=== PATIENT | female | born 1955 | race Caucasian/White ===

== ENCOUNTER 2019-09-22 05:38 | Outpatient (RCR) | payer MEDICARE, SELFPAY | END 2019-10-18 00:01 | LOC: ONCRAD 05:38 | PROVIDERS: Family Provider Nurse Practitioner; Visit Provider Internal Medicine Medical Oncology | DX: Z51.0 Encounter for antineoplastic radiation therapy (principal); C53.8 Malignant neoplasm of overlapping sites of cervix uteri; D69.6 Thrombocytopenia, unspecified; N39.0 Urinary tract infection, site not specified; D70.1 Agranulocytosis secondary to cancer chemotherapy; T45.1X5A Adverse effect of antineoplastic and immunosuppressive drugs, initial encounter; R33.9 Retention of urine, unspecified; D50.8 Other iron deficiency anemias; K59.00 Constipation, unspecified | CPT/HCPCS: 77336; 77386 ×4; 80053; 81001; 85025; 87077; 87086 ×2; 87186; 96365; 96366; J1642; J3475; J7050 ==

== ENCOUNTER 2019-11-07 06:43 | Outpatient (RCR) | payer MEDICARE, SELFPAY | END 2019-11-18 23:59 | disposition home or self-care (01) | LOC: ONCMED 06:43 | PROVIDERS: Family Provider Nurse Practitioner; PCP Nurse Practitioner; Visit Provider Internal Medicine Medical Oncology | DX: Z53.9 Procedure and treatment not carried out, unspecified reason (principal); C53.8 Malignant neoplasm of overlapping sites of cervix uteri; D69.59 Other secondary thrombocytopenia; Z79.82 Long term (current) use of aspirin; Z92.3 Personal history of irradiation ==

== ENCOUNTER → 2019-11-16 13:06 | Outpatient (BNVA) | payer MEDICARE, SELFPAY | PROVIDERS: Family Provider Nurse Practitioner; PCP Nurse Practitioner; Visit Provider Family Medicine | DX: I10 Essential (primary) hypertension (principal); G25.81 Restless legs syndrome; E03.8 Other specified hypothyroidism; J30.2 Other seasonal allergic rhinitis | CPT/HCPCS: 80053; 80061; 84443; 85025 ==

== ENCOUNTER 2019-12-09 05:48 | Outpatient (RCR) | payer MEDICARE, SELFPAY ==
[2019-11-30 13:20] LABS: Basophils % 0.4 %; Eosinophils # 0.2 10^3/uL (0.0-0.8); Eosinophils % 4.6 %; Hematocrit 32.3 % (37.0-47.0); Hemoglobin 10.2 g/dL (11.5-15.3); Lymphocytes # 0.7 10^3/uL (0.8-4.8); Lymphocytes % 14.7 %; Mean Corpuscular HGB Conc 31.6 g/dL (30.0-36.0); Mean Corpuscular Hemoglobin 29.8 pg (28.0-34.0); Mean Corpuscular Volume 94.4 fL (81-99); Mean Platelet Volume 9.7 fL (7.4-10.4); Monocytes # 0.4 10^3/uL (0.2-0.9); Monocytes % 9.7 %; Neutrophils # 3.2 10^3/uL (1.8-7.7); Neutrophils % 70.4 %; Nucleated Red Blood Cells % 0 %; Platelet Count 173 10^3/cmm (130-400); Red Blood Count 3.42 10^6/uL (4.1-5.3); Red Cell Distribution Width 16.1 % (12.1-15.1); White Blood Count 4.6 10^3/uL (4.0-10.0)
[2019-11-30 14:01] LABS: Add Urine Microscopic? YES; Bilirubin Urine Neg (NEGATIVE); Blood Urine 2+ (Negative); Glucose Urine UA Norm (Normal); Ketones Urine Negative (Negative); Leukocyte Esterase Urine Trace (Negative); Nitrate Urine Negative (Negative); Protein Urine Neg (Negative); Urine Appearance SL Hazy (CLEAR); Urine Color Yellow (Yellow); Urobilinogen Urine Norm (Negative); pH Urine 5 (5-7)
[2019-11-30 14:02] LABS: Alanine Aminotransferase 14 U/L (0-33); Albumin Level 3.8 g/dL (3.5-5.2); Alkaline Phosphatase 106 IU/L (35-105); Anion Gap 13.9 (5-19); Aspartate Amino Transferase 21 U/L (0-32); Blood Urea Nitrogen 16 mg/dL (8-23); Calcium 9.3 mg/dL (8.5-10.5); Carbon Dioxide 24 mmol/L (22-29); Chloride 106 mmol/L (98-107); Glomerular Filtration Rate 71.8 mL/min (90-130); Glucose 107 mg/dL (65-115); Potassium 3.9 mmol/L (3.5-5.1); Sodium 140 mmol/L (136-145); Total Bilirubin 0.3 mg/dL (0.15-1.2); Total Protein 7.8 g/dL (6.6-8.7)
[2019-11-30 14:05] LABS: Add Urine Culture? Yes; Bacteria Urine TRACE; Squamous Epithelial Cell Urine 0-4 (0-5)
--- NOTE | 2019-12-01 07:16 | ONC FU_ITS ---
Dr. Warner Patient Follow-Up Note Patient: Dionne Fitzgerald Unit #: [id number]: 1955 Dicatated By: Homar Warner M.D.Date of Visit:Nov 30, 2019 Onc Med Follow-up/Prog Note Chief Complaint: Cervical cancer. 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 By clinical evaluation her stage is at least IB2 (T1b2, N0, M0). She had presented with a 3-month history of intermittent vaginal bleeding. Her transvaginal ultrasound on 07/05/2019 showed marked thickening and decreased echogenicity and hypervascularity throughout the cervix. It was noted to be lobulated and enlarged, consistent with cervical carcinoma. The cervix appeared grossly abnormal on exam. Pap smear was attempted at that time was problematic due to the increased bleeding. Biopsy, though, did show undifferentiated carcinoma. She was referred to Dr. Zamorano in [place]. Her staging MRI of the pelvis on 07/21/2019 showed cervical mass which was noted to be possibly going into the uterus in its inferior anterior aspect. There was local surrounding enhancement suggestive of local infiltration and there was an enlarged iliac chain lymph node on the right side. Staging PET/CT on 07/22/2019 showed primary tumor mass involving the cervix with evidence of local spread to a right common iliac lymph node. Subcentimeter pulmonary nodules were FDG negative and nonspecific, but metastatic disease was not excluded. There was no other evidence of metastatic involvement. On 07/25/2019 she underwent exam under anesthesia and placement of Port-A-Cath venous access device. A repeat cervical biopsy at that time showed invasive poorly differentiated squamous cell carcinoma. She was recommended to undergo primary chemoradiation utilizing weekly cisplatin for chemosensitization. Her other medical illnesses include hypertension, hypothyroidism, COPD, and vitamin D deficiency. She has a history of treated hepatitis C. She also has a history of colonic polyps. She has a history of smoking 1 pack of cigarettes daily for approximately 20 years. She recently quit. INTERIM HISTORY: She began her radiation concurrently with weekly cisplatin on 08/10/2019. She completed the radiation on 09/22/2019 to a total dose of 6000 cGy. She tolerated the treatment pretty well, though her 6th weekly cisplatin infusion was held due to neutropenia and fatigue. She then underwent LDR brachytherapy with Ce-137 implants on 10/18/2019 and again on 10/31/2019. She tolerated it well. She is seen for a follow-up visit. She is feeling pretty good generally, though at times she is fatigued. Her ECOG score is 1. She has good appetite. She has no fever, night sweats, or hot flashes. She says she has been fighting a cold for 2 weeks, and she continues to have productive cough, shortness of breath, and some wheezing. She also has had some sinus drainage and sore throat. She has had occasional episodes of sharp pain in the substernal or left precordial area. She has had dark stools on her iron supplement. She has no complaints with bladder function. She has had some vaginal discharge now and then. She has had no vaginal bleeding. She complains of her joints are achy. She does not complain of headache. She sometimes has dizziness. She has numbness in her hands and feet which comes and goes. Medications: Aspirin Childrens 1 Tablet (of 81 mg) Tablet, chewable Oral daily, Levothyroxine Sodium 1 Tablet (of 75 mcg) Oral daily, Magnesium Oxide 1 Capsule (of 400 mg) Oral b.i.d., Metoprolol Tartrate 1 Tablet (of 25 mg) Oral daily Allergies: Gabapentin and Lyrica. Review of Systems: Constitutional - Her energy is generally pretty good. Her appetite is fair and her weight is stable. No fever, chills, hot flashes, or night sweats. ECOG score is 1, ENMT - She has sinus congestion/drainage. No mouth sores. No sore throat or difficulty swallowing, Hematologic/Lymphatic - No abnormal bruising or bleeding, Respiratory - She has shortness of breath upon exertion. She has a nonproductive cough. No pleuritic pain or hemoptysis, Cardiovascular - She has occasional sharp chest pains. No palpitations, Gastrointestinal - No nausea or vomiting. She has heartburn. No diarrhea or constipation. She has thick, black bowel movements, Genitourinary (F) - No dysuria or hematuria. No urinary frequency. No urgency or incontinence, Musculoskeletal - No joint or bone pain, Integumentary - No skin complications, Neurologic - No headache or dizziness. She has numbness and tingling in her hands and feet that comes and goes, Psychiatric - No anxiety or depression. No insomnia. Vital Signs: Performed on Nov 30, 2019 13:29 Height - 67.00 in Weight - 179.6 lbs (HIGH) BSA - 1.93 sq.m BMI - 28.13 Temperature - 97.6 F (LOW) Pulse - 71 /min Respiration - 20 /min BP - 145/79 mm(hg) (HIGH) O2 Sat - 97 % Pain - 0 Physical Examination: Constitutional - She looks pretty good generally, Eyes - Sclerae nonicteric. Conjunctivae clear, ENMT - No lesions noted in the oral cavity, Hematologic/Lymphatic - No cervical, clavicular, or axillary adenopathy, Respiratory - There are some coarse rales/rhonchi in the right lung field. The left lung sounds clear, Cardiovascular - Heart rhythm is regular. There is no murmur, gallop, or rub noted, Abdomen - Soft. Liver and spleen are not enlarged. There is no abdominal mass or ascites noted and there is no inguinal adenopathy, Extremities - No edema, Integumentary - She had no significant skin reaction to the radiation, Neurologic - No focal neurologic deficits noted. Lab/Imaging: Test performed on Nov 30, 2019 12:30 Sodium 140 mmol/L Potassium 3.9 mmol/L Chloride 106 mmol/L CO2 24 mmol/L Anion Gap 13.9 BUN 16 mg/dL Creatinine 0.8 mg/dL Cr Clearance (Est) 91.3400 mL/min eGFR 71.8 mL/min Glucose 107 mg/dL Calcium 9.3 mg/dL Protein, Total 7.8 g/dL Albumin 3.8 g/dL Globulin 4.0 g/dL Bilirubin, Total 0.3 mg/dL ALT (SGPT) 14 U/L AST (SGOT) 21 U/L Alkaline Phosphatase 106 IU/L WBC 4.6 10 3/uL RBC 3.42 10 6/uL HGB 10.2 g/dL HCT 32.3 % MCV 94.4 fL MCH 29.8 pg MCHC 31.6 g/dL RDW 16.1 % Platelet Count 173 10 3/cmm MPV 9.7 fL Neutrophils 3.2 10 3/uL Lymphocytes 0.7 10 3/uL Monocytes 0.4 10 3/uL Eosinophils 0.2 10 3/uL Basophils 0.0 10 3/uL Neutrophil % 70.4 % Lymphocyte % 14.7 % Monocyte % 9.7 % Eosinophil % 4.6 % Basophils % 0.4 % Impression: 1. 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 By clinical evaluation her disease appeared to be at least stage IB2 (T1b2, N1, M0). 2. She was mildly anemic, and her serum iron studies were consistent with iron deficiency. Her other medical illnesses include: 3. Hypertension. 4. Hypothyroidism. 5. COPD. 6. She has a history of treated hepatitis C. 7. Vitamin D deficiency. 8. She has a history of colonic polyps. She underwent primary chemoradiation utilizing weekly cisplatin chemotherapy. Her treatment began on 08/10/2019. She completed radiation on 09/22/2019 to a total dose of 6000 cGy. She tolerated the treatment well other than her sixth weekly cisplatin infusion was held due to neutropenia and fatigue. She then underwent LDR brachytherapy with Ce-137 implants on 10/18/2019 and on 10/31/2019. Overall, she tolerated the treatment well, though at this point she still has some fatigue and she is still mildly anemic. She has not yet been evaluated for response. Plan: She has completed her primary therapy. I will contact Dr. Zamorano's office in regard to scheduling her restaging PET/CT and a followup visit there. If she has evidence of complete response anticipate seeing her for a follow-up visit here in 3 months. Signed By: Homar Warner M.D. <<Signature on File>>
--- NOTE | 2019-12-08 09:34 | CT_ITS ---
WS: [id number] CT ABDOMEN PELVIS TECHNIQUE: Contrast-enhanced CT of the abdomen and pelvis with coronal and sagittal reformatted image s. CLINICAL INFORMATION: CERVICAL CANCER COMPARISON: 6 ,016 DLP: 956.[address] scans at [facility] use at least one of these dose optimization techniques: automat ed exposure control; mA and/or kV adjustment per patient size (includes targeted exams where dose is matched to clinical indication); or iterative reconstruction. FINDINGS: Liver is normal. Cholecystectomy clips. Spleen is normal. Adrenal glands are normal. Normal renal par enchymal enhancement. Small right lower pole renal cyst measuring 11 mm. Lung bases are well aerated. Normal caliber abdominal aorta. Small esophageal hiatal hernia. No adenopathy in the abdomen or pelv is. No evidence of small or large bowel obstruction. No pelvic or inguinal lymphadenopathy. Incidenta l fat-containing umbilical hernia. No evidence of metastatic disease in the abdomen or pelvis. Mild aortic calcification. Diffuse uterin e myometrium enhancement likely due to treatment-related changes. Possible fibroid near the uterine f undus measuring 9 mm. This can be further evaluated with ultrasound. CT/CT abdomen pelvis w con* [id number] IMPRESSION: 1. No evidence of metastatic disease in the abdomen or pelvis. 2. Moderate diffuse uterine myometrium enhancement likely due to therapy-relat ed changes. 3. Low-attenuation 9 mm lesion in the fundal myometrium may represent small fi broid. This can be followed up with ultrasound. 4. Prior cholecystectomy. 5. 11 mm right renal cyst.
[2019-12-08 10:30] LABS: Blood Urea Nitrogen 12 mg/dL (8-23); Glomerular Filtration Rate 71.8 mL/min (90-130)
[2019-12-08] MEDS: iohexol 300 mg/mL 100 mL Btl IV (11:02)
[2019-12-08] MEDS: iohexol 300 mg/mL 50 mL Btl PO (11:28)
--- NOTE | 2019-12-09 15:43 | ONCRAD EPV_ITS ---
Radiation Oncology Established Patient Visit Patient: Carly MR#: [id number] : 1955> Age: 64> Sex: Female> Dictated by: Dr. Mauro Aviles Date of Service: 12/09/2019 Referring Physician(s) : Dr. Emeterio Zamorano Diagnosis: T45.1X5A - Adverse effect of antineoplastic and immunosuppressive drugs, initial encounter, Diagnosed 09/19/2019 (Active) D69.59 - Other secondary thrombocytopenia, Diagnosed 09/19/2019 (Active) D50.8 - Other iron deficiency anemias, Diagnosed 08/17/2019 (Active) C53.8 - Malignant neoplasm of overlapping sites of cervix uteri, Diagnosed 07/25/2019 (Active) Stage IIIC1, T1b2, N1, M0 Chief Complaint / History of Present Illness: The patient is a 63 year old woman recently diagnosed with FIGO stage IIIC1 (T1b2, N1, M0) poorly differentiated squamous cell carcinoma of the cervix. She received external beam radiotherapy to a total dose of 60Gy followed by T&O brachytherapy completed on 10/31/2019. She notes some clear watery vaginal discharge, mild fatigue and poor appetite but denies pelvic pain, vaginal bleeding, dysuria, urgency, rectal irritation or bleeding. She underwent a CT of abdomen and pelvis on December 08, 2019 which showed no evidence of metastatic disease in the abdomen or pelvis. Current Medications: Aloxi, aspirin Childrens, cISplatin, dexamethasone Sodium Phosphate, emend, flucelvax, furosemide, levoFLOXacin, levothyroxine Sodium, lidocaine-Prilocaine, magnesium Oxide, magnesium Sulfate, metoprolol Tartrate, potassium Chloride, prochlorperazine Maleate. Allergies: Gabapentin and Lyrica. Current Complaints / Review of Systems: Constitutional - Complains of lack of appetite due to food not tasting too good. Complains of mild fatigue. Denies fever and night sweats. Eyes - Denies blurred vision. ENMT - Complains of altered taste. Denies dysphagia, ear pain, mouth dryness, stomatitis and tinnitus. Neck - Denies neck pain. Integumentary - Denies rash. Breasts - Denies pain. Cardiovascular - Denies arrhythmias, chest pain and edema. Respiratory - Complains of a moderate cough which is non-productive. Complains of wheezing. Denies dyspnea and hemoptysis. Gastrointestinal - Complains of abdominal pain that is intermittent located in the right upper quadrant. Denies constipation, diarrhea, heartburn / dyspepsia, melena / GI bleeding, nausea and vomiting. No rectal bleeding or irritation. Genitourinary (F) - Complains of nocturia occasionally. Complains of vaginal discharge / bleeding described as clear, watery. Denies dysuria, frequency, urgency and vaginal spotting. Musculoskeletal - Complains of joint pain in the lower back. Denies bone pain and muscle weakness. Neurologic - Complains of headaches occasionally. Denies dizziness. Endocrine - Complains of thyroid disease. Denies diabetes. Hematologic/Lymphatic - Denies tender or enlarged lymph nodes. Vital Signs: Performed on 12/09/2019 10:17 AM BMI - 27.66 kg/m2 (high), Height - 67.00 in, Weight - 176.6 lbs, Temperature - 98.0 f, Pulse - 67, Respiration - 18, O2 Sat - 99 %, Pain - 2 and BP - 125/ 82 mm(hg). Physical Exam: General: Alert and oriented x 3. No acute distress. HEENT: Normocephalic, atraumatic. Extraocular Movements Intact: Pupils Equal, Round, Reactive to Light and Accommodation: Sclerae anicteric. Oral cavity is clear without lesions, masses or ulcers. NECK: Supple without supraclavicular or jugular lymphadenopathy. LUNGS: Clear to auscultation bilaterally without rales, rhonchi or wheeze. HEART: Regular rate and rhythm, normal S1 and S2 without murmur, gallop or rub. MUSCULOSKELETAL: No tenderness or percussion pain over the axial skeleton, scapulae or pelvis. ABDOMEN: Soft, nontender, nondistended without masses or organomegaly. Bowel sounds are present. EXTREMITIES: No peripheral edema is identified. Limited motor and sensory examination are grossly intact and symmetric bilaterally. NEUROLOGIC: Cranial nerves II ???XII are grossly intact. Normal sensation, strength 5/5 in all extremities, normal gait, no ataxia. Performance Status: 1 - No physically strenuous activity, but ambulatory and able to carry out light or sedentary work (e.g. office work, light house work). (ECOG) Lab: Test performed on 11/30/2019 12:30 PM RBC - 3.42 10 6/ul (low), HGB - 10.2 g/dl (low), HCT - 32.3 % (low), RDW - 16.1 % (high), Lymphocytes - 0.7 10 3/ul (low), eGFR - 71.8 ml/min (low) and Alkaline Phosphatase - 106 iu/l (high). Pathology: poorly differentiated squamous cell carcinoma of the cervix Imaging: See HPI Impression/plan: The patient has recovered well from RT. there is no clinical evidence of recurrence or metastatic disease. The patient will continue to follow-up with [facility]. I will order a PET/CT in early February 2020 and the patient will follow up with me afterwards. Signed by: 12/09/2019 3:43:05 PM <<Signature on File>> CPT Code: CPT Code: Signed By: Dr. Mauro Aviles, 12/09/2019 3:43:06 PM <<Signature on File>>
== END 2019-12-17 23:59 | disposition home or self-care (01) ==
LOC: ONCMED 05:48
PROVIDERS: Family Provider Nurse Practitioner; PCP Nurse Practitioner; Visit Provider Internal Medicine Medical Oncology
DX: C53.8 Malignant neoplasm of overlapping sites of cervix uteri (principal); C77.5 Secondary and unspecified malignant neoplasm of intrapelvic lymph nodes; I10 Essential (primary) hypertension; E03.9 Hypothyroidism, unspecified; J44.9 Chronic obstructive pulmonary disease, unspecified; E55.9 Vitamin D deficiency, unspecified; D50.9 Iron deficiency anemia, unspecified; Z79.82 Long term (current) use of aspirin; Z87.440 Personal history of urinary (tract) infections; Z87.891 Personal history of nicotine dependence; Z86.19 Personal history of other infectious and parasitic diseases; Z92.3 Personal history of irradiation
CPT/HCPCS: 36415; 36591; 74177; 80053; 81001; 82565; 84520; 85025; 87086; 99213; 99214; Q9967

== ENCOUNTER 2020-01-16 06:30 | Outpatient (RCR) | payer MEDICARE, SELFPAY ==
[2019-12-26] MEDS: sodium chloride 0.9% 250 ML 75 ML IV (08:43)
[2019-12-26] MEDS: sodium chloride 0.9% 250 ML 999 ML IV (08:43)
[2019-12-26 08:58] LABS: Hematocrit 35.5 % (37.0-47.0); Hemoglobin 11.1 g/dL (11.5-15.3); Lymphocytes # 0.4 10^3/uL (0.8-4.8); Lymphocytes % 4.6 %; Mean Corpuscular HGB Conc 31.3 g/dL (30.0-36.0); Mean Corpuscular Hemoglobin 29.4 pg (28.0-34.0); Mean Corpuscular Volume 93.9 fL (81-99); Mean Platelet Volume 9.6 fL (7.4-10.4); Monocytes # 0.1 10^3/uL (0.2-0.9); Neutrophils # 7.5 10^3/uL (1.8-7.7); Neutrophils % 93.8 %; Nucleated Red Blood Cells % 0 %; Platelet Count 172 10^3/cmm (130-400); Red Blood Count 3.78 10^6/uL (4.1-5.3); Red Cell Distribution Width 12.9 % (12.1-15.1)
[2019-12-26 09:11] LABS: Alanine Aminotransferase 11 U/L (0-33); Albumin Level 3.8 g/dL (3.5-5.2); Alkaline Phosphatase 104 IU/L (35-105); Anion Gap 15.9 (5-19); Aspartate Amino Transferase 16 U/L (0-32); Blood Urea Nitrogen 14 mg/dL (8-23); Calcium 9.5 mg/dL (8.5-10.5); Carbon Dioxide 20 mmol/L (22-29); Chloride 109 mmol/L (98-107); Globulin 3.9 g/dL (1.3-4.6); Glomerular Filtration Rate 83.7 mL/min (90-130); Glucose 227 mg/dL (65-115); Osmolality Calculated 295 mOsm/kg (285-295); Potassium 3.9 mmol/L (3.5-5.1); Sodium 141 mmol/L (136-145); Total Bilirubin 0.2 mg/dL (0.15-1.2); Total Protein 7.7 g/dL (6.6-8.7)
[2019-12-26 14:33] LABS: Protein Urine Neg (Negative); Urine Appearance Clear (CLEAR); Urine Color Yellow (Yellow); pH Urine 5 (5-7)
[2019-12-26 14:34] LABS: Add Urine Microscopic? YES; Bilirubin Urine Neg (NEGATIVE); Blood Urine 2+ (Negative); Glucose Urine UA Norm (Normal); Ketones Urine Negative (Negative); Leukocyte Esterase Urine Trace (Negative); Nitrate Urine Negative (Negative); Sulfosalicylic Acid Urine Negative; Urobilinogen Urine Norm (Negative)
[2019-12-26 15:21] LABS: Squamous Epithelial Cell Urine 0-4 (0-5); WBC Urine 25-40 /hpf (0-5)
[2019-12-26 15:22] LABS: Add Urine Culture? Yes; Bacteria Urine 1+
[2019-12-26] MEDS: FUROsemide 10 mg/mL SDV 2mL 20 MG IV ×2 (17:02→17:10)
[2019-12-26] MEDS: sodium chlor 0.9% + KCl 20 mEq 20 MEQ/1,000 ML BAG 500 MEQ IV (17:05)
[2019-12-26] MEDS: pegfilgrastim 6 mg/0.6 mL Kit (onpro) SUBCUT ×2 (17:10)
--- NOTE | 2019-12-26 20:49 | ONC FU_ITS ---
[facility] Patient Note Patient: Dionne Fitzgerald Unit #: [id number]: [id number] Dictated By: Andriy BeckettDate of Visit: Dec 26, 2019 Onc MED Follow-Up/Prog Note Chief Complaint: Cervical cancer. 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 By clinical evaluation her stage is at least IB2 (T1b2, N0, M0). She had presented with a 3-month history of intermittent vaginal bleeding. Her transvaginal ultrasound on 07/05/2019 showed marked thickening and decreased echogenicity and hypervascularity throughout the cervix. It was noted to be lobulated and enlarged, consistent with cervical carcinoma. The cervix appeared grossly abnormal on exam. Pap smear was attempted at that time was problematic due to the increased bleeding. Biopsy, though, did show undifferentiated carcinoma. She was referred to Dr. Zamorano in [place]. Her staging MRI of the pelvis on 07/21/2019 showed cervical mass which was noted to be possibly going into the uterus in its inferior anterior aspect. There was local surrounding enhancement suggestive of local infiltration and there was an enlarged iliac chain lymph node on the right side. Staging PET/CT on 07/22/2019 showed primary tumor mass involving the cervix with evidence of local spread to a right common iliac lymph node. Subcentimeter pulmonary nodules were FDG negative and nonspecific, but metastatic disease was not excluded. There was no other evidence of metastatic involvement. On 07/25/2019 she underwent exam under anesthesia and placement of Port-A-Cath venous access device. A repeat cervical biopsy at that time showed invasive poorly differentiated squamous cell carcinoma. She was recommended to undergo primary chemoradiation utilizing weekly cisplatin for chemosensitization. Her other medical illnesses include hypertension, hypothyroidism, COPD, and vitamin D deficiency. She has a history of treated hepatitis C. She also has a history of colonic polyps. She has a history of smoking 1 pack of cigarettes daily for approximately 20 years. She recently quit. INTERIM HISTORY: She began her radiation and she received her week 1 infusion of cisplatin on 08/10/2019. She tolerated the chemotherapy without acute toxicity. She underwent primary chemoradiation utilizing weekly cisplatin chemotherapy. Her treatment began on 08/10/2019. She completed radiation on 09/22/2019 to a total dose of 6000 cGy. She tolerated the treatment well other than her sixth weekly cisplatin infusion was held due to neutropenia and fatigue. She then underwent LDR brachytherapy with Ce-137 implants on 10/18/2019 and on 10/31/2019. Ms. Fitzgerald has been advised per Dr. Powell to proceed with continuation of the cisplatin with addition of Taxol and Avastin every 3 weeks for 6 cycles. She also need Neulasta support. She is here today to start her first cycle. She has no new concerns. She states overall she is doing well. She states she is had a chronic cough but is able to cough anything up. She states at times he feels like there is congestion there and other times it is clear. The cough is no worse than her normal but is not any better either. She has not tried any Mucinex to help thin the sputum to see if she can get it up. She also had follow-up UA which indicates she continues to have bacteria in her urine. She is symptomatic and that she is having frequency and burning. She denies any fever or chills. She denies any nausea or vomiting. She states her energy is good and her appetite is good. She denies any new pain. She is had no vaginal bleeding. She denies any lower extremity edema. Her ECOG is 1. Past Medical History: Chronic obstructive pulmonary disease History of colonic polyps History of hepatitis C, treated in 2017 Hypertension Hypothyroidism Vitamin D deficiency Past Surgical History: Diagnostic laparoscopy Flu vaccine 2019 in 2019 Placement of Port-A-Cath venous access device in 2019 Cholecystectomy in 2018 Colonoscopy in 2016 Allergies: Gabapentin and Lyrica. Medications: Aspirin Childrens 1 Tablet (of 81 mg) Tablet, chewable Oral daily Dexamethasone (4 mg) Tablet Oral Take as Directed Irbesartan 1 (300 mg) Tablet Oral daily Levothyroxine Sodium 1 Tablet (of 75 mcg) Oral daily Magnesium Oxide 1 Capsule (of 400 mg) Oral b.i.d. Metoprolol Tartrate 1 Tablet (of 25 mg) Oral daily Family History: Ms. Fitzgerald's mother is alive. Ms. Fitzgerald's father at age 87. Ms. Fitzgerald has 1 brother who is alive. Father at age 87 with multiple myeloma. Mother is still living at age 85 and she is in pretty good health. A brother has been getting phlebotomies for polycythemia. It is uncertain whether this is PRV or secondary polycythemia. Social History: Ms. Fitzgerald is and she is unemployed. Ms. Fitzgerald quit smoking less than one year ago but had smoked 1.0 pack/day for 20 years. She has no history of drinking. She has a history of smoking 1 pack of cigarettes daily for approximately 20 years. She recently quit smoking. She does not drink alcohol. Review Of Symptoms: Constitutional Denies fevers, chills, night sweats, excessive fatigue or weight loss. Allergic/Immunologic No reactions. Eyes Denies significant visual changes. No diplopia. No amaurosis. ENMT Denies changes in hearing, sore throat, mouth sores, difficulty or changes in swallowing ability, and/or sinus drainage. Endocrine No diabetes, thyroid disease or hormone replacement. Denies hot flashes or night sweats. Hematologic/Lymphatic Denies easy bruising or bleeding. The patient denies any tender or palpable lymph nodes. Respiratory Denies dyspnea on exertion, chest pain, cough or hemoptysis. Denies orthopnea. Has had chronic chest congestion but unable to cough anything up. No wheezing. Cardiovascular Denies anginal chest pain, palpitations or orthopnea. Gastrointestinal Denies nausea, vomiting, diarrhea, GI bleeding, or constipation. Denies change in bowel habits and/or stool color, no heartburn or early satiety. Genitourinary (F) No hematuria, hesitancy, incontinence, vaginal bleeding, discharge or other problems with urination. Musculoskeletal Denies joint pain, swelling or redness. No decreased range of motion. Integumentary Denies chronic rashes, inflammation, ulcerations or skin changes. Neurologic Denies headache, blurred vision, and no areas of focal weakness or numbness. Normal gait. No sensory problems. Psychiatric Denies insomnia, depression, gabe or mood swings. Vital Signs: Performed on Dec 26, 2019 10:27 Height - 67.00 in Weight - 180.0 lbs (HIGH) BSA - 1.93 sq.m BMI - 28.19 Temperature - 98.0 F (LOW) Pulse - 78 /min Respiration - 24 /min BP - 131/79 mm(hg) O2 Sat - 95 % (LOW) Pain - 0,1 - No physically strenuous activity, but ambulatory and able to carry out light or sedentary work (e.g. office work, light house work). (ECOG) Physical Examination: Constitutional Alert, oriented, no acute distress. Skin pink, warm and dry. Head Normocephalic; atraumatic. Eyes Conjunctivae and sclerae are clear and without icterus. Pupils are reactive and equal. Neck Supple without masses or thyromegaly. No jugular venous distension. Hematologic/Lymphatic No petechiae or purpura. No tender or palpable lymph nodes in the cervical or supraclavicular areas. Respiratory Lungs are clear to auscultation without rhonchi or wheezing. Raspy prior to non productive cough, then clear Cardiovascular Regular rate and rhythm of heart without murmurs,clicks, gallops or rubs. Back/Spine Non-tender to palpation. Extremities No visible deformities, no cyanosis, clubbing or edema. Musculoskeletal No tenderness or swelling, normal range of motion without obvious weakness. Integumentary No rashes or lesions. Neurologic No sensory or motor deficits, normal cerebellar function, normal gait. Psychiatric Alert and oriented times three. Coherent speech. Verbalizes understanding of our discussions today. Laboratory:Test performed on Dec 26, 2019 14:00 Ua Micro: WBC 25-40 /hpf Ua Micro: RBC 10-15 /hpf Ua Micro: Squam Epith Cells 0-4 Ua Micro: Bacteria 1+ Test performed on Dec 26, 2019 08:31 Sodium 141 mmol/L Potassium 3.9 mmol/L Chloride 109 mmol/L CO2 20 mmol/L Anion Gap 15.9 BUN 14 mg/dL Creatinine 0.7 mg/dL Cr Clearance (Est) 99.9700 mL/min eGFR 83.7 mL/min Glucose 227 mg/dL Calcium 9.5 mg/dL Protein, Total 7.7 g/dL Albumin 3.8 g/dL Globulin 3.9 g/dL Bilirubin, Total 0.2 mg/dL ALT (SGPT) 11 U/L AST (SGOT) 16 U/L Alkaline Phosphatase 104 IU/L WBC 8.0 10 3/uL RBC 3.78 10 6/uL HGB 11.1 g/dL HCT 35.5 % MCV 93.9 fL MCH 29.4 pg MCHC 31.3 g/dL RDW 12.9 % Platelet Count 172 10 3/cmm MPV 9.6 fL Neutrophils 7.5 10 3/uL Lymphocytes 0.4 10 3/uL Monocytes 0.1 10 3/uL Eosinophils 0.0 10 3/uL Basophils 0.0 10 3/uL Neutrophil % 93.8 % Lymphocyte % 4.6 % Monocyte % 1.0 % Eosinophil % 0.0 % Basophils % 0.0 % Test performed on Sep 19, 2019 10:15 Ua Color YELLOW Ua Appearance CLEAR Ua Glucose NORM Ua Bilirubin NEG Colored urine samples may result in false positive dipstick reactions. Ua Ketones NEG Ua Specific [place] 1.025 Ua Blood 2+ Ua pH 5 Ua Protein NEG Ua Nitrites NEG Ua Leukocyte Esterase NEG Test performed on Sep 07, 2019 11:22 Ferritin 289.0 ng/ml Test performed on Sep 06, 2019 11:22 Iron 93 ug/dL % Iron Saturation 35.9 % UIBC 166 ug/dL Impression: 1. 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 By clinical evaluation her disease appeared to be at least stage IB2 (T1b2, N1, M0). 2. She was mildly anemic, and her serum iron studies were consistent with iron deficiency. Her other medical illnesses include: 3. Hypertension. 4. Hypothyroidism. 5. COPD. 6. She has a history of treated hepatitis C. 7. Vitamin D deficiency. 8. She has a history of colonic polyps. She underwent primary chemoradiation utilizing weekly cisplatin chemotherapy. Her treatment began on 08/10/2019. She completed radiation on 09/22/2019 to a total dose of 6000 cGy. She tolerated the treatment well other than her sixth weekly cisplatin infusion was held due to neutropenia and fatigue. She then underwent LDR brachytherapy with Ce-137 implants on 10/18/2019 and on 10/31/2019. Overall, she tolerated the treatment well. Ms. Fitzgerald did have follow-up with Dr. Zamorano at which time he recommended that she pursue 6 cycles of cisplatin/Taxol/Avastin. She will tentatively have PET CT follow-up in February 2020. Plan: 1. Proceed with cycle 1 cisplatin/Taxol/Avastin every 3 weeks for 6 cycles. She will also have Neulasta support. 2. Steroid premedication compliance confirmed. 3. We will make sure that she has refills of Compazine, ondansetron and Ativan available in the event that she needs them for antiemetics at home. 4. Today's labs were reviewed in detail and discussed with and a copy was given to her WBC 8.0, hemoglobin 11.1, platelets 122,000 ANC is 7500 random glucose was 227 and creatinine is 0.7 LFTs are normal. We will need to watch her glucoses she will check them at home and let us know how they are running over the next week or so. She may need sliding scale insulin while on the steroids. 5. Given her UA symptoms and abnormal urinalysis from today. We will try Levaquin 250 for 5 days. I have also sent a prescription for Mucinex D to see if this will help with congestion. She will be twice daily dosing. 6. She will have weekly interim labs these may be done in home but they would not be through the port. She wants to come in weekly and have her port flush and labs accessed that way that would be fine as well. 7. We will plan to see her back in 3 weeks with CBC, CMP and repeat UA. She will be due for cycle 2 cisplatin, Taxol, Avastin. 8. Ms. Fitzgerald was instructed to contact us in interim should questions or problems arise. 9. The patient and family were informed of chemotherapy plan and specific drugs were discussed. We also discussed how chemotherapy works and identified common side effects including alopecia; myelosuppression-including neutropenia, anemia, bleeding or bruising; skin changes; mouth sores; drug hypersensitivity/allergic reactions or anaphylaxis and extravasation. In regards to the Avastin we discussed potential side effects including infusion reaction, hypertension, proteinuria, hemorrhage fatigue, headache, nausea, diarrhea epistasis amongst others. They have also been informed how to contact the clinic with side effects or symptoms, including but not limited to fever greater than 100.4 degrees, chills, sore throat, bleeding or bruising that is not explained or mouth sores, cough, nasal discharge, diarrhea, constipation, nausea and/or vomiting not relieved with medications on hand at home, as well as any other concern or question they may have. Our hours are 8:00 a.m. to 4:30 p.m. on Thursday through and 8-12:00 on Thursday. However, someone is control chemist 24 hours per day and they have been advised to contact the [facility] at if it is after hours. We have also discussed potential long-term side effects of chemotherapy including secondary cancers, infertility, pulmonary complications, cardiac complications, and again peripheral neuropathy. We have discussed that they certainly need to let us know before taking any antioxidants or herbal or further dietary supplements, as we are unsure of how these agents react with chemotherapy and we request that they avoid these products for now. They were informed that it is okay to take multivitamins at normal doses. They verbally state that they understand to take all medications as directed by their healthcare provider unless otherwise indicated. They also verbalized understanding to leave the pressure dressing on the intravenous administration site for at least two hours after treatment. Instructions for oral care with baking soda and salt water rinses as well as a guide for use of [id number] medication were provided with the treatment plan. They have been given a written patient treatment plan, of which a copy is in the chart, as well as specific drug information. They have no questions and verbalized understanding and are willing to proceed with chemotherapy at this time. The majority of this visit was spent in face to face communication with this patient and/or his/her family in regards to plan of care, side effect identification and management. Signed By: Andriy Beckett-, AOCNP Homar Warner MD <<Signature on File>>
[2020-01-02 16:08] LABS: Urine Appearance Clear (CLEAR); Urine Color Yellow (Yellow)
[2020-01-02 16:09] LABS: Add Urine Microscopic? YES; Bilirubin Urine Neg (NEGATIVE); Blood Urine 3+ (Negative); Glucose Urine UA Norm (Normal); Ketones Urine Negative (Negative); Leukocyte Esterase Urine Negative (Negative); Nitrate Urine Negative (Negative); Protein Urine Neg (Negative); Urobilinogen Urine Norm (Negative); pH Urine 5 (5-7)
[2020-01-02 16:11] LABS: Add Urine Culture? No; Bacteria Urine TRACE; RBC Urine 0-4 /hpf (0-2); Squamous Epithelial Cell Urine RARE (0-5); WBC Urine 0-4 /hpf (0-5)
[2020-01-02 16:19] LABS: Basophils % 0.8 %; Eosinophils # 0.1 10^3/uL (0.0-0.8); Eosinophils % 3.1 %; Hematocrit 33.3 % (37.0-47.0); Hemoglobin 10.6 g/dL (11.5-15.3); Lymphocytes # 0.5 10^3/uL (0.8-4.8); Lymphocytes % 18.9 %; Mean Corpuscular HGB Conc 31.8 g/dL (30.0-36.0); Mean Corpuscular Hemoglobin 30.6 pg (28.0-34.0); Mean Corpuscular Volume 96.2 fL (81-99); Mean Platelet Volume 12.4 fL (7.4-10.4); Monocytes # 0.6 10^3/uL (0.2-0.9); Monocytes % 23.6 %; Neutrophils # 1.3 10^3/uL (1.8-7.7); Nucleated Red Blood Cells % 0.8 %; Platelet Count 51 10^3/cmm (130-400); Red Blood Count 3.46 10^6/uL (4.1-5.3); Red Cell Distribution Width 12.9 % (12.1-15.1); White Blood Count 2.5 10^3/uL (4.0-10.0)
[2020-01-02 17:39] LABS: Alanine Aminotransferase 17 U/L (0-33); Albumin Level 3.8 g/dL (3.5-5.2); Alkaline Phosphatase 114 IU/L (35-105); Anion Gap 13.2 (5-19); Aspartate Amino Transferase 17 U/L (0-32); Blood Urea Nitrogen 14 mg/dL (8-23); Carbon Dioxide 25 mmol/L (22-29); Chloride 108 mmol/L (98-107); Globulin 3.3 g/dL (1.3-4.6); Glomerular Filtration Rate 71.8 mL/min (90-130); Glucose 105 mg/dL (65-115); Osmolality Calculated 291 mOsm/kg (285-295); Potassium 4.2 mmol/L (3.5-5.1); Sodium 142 mmol/L (136-145); Total Bilirubin 0.3 mg/dL (0.15-1.2); Total Protein 7.1 g/dL (6.6-8.7)
[2020-01-02 18:33] LABS: Slide Review Slide Review Perform
[2020-01-09 16:37] LABS: Basophils % 0.4 %; Eosinophils % 0.4 %; Hematocrit 35.6 % (37.0-47.0); Hemoglobin 10.8 g/dL (11.5-15.3); Lymphocytes # 0.7 10^3/uL (0.8-4.8); Lymphocytes % 10.2 %; Mean Corpuscular HGB Conc 30.3 g/dL (30.0-36.0); Mean Corpuscular Volume 98.9 fL (81-99); Mean Platelet Volume 11.5 fL (7.4-10.4); Monocytes # 0.9 10^3/uL (0.2-0.9); Monocytes % 11.9 %; Neutrophils # 5.6 10^3/uL (1.8-7.7); Neutrophils % 76.3 %; Nucleated Red Blood Cells % 0 %; Platelet Count 122 10^3/cmm (130-400); Red Cell Distribution Width 13.6 % (12.1-15.1); White Blood Count 7.3 10^3/uL (4.0-10.0)
[2020-01-09 16:47] LABS: Alanine Aminotransferase 13 U/L (0-33); Albumin Level 3.9 g/dL (3.5-5.2); Alkaline Phosphatase 123 IU/L (35-105); Anion Gap 15.3 (5-19); Aspartate Amino Transferase 17 U/L (0-32); Blood Urea Nitrogen 12 mg/dL (8-23); Calcium 9.4 mg/dL (8.5-10.5); Carbon Dioxide 25 mmol/L (22-29); Chloride 103 mmol/L (98-107); Globulin 3.4 g/dL (1.3-4.6); Glomerular Filtration Rate 62.6 mL/min (90-130); Glucose 87 mg/dL (65-115); Osmolality Calculated 283 mOsm/kg (285-295); Potassium 4.3 mmol/L (3.5-5.1); Sodium 139 mmol/L (136-145); Total Bilirubin 0.2 mg/dL (0.15-1.2); Total Protein 7.3 g/dL (6.6-8.7)
[2020-01-09 17:32] LABS: Iron 36 ug/dL (37-145); Percent Saturation 13.7 % (20-50); Total Iron Binding Capacity 261 mcg/dl; Unsaturated Iron Binding 225 ug/dL (112-347)
[2020-01-09 17:48] LABS: Vitamin B12 1555 pg/mL (232-1245)
[2020-01-16 08:43] LABS: Basophils % 0.1 %; Hematocrit 35.4 % (37.0-47.0); Hemoglobin 11.2 g/dL (11.5-15.3); Lymphocytes # 0.5 10^3/uL (0.8-4.8); Lymphocytes % 5.9 %; Mean Corpuscular HGB Conc 31.6 g/dL (30.0-36.0); Mean Corpuscular Hemoglobin 29.7 pg (28.0-34.0); Mean Corpuscular Volume 93.9 fL (81-99); Mean Platelet Volume 9.7 fL (7.4-10.4); Monocytes # 0.1 10^3/uL (0.2-0.9); Neutrophils # 7.9 10^3/uL (1.8-7.7); Neutrophils % 91.7 %; Nucleated Red Blood Cells % 0 %; Platelet Count 230 10^3/cmm (130-400); Red Blood Count 3.77 10^6/uL (4.1-5.3); Red Cell Distribution Width 13.4 % (12.1-15.1); White Blood Count 8.7 10^3/uL (4.0-10.0)
[2020-01-16 09:06] LABS: Alanine Aminotransferase 8 U/L (0-33); Albumin Level 4.1 g/dL (3.5-5.2); Alkaline Phosphatase 119 IU/L (35-105); Anion Gap 17.1 (5-19); Aspartate Amino Transferase 14 U/L (0-32); Blood Urea Nitrogen 15 mg/dL (8-23); Calcium 9.9 mg/dL (8.5-10.5); Carbon Dioxide 22 mmol/L (22-29); Chloride 105 mmol/L (98-107); Globulin 3.5 g/dL (1.3-4.6); Glomerular Filtration Rate 83.7 mL/min (90-130); Glucose 172 mg/dL (65-115); Osmolality Calculated 290 mOsm/kg (285-295); Potassium 4.1 mmol/L (3.5-5.1); Sodium 140 mmol/L (136-145); Total Bilirubin 0.2 mg/dL (0.15-1.2); Total Protein 7.6 g/dL (6.6-8.7)
[2020-01-16 09:28] LABS: Add Urine Microscopic? YES; Bilirubin Urine Neg (NEGATIVE); Blood Urine 2+ (Negative); Glucose Urine UA Norm (Normal); Ketones Urine Negative (Negative); Leukocyte Esterase Urine 2+ (Negative); Nitrate Urine Negative (Negative); Protein Urine 1+ (Negative); Urine Appearance SL Hazy (CLEAR); Urine Color Yellow (Yellow); Urobilinogen Urine Norm (Negative)
[2020-01-16 09:29] LABS: Squamous Epithelial Cell Urine 0-4 (0-5); WBC Urine 55-80 /hpf (0-5)
[2020-01-16 09:30] LABS: Add Urine Culture? Yes; Bacteria Urine 1+; Mucus Urine TRACE
--- NOTE | 2020-01-19 19:36 | ONC FU_ITS ---
Dr. Warner Patient Follow-Up Note Patient: Dionne Fitzgerald Unit #: [id number]: [id number] Dicatated By: Homar Warner M.D.Date of Visit:Jan 16, 2020 Onc Med Follow-up/Prog Note Chief Complaint: Cervical cancer. 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 By clinical evaluation her stage is at least IB2 (T1b2, N0, M0). She had presented with a 3-month history of intermittent vaginal bleeding. Her transvaginal ultrasound on 07/05/2019 showed marked thickening and decreased echogenicity and hypervascularity throughout the cervix. It was noted to be lobulated and enlarged, consistent with cervical carcinoma. The cervix appeared grossly abnormal on exam. Pap smear was attempted at that time was problematic due to the increased bleeding. Biopsy, though, did show undifferentiated carcinoma. She was referred to Dr. Zamorano in [place]. Her staging MRI of the pelvis on 07/21/2019 showed cervical mass which was noted to be possibly going into the uterus in its inferior anterior aspect. There was local surrounding enhancement suggestive of local infiltration and there was an enlarged iliac chain lymph node on the right side. Staging PET/CT on 07/22/2019 showed primary tumor mass involving the cervix with evidence of local spread to a right common iliac lymph node. Subcentimeter pulmonary nodules were FDG negative and nonspecific, but metastatic disease was not excluded. There was no other evidence of metastatic involvement. On 07/25/2019 she underwent exam under anesthesia and placement of Port-A-Cath venous access device. A repeat cervical biopsy at that time showed invasive poorly differentiated squamous cell carcinoma. She was recommended to undergo primary chemoradiation utilizing weekly cisplatin for chemosensitization. Her other medical illnesses include hypertension, hypothyroidism, COPD, and vitamin D deficiency. She has a history of treated hepatitis C. She also has a history of colonic polyps. She has a history of smoking 1 pack of cigarettes daily for approximately 20 years. She recently quit. INTERIM HISTORY: She began her radiation concurrently with weekly cisplatin on 08/10/2019. She completed the radiation on 09/22/2019 to a total dose of 6000 cGy. She tolerated the treatment pretty well, though her 6th weekly cisplatin infusion was held due to neutropenia and fatigue. She then underwent LDR brachytherapy with Ce-137 implants on 10/18/2019 and again on 10/31/2019. She tolerated it well. Restaging CT of the abdomen/pelvis on 12/08/2019 showed a low-attenuation 9 mm lesion in the fundal myometrium, felt to possibly represent a small fibroid. There was moderate diffuse uterine myometrium enhancement which was felt to be likely due to therapy related changes. There was no evidence of metastatic disease in the abdomen or pelvis. On 12/23/2019 she began cycle 1 of postoperative adjuvant chemotherapy with cisplatin/paclitaxel in combination with Avastin. She is seen for a follow-up visit. She had significant side effects following her initial treatment with cisplatin/paclitaxel/Avastin, including severe weakness/fatigue and neuropathy. At this point her energy is still very low. She is able to do some light work. Her ECOG score is 1. Appetite is so-so. She has lost a little weight. She does not have fever. She occasionally has sweating at night. She has had no mouth sores. She has cough, which is chronic. She does not complain of shortness of breath or chest pain. She had only mild nausea. She initially had constipation, but she is now having a little bit of diarrhea. She is having some burning with urination. She complains of having some pain with the dilator. She has pain in her lower back and legs. She has numbness/tingling in her feet that never goes away, and she also has some tingling in her hands. She complains that she is wobbly. Medications: Aspirin Childrens 1 Tablet (of 81 mg) Tablet, chewable Oral daily, Dexamethasone (4 mg) Tablet Oral Take as Directed, Gabapentin 1 Capsule (of 100 mg) Oral t.i.d., Irbesartan 1 (300 mg) Tablet Oral daily, Levothyroxine Sodium 1 Tablet (of 75 mcg) Oral daily, Magnesium Oxide 1 Capsule (of 400 mg) Oral b.i.d., Metoprolol Tartrate 1 Tablet (of 25 mg) Oral daily Allergies: Gabapentin and Lyrica. Review of Systems: Constitutional - Her energy level is low. She is able to do small amounts of housework. Her appetite is good and weight is down 6 pounds from last visit. No fever, chills and hot flashes. She has had night sweats. ECOG score is 1, ENMT - No sinus congestion/drainage. No mouth sores. No sore throat or difficulty swallowing, Hematologic/Lymphatic - No abnormal bruising or bleeding, Respiratory - No shortness of breath. She has cough. No pleuritic pain or hemoptysis, Cardiovascular - No angina pain. No palpitations, Gastrointestinal - She has intermitten nausea. No vomiting. No heartburn or acid reflux. Her stools are loose. She had some constipation prior to having loose stools. No blood in the stool or black stools, Genitourinary (F) - She has some dysuria. No hematuria. No urinary frequency. No urgency or incontinence. She has pain with usage of vaginal dilater, Musculoskeletal - She has arthritis pain in her lower back and legs, Integumentary - No skin complications, Neurologic - No headache. She has dizziness with positional changes. She has numbness and tingling in her hands and feet that started after her first chemo treatment, Psychiatric - She has some mild anxiety. No depression. No insomnia. Vital Signs: Performed on Jan 16, 2020 09:14 Height - 67.00 in Weight - 174.6 lbs (LOW) BSA - 1.91 sq.m BMI - 27.35 Temperature - 97.2 F (LOW) Pulse - 86 /min Respiration - 24 /min BP - 168/81 mm(hg) (HIGH) O2 Sat - 97 % Pain - 0 Physical Examination: Constitutional - She looks a little bit weak generally, Eyes - Sclerae nonicteric. Conjunctivae clear, ENMT - No lesions noted in the oral cavity, Hematologic/Lymphatic - No cervical, clavicular, or axillary adenopathy, Respiratory - Lungs sound clear, Cardiovascular - Heart rhythm is regular. There is no murmur, gallop, or rub noted, Abdomen - Soft. Liver and spleen are not enlarged. There is no abdominal mass or ascites noted and there is no inguinal adenopathy, Extremities - No edema, Neurologic - No focal neurologic deficits noted. Lab/Imaging: Test performed on Jan 16, 2020 07:20 Sodium 140 mmol/L Potassium 4.1 mmol/L Chloride 105 mmol/L CO2 22 mmol/L Anion Gap 17.1 BUN 15 mg/dL Creatinine 0.7 mg/dL Cr Clearance (Est) 99.9700 mL/min eGFR 83.7 mL/min Glucose 172 mg/dL Calcium 9.9 mg/dL Protein, Total 7.6 g/dL Albumin 4.1 g/dL Globulin 3.5 g/dL Bilirubin, Total 0.2 mg/dL ALT (SGPT) 8 U/L AST (SGOT) 14 U/L Alkaline Phosphatase 119 IU/L WBC 8.7 10 3/uL RBC 3.77 10 6/uL HGB 11.2 g/dL HCT 35.4 % MCV 93.9 fL MCH 29.7 pg MCHC 31.6 g/dL RDW 13.4 % Platelet Count 230 10 3/cmm MPV 9.7 fL Neutrophils 7.9 10 3/uL Lymphocytes 0.5 10 3/uL Monocytes 0.1 10 3/uL Eosinophils 0.0 10 3/uL Basophils 0.0 10 3/uL Neutrophil % 91.7 % Lymphocyte % 5.9 % Monocyte % 1.0 % Eosinophil % 0.0 % Basophils % 0.1 % Impression: 1. 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 By clinical evaluation her disease appeared to be at least stage IB2 (T1b2, N1, M0). 2. She was mildly anemic, and her serum iron studies were consistent with iron deficiency. Her other medical illnesses include: 3. Hypertension. 4. Hypothyroidism. 5. COPD. 6. She has a history of treated hepatitis C. 7. Vitamin D deficiency. 8. She has a history of colonic polyps. She underwent primary chemoradiation utilizing weekly cisplatin chemotherapy. Her treatment began on 08/10/2019. She completed radiation on 09/22/2019 to a total dose of 6000 cGy. She tolerated the treatment well other than her sixth weekly cisplatin infusion was held due to neutropenia and fatigue. She then underwent LDR brachytherapy with Ce-137 implants on 10/18/2019 and on 10/31/2019. Overall, she tolerated the treatment well. Restaging CT of the abdomen/pelvis on 12/08/2019 showed a low-attenuation 9 mm lesion in the fundal myometrium, felt to possibly represent a small fibroid. There was moderate diffuse uterine myometrium enhancement which was felt to be likely due to therapy related changes. There was no evidence of metastatic disease in the abdomen or pelvis. On 12/23/2019 she began cycle 1 of postoperative adjuvant chemotherapy with cisplatin/paclitaxel in combination with Avastin. She developed multiple toxicities following that treatment, the most significant being severe fatigue and neuropathy. Plan: Given the severity of her neuropathy symptoms, I am going to put her further chemotherapy on hold till have had further discussion with Dr. Zamorano. She will tentatively be scheduled for a follow-up visit in 2 weeks. In the meantime, I will check urinalysis and culture. She will have further evaluation with that as indicated. Signed By: Homar Warner M.D. <<Signature on File>>
== END 2020-01-17 23:59 | disposition home or self-care (01) ==
LOC: ONCMED 06:30
PROVIDERS: Nurse Practitioner; Family Provider Nurse Practitioner; PCP Nurse Practitioner; Visit Provider Internal Medicine Medical Oncology
DX: Z51.11 Encounter for antineoplastic chemotherapy (principal); C53.8 Malignant neoplasm of overlapping sites of cervix uteri; C77.5 Secondary and unspecified malignant neoplasm of intrapelvic lymph nodes; D70.1 Agranulocytosis secondary to cancer chemotherapy; G62.0 Drug-induced polyneuropathy; T45.1X5A Adverse effect of antineoplastic and immunosuppressive drugs, initial encounter; I10 Essential (primary) hypertension; E03.9 Hypothyroidism, unspecified; J44.9 Chronic obstructive pulmonary disease, unspecified; E55.9 Vitamin D deficiency, unspecified; D50.9 Iron deficiency anemia, unspecified; Z79.82 Long term (current) use of aspirin; R09.89 Other specified symptoms and signs involving the circulatory and respiratory systems; Z79.899 Other long term (current) drug therapy; Z92.3 Personal history of irradiation; Z87.891 Personal history of nicotine dependence; Z86.19 Personal history of other infectious and parasitic diseases
CPT/HCPCS: 80053; 81001; 82607; 83540; 83550; 85025; 87086; 96365; 96366; 96367; 96372; 96375; 96413; 96415; 96417; 99214; J1100; J1200; J1453; J1940; J2469; J2505; J3475; J3480; J3490; J7030; J7040; J7050; J9035; J9060; J9267

== ENCOUNTER 2020-03-09 08:32 | Outpatient (CLI) | payer MEDICARE, SELFPAY ==
--- NOTE | 2020-03-09 08:34 | US_ITS ---
WS: [id number] ULTRASOUND RENAL TECHNIQUE: Ultrasound examination of both kidneys. CLINICAL INFORMATION: POST RADIATION IMPLANTS, VOIDING DIFFICULTIES COMPARISON: None. FINDINGS: RIGHT: Right kidney is normal in size and appearance. Echogenicity: Normal. Hydronephrosis: None. Perinephric fluid: None. Right kidney measures: 9.8 cm x 4.8 cm x 4.2 cm. LEFT: Left kidney is normal in size and appearance. Echogenicity: Normal. Hydronephrosis: None. Perinephric fluid: None. Left kidney measures: 10.9 cm x 4.3 cm x 4.8 cm. Normal visualized aorta. Normal bladder. US/US renal BI* [id number] IMPRESSION: Normal renal ultrasound
== END 2020-03-09 08:33 | disposition home or self-care (01) ==
LOC: RAD 08:32
PROVIDERS: PCP Family Medicine; Visit Provider Nurse Practitioner
DX: R79.89 Other specified abnormal findings of blood chemistry (principal)
CPT/HCPCS: 76770

== ENCOUNTER 2020-03-16 11:30 | Outpatient (RCR) | payer MEDICARE, SELFPAY ==
[2020-03-01 09:55] LABS: Basophils % 0.6 %; Eosinophils # 0.1 10^3/uL (0.0-0.8); Eosinophils % 1.3 %; Hematocrit 35.7 % (37.0-47.0); Lymphocytes # 0.9 10^3/uL (0.8-4.8); Lymphocytes % 13.9 %; Mean Corpuscular HGB Conc 30.8 g/dL (30.0-36.0); Mean Corpuscular Hemoglobin 28.3 pg (28.0-34.0); Mean Corpuscular Volume 91.8 fL (81-99); Mean Platelet Volume 9.4 fL (7.4-10.4); Monocytes # 0.6 10^3/uL (0.2-0.9); Monocytes % 8.9 %; Neutrophils # 4.7 10^3/uL (1.8-7.7); Nucleated Red Blood Cells % 0 %; Platelet Count 186 10^3/cmm (130-400); Red Blood Count 3.89 10^6/uL (4.1-5.3); Red Cell Distribution Width 15.1 % (12.1-15.1); White Blood Count 6.3 10^3/uL (4.0-10.0)
[2020-03-01 10:06] LABS: Alanine Aminotransferase 7 U/L (0-33); Albumin Level 3.9 g/dL (3.5-5.2); Alkaline Phosphatase 92 IU/L (35-105); Anion Gap 15.3 (5-19); Aspartate Amino Transferase 14 U/L (0-32); Blood Urea Nitrogen 14 mg/dL (8-23); Carbon Dioxide 25 mmol/L (22-29); Chloride 104 mmol/L (98-107); Globulin 3.8 g/dL (1.3-4.6); Glomerular Filtration Rate 62.6 mL/min (90-130); Glucose 108 mg/dL (65-115); Osmolality Calculated 287 mOsm/kg (285-295); Potassium 4.3 mmol/L (3.5-5.1); Sodium 140 mmol/L (136-145); Total Bilirubin 0.4 mg/dL (0.15-1.2); Total Protein 7.7 g/dL (6.6-8.7)
[2020-03-01 13:02] LABS: Protein Urine Neg (Negative); Specific Gravity, Urine 1.015 (1.005-1.030); Urine Color Yellow (Yellow); pH Urine 7 (5-7)
[2020-03-01 13:03] LABS: Add Urine Microscopic? YES; Bilirubin Urine Neg (NEGATIVE); Blood Urine Trace (Negative); Glucose Urine UA Norm (Normal); Ketones Urine 1+ (Negative); Leukocyte Esterase Urine 2+ (Negative); Nitrate Urine Negative (Negative); Urobilinogen Urine 1 mg/dL (Negative)
[2020-03-01 13:07] LABS: Squamous Epithelial Cell Urine 0-4 (0-5); WBC Urine 80-100 /hpf (0-5)
[2020-03-01 13:08] LABS: Bacteria Urine TRACE; Hyaline Casts Urine 0-4; Mucus Urine 1+
[2020-03-01 13:09] LABS: Add Urine Culture? Yes
--- NOTE | 2020-03-04 19:38 | ONC FU_ITS ---
[facility] Patient Note Patient: Dionne Fitzgerald Unit #: [id number]: [id number] Dictated By: Andriy BeckettDate of Visit: March 01, 2020 Onc MED Follow-Up/Prog Note Chief Complaint: Cervical cancer. 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 By clinical evaluation her stage is at least IB2 (T1b2, N0, M0). She had presented with a 3-month history of intermittent vaginal bleeding. Her transvaginal ultrasound on 07/05/2019 showed marked thickening and decreased echogenicity and hypervascularity throughout the cervix. It was noted to be lobulated and enlarged, consistent with cervical carcinoma. The cervix appeared grossly abnormal on exam. Pap smear was attempted at that time was problematic due to the increased bleeding. Biopsy, though, did show undifferentiated carcinoma. She was referred to Dr. Zamorano in [place]. Her staging MRI of the pelvis on 07/21/2019 showed cervical mass which was noted to be possibly going into the uterus in its inferior anterior aspect. There was local surrounding enhancement suggestive of local infiltration and there was an enlarged iliac chain lymph node on the right side. Staging PET/CT on 07/22/2019 showed primary tumor mass involving the cervix with evidence of local spread to a right common iliac lymph node. Subcentimeter pulmonary nodules were FDG negative and nonspecific, but metastatic disease was not excluded. There was no other evidence of metastatic involvement. On 07/25/2019 she underwent exam under anesthesia and placement of Port-A-Cath venous access device. A repeat cervical biopsy at that time showed invasive poorly differentiated squamous cell carcinoma. She was recommended to undergo primary chemoradiation utilizing weekly cisplatin for chemosensitization. Her other medical illnesses include hypertension, hypothyroidism, COPD, and vitamin D deficiency. She has a history of treated hepatitis C. She also has a history of colonic polyps. She has a history of smoking 1 pack of cigarettes daily for approximately 20 years. She recently quit. INTERIM HISTORY: She began her radiation concurrently with weekly cisplatin on 08/10/2019. She completed the radiation on 09/22/2019 to a total dose of 6000 cGy. She tolerated the treatment pretty well, though her 6th weekly cisplatin infusion was held due to neutropenia and fatigue. She then underwent LDR brachytherapy with Ce-137 implants on 10/18/2019 and again on 10/31/2019. She tolerated it well. Restaging CT of the abdomen/pelvis on 12/08/2019 showed a low-attenuation 9 mm lesion in the fundal myometrium, felt to possibly represent a small fibroid. There was moderate diffuse uterine myometrium enhancement which was felt to be likely due to therapy related changes. There was no evidence of metastatic disease in the abdomen or pelvis. On 12/23/2019 she began cycle 1 of postoperative adjuvant chemotherapy with cisplatin/paclitaxel in combination with Avastin. Her PET CT from 02/25/2020 reported interval improvement in the cervical primary carcinoma and pelvic adenopathy, consistent with a positive response to therapy. Left lung base nodule is too small to characterize. Other described nodules are not clearly present on the current study. She was seen for a follow-up visit. She had significant side effects following her initial treatment with cisplatin/paclitaxel/Avastin, including severe weakness/fatigue and neuropathy. Her treatment has been placed on hold and has been advised that she resume treatment but change agents to carboplatin with AUC of 4 Avastin and gemcitabine 750 mg per metered squared days 1 and 821-day cycle. She is here today for that follow-up and to possibly start her new treatment . However she presents today stating that she is just miserable. She states she is having a lot of pain between the vagina and rectal area. She states she cannot sit it hurts. She is also having trouble urinating. She states that she cannot urinate without having warm water to stimulate her bladder. She states generally she has to sit in a hot tub before she can have any success with urination. She denies any fever or chills but states she like abdomen pain much attention to that because she is been so miserable otherwise. She has required pain relief with her pain medication for the peritoneal discomfort. She states she does not think she has hemorrhoids that she is never had them past and out of really know what they are she states her bowels have been pretty good. They have been a little on the loose side at times but again a little on the firm side but she states that she has not been straining to have a bowel movement to her knowledge. States her appetite is okay, comes and goes. Her biggest complaint today though is her peritoneal discomfort and inability to urinate without extreme difficulty. Her ECOG is 1. Past Medical History: Chronic obstructive pulmonary disease History of colonic polyps History of hepatitis C, treated in 2017 Hypertension Hypothyroidism Vitamin D deficiency Past Surgical History: Diagnostic laparoscopy Flu vaccine 2019 in 2019 Placement of Port-A-Cath venous access device in 2019 Cholecystectomy in 2018 Colonoscopy in 2015 Allergies: Lyrica Medications: Aspirin Childrens 1 Tablet (of 81 mg) Tablet, chewable Oral daily [facility] Milk of Magnesia Suspension Oral PRN Dexamethasone (4 mg) Tablet Oral Take as Directed Docusate Sodium 1 Tablet (of 100 mg) Oral daily PRN Gabapentin 1 Capsule (of 100 mg) Oral t.i.d. Ibuprofen 1 - 2 Capsule (of 200 mg) Oral daily PRN Irbesartan 1 (300 mg) Tablet Oral daily Levothyroxine Sodium 1 Tablet (of 75 mcg) Oral daily Magnesium Oxide 1 Capsule (of 400 mg) Oral b.i.d. Metoprolol Tartrate 1 Tablet (of 25 mg) Oral daily Family History: Ms. Fitzgerald's mother is alive. Ms. Fitzgerald's father at age 87. Ms. Fitzgerald has 1 brother who is alive. Father at age 87 with multiple myeloma. Mother is still living at age 85 and she is in pretty good health. A brother has been getting phlebotomies for polycythemia. It is uncertain whether this is PRV or secondary polycythemia. Social History: Ms. Fitzgerald is and she is unemployed. Ms. Fitzgerald quit smoking less than one year ago but had smoked 1.0 pack/day for 20 years. She has no history of drinking. She has a history of smoking 1 pack of cigarettes daily for approximately 20 years. She recently quit smoking. She does not drink alcohol. Review Of Symptoms: Constitutional Denies fevers, chills, night sweats, excessive fatigue or weight loss. Allergic/Immunologic No reactions. Eyes Denies significant visual changes. No diplopia. No amaurosis. ENMT Denies changes in hearing, sore throat, mouth sores, difficulty or changes in swallowing ability, and/or sinus drainage. Endocrine No diabetes, thyroid disease or hormone replacement. Denies hot flashes or night sweats. Hematologic/Lymphatic Denies easy bruising or bleeding. The patient denies any tender or palpable lymph nodes. Respiratory Denies dyspnea on exertion, chest pain, cough or hemoptysis. Denies orthopnea. Has had chronic chest congestion but unable to cough anything up. No wheezing. Cardiovascular Denies anginal chest pain, palpitations or orthopnea. Gastrointestinal Denies nausea, vomiting, diarrhea, GI bleeding, or constipation. Denies change in bowel habits and/or stool color, no heartburn or early satiety. Genitourinary (F) No hematuria, incontinence, vaginal bleeding, discharge or other problems with urination. Complains of pain between vagina and rectum-states she has never had hemorrhoids but is uncomfortable enough she cannot sit on her bottom . She states she cannot urine unless she sits in hot water. This has been going for for 3-5 days. Some burning urination. Musculoskeletal Denies joint pain, swelling or redness. No decreased range of motion. Integumentary Denies chronic rashes, inflammation, ulcerations or skin changes. Neurologic Denies headache, blurred vision, and no areas of focal weakness or numbness. Normal gait. No sensory problems. Psychiatric Denies insomnia, depression, gabe or mood swings. Vital Signs: Performed on March 01, 2020 11:39 Height - 67.00 in Weight - 168 lbs (LOW) BSA - 1.88 sq.m BMI - 26.31 Temperature - 97.1 F (LOW) Pulse - 74 /min Respiration - 20 /min BP - 119/63 mm(hg) O2 Sat - 98 % Pain - 5,1 - No physically strenuous activity, but ambulatory and able to carry out light or sedentary work (e.g. office work, light house work). (ECOG) Physical Examination: Constitutional Alert, oriented, no acute distress. Skin pink, warm and dry. Head Normocephalic; atraumatic. Eyes Conjunctivae and sclerae are clear and without icterus. Pupils are reactive and equal. ENMT No oral exudates, ulcers, masses, thrush or mucositis. Oropharynx clear. Tongue normal. Neck Supple without masses or thyromegaly. No jugular venous distension. Hematologic/Lymphatic No petechiae or purpura. No tender or palpable lymph nodes in the cervical or supraclavicular areas. Respiratory Lungs are clear to auscultation without rhonchi or wheezing. Cardiovascular Regular rate and rhythm of heart without murmurs,clicks, gallops or rubs. Abdomen Non-tender, non-distended, no masses or ascites. Genitalia/Groin/Buttock (F) patient refused exam Back/Spine Non-tender to palpation. Extremities No visible deformities, no cyanosis, clubbing or edema. Musculoskeletal No tenderness or swelling, normal range of motion without obvious weakness. Integumentary No rashes or lesions. Neurologic No sensory or motor deficits, normal cerebellar function, normal gait. Psychiatric Alert and oriented times three. Coherent speech. Verbalizes understanding of our discussions today. Laboratory:Test performed on March 01, 2020 12:17 Ua Micro: Trans Epith Cells NONE /hpf Ua Micro: Renal Epith Cells - /hpf Ua Micro: Hyaline Casts 0-4 Ua Micro: WBC 80-100 /hpf Ua Micro: RBC NONE /hpf Ua Micro: Squam Epith Cells 0-4 Ua Micro: Bacteria TRACE Ua Micro: Mucous 1+ Test performed on March 01, 2020 09:40 Sodium 140 mmol/L Potassium 4.3 mmol/L Chloride 104 mmol/L CO2 25 mmol/L Anion Gap 15.3 BUN 14 mg/dL Creatinine 0.9 mg/dL Cr Clearance (Est) 73.9700 mL/min eGFR 62.6 mL/min Glucose 108 mg/dL Calcium 10.0 mg/dL Protein, Total 7.7 g/dL Albumin 3.9 g/dL Globulin 3.8 g/dL Bilirubin, Total 0.4 mg/dL ALT (SGPT) 7 U/L AST (SGOT) 14 U/L Alkaline Phosphatase 92 IU/L WBC 6.3 10 3/uL RBC 3.89 10 6/uL HGB 11.0 g/dL HCT 35.7 % MCV 91.8 fL MCH 28.3 pg MCHC 30.8 g/dL RDW 15.1 % Platelet Count 186 10 3/cmm MPV 9.4 fL Neutrophils 4.7 10 3/uL Lymphocytes 0.9 10 3/uL Monocytes 0.6 10 3/uL Eosinophils 0.1 10 3/uL Basophils 0.0 10 3/uL Neutrophil % 75.0 % Lymphocyte % 13.9 % Monocyte % 8.9 % Eosinophil % 1.3 % Basophils % 0.6 % Impression: 1. 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 By clinical evaluation her disease appeared to be at least stage IB2 (T1b2, N1, M0). 2. She was mildly anemic, and her serum iron studies were consistent with iron deficiency. Her other medical illnesses include: 3. Hypertension. 4. Hypothyroidism. 5. COPD. 6. She has a history of treated hepatitis C. 7. Vitamin D deficiency. 8. She has a history of colonic polyps. She underwent primary chemoradiation utilizing weekly cisplatin chemotherapy. Her treatment began on 08/10/2019. She completed radiation on 09/22/2019 to a total dose of 6000 cGy. She tolerated the treatment well other than her sixth weekly cisplatin infusion was held due to neutropenia and fatigue. She then underwent LDR brachytherapy with Ce-137 implants on 10/18/2019 and on 10/31/2019. Overall, she tolerated the treatment well. Restaging CT of the abdomen/pelvis on 12/08/2019 showed a low-attenuation 9 mm lesion in the fundal myometrium, felt to possibly represent a small fibroid. There was moderate diffuse uterine myometrium enhancement which was felt to be likely due to therapy related changes. There was no evidence of metastatic disease in the abdomen or pelvis. Her PET CT from 02/25/2020 reported interval improvement in the cervical primary carcinoma and pelvic adenopathy, consistent with a positive response to therapy. Left lung base nodule is too small to characterize. Other described nodules are not clearly present on the current study. On 12/23/2019 she began cycle 1 of postoperative adjuvant chemotherapy with cisplatin/paclitaxel in combination with Avastin. She developed multiple toxicities following that treatment, the most significant being severe fatigue and neuropathy. Plan: 1. We will delay her planned start of carboplatin AUC of 4, Avastin 15 mg/kg day 1 and gemcitabine 70 mg/m. On days 1 and 8 of 21-day cycle. 2. We have repeated her UA. I have started her on Bactrim DS in the interim to see if some of this discomfort she is having is related to her bladder. 3. I encouraged her to try to use witch romi wipes on the area where she is having tenderness in the perineal region. We also discussed possibly using Preparation H cream or suppositories. I suspect that she has a hemorrhoid but she would not allow me to do an exam today. 4. We discussed keeping her bowels semi-loose to avoid further straining in the event that this is hemorrhoid situation. 5. We have refilled her tramadol 50 mg to see if this will help with her pain. She will do 1 or 2 every 6-8 hours as needed for pain. We only gave her 30 if this is working well we can refill for better quantity. 5. We will plan to see her back in a week to see how she is doing and possibly start her chemotherapy at that time. I have asked her to call me by Thursday to report how she is doing. 6. Labs from 03/01/2020 were reviewed in detail discussed with Ms. Mistry and a copy was given to her. White count 6.3, hemoglobin 11 platelets 1 86,000 ANC is 4700 potassium 4.3 creatinine is 0.9 LFTs are normal. Her PET CT from 02/25/2020 reported interval improvement in the cervical primary carcinoma and pelvic adenopathy, consistent with a positive response to therapy. Left lung base nodule is too small to characterize. Other described nodules are not clearly present on the current study. Signed By: Andriy Beckett-, [facility] Homar Warner MD <<Signature on File>>
--- NOTE | 2020-03-04 19:44 | ONC FU_ITS ---
[facility] Patient Note Patient: Dionne Fitzgerald Unit #: [id number]: [id number] Dictated By: Andriy BeckettDate of Visit: March 02, 2020 Onc MED Telephone note I received a call from Ms Fitzgerald with report of how she is doing. She states her bladder is doing better on the Bactrim. She is able to urinate a little easier now without having to sit in the hot tub of water. She states that she did get a mirror and try to look at her perineal area she states she can see a a piece of skin hanging down and it is really tender . She still having quite a bit of difficulty trying to sit on her bottom. We discussed that this sounds a lot like a hemorrhoid. It is possible that it could be thrombosed with a mild pain that she is having. Again reinforced that she use Preparation H, Tucks pads and witch romi as she could. We have also tried to find various mechanisms to help her be able to sit more comfortably such as a pillow or neck pillow . She will try these ideas over the weekend and call us next week and [place] how she is doing has been advised to contact us in the interim should questions or problems arise. Signed By: Andriy Beckett-SANAAOCNP <<Signature on File>>
[2020-03-07 09:40] LABS: Basophils % 0.3 %; Eosinophils # 0.1 10^3/uL (0.0-0.8); Hematocrit 36.5 % (37.0-47.0); Hemoglobin 11.6 g/dL (11.5-15.3); Lymphocytes # 0.8 10^3/uL (0.8-4.8); Lymphocytes % 11.8 %; Mean Corpuscular HGB Conc 31.8 g/dL (30.0-36.0); Mean Corpuscular Hemoglobin 29.2 pg (28.0-34.0); Mean Corpuscular Volume 91.9 fL (81-99); Mean Platelet Volume 9.7 fL (7.4-10.4); Monocytes # 0.8 10^3/uL (0.2-0.9); Monocytes % 11.6 %; Neutrophils # 5.3 10^3/uL (1.8-7.7); Neutrophils % 74.9 %; Nucleated Red Blood Cells % 0 %; Platelet Count 200 10^3/cmm (130-400); Red Blood Count 3.97 10^6/uL (4.1-5.3); Red Cell Distribution Width 15.3 % (12.1-15.1); White Blood Count 7.1 10^3/uL (4.0-10.0)
[2020-03-07 09:44] LABS: Alanine Aminotransferase 8 U/L (0-33); Albumin Level 4.4 g/dL (3.5-5.2); Alkaline Phosphatase 91 IU/L (35-105); Anion Gap 17.5 (5-19); Aspartate Amino Transferase 17 U/L (0-32); Blood Urea Nitrogen 25 mg/dL (8-23); Calcium 9.3 mg/dL (8.5-10.5); Carbon Dioxide 22 mmol/L (22-29); Chloride 104 mmol/L (98-107); Globulin 3.4 g/dL (1.3-4.6); Glomerular Filtration Rate 37.6 mL/min (90-130); Glucose 84 mg/dL (65-115); Osmolality Calculated 284 mOsm/kg (285-295); Potassium 4.5 mmol/L (3.5-5.1); Sodium 139 mmol/L (136-145); Total Bilirubin 0.2 mg/dL (0.15-1.2); Total Protein 7.8 g/dL (6.6-8.7)
[2020-03-07] MEDS: sodium chloride 0.9% (100 ml) 100 ML 75 ML (10:45)
[2020-03-07] MEDS: sodium chloride 0.9% 1,000 ML 999 ML IV (10:50)
[2020-03-07 12:23] LABS: Alanine Aminotransferase 7 U/L (0-33); Alkaline Phosphatase 84 IU/L (35-105); Anion Gap 15.8 (5-19); Aspartate Amino Transferase 16 U/L (0-32); Blood Urea Nitrogen 22 mg/dL (8-23); Calcium 8.8 mg/dL (8.5-10.5); Carbon Dioxide 22 mmol/L (22-29); Chloride 105 mmol/L (98-107); Globulin 3.3 g/dL (1.3-4.6); Glucose 80 mg/dL (65-115); Osmolality Calculated 282 mOsm/kg (285-295); Potassium 4.8 mmol/L (3.5-5.1); Sodium 138 mmol/L (136-145); Total Bilirubin 0.2 mg/dL (0.15-1.2); Total Protein 7.3 g/dL (6.6-8.7)
[2020-03-08] MEDS: sodium chloride 0.9% 1,000 ML 999 ML IV (13:30)
[2020-03-09] MEDS: sodium chloride 0.9% 1,000 ML 999 ML IV (09:30)
[2020-03-14 08:44] LABS: Basophils % 0.4 %; Eosinophils # 0.1 10^3/uL (0.0-0.8); Eosinophils % 1.2 %; Hematocrit 37.5 % (37.0-47.0); Hemoglobin 11.7 g/dL (11.5-15.3); Lymphocytes # 0.9 10^3/uL (0.8-4.8); Lymphocytes % 12.6 %; Mean Corpuscular HGB Conc 31.2 g/dL (30.0-36.0); Mean Corpuscular Hemoglobin 29.2 pg (28.0-34.0); Mean Corpuscular Volume 93.5 fL (81-99); Monocytes # 0.6 10^3/uL (0.2-0.9); Monocytes % 8.1 %; Neutrophils # 5.2 10^3/uL (1.8-7.7); Neutrophils % 77.4 %; Nucleated Red Blood Cells % 0 %; Platelet Count 213 10^3/cmm (130-400); Red Blood Count 4.01 10^6/uL (4.1-5.3); Red Cell Distribution Width 15.3 % (12.1-15.1); White Blood Count 6.8 10^3/uL (4.0-10.0)
[2020-03-14 09:04] LABS: Alanine Aminotransferase 12 U/L (0-33); Alkaline Phosphatase 88 IU/L (35-105); Anion Gap 16.9 (5-19); Aspartate Amino Transferase 19 U/L (0-32); Blood Urea Nitrogen 22 mg/dL (8-23); Calcium 9.8 mg/dL (8.5-10.5); Carbon Dioxide 23 mmol/L (22-29); Chloride 104 mmol/L (98-107); Globulin 4.2 g/dL (1.3-4.6); Glomerular Filtration Rate 37.6 mL/min (90-130); Glucose 140 mg/dL (65-115); Osmolality Calculated 287 mOsm/kg (285-295); Potassium 4.9 mmol/L (3.5-5.1); Sodium 139 mmol/L (136-145); Total Bilirubin 0.2 mg/dL (0.15-1.2); Total Protein 8.2 g/dL (6.6-8.7)
[2020-03-14] MEDS: HYDROcodone-acetaminophen 10-325 mg Tablet 0.5 TAB PO (10:35)
[2020-03-14] MEDS: sodium chloride 0.9% 1,000 ML 75 ML IV (10:35)
--- NOTE | 2020-03-16 | CT_ITS ---
WS: [id number] CT PELVIS WITHOUT HISTORY: Cervical CANCER RECTAL/PERITONEAL PAIN TECHNIQUE: Contiguous imaging is performed of the pelvis without contrast. Coronal and sagittal refor mats are reviewed. All CT scans at [facility] use at least one of these dose optimization techniques: automated exposure control; mA and/or kV adjustment per patient size (includes targeted exams where dose is matched to clinical indication); or iterative reconstruction. DLP: 513.9 mGy.cm COMPARISON: 02/25/2020 and 12/08/2019 Normal bowel gas pattern. No free fluid or GI tract obstruction. Urinary bladder is well distended. T he uterus remains midline. There is a small amount of air along the cervix and vagina. Small amount o f air extends into the RIGHT cervix. This air may all be related to post therapy changes or cerviciti s. There is some adjacent stranding in the fat. No new or increasing lymph nodes. No abscess collecti on. RIGHT external iliac chain lymph node round but stable size measuring 8 mm. Noted to be negative on recent PET/CT. Mild degenerative changes at the acetabulum. No osteoblastic or osteolytic bone disease. CT/CT pelvis wo con [id number] IMPRESSION: 1. There is a small amount of air along the cervical and vaginal regions. This could be related to recent radiation therapy changes or secondary to physical examination or infection. The air is new as compared to 12/08/2019 but present o n 02/25/2020. 2. No recurrent adenopathy or abscess collection in the pelvis.
--- NOTE | 2020-03-19 10:04 | ONC FU_ITS ---
[facility] Patient Note Patient: Dionne Fitzgerald Unit #: [id number]: [id number] Dictated By: Andriy BeckettDate of Visit: March 14, 2020 Onc MED Follow-Up/Prog Note Chief Complaint: Cervical cancer. 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 By clinical evaluation her stage is at least IB2 (T1b2, N0, M0). She had presented with a 3-month history of intermittent vaginal bleeding. Her transvaginal ultrasound on 07/05/2019 showed marked thickening and decreased echogenicity and hypervascularity throughout the cervix. It was noted to be lobulated and enlarged, consistent with cervical carcinoma. The cervix appeared grossly abnormal on exam. Pap smear was attempted at that time was problematic due to the increased bleeding. Biopsy, though, did show undifferentiated carcinoma. She was referred to Dr. Zamorano in [place]. Her staging MRI of the pelvis on 07/21/2019 showed cervical mass which was noted to be possibly going into the uterus in its inferior anterior aspect. There was local surrounding enhancement suggestive of local infiltration and there was an enlarged iliac chain lymph node on the right side. Staging PET/CT on 07/22/2019 showed primary tumor mass involving the cervix with evidence of local spread to a right common iliac lymph node. Subcentimeter pulmonary nodules were FDG negative and nonspecific, but metastatic disease was not excluded. There was no other evidence of metastatic involvement. On 07/25/2019 she underwent exam under anesthesia and placement of Port-A-Cath venous access device. A repeat cervical biopsy at that time showed invasive poorly differentiated squamous cell carcinoma. She was recommended to undergo primary chemoradiation utilizing weekly cisplatin for chemosensitization. Her other medical illnesses include hypertension, hypothyroidism, COPD, and vitamin D deficiency. She has a history of treated hepatitis C. She also has a history of colonic polyps. She has a history of smoking 1 pack of cigarettes daily for approximately 20 years. She recently quit. INTERIM HISTORY: She began her radiation concurrently with weekly cisplatin on 08/10/2019. She completed the radiation on 09/22/2019 to a total dose of 6000 cGy. She tolerated the treatment pretty well, though her 6th weekly cisplatin infusion was held due to neutropenia and fatigue. She then underwent LDR brachytherapy with Ce-137 implants on 10/18/2019 and again on 10/31/2019. She tolerated it well. Restaging CT of the abdomen/pelvis on 12/08/2019 showed a low-attenuation 9 mm lesion in the fundal myometrium, felt to possibly represent a small fibroid. There was moderate diffuse uterine myometrium enhancement which was felt to be likely due to therapy related changes. There was no evidence of metastatic disease in the abdomen or pelvis. On 12/23/2019 she began cycle 1 of postoperative adjuvant chemotherapy with cisplatin/paclitaxel in combination with Avastin. Her PET CT from 02/25/2020 reported interval improvement in the cervical primary carcinoma and pelvic adenopathy, consistent with a positive response to therapy. Left lung base nodule is too small to characterize. Other described nodules are not clearly present on the current study. She was seen for a follow-up visit. She had significant side effects following her initial treatment with cisplatin/paclitaxel/Avastin, including severe weakness/fatigue and neuropathy. Her treatment has been placed on hold and has been advised that she resume treatment but change agents to carboplatin with AUC of 4 Avastin and gemcitabine 750 mg per metered squared days 1 and 821-day cycle. She is here today for that follow-up and to possibly start her new treatment . However she presents today stating that she is just miserable. She states she is having a lot of pain between the vagina and rectal area. She states she cannot sit because it hurts. She is also still having trouble urinating. She states that she cannot urinate without having warm water to stimulate her bladder. She states generally she has to sit in a hot tub before she can have any success with urination. She denies any fever or chills. She has required pain relief with her pain medication for the peritoneal discomfort. She states her bowels have been pretty good. They have been a little on the loose side at times but again a little on the firm side but she states that she has not been straining to have a bowel movement to her knowledge. States her appetite is okay, comes and goes. Her biggest complaint today though is her peritoneal discomfort and inability to urinate without extreme difficulty. Her ECOG is 2. She has had recent renal ultrasound which was normal. The post residual bladder ultrasound was normal as well. Past Medical History: Chronic obstructive pulmonary disease History of colonic polyps History of hepatitis C, treated in 2017 Hypertension Hypothyroidism Vitamin D deficiency Past Surgical History: Diagnostic laparoscopy Flu vaccine 2019 in 2019 Placement of Port-A-Cath venous access device in 2019 Cholecystectomy in 2018 Colonoscopy in 2016 Allergies: Lyrica Medications: Aspirin Childrens 1 Tablet (of 81 mg) Tablet, chewable Oral daily [facility] Milk of Magnesia Suspension Oral PRN Dexamethasone (4 mg) Tablet Oral Take as Directed Docusate Sodium 1 Tablet (of 100 mg) Oral daily PRN Gabapentin 1 Capsule (of 100 mg) Oral t.i.d. Ibuprofen 1 - 2 Capsule (of 200 mg) Oral daily PRN Irbesartan 1 (300 mg) Tablet Oral daily Levothyroxine Sodium 1 Tablet (of 75 mcg) Oral daily Magnesium Oxide 1 Capsule (of 400 mg) Oral b.i.d. Metoprolol Tartrate 1 Tablet (of 25 mg) Oral daily traMADol HCl 1 - 2 Tablet (of 50 mg) Oral daily Family History: Ms. Fitzgerald's mother is alive. Ms. Fitzgerald's father at age 87. Ms. Fitzgerald has 1 brother who is alive. Father at age 87 with multiple myeloma. Mother is still living at age 85 and she is in pretty good health. A brother has been getting phlebotomies for polycythemia. It is uncertain whether this is PRV or secondary polycythemia. Social History: Ms. Fitzgerald is and she is unemployed. Ms. Fitzgerald quit smoking less than one year ago but had smoked 1.0 pack/day for 20 years. She has no history of drinking. She has a history of smoking 1 pack of cigarettes daily for approximately 20 years. She recently quit smoking. She does not drink alcohol. Review Of Symptoms: Constitutional Denies fevers, chills, night sweats, excessive fatigue or weight loss. Allergic/Immunologic No reactions. Eyes Denies significant visual changes. No diplopia. No amaurosis. ENMT Denies changes in hearing, sore throat, mouth sores, difficulty or changes in swallowing ability, and/or sinus drainage. Endocrine No diabetes, thyroid disease or hormone replacement. Denies hot flashes or night sweats. Hematologic/Lymphatic Denies easy bruising or bleeding. The patient denies any tender or palpable lymph nodes. Respiratory Denies dyspnea on exertion, chest pain, cough or hemoptysis. Denies orthopnea. Has had chronic chest congestion but unable to cough anything up. No wheezing. Cardiovascular Denies anginal chest pain, palpitations or orthopnea. Gastrointestinal Denies nausea, vomiting, diarrhea, GI bleeding, or constipation. Denies change in bowel habits and/or stool color, no heartburn or early satiety. Genitourinary (F) No hematuria, incontinence, vaginal bleeding, discharge or other problems with urination. Complains of pain between vagina and rectum-states she has never had hemorrhoids but is uncomfortable enough she cannot sit on her bottom . She states she cannot urine unless she sits in hot water. This has been going for for 7-10 days. Musculoskeletal Denies joint pain, swelling or redness. No decreased range of motion. Integumentary Denies chronic rashes, inflammation, ulcerations or skin changes. Neurologic Denies headache, blurred vision, and no areas of focal weakness or numbness. Normal gait. No sensory problems. Psychiatric Denies insomnia, depression, gabe or mood swings. Vital Signs: Performed on March 14, 2020 09:53 Height - 67.00 in Weight - 163.8 lbs (LOW) BSA - 1.86 sq.m BMI - 25.65 Temperature - 97.9 F (LOW) Pulse - 74 /min Respiration - 24 /min BP - 105/72 mm(hg) O2 Sat - 98 % Pain - 10,2 - Ambulatory/capable of all self-care, unable to perform any work activities. Up and about more than 50% of waking hours. (ECOG) Physical Examination: Constitutional Alert, oriented, no acute distress. Skin pink, warm and dry. Head Normocephalic; atraumatic. Eyes Conjunctivae and sclerae are clear and without icterus. Pupils are reactive and equal. ENMT No oral exudates, ulcers, masses, thrush or mucositis. Oropharynx clear. Tongue normal. Neck Supple without masses or thyromegaly. No jugular venous distension. Hematologic/Lymphatic No petechiae or purpura. No tender or palpable lymph nodes in the cervical or supraclavicular areas. Respiratory Lungs are clear to auscultation without rhonchi or wheezing. Cardiovascular Regular rate and rhythm of heart without murmurs,clicks, gallops or rubs. Abdomen Non-tender, non-distended, no masses or ascites. Genitalia/Groin/Buttock (F) She does have a small, soft hemorrhoid noted. No rectal exam performed. No skin tears of obvious masses. Back/Spine Non-tender to palpation. Extremities No visible deformities, no cyanosis, clubbing or edema. Musculoskeletal No tenderness or swelling, normal range of motion without obvious weakness. Integumentary No rashes or lesions. Neurologic No sensory or motor deficits, normal cerebellar function, normal gait. Psychiatric Alert and oriented times three. Coherent speech. Verbalizes understanding of our discussions today. Laboratory:Test performed on March 14, 2020 08:12 Sodium 139 mmol/L Potassium 4.9 mmol/L Chloride 104 mmol/L CO2 23 mmol/L Anion Gap 16.9 BUN 22 mg/dL Creatinine 1.4 mg/dL Cr Clearance (Est) 47.5500 mL/min eGFR 37.6 mL/min Glucose 140 mg/dL Calcium 9.8 mg/dL Protein, Total 8.2 g/dL Albumin 4.0 g/dL Globulin 4.2 g/dL Bilirubin, Total 0.2 mg/dL ALT (SGPT) 12 U/L AST (SGOT) 19 U/L Alkaline Phosphatase 88 IU/L WBC 6.8 10 3/uL RBC 4.01 10 6/uL HGB 11.7 g/dL HCT 37.5 % MCV 93.5 fL MCH 29.2 pg MCHC 31.2 g/dL RDW 15.3 % Platelet Count 213 10 3/cmm MPV 10.0 fL Neutrophils 5.2 10 3/uL Lymphocytes 0.9 10 3/uL Monocytes 0.6 10 3/uL Eosinophils 0.1 10 3/uL Basophils 0.0 10 3/uL Neutrophil % 77.4 % Lymphocyte % 12.6 % Monocyte % 8.1 % Eosinophil % 1.2 % Basophils % 0.4 % Test performed on March 01, 2020 12:17 Ua Micro: Trans Epith Cells NONE /hpf Ua Micro: Renal Epith Cells - /hpf Ua Micro: Hyaline Casts 0-4 Ua Micro: WBC 80-100 /hpf Ua Micro: RBC NONE /hpf Ua Micro: Squam Epith Cells 0-4 Ua Micro: Bacteria TRACE Ua Micro: Mucous 1+ Test performed on Jan 02, 2020 13:20 CBC Slide Review Slide Review Perform Test performed on Sep 19, 2019 10:15 Ua Color YELLOW Ua Appearance CLEAR Ua Glucose NORM Ua Bilirubin NEG Colored urine samples may result in false positive dipstick reactions. Ua Ketones NEG Ua Specific [place] 1.025 Ua Blood 2+ Ua pH 5 Ua Protein NEG Ua Nitrites NEG Ua Leukocyte Esterase NEG Impression: 1. 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 By clinical evaluation her disease appeared to be at least stage IB2 (T1b2, N1, M0). 2. She was mildly anemic, and her serum iron studies were consistent with iron deficiency. Her other medical illnesses include: 3. Hypertension. 4. Hypothyroidism. 5. COPD. 6. She has a history of treated hepatitis C. 7. Vitamin D deficiency. 8. She has a history of colonic polyps. She underwent primary chemoradiation utilizing weekly cisplatin chemotherapy. Her treatment began on 08/10/2019. She completed radiation on 09/22/2019 to a total dose of 6000 cGy. She tolerated the treatment well other than her sixth weekly cisplatin infusion was held due to neutropenia and fatigue. She then underwent LDR brachytherapy with Ce-137 implants on 10/18/2019 and on 10/31/2019. Overall, she tolerated the treatment well. Restaging CT of the abdomen/pelvis on 12/08/2019 showed a low-attenuation 9 mm lesion in the fundal myometrium, felt to possibly represent a small fibroid. There was moderate diffuse uterine myometrium enhancement which was felt to be likely due to therapy related changes. There was no evidence of metastatic disease in the abdomen or pelvis. Her followup PET CT from 02/25/2020 reported interval improvement in the cervical primary carcinoma and pelvic adenopathy, consistent with a positive response to therapy. Left lung base nodule is too small to characterize. Other described nodules are not clearly present on the current study. Mrs. Mistry has been advised to proceed with treatment with carboplatin, Avastin and gemcitabine. The start of this regimen has been delayed as she has been having peritoneal/rectal pain. She is also had trouble urinating. Her treatment is on hold while we work-up these new concerns. Her PET CT from 02/25/2020 reported interval improvement in the cervical primary carcinoma and pelvic adenopathy, consistent with a positive response to therapy. Left lung base nodule is too small to characterize. Other described nodules are not clearly present on the current study. On 12/23/2019 she began cycle 1 of postoperative adjuvant chemotherapy with cisplatin/paclitaxel in combination with Avastin. She developed multiple toxicities following that treatment, the most significant being severe fatigue and neuropathy. Plan: 1. We will delay her planned start of carboplatin AUC of 4, Avastin 15 mg/kg day 1 and gemcitabine 70 mg/mg on days 1 and 8 of 21-day cycle. 2. After consulting with Dr. Warner I have requested a noncontrast CT of the pelvis for evaluation of her pain. 3. We will increase her pain medication to hydrocodone 02/18/2025 1-2 tabs every 4-6 hours as needed pain. She was given a written prescription for 30 tablets to start with. 4. We discussed keeping her bowels semi-loose to avoid further straining in the event that this is hemorrhoid situation. 5. We will plan to see her back in a week to see how she is doing and possibly start her chemotherapy at that time. 6. Labs from 03/14/2020 were reviewed in detail discussed with Ms. Mistry and a copy was given to her. White count 6.8, hemoglobin 11.7 platelets 213,000 ANC is 5200 potassium 4.9 creatinine is 1.4 LFTs are normal. Her PET CT from 02/25/2020 reported interval improvement in the cervical primary carcinoma and pelvic adenopathy, consistent with a positive response to therapy. Left lung base nodule is too small to characterize. Other described nodules are not clearly present on the current study. Signed By: Andriy Beckett-, [facility] Homar Warner MD <<Signature on File>>
== END 2020-03-18 23:59 | disposition home or self-care (01) ==
LOC: RAD 11:30
PROVIDERS: Internal Medicine Medical Oncology; PCP Nurse Practitioner; Visit Provider Nurse Practitioner
DX: C53.8 Malignant neoplasm of overlapping sites of cervix uteri (principal); R39.198 Other difficulties with micturition; R10.2 Pelvic and perineal pain; K62.89 Other specified diseases of anus and rectum; R39.89 Other symptoms and signs involving the genitourinary system; R91.1 Solitary pulmonary nodule; D50.9 Iron deficiency anemia, unspecified; I10 Essential (primary) hypertension; E03.9 Hypothyroidism, unspecified; J44.9 Chronic obstructive pulmonary disease, unspecified; E55.9 Vitamin D deficiency, unspecified; F17.211 Nicotine dependence, cigarettes, in remission; Z86.010 Personal history of colon polyps; Z86.19 Personal history of other infectious and parasitic diseases; Z79.899 Other long term (current) drug therapy; Z92.3 Personal history of irradiation
CPT/HCPCS: 36591; 72192; 80053; 81001; 85025; 87086; 96360; 96361; 99214; J7030

== ENCOUNTER 2020-04-11 08:34 | Day surgery (SDC) | payer MEDICARE, SELFPAY ==
[2020-04-09 13:50] VITALS: BMI 27.4
[2020-04-11] MEDS: sodium chloride 0.9% 1,000 ML 30 ML IV (09:05)
--- NOTE | 2020-04-11 09:11 | ANES.PREANE2 ---
Pre-Anesthetic Assessment Pre-Anesthetic Assessment: Height/Weight: Height 1.63 m Weight 72.575 kg Preop Diagnosis: Anorectal pain Proposed Procedure: Operation Date: 04/11/20 09:45 Proposed Procedures p Colonoscopy 08066 K62.89(Not Applicable) - Bhavesh Ortega MD Familial anesthetic complications: None Was Beta Manuel taken within 24 hours: Yes Last intake: Intake Last Liquid Date 04/10/20 Last Liquid Time 23:00 Last Solid Date 04/09/20 Last Solid Time 21:00 Social: Social History: No alcohol and No tobacco Exam: Pre-Anes Outpt Exam: alert, oriented x 3, clear to auscultation bilaterally and regular rate & rhythm Airway: Cervical ROM: WNL MP: 2 Dentition: False Pulmonary: Comments: chronic bronchitis CV/HEM: CV/HEM: HTN : : None reported Hepatic: Hepatic: None reported GI: GI: None reported Metabolic: Metabolic: Thyroid Musc/skel: Musc/skel: None reported Neuropsych: Neuropsych: None reported Anesthetic Plan: ASA status: 2 Anesthesia: MAC Risk of > 500 ml blood loss (7ml/kg in children): No Meds/Allergies Current Medications: Current Medications Generic Name Dose Route Start Last Admin Trade Name Freq PRN Reason Stop Dose Admin Sodium Chloride 1,000 mls @ 30 ml s/hr 04/11/20 09:00 04/11/20 09:05 Sodium Chloride 0.9% IV 04/12/20 08:59 30 mls/hr .Q24H XIMENA Administration PFSH Anesthesia PFSH: Medical History Cervical cancer Chronic hepatitis C COPD (chronic obstructive pulmonary disease) Depression with anxiety Hypertension Hypothyroidism Port-A-Cath in place Seasonal allergies Surgical History History of cholecystectomy (~08/2018) History of colonoscopy with polypectomy (~2017) Family History Other CAD (coronary artery disease) Cancer Diabetes Hypertension Stroke Thyroid disease Denies family history of Anesthesia complication Bleeding disorder Social History Smoking and tobacco status: current some day smoker Quit status (tobacco): not considering quitting Alcohol intake: never Marital status: Current gender identity: Female Data Anesthesia Cardiac Studies: No Data to Display
--- NOTE | 2020-04-11 10:16 | W.PM.OPSUD ---
Surgery/Procedure H&P Update DATE OF PROCEDURE: April 11, 2020 DATE H&P PERFORMED: 03/29/20 H&P UPDATE INFORMATION: I have reviewed H&P completed within last 30 days, I have examined patient prior to procedure and No changes to prior documentation PREOP DIAGNOSIS: Anorectal pain PRIMARY INDICATION FOR PROCEDURE: The same PLANNED PROCEDURE: Operation Date: 04/11/20 09:45 Proposed Procedures p Colonoscopy 06452 K62.89(Not Applicable) - Bhavesh Ortega MD
[2020-04-11 10:40] VITALS: BP 112/66; PULSE 63; RESP 16; TEMP 37.1; O2SAT 100
--- NOTE | 2020-04-11 11:15 | ANE.PACU2 ---
Inpatient post-anesthesia follow up: Airway intact: Yes Vital signs: Temperature 98.8 F Pulse Rate 63 Respiratory Rate 16 Blood Pressure 112/66 Pulse Oximetry 100 Oxygen Delivery Me thod Nasal Cannula Oxygen Flow Rate 3 Fraction of Inspir ed Oxygen Hydration adequate: Yes Nausea and vomiting: No Mental status: Baseline
== END 2020-04-11 11:05 | disposition home or self-care (01) ==
PROVIDERS: PCP Family Medicine; Visit Provider Surgery
PROC: 0DJD8ZZ Inspection of Lower Intestinal Tract, Via Natural or Artificial Opening Endoscopic (ICD-10-PCS; CPT 45378; principal; 2020-04-11 09:45)
DX: K62.9 Disease of anus and rectum, unspecified (principal); K63.89 Other specified diseases of intestine; I10 Essential (primary) hypertension; Z85.41 Personal history of malignant neoplasm of cervix uteri; B18.2 Chronic viral hepatitis C; F32.9 Major depressive disorder, single episode, unspecified; F41.9 Anxiety disorder, unspecified; E03.9 Hypothyroidism, unspecified; Z82.49 Family history of ischemic heart disease and other diseases of the circulatory system; Z83.3 Family history of diabetes mellitus; F17.210 Nicotine dependence, cigarettes, uncomplicated
CPT/HCPCS: 12345; 45330; J2704

== ENCOUNTER 2020-04-12 10:54 | Outpatient (CLI) | payer MEDICARE, SELFPAY ==
--- NOTE | 2020-04-12 11:04 | FL_ITS ---
WS: [id number] BARIUM ENEMA SINGLE CONTRAST HISTORY: INCOMPLETE COLONOSCOPY COMPARISON: None available. FLUOROSCOPY TIME: 0.8 minutes. Patient was unable to retain the barium throughout the examination. Majority of the colon did distend with the contrast. There is mild narrowing of the sigmoid with overlapping loops. No persistent high -grade stricture was identified. On the postcontrast images the appendix did fill. Prior cholecystectomy. FL/FL barium enema [id number] IMPRESSION: 1. Limited evaluation of the colon as patient was unable to retain the barium mixture. 2. Mild narrowing of the sigmoid region and overlapping loops of colon. No per sistent high-grade stricture was identified. 3. No mass identified.
== END 2020-04-12 10:55 | disposition home or self-care (01) ==
LOC: RAD 10:55
PROVIDERS: PCP Family Medicine; Visit Provider Surgery
DX: K92.89 Other specified diseases of the digestive system (principal)
CPT/HCPCS: 74270

== ENCOUNTER 2020-05-05 13:23 | Outpatient (CLI) | payer MEDICARE, SELFPAY ==
[2020-05-05 13:38] VITALS: BP 164/104; PULSE 75; RESP 18; TEMP 37; O2SAT 98
== END 2020-05-05 13:24 | disposition home or self-care (01) ==
LOC: OPS 13:24
PROVIDERS: PCP Family Medicine; Visit Provider Internal Medicine Hematology & Oncology
DX: C53.9 Malignant neoplasm of cervix uteri, unspecified (principal); N28.9 Disorder of kidney and ureter, unspecified
CPT/HCPCS: 96372; Q5101

== ENCOUNTER 2020-05-06 13:17 | Outpatient (CLI) | payer MEDICARE, SELFPAY ==
[2020-05-06 13:37] VITALS: BP 135/74; PULSE 71; RESP 18; TEMP 36.3; O2SAT 98
== END 2020-05-06 13:18 | disposition home or self-care (01) ==
LOC: OPS 13:18
PROVIDERS: PCP Family Medicine; Visit Provider Internal Medicine Hematology & Oncology
DX: C53.9 Malignant neoplasm of cervix uteri, unspecified (principal); N28.9 Disorder of kidney and ureter, unspecified
CPT/HCPCS: 96372; Q5101

== ENCOUNTER 2020-05-15 06:47 | Outpatient (RCR) | payer MEDICARE, SELFPAY ==
[2020-04-25 14:01] LABS: Basophils % 0.4 %; Eosinophils # 0.1 10^3/uL (0.0-0.8); Hemoglobin 10.7 g/dL (11.5-15.3); Lymphocytes % 20.6 %; Mean Corpuscular HGB Conc 30.6 g/dL (30.0-36.0); Mean Corpuscular Hemoglobin 28.8 pg (28.0-34.0); Mean Corpuscular Volume 94.3 fL (81-99); Mean Platelet Volume 10.1 fL (7.4-10.4); Monocytes # 0.4 10^3/uL (0.2-0.9); Monocytes % 8.2 %; Neutrophils # 3.41 10^3/uL (1.8-7.7); Neutrophils % 68.4 %; Nucleated Red Blood Cells % 0 %; Platelet Count 199 10^3/cmm (130-400); Red Blood Count 3.71 10^6/uL (4.1-5.3); Red Cell Distribution Width 15.9 % (12.1-15.1)
[2020-04-25 14:25] LABS: Alanine Aminotransferase 9 U/L (0-33); Albumin Level 3.9 g/dL (3.5-5.2); Alkaline Phosphatase 81 IU/L (35-105); Aspartate Amino Transferase 17 U/L (0-32); Blood Urea Nitrogen 15 mg/dL (8-23); Calcium 9.2 mg/dL (8.5-10.5); Carbon Dioxide 24 mmol/L (22-29); Chloride 105 mmol/L (98-107); Globulin 3.7 g/dL (1.3-4.6); Glomerular Filtration Rate 71.8 mL/min (90-130); Glucose 108 mg/dL (65-115); Osmolality Calculated 287 mOsm/kg (285-295); Sodium 140 mmol/L (136-145); Total Bilirubin 0.3 mg/dL (0.15-1.2); Total Protein 7.6 g/dL (6.6-8.7)
[2020-04-26] MEDS: sodium chloride 0.9% 250 ML 75 ML IV (11:08)
--- NOTE | 2020-04-28 14:09 | ONC FU_ITS ---
Dr. Warner Patient Follow-Up Note Patient: Dionne Fitzgerald Unit #: [id number]: 1955 Dicatated By: Homar Warner M.D.Date of Visit:Apr 26, 2020 Onc Med Follow-up/Prog Note Chief Complaint: Cervical cancer. 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 By clinical evaluation her stage is at least IB2 (T1b2, N0, M0). She had presented with a 3-month history of intermittent vaginal bleeding. Her transvaginal ultrasound on 07/05/2019 showed marked thickening and decreased echogenicity and hypervascularity throughout the cervix. It was noted to be lobulated and enlarged, consistent with cervical carcinoma. The cervix appeared grossly abnormal on exam. Pap smear was attempted at that time was problematic due to the increased bleeding. Biopsy, though, did show undifferentiated carcinoma. She was referred to Dr. Zamorano in [place]. Her staging MRI of the pelvis on 07/21/2019 showed cervical mass which was noted to be possibly going into the uterus in its inferior anterior aspect. There was local surrounding enhancement suggestive of local infiltration and there was an enlarged iliac chain lymph node on the right side. Staging PET/CT on 07/22/2019 showed primary tumor mass involving the cervix with evidence of local spread to a right common iliac lymph node. Subcentimeter pulmonary nodules were FDG negative and nonspecific, but metastatic disease was not excluded. There was no other evidence of metastatic involvement. On 07/25/2019 she underwent exam under anesthesia and placement of Port-A-Cath venous access device. A repeat cervical biopsy at that time showed invasive poorly differentiated squamous cell carcinoma. She was recommended to undergo primary chemoradiation utilizing weekly cisplatin for chemosensitization. Her other medical illnesses include hypertension, hypothyroidism, COPD, and vitamin D deficiency. She has a history of treated hepatitis C. She also has a history of colonic polyps. She has a history of smoking 1 pack of cigarettes daily for approximately 20 years. She recently quit. INTERIM HISTORY: She began her radiation concurrently with weekly cisplatin on 08/10/2019. She completed the radiation on 09/22/2019 to a total dose of 6000 cGy. She tolerated the treatment pretty well, though her 6th weekly cisplatin infusion was held due to neutropenia and fatigue. She then underwent LDR brachytherapy with Ce-137 implants on 10/18/2019 and again on 10/31/2019. She tolerated it well. Restaging CT of the abdomen/pelvis on 12/08/2019 showed a low-attenuation 9 mm lesion in the fundal myometrium, felt to possibly represent a small fibroid. There was moderate diffuse uterine myometrium enhancement which was felt to be likely due to therapy related changes. There was no evidence of metastatic disease in the abdomen or pelvis. On 12/23/2019 she began cycle 1 of postoperative adjuvant chemotherapy with cisplatin/paclitaxel in combination with Avastin. She unfortunately experienced neuropathy and other side effects it, severe enough that I did not think she would tolerate further treatment with that regimen. Following subsequent discussions with Dr. Zamorano, she was recommended to continue adjuvant chemotherapy with carboplatin and gemcitabine in combination with Avastin. However, at her follow-up visit on 03/14/2020 she was complaining of severe rectal pain. She also had a significant decline in her renal function. Her renal ultrasound was normal. A CT of the pelvis showed a small amount of air along the cervical and vaginal regions, felt to be possibly related to her recent radiation therapy. There was no evidence for recurrent adenopathy, abscess collection, or other pathology in the pelvis. She was referred to Dr. Ortega. She underwent attempted flexible sigmoidoscopy on 04/11/2020. The scope was not able to be transversed beyond the rectosigmoid region due to a narrowing lesion. Barium enema on 04/12/2020 showed mild narrowing of the sigmoid region due to overlapping loops of colon. There was no persistent high-grade stricture. It was a limited exam due to her inability to retain the barium mixture. She is seen for a follow-up visit. She is feeling better now generally. She continues to have a little pain in the rectal area, but it has been getting better on a high-fiber diet. He says she still gets diarrhea a lot, but she says her stool is getting thicker. Energy is just so-so. She complains that she tuckers out easily. She has limited activity. ECOG score is 2. Her appetite is good. She has not had fever. She occasionally wakes up with sweating. She has sinus drainage all the time. She recently has had shortness of breath and cough associated with bronchitis. She does not complain of chest pain. She has no other GI or complaints. She has pain in her lower back. She has headache off and on. She gets dizzy with bending over. She has burning and cramping in her legs. Medications: Aspirin Childrens 1 Tablet (of 81 mg) Tablet, chewable Oral daily, [employer] Milk of Magnesia Suspension Oral PRN, Docusate Sodium 1 Tablet (of 100 mg) Oral daily PRN, Gabapentin 1 Capsule (of 100 mg) Oral t.i.d., Ibuprofen 1 - 2 Capsule (of 200 mg) Oral daily PRN, Irbesartan 1 (300 mg) Tablet Oral daily, Levothyroxine Sodium 1 Tablet (of 75 mcg) Oral daily, Magnesium Oxide 1 Capsule (of 400 mg) Oral b.i.d., Metoprolol Tartrate 1 Tablet (of 25 mg) Oral daily, traMADol HCl 1 - 2 Tablet (of 50 mg) Oral daily Allergies: Lyrica Review of Systems: Constitutional - Her energy is fair. She can do light work, but she gets tried quickly. Her appetite is good and her weight is up a few pounds. No fevers or hot flashes. She has occasional night sweats. ECOG score is 1, ENMT - She has constant sinus congestion/drainage. No mouth sores. No sore throat or difficulty swallowing, Hematologic/Lymphatic - No abnormal bruising or bleeding, Respiratory - She has shortness of breath with activity. She has cough. No pleuritic pain or hemoptysis, Cardiovascular - No angina pain. No palpitations, Gastrointestinal - No nausea or vomiting. No heartburn or acid reflux. She has frequent diarrhea. No constipation. No blood in the stool or black stools, Genitourinary (F) - No dysuria or hematuria. No urinary frequency. No urgency or incontinence, Musculoskeletal - She has pain in her lower back and legs, Integumentary - No skin complications, Neurologic - She has occasional headaches. She dizziness. The numbness and tingling in her feet are still present but it has improved. No other focal neurologic symptoms, Psychiatric - No anxiety or depression. No insomnia. Vital Signs: Performed on Apr 26, 2020 09:22 Height - 67.00 in Weight - 165.8 lbs (HIGH) BSA - 1.87 sq.m BMI - 25.97 Temperature - 97.8 F (LOW) Pulse - 69 /min Respiration - 24 /min BP - 138/67 mm(hg) O2 Sat - 100 % Pain - 0 Physical Examination: Constitutional - She looks pretty good generally, Eyes - Sclerae nonicteric. Conjunctivae clear, ENMT - No lesions noted in the oral cavity, Hematologic/Lymphatic - No cervical, clavicular, or axillary adenopathy, Respiratory - Lungs sound clear, Cardiovascular - Heart rhythm is regular. There is no murmur, gallop, or rub noted, Abdomen - Mildly distended with mild, generalized tenderness. Liver and spleen are not enlarged. There is no abdominal mass or ascites noted and there is no inguinal adenopathy, Extremities - No edema, Neurologic - No focal neurologic deficits noted. Lab/Imaging: Test performed on Apr 25, 2020 12:15 Sodium 140 mmol/L Potassium 4.0 mmol/L Chloride 105 mmol/L CO2 24 mmol/L Anion Gap 15.0 BUN 15 mg/dL Creatinine 0.8 mg/dL Cr Clearance (Est) 83.2200 mL/min eGFR 71.8 mL/min Glucose 108 mg/dL Calcium 9.2 mg/dL Protein, Total 7.6 g/dL Albumin 3.9 g/dL Globulin 3.7 g/dL Bilirubin, Total 0.3 mg/dL ALT (SGPT) 9 U/L AST (SGOT) 17 U/L Alkaline Phosphatase 81 IU/L WBC 5.0 10 3/uL RBC 3.71 10 6/uL HGB 10.7 g/dL HCT 35.0 % MCV 94.3 fL MCH 28.8 pg MCHC 30.6 g/dL RDW 15.9 % Platelet Count 199 10 3/cmm MPV 10.1 fL Neutrophils 3.41 10 3/uL Lymphocytes 1.0 10 3/uL Monocytes 0.4 10 3/uL Eosinophils 0.1 10 3/uL Basophils 0.0 10 3/uL Neutrophil % 68.4 % Lymphocyte % 20.6 % Monocyte % 8.2 % Eosinophil % 2.0 % Basophils % 0.4 % NRBC % 0 % Impression: 1. 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 By clinical evaluation her disease appeared to be at least stage IB2 (T1b2, N1, M0). 2. She was mildly anemic, and her serum iron studies were consistent with iron deficiency. Her other medical illnesses include: 3. Hypertension. 4. Hypothyroidism. 5. COPD. 6. She has a history of treated hepatitis C. 7. Vitamin D deficiency. 8. She has a history of colonic polyps. She underwent primary chemoradiation utilizing weekly cisplatin chemotherapy. Her treatment began on 08/10/2019. She completed radiation on 09/22/2019 to a total dose of 6000 cGy. She tolerated the treatment well other than her sixth weekly cisplatin infusion was held due to neutropenia and fatigue. She then underwent LDR brachytherapy with Ce-137 implants on 10/18/2019 and on 10/31/2019. Overall, she tolerated the treatment well. Restaging CT of the abdomen/pelvis on 12/08/2019 showed a low-attenuation 9 mm lesion in the fundal myometrium, felt to possibly represent a small fibroid. There was moderate diffuse uterine myometrium enhancement which was felt to be likely due to therapy related changes. There was no evidence of metastatic disease in the abdomen or pelvis. On 12/23/2019 she began cycle 1 of postoperative adjuvant chemotherapy with cisplatin/paclitaxel in combination with Avastin. She developed multiple toxicities following that treatment, the most significant being severe fatigue and neuropathy. She had gradual recovery which was complicated by rectal pain and by a decline in her renal function. A specific cause was not determined, but it does appear to be resolving. Plan: She will now begin further adjuvant chemotherapy with carboplatin and gemcitabine in combination with Avastin. Her blood counts will be monitored weekly. She will be scheduled for a followup visit in 3 weeks. Signed By: Homar Warner M.D. <<Signature on File>>
[2020-05-02 15:06] LABS: Basophils % 1.5 %; Eosinophils % 0.8 %; Hematocrit 31.2 % (37.0-47.0); Hemoglobin 9.9 g/dL (11.5-15.3); Lymphocytes # 0.7 10^3/uL (0.8-4.8); Lymphocytes % 49.6 %; Mean Corpuscular HGB Conc 31.7 g/dL (30.0-36.0); Mean Corpuscular Hemoglobin 29.5 pg (28.0-34.0); Mean Corpuscular Volume 92.9 fL (81-99); Mean Platelet Volume 10.2 fL (7.4-10.4); Monocytes % 1.5 %; Neutrophils % 45.8 %; Nucleated Red Blood Cells % 0 %; Platelet Count 112 10^3/cmm (130-400); Red Blood Count 3.36 10^6/uL (4.1-5.3); Red Cell Distribution Width 15.4 % (12.1-15.1); White Blood Count 1.3 10^3/uL (4.0-10.0)
[2020-05-02 15:21] LABS: Alanine Aminotransferase 20 U/L (0-33); Albumin Level 3.8 g/dL (3.5-5.2); Alkaline Phosphatase 76 IU/L (35-105); Anion Gap 15.1 (5-19); Aspartate Amino Transferase 25 U/L (0-32); Blood Urea Nitrogen 13 mg/dL (8-23); Calcium 8.8 mg/dL (8.5-10.5); Carbon Dioxide 23 mmol/L (22-29); Chloride 104 mmol/L (98-107); Globulin 3.6 g/dL (1.3-4.6); Glomerular Filtration Rate 71.8 mL/min (90-130); Glucose 120 mg/dL (65-115); Osmolality Calculated 283 mOsm/kg (285-295); Potassium 4.1 mmol/L (3.5-5.1); Sodium 138 mmol/L (136-145); Total Bilirubin 0.3 mg/dL (0.15-1.2); Total Protein 7.4 g/dL (6.6-8.7)
[2020-05-02 16:01] LABS: Slide Review Slide Review Perform
--- NOTE | 2020-05-07 09:10 | ONC FU_ITS ---
[facility] Patient Note Patient: Dionne Fitzgerald Unit #: [id number]: 1955 Dictated By: Andriy BeckettDate of Visit: May 03, 2020 Onc MED Follow-Up/Prog Note Chief Complaint: Cervical cancer. 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 By clinical evaluation her stage is at least IB2 (T1b2, N0, M0). She had presented with a 3-month history of intermittent vaginal bleeding. Her transvaginal ultrasound on 07/05/2019 showed marked thickening and decreased echogenicity and hypervascularity throughout the cervix. It was noted to be lobulated and enlarged, consistent with cervical carcinoma. The cervix appeared grossly abnormal on exam. Pap smear was attempted at that time was problematic due to the increased bleeding. Biopsy, though, did show undifferentiated carcinoma. She was referred to Dr. Zamorano in [place]. Her staging MRI of the pelvis on 07/21/2019 showed cervical mass which was noted to be possibly going into the uterus in its inferior anterior aspect. There was local surrounding enhancement suggestive of local infiltration and there was an enlarged iliac chain lymph node on the right side. Staging PET/CT on 07/22/2019 showed primary tumor mass involving the cervix with evidence of local spread to a right common iliac lymph node. Subcentimeter pulmonary nodules were FDG negative and nonspecific, but metastatic disease was not excluded. There was no other evidence of metastatic involvement. On 07/25/2019 she underwent exam under anesthesia and placement of Port-A-Cath venous access device. A repeat cervical biopsy at that time showed invasive poorly differentiated squamous cell carcinoma. She was recommended to undergo primary chemoradiation utilizing weekly cisplatin for chemosensitization. Her other medical illnesses include hypertension, hypothyroidism, COPD, and vitamin D deficiency. She has a history of treated hepatitis C. She also has a history of colonic polyps. She has a history of smoking 1 pack of cigarettes daily for approximately 20 years. She recently quit. INTERIM HISTORY: She began her radiation concurrently with weekly cisplatin on 08/10/2019. She completed the radiation on 09/22/2019 to a total dose of 6000 cGy. She tolerated the treatment pretty well, though her 6th weekly cisplatin infusion was held due to neutropenia and fatigue. She then underwent LDR brachytherapy with Ce-137 implants on 10/18/2019 and again on 10/31/2019. She tolerated it well. Restaging CT of the abdomen/pelvis on 12/08/2019 showed a low-attenuation 9 mm lesion in the fundal myometrium, felt to possibly represent a small fibroid. There was moderate diffuse uterine myometrium enhancement which was felt to be likely due to therapy related changes. There was no evidence of metastatic disease in the abdomen or pelvis. On 12/23/2019 she began cycle 1 of postoperative adjuvant chemotherapy with cisplatin/paclitaxel in combination with Avastin. She unfortunately experienced neuropathy and other side effects it, severe enough that I did not think she would tolerate further treatment with that regimen. Following subsequent discussions with Dr. Zamorano, she was recommended to continue adjuvant chemotherapy with carboplatin and gemcitabine in combination with Avastin. However, at her follow-up visit on 03/14/2020 she was complaining of severe rectal pain. She also had a significant decline in her renal function. Her renal ultrasound was normal. A CT of the pelvis showed a small amount of air along the cervical and vaginal regions, felt to be possibly related to her recent radiation therapy. There was no evidence for recurrent adenopathy, abscess collection, or other pathology in the pelvis. She was referred to Dr. Ortega. She underwent attempted flexible sigmoidoscopy on 04/11/2020. The scope was not able to be transversed beyond the rectosigmoid region due to a narrowing lesion. Barium enema on 04/12/2020 showed mild narrowing of the sigmoid region due to overlapping loops of colon. There was no persistent high-grade stricture. It was a limited exam due to her inability to retain the barium mixture. Mrs. Fitzgerald is here today for follow-up. She began her first cycle of carboplatin gemcitabine and Avastin on April 26, 2020. She is here for day 8 consideration. Her ANC is 600 so chemotherapy will will be placed on hold this week. She denies any fever or chills. She states she feels good. She is having a hard time understanding why she cannot proceed with chemotherapy today.-We discussed her immune system and explained the neutropenia she is agreeable to hold the chemotherapy. She is currently on Bactrim for follow-up of a recent UTI. She has no new concerns with the UTI symptoms. She denies any cough. She denies any shortness breath orthopnea. She states she did have some neuropathy in her feet and that they were burning tingling more so than normal. She states it occurred right after the chemotherapy it is better currently but not completely resolved and not back to baseline. She did not have any troubles with her ADLs with the numb tingly feeling but states it was definitely noticeable. She states she did not want to tell us because she does not want to miss her chemotherapy. She denies any diarrhea or constipation. She denies any lower extremity edema. She denies mouth sores, sore throat or difficulty swallowing. She states overall she thinks she tolerated the first cycle of chemo therapy well. Her ECOG is 1. Past Medical History: Chronic obstructive pulmonary disease History of colonic polyps History of hepatitis C, treated in 2017 Hypertension Hypothyroidism Vitamin D deficiency Past Surgical History: Colonoscopy Diagnostic laparoscopy Colonoscopy in 2019 Flu vaccine 2019 in 2019 Placement of Port-A-Cath venous access device in 2019 Cholecystectomy in 2018 Allergies: Lyrica Medications: Aspirin Childrens 1 Tablet (of 81 mg) Tablet, chewable Oral daily [facility] Milk of Magnesia Suspension Oral PRN Docusate Sodium 1 Tablet (of 100 mg) Oral daily PRN Gabapentin 1 Capsule (of 100 mg) Oral t.i.d. Ibuprofen 1 - 2 Capsule (of 200 mg) Oral daily PRN Irbesartan 1 (300 mg) Tablet Oral daily Levothyroxine Sodium 1 Tablet (of 75 mcg) Oral daily Magnesium Oxide 1 Capsule (of 400 mg) Oral b.i.d. Metoprolol Tartrate 1 Tablet (of 25 mg) Oral daily traMADol HCl 1 - 2 Tablet (of 50 mg) Oral daily Family History: Ms. Fitzgerald's mother is alive. Ms. Fitzgerald's father at age 87. Ms. Fitzgerald has 1 brother who is alive. Father at age 87 with multiple myeloma. Mother is still living at age 85 and she is in pretty good health. A brother has been getting phlebotomies for polycythemia. It is uncertain whether this is PRV or secondary polycythemia. Social History: Ms. Fitzgerald is and she is unemployed. She is an occasional smoker who has smoked 0.5 packs/day for 20 years. She has no history of drinking. She will occasionally smoke a cig. Review Of Symptoms: Constitutional Denies fevers, chills, night sweats, excessive fatigue or weight loss. Allergic/Immunologic No reactions. Eyes Denies significant visual changes. No diplopia. No amaurosis. ENMT Denies changes in hearing, sore throat, mouth sores, difficulty or changes in swallowing ability, and/or sinus drainage. Endocrine No diabetes, thyroid disease or hormone replacement. Denies hot flashes or night sweats. Hematologic/Lymphatic Denies easy bruising or bleeding. The patient denies any tender or palpable lymph nodes. Respiratory Denies dyspnea on exertion, chest pain, cough or hemoptysis. Denies orthopnea. Has had chronic chest congestion but unable to cough anything up. No wheezing. Cardiovascular Denies anginal chest pain, palpitations or orthopnea. Gastrointestinal Denies nausea, vomiting, diarrhea, GI bleeding, or constipation. Denies change in bowel habits and/or stool color, no heartburn or early satiety. Genitourinary (F) No hematuria, incontinence, vaginal bleeding, discharge or other problems with urination. Musculoskeletal Denies joint pain, swelling or redness. No decreased range of motion. Integumentary Denies chronic rashes, inflammation, ulcerations or skin changes. Neurologic She states she is having some neuropathy in her fingers and toes. She states it is better right now but is still present. She states it was pretty noticeable after her first treatment but she did not want a same thing because she does not want to not to get her chemotherapy. Psychiatric Denies insomnia, depression, gabe or mood swings. Vital Signs: Performed on May 03, 2020 08:55 Height - 67.00 in Weight - 165.8 lbs BSA - 1.87 sq.m BMI - 25.97 Temperature - 96.9 F (LOW) Pulse - 74 /min Respiration - 19 /min BP - 164/87 mm(hg) (HIGH) O2 Sat - 97 % Pain - 0,0 - Fully active, able to carry on all predisease activities without restrictions. (ECOG) Physical Examination: Constitutional Alert, oriented, no acute distress. Skin pink, warm and dry. Head Normocephalic; atraumatic. Eyes Conjunctivae and sclerae are clear and without icterus. Pupils are reactive and equal. ENMT No oral exudates, ulcers, masses, thrush or mucositis. Oropharynx clear. Tongue normal. Neck Supple without masses or thyromegaly. No jugular venous distension. Hematologic/Lymphatic No petechiae or purpura. No tender or palpable lymph nodes in the cervical or supraclavicular areas. Respiratory Lungs are clear to auscultation without rhonchi or wheezing. Cardiovascular Regular rate and rhythm of heart without murmurs,clicks, gallops or rubs. Abdomen Non-tender, non-distended, no masses or ascites. Back/Spine Non-tender to palpation. Extremities No visible deformities, no cyanosis, clubbing or edema. Musculoskeletal No tenderness or swelling, normal range of motion without obvious weakness. Integumentary No rashes or lesions. Neurologic No sensory or motor deficits, normal cerebellar function, normal gait. Psychiatric Alert and oriented times three. Coherent speech. Verbalizes understanding of our discussions today. Laboratory:Test performed on May 02, 2020 13:08 Sodium 138 mmol/L Potassium 4.1 mmol/L Chloride 104 mmol/L CO2 23 mmol/L Anion Gap 15.1 BUN 13 mg/dL Creatinine 0.8 mg/dL Cr Clearance (Est) 83.2200 mL/min eGFR 71.8 mL/min Glucose 120 mg/dL Calcium 8.8 mg/dL Protein, Total 7.4 g/dL Albumin 3.8 g/dL Globulin 3.6 g/dL Bilirubin, Total 0.3 mg/dL ALT (SGPT) 20 U/L AST (SGOT) 25 U/L Alkaline Phosphatase 76 IU/L WBC 1.3 10 3/uL RBC 3.36 10 6/uL HGB 9.9 g/dL HCT 31.2 % MCV 92.9 fL MCH 29.5 pg MCHC 31.7 g/dL RDW 15.4 % Platelet Count 112 10 3/cmm MPV 10.2 fL Neutrophils 0.60 10 3/uL Lymphocytes 0.7 10 3/uL Monocytes 0.0 10 3/uL Eosinophils 0.0 10 3/uL Basophils 0.0 10 3/uL Neutrophil % 45.8 % Lymphocyte % 49.6 % Monocyte % 1.5 % Eosinophil % 0.8 % Basophils % 1.5 % NRBC % 0 % CBC Slide Review Slide Review Perform SLIDE REVIEW AGREES WITH AUTOMATED DIFFERNTIAL Test performed on Apr 25, 2020 12:15 Iron 43 mcg/dL Iron Binding Capacity (TIBC) 243 mcg/dl % Iron Saturation 17.6 % UIBC 200 mcg/dL Test performed on March 01, 2020 12:17 Ua Micro: Trans Epith Cells NONE /hpf Ua Micro: Renal Epith Cells - /hpf Ua Micro: Hyaline Casts 0-4 Ua Micro: WBC 80-100 /hpf Ua Micro: RBC NONE /hpf Ua Micro: Squam Epith Cells 0-4 Ua Micro: Bacteria TRACE Ua Micro: Mucous 1+ Impression: 1. 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 By clinical evaluation her disease appeared to be at least stage IB2 (T1b2, N1, M0). 2. She was mildly anemic, and her serum iron studies were consistent with iron deficiency. Her other medical illnesses include: 3. Hypertension. 4. Hypothyroidism. 5. COPD. 6. She has a history of treated hepatitis C. 7. Vitamin D deficiency. 8. She has a history of colonic polyps. She underwent primary chemoradiation utilizing weekly cisplatin chemotherapy. Her treatment began on 08/10/2019. She completed radiation on 09/22/2019 to a total dose of 6000 cGy. She tolerated the treatment well other than her sixth weekly cisplatin infusion was held due to neutropenia and fatigue. She then underwent LDR brachytherapy with Ce-137 implants on 10/18/2019 and on 10/31/2019. Overall, she tolerated the treatment well. Restaging CT of the abdomen/pelvis on 12/08/2019 showed a low-attenuation 9 mm lesion in the fundal myometrium, felt to possibly represent a small fibroid. There was moderate diffuse uterine myometrium enhancement which was felt to be likely due to therapy related changes. There was no evidence of metastatic disease in the abdomen or pelvis. On 12/23/2019 she began cycle 1 of postoperative adjuvant chemotherapy with cisplatin/paclitaxel in combination with Avastin. She developed multiple toxicities following that treatment, the most significant being severe fatigue and neuropathy. She had gradual recovery which was complicated by rectal pain and by a decline in her renal function. A specific cause was not determined, but it does appear to be resolving. Ms. Fitzgerald started chemotherapy with carboplatin gemcitabine and Avastin on April 26, 2020. She is had 1 week of treatment. She is here today for consideration of day 8 however she is neutropenic with an ANC of 600. Her platelet count dropped from 199 to 112. Plan: 1. Cycle 1 day 8 chemotherapy will be placed on hold due to neutropenia her ANC today is 600. This is after 1 treatment of carboplatin gemcitabine Avastin. 2. She will get Neupogen if approved by her insurance for 3 days and recheck her labs again on Thursday for possible treatment on Thursday or Thursday of next week. 3. Continue current antiemetics as they are working well for her. 4. We will make sure that she has refills of her antibiotic on hand at home she is currently on Bactrim DS for follow-up of her UTI. 5. We did discuss her using B complex to see if this will help with the neuropathy symptoms. 6. We will see her back in 1 week with CBC CMP as above. 7. Labs from May 02, 2020 were reviewed in detail and discussed with Ms. Fitzgerald and a copy was given to her. Due to BC 1.3, hemoglobin 9.9, platelets 212,000 ANC is 600 potassium 4.1 creatinine 0.8 and LFTs are normal. 8. Mrs. Fitzgerald was instructed to contact us in the interim should questions or problems arise. 9. We did discuss side effects of Neupogen including low-grade fever, bone pain, fatigue amongst others. She is aware that she could try Claritin 10 mg daily if she does have bone pain related to the Neupogen. She can also use pain medication if needed. Signed By: Andriy Beckett-BC, AOCNP Homar Warner MD <<Signature on File>>
[2020-05-07 13:30] LABS: Basophils % 0.4 %; Eosinophils % 0.4 %; Hematocrit 32.5 % (37.0-47.0); Hemoglobin 10.2 g/dL (11.5-15.3); Lymphocytes % 12.6 %; Mean Corpuscular HGB Conc 31.4 g/dL (30.0-36.0); Mean Corpuscular Volume 95.6 fL (81-99); Mean Platelet Volume 10.7 fL (7.4-10.4); Monocytes # 0.5 10^3/uL (0.2-0.9); Monocytes % 5.9 %; Neutrophils # 6.07 10^3/uL (1.8-7.7); Neutrophils % 75.1 %; Nucleated Red Blood Cells % 0 %; Platelet Count 35 10^3/cmm (130-400); Red Cell Distribution Width 15.7 % (12.1-15.1); White Blood Count 8.1 10^3/uL (4.0-10.0)
[2020-05-07 13:51] LABS: Urine Color Yellow (Yellow); pH Urine 5 (5-7)
[2020-05-07 13:52] LABS: Add Urine Culture? Yes; Add Urine Microscopic? YES; Bacteria Urine 2+; Bilirubin Urine Neg (NEGATIVE); Blood Urine 3+ (Negative); Glucose Urine UA Norm (Normal); Ketones Urine Negative (Negative); Leukocyte Esterase Urine Negative (Negative); Mucus Urine 2+; Nitrate Urine Negative (Negative); Protein Urine Neg (Negative); RBC Urine 15-25 /hpf (0-2); Squamous Epithelial Cell Urine 0-4 (0-5); Urobilinogen Urine Neg (Negative)
[2020-05-07 13:54] LABS: Alanine Aminotransferase 29 U/L (0-33); Albumin Level 4.1 g/dL (3.5-5.2); Alkaline Phosphatase 126 IU/L (35-105); Aspartate Amino Transferase 35 U/L (0-32); Blood Urea Nitrogen 15 mg/dL (8-23); Carbon Dioxide 25 mmol/L (22-29); Chloride 110 mmol/L (98-107); Globulin 3.6 g/dL (1.3-4.6); Glomerular Filtration Rate 83.7 mL/min (90-130); Glucose 103 mg/dL (65-115); Osmolality Calculated 293 mOsm/kg (285-295); Sodium 143 mmol/L (136-145); Total Bilirubin 0.3 mg/dL (0.15-1.2); Total Protein 7.7 g/dL (6.6-8.7)
[2020-05-07 14:00] LABS: Slide Review Slide Review Perform
[2020-05-14 15:09] LABS: Basophils % 0.5 %; Eosinophils % 0.9 %; Hematocrit 31.5 % (37.0-47.0); Hemoglobin 9.7 g/dL (11.5-15.3); Lymphocytes # 0.6 10^3/uL (0.8-4.8); Lymphocytes % 13.1 %; Mean Corpuscular HGB Conc 30.8 g/dL (30.0-36.0); Mean Corpuscular Hemoglobin 28.9 pg (28.0-34.0); Mean Corpuscular Volume 93.8 fL (81-99); Mean Platelet Volume 11.4 fL (7.4-10.4); Monocytes # 0.4 10^3/uL (0.2-0.9); Monocytes % 9.7 %; Neutrophils # 3.35 10^3/uL (1.8-7.7); Neutrophils % 75.3 %; Nucleated Red Blood Cells % 0 %; Platelet Count 69 10^3/cmm (130-400); Red Blood Count 3.36 10^6/uL (4.1-5.3); Red Cell Distribution Width 16.9 % (12.1-15.1); White Blood Count 4.4 10^3/uL (4.0-10.0)
[2020-05-14 15:22] LABS: Alanine Aminotransferase 10 U/L (0-33); Albumin Level 3.9 g/dL (3.5-5.2); Alkaline Phosphatase 79 IU/L (35-105); Anion Gap 16.1 (5-19); Aspartate Amino Transferase 17 U/L (0-32); Blood Urea Nitrogen 19 mg/dL (8-23); Calcium 9.3 mg/dL (8.5-10.5); Carbon Dioxide 24 mmol/L (22-29); Chloride 102 mmol/L (98-107); Globulin 3.5 g/dL (1.3-4.6); Glucose 95 mg/dL (65-115); Osmolality Calculated 282 mOsm/kg (285-295); Potassium 4.1 mmol/L (3.5-5.1); Sodium 138 mmol/L (136-145); Total Bilirubin 0.2 mg/dL (0.15-1.2); Total Protein 7.4 g/dL (6.6-8.7)
== END 2020-05-18 23:59 | disposition home or self-care (01) ==
LOC: ONCMED 06:47
PROVIDERS: Internal Medicine Medical Oncology; PCP Family Medicine; Visit Provider Nurse Practitioner
DX: Z51.11 Encounter for antineoplastic chemotherapy (principal); C53.8 Malignant neoplasm of overlapping sites of cervix uteri; D70.1 Agranulocytosis secondary to cancer chemotherapy; G62.0 Drug-induced polyneuropathy; T45.1X5A Adverse effect of antineoplastic and immunosuppressive drugs, initial encounter; I10 Essential (primary) hypertension; E03.9 Hypothyroidism, unspecified; J44.9 Chronic obstructive pulmonary disease, unspecified; E55.9 Vitamin D deficiency, unspecified; D50.9 Iron deficiency anemia, unspecified; N39.0 Urinary tract infection, site not specified; Z79.82 Long term (current) use of aspirin; Z86.19 Personal history of other infectious and parasitic diseases; Z87.891 Personal history of nicotine dependence; Z92.3 Personal history of irradiation; Z86.010 Personal history of colon polyps
CPT/HCPCS: 36415; 80053; 81001; 81003; 83540; 83550; 85025; 87086; 96367; 96372; 96413; 96417; 99214; J1100; J1453; J2469; J3490; J7050; J9035; J9045; J9201; Q5101

== ENCOUNTER 2020-06-11 05:42 | Outpatient (RCR) | payer MEDICARE, SELFPAY ==
[2020-05-21 08:47] LABS: Basophils % 0.6 %; Eosinophils % 1.2 %; Hematocrit 32.8 % (37.0-47.0); Lymphocytes # 0.7 10^3/uL (0.8-4.8); Lymphocytes % 20.8 %; Mean Corpuscular HGB Conc 30.5 g/dL (30.0-36.0); Mean Corpuscular Hemoglobin 28.7 pg (28.0-34.0); Mean Platelet Volume 10.3 fL (7.4-10.4); Monocytes # 0.6 10^3/uL (0.2-0.9); Monocytes % 17.5 %; Neutrophils # 2.01 10^3/uL (1.8-7.7); Neutrophils % 59.6 %; Nucleated Red Blood Cells % 0 %; Platelet Count 215 10^3/cmm (130-400); Red Blood Count 3.49 10^6/uL (4.1-5.3); Red Cell Distribution Width 17.3 % (12.1-15.1); White Blood Count 3.4 10^3/uL (4.0-10.0)
[2020-05-21 08:54] LABS: Alanine Aminotransferase 9 U/L (0-33); Alkaline Phosphatase 83 IU/L (35-105); Anion Gap 12.8 (5-19); Aspartate Amino Transferase 19 U/L (0-32); Blood Urea Nitrogen 19 mg/dL (8-23); Calcium 9.2 mg/dL (8.5-10.5); Carbon Dioxide 22 mmol/L (22-29); Chloride 106 mmol/L (98-107); Globulin 4.2 g/dL (1.3-4.6); Glomerular Filtration Rate 49.7 mL/min (90-130); Glucose 101 mg/dL (65-115); Osmolality Calculated 279 mOsm/kg (285-295); Potassium 4.8 mmol/L (3.5-5.1); Sodium 136 mmol/L (136-145); Total Bilirubin 0.2 mg/dL (0.15-1.2); Total Protein 8.2 g/dL (6.6-8.7)
[2020-05-21] MEDS: sodium chloride 0.9% 250 ML 75 ML IV (10:15)
[2020-05-21] MEDS: pegfilgrastim 6 mg/0.6 mL Kit (onpro) SUBCUT (13:20)
--- NOTE | 2020-05-25 08:56 | ONC FU_ITS ---
Dr. Warner Patient Follow-Up Note Patient: Dionne Fitzgerald Unit #: [id number]: 1955 Dicatated By: oHmar Warner M.D.Date of Visit:May 21, 2020 Onc Med Follow-up/Prog Note Chief Complaint: Cervical cancer. 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 By clinical evaluation her stage is at least IB2 (T1b2, N0, M0). She had presented with a 3-month history of intermittent vaginal bleeding. Her transvaginal ultrasound on 07/05/2019 showed marked thickening and decreased echogenicity and hypervascularity throughout the cervix. It was noted to be lobulated and enlarged, consistent with cervical carcinoma. The cervix appeared grossly abnormal on exam. Pap smear was attempted at that time was problematic due to the increased bleeding. Biopsy, though, did show undifferentiated carcinoma. She was referred to Dr. Zamorano in [place]. Her staging MRI of the pelvis on 07/21/2019 showed cervical mass which was noted to be possibly going into the uterus in its inferior anterior aspect. There was local surrounding enhancement suggestive of local infiltration and there was an enlarged iliac chain lymph node on the right side. Staging PET/CT on 07/22/2019 showed primary tumor mass involving the cervix with evidence of local spread to a right common iliac lymph node. Subcentimeter pulmonary nodules were FDG negative and nonspecific, but metastatic disease was not excluded. There was no other evidence of metastatic involvement. On 07/25/2019 she underwent exam under anesthesia and placement of Port-A-Cath venous access device. A repeat cervical biopsy at that time showed invasive poorly differentiated squamous cell carcinoma. She was recommended to undergo primary chemoradiation utilizing weekly cisplatin for chemosensitization. Her other medical illnesses include hypertension, hypothyroidism, COPD, and vitamin D deficiency. She has a history of treated hepatitis C. She also has a history of colonic polyps. She has a history of smoking 1 pack of cigarettes daily for approximately 20 years. She recently quit. INTERIM HISTORY: She began her radiation concurrently with weekly cisplatin on 08/10/2019. She completed the radiation on 09/22/2019 to a total dose of 6000 cGy. She tolerated the treatment pretty well, though her 6th weekly cisplatin infusion was held due to neutropenia and fatigue. She then underwent LDR brachytherapy with Ce-137 implants on 10/18/2019 and again on 10/31/2019. She tolerated it well. Restaging CT of the abdomen/pelvis on 12/08/2019 showed a low-attenuation 9 mm lesion in the fundal myometrium, felt to possibly represent a small fibroid. There was moderate diffuse uterine myometrium enhancement which was felt to be likely due to therapy related changes. There was no evidence of metastatic disease in the abdomen or pelvis. On 12/23/2019 she began cycle 1 of postoperative adjuvant chemotherapy with cisplatin/paclitaxel in combination with Avastin. She unfortunately experienced neuropathy and other side effects it, severe enough that I did not think she would tolerate further treatment with that regimen. Following subsequent discussions with Dr. Zamorano, she was recommended to continue adjuvant chemotherapy with carboplatin and gemcitabine in combination with Avastin. However, at her follow-up visit on 03/14/2020 she was complaining of severe rectal pain. She also had a significant decline in her renal function. Her renal ultrasound was normal. A CT of the pelvis showed a small amount of air along the cervical and vaginal regions, felt to be possibly related to her recent radiation therapy. There was no evidence for recurrent adenopathy, abscess collection, or other pathology in the pelvis. She was referred to Dr. Ortega. She underwent attempted flexible sigmoidoscopy on 04/11/2020. The scope was not able to be transversed beyond the rectosigmoid region due to a narrowing lesion. Barium enema on 04/12/2020 showed mild narrowing of the sigmoid region due to overlapping loops of colon. There was no persistent high-grade stricture. It was a limited exam due to her inability to retain the barium mixture. She then began cycle 1 of carboplatin/gemcitabine in combination with Avastin on 04/26/2020. She tolerated the initial treatment without acute toxicity. At day 8 she had moderately severe neutropenia, ANC 600. She was not febrile. She recovered uneventfully with Neupogen. She is seen for a follow-up visit. She indicates that she felt zapped after her treatment last month. She has limited activity now. She is doing just a little bit of light housework. ECOG score is 2. Her appetite is so-so. She had a slight fever a week ago, maximum 99.9 degrees. She has had some sweating at night. She has had no mouth sores. She is sometimes short of breath. She does have some cough. She does not complain of chest pain. She had nausea/vomiting and diarrhea a week ago, lasting for couple of days. She had subsequently developed constipation, but she then had abdominal cramping and diarrhea after taking senna. She has some pressure in the bladder area, but she otherwise has no difficulty voiding. She has been having some lower back pain. She also had pain in her neck and shoulders with the Neupogen. She says that pain is starting to ease up now. She does not complain of headache. She has had some orthostatic lightheadedness. She has numbness in her hands which comes and goes. She has some tingling and sometimes numbness in her feet. Medications: Aspirin Childrens 1 Tablet (of 81 mg) Tablet, chewable Oral daily, [employer] Milk of Magnesia Suspension Oral PRN, Docusate Sodium 1 Tablet (of 100 mg) Oral daily PRN, Gabapentin 1 Capsule (of 100 mg) Oral t.i.d., HYDROmorphone HCl 4 - 5 mL (of 1 mg/mL) Liquid Oral PRN, Ibuprofen 1 - 2 Capsule (of 200 mg) Oral daily PRN, Irbesartan 1 (300 mg) Tablet Oral daily, Levothyroxine Sodium 1 Tablet (of 75 mcg) Oral daily, Magnesium Oxide 1 Capsule (of 400 mg) Oral b.i.d., Metoprolol Tartrate 1 Tablet (of 25 mg) Oral daily Allergies: Lyrica Review of Systems: Constitutional - She is feeling okay, but her energy is low. She is able to do a few light housework but she is mainly sedentary. Her appetite is fair and weight is down a few pounds from last visit. No fevers. She is having hot flashes with sweating at night. ECOG score is 2, ENMT - She always has sinus congestion/drainage. No mouth sores. No sore throat or difficulty swallowing, Hematologic/Lymphatic - No abnormal bruising or bleeding, Respiratory - She is sometimes short of breath with activity. No cough. No pleuritic pain or hemoptysis, Cardiovascular - No angina pain. No palpitations, Gastrointestinal - No nausea or vomiting. She has occasional mild heartburn. She has had constipation, but she developed abdominal cramping and diarrhea after taking a laxative. No blood in the stool or black stools, Genitourinary (F) - No dysuria or hematuria. No urinary frequency. No urgency or incontinence, Musculoskeletal - She is having pain in her lower back and she has had a pressure in her buttocks area, Integumentary - No skin complications, Neurologic - No headache or dizziness. She has numbness in her hands, which comes and goes. She as tingling and sometimes numbness in her feet, Psychiatric - No anxiety. She has depression. She has not been sleeping well. Vital Signs: Performed on May 21, 2020 09:06 Height - 67.00 in Weight - 162.6 lbs (LOW) BSA - 1.85 sq.m BMI - 25.47 Temperature - 97.7 F (LOW) Pulse - 69 /min Respiration - 20 /min BP - 143/72 mm(hg) (HIGH) O2 Sat - 97 % Pain - 8 Physical Examination: Constitutional - She looks pretty good generally, Eyes - Sclerae nonicteric. Conjunctivae clear, ENMT - No lesions noted in the oral cavity, Hematologic/Lymphatic - No cervical, clavicular, or axillary adenopathy, Respiratory - Lungs sound clear, Cardiovascular - Heart rhythm is regular. There is no murmur, gallop, or rub noted, Abdomen - Soft and nontender. Liver and spleen are not enlarged. There is no abdominal mass or ascites noted and there is no inguinal adenopathy, Extremities - No edema, Neurologic - No focal neurologic deficits noted. Lab/Imaging: Test performed on May 21, 2020 08:18 Sodium 136 mmol/L Potassium 4.8 mmol/L Chloride 106 mmol/L CO2 22 mmol/L Anion Gap 12.8 BUN 19 mg/dL Creatinine 1.1 mg/dL Cr Clearance (Est) 60.5200 mL/min eGFR 49.7 mL/min Glucose 101 mg/dL Calcium 9.2 mg/dL Protein, Total 8.2 g/dL Albumin 4.0 g/dL Globulin 4.2 g/dL Bilirubin, Total 0.2 mg/dL ALT (SGPT) 9 U/L AST (SGOT) 19 U/L Alkaline Phosphatase 83 IU/L WBC 3.4 10 3/uL RBC 3.49 10 6/uL HGB 10.0 g/dL HCT 32.8 % MCV 94.0 fL MCH 28.7 pg MCHC 30.5 g/dL RDW 17.3 % Platelet Count 215 10 3/cmm MPV 10.3 fL Neutrophils 2.01 10 3/uL Lymphocytes 0.7 10 3/uL Monocytes 0.6 10 3/uL Eosinophils 0.0 10 3/uL Basophils 0.0 10 3/uL Neutrophil % 59.6 % Lymphocyte % 20.8 % Monocyte % 17.5 % Eosinophil % 1.2 % Basophils % 0.6 % NRBC % 0 % Impression: 1. 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 By clinical evaluation her disease appeared to be at least stage IB2 (T1b2, N1, M0). 2. She was mildly anemic, and her serum iron studies were consistent with iron deficiency. Her other medical illnesses include: 3. Hypertension. 4. Hypothyroidism. 5. COPD. 6. She has a history of treated hepatitis C. 7. Vitamin D deficiency. 8. She has a history of colonic polyps. She underwent primary chemoradiation utilizing weekly cisplatin chemotherapy. Her treatment began on 08/10/2019. She completed radiation on 09/22/2019 to a total dose of 6000 cGy. She tolerated the treatment well other than her sixth weekly cisplatin infusion was held due to neutropenia and fatigue. She then underwent LDR brachytherapy with Ce-137 implants on 10/18/2019 and on 10/31/2019. Overall, she tolerated the treatment well. Restaging CT of the abdomen/pelvis on 12/08/2019 showed a low-attenuation 9 mm lesion in the fundal myometrium, felt to possibly represent a small fibroid. There was moderate diffuse uterine myometrium enhancement which was felt to be likely due to therapy related changes. There was no evidence of metastatic disease in the abdomen or pelvis. On 12/23/2019 she began cycle 1 of postoperative adjuvant chemotherapy with cisplatin/paclitaxel in combination with Avastin. She developed multiple toxicities following that treatment, the most significant being severe fatigue and neuropathy. She had gradual recovery which was complicated by rectal pain and by a decline in her renal function. A specific cause was not determined, but it subsequently resolved. On 04/26/2020 she began further adjuvant chemotherapy with carboplatin/gemcitabine in combination with Avastin. She had moderately severe neutropenia at day 8, but she recovered uneventfully with Neupogen. She also has had significant fatigue, and she remains mildly anemic. Her neuropathy appears stable. Overall, she has tolerated treatment with acceptable toxicity. Plan: She will proceed with cycle 2 of carboplatin/gemcitabine in combination with Avastin. The dosages will remain the same combo she will be given Neulasta prophylactically. Blood counts will be monitored weekly. She returns in 3 weeks. Signed By: Homar Warner M.D. <<Signature on File>>
[2020-05-28 10:24] LABS: Basophils % 0.1 %; Hematocrit 32.1 % (37.0-47.0); Lymphocytes # 0.8 10^3/uL (0.8-4.8); Lymphocytes % 7.4 %; Mean Corpuscular HGB Conc 31.2 g/dL (30.0-36.0); Mean Corpuscular Hemoglobin 29.4 pg (28.0-34.0); Mean Corpuscular Volume 94.4 fL (81-99); Mean Platelet Volume 10.1 fL (7.4-10.4); Monocytes # 0.7 10^3/uL (0.2-0.9); Monocytes % 6.5 %; Neutrophils # 9.63 10^3/uL (1.8-7.7); Neutrophils % 84.8 %; Nucleated Red Blood Cells % 0 %; Platelet Count 135 10^3/cmm (130-400); Red Cell Distribution Width 17.2 % (12.1-15.1); White Blood Count 11.4 10^3/uL (4.0-10.0)
[2020-06-04 15:52] LABS: Basophils % 0.3 %; Eosinophils % 0.1 %; Hematocrit 30.7 % (37.0-47.0); Hemoglobin 9.3 g/dL (11.5-15.3); Lymphocytes # 0.7 10^3/uL (0.8-4.8); Lymphocytes % 9.1 %; Mean Corpuscular HGB Conc 30.3 g/dL (30.0-36.0); Mean Corpuscular Hemoglobin 28.7 pg (28.0-34.0); Mean Corpuscular Volume 94.8 fL (81-99); Mean Platelet Volume 11.4 fL (7.4-10.4); Monocytes # 0.8 10^3/uL (0.2-0.9); Monocytes % 10.3 %; Neutrophils # 5.94 10^3/uL (1.8-7.7); Neutrophils % 79.5 %; Nucleated Red Blood Cells % 0 %; Platelet Count 88 10^3/cmm (130-400); Red Blood Count 3.24 10^6/uL (4.1-5.3); Red Cell Distribution Width 17.2 % (12.1-15.1); White Blood Count 7.5 10^3/uL (4.0-10.0)
[2020-06-11 08:29] LABS: Basophils % 0.4 %; Eosinophils % 0.6 %; Hematocrit 29.3 % (37.0-47.0); Hemoglobin 9.2 g/dL (11.5-15.3); Lymphocytes # 0.4 10^3/uL (0.8-4.8); Mean Corpuscular HGB Conc 31.4 g/dL (30.0-36.0); Mean Corpuscular Hemoglobin 29.7 pg (28.0-34.0); Mean Corpuscular Volume 94.5 fL (81-99); Mean Platelet Volume 10.6 fL (7.4-10.4); Monocytes # 0.7 10^3/uL (0.2-0.9); Monocytes % 9.6 %; Neutrophils # 5.68 10^3/uL (1.8-7.7); Nucleated Red Blood Cells % 0 %; Platelet Count 175 10^3/cmm (130-400); Red Cell Distribution Width 18.2 % (12.1-15.1); White Blood Count 6.9 10^3/uL (4.0-10.0)
[2020-06-11 08:45] LABS: Alanine Aminotransferase 12 U/L (0-33); Albumin Level 3.7 g/dL (3.5-5.2); Alkaline Phosphatase 87 IU/L (35-105); Anion Gap 13.3 (5-19); Aspartate Amino Transferase 21 U/L (0-32); Blood Urea Nitrogen 10 mg/dL (8-23); Calcium 9.1 mg/dL (8.5-10.5); Carbon Dioxide 25 mmol/L (22-29); Chloride 107 mmol/L (98-107); Glomerular Filtration Rate 55.5 mL/min (90-130); Glucose 106 mg/dL (65-115); Osmolality Calculated 288 mOsm/kg (285-295); Potassium 4.3 mmol/L (3.5-5.1); Sodium 141 mmol/L (136-145); Total Bilirubin 0.2 mg/dL (0.15-1.2); Total Protein 7.7 g/dL (6.6-8.7)
[2020-06-11] MEDS: sodium chloride 0.9% 250 ML 75 ML IV (10:30)
[2020-06-11] MEDS: pegfilgrastim 6 mg/0.6 mL Kit (onpro) SUBCUT (13:36)
[2020-06-11 13:54] LABS: Blood Urine Neg (Negative); Glucose Urine UA Norm (Normal); Ketones Urine Negative (Negative); Protein Urine Neg (Negative); Urine Appearance Hazy (CLEAR); Urine Color Yellow (Yellow); pH Urine 7 (5-7)
[2020-06-11 13:55] LABS: Add Urine Microscopic? YES; Bilirubin Urine Neg (NEGATIVE); Leukocyte Esterase Urine 1+ (Negative); Nitrate Urine Negative (Negative); Urobilinogen Urine Norm (Negative)
[2020-06-11 14:13] LABS: Add Urine Culture? Yes; Bacteria Urine 2+; RBC Urine 0-4 /hpf (0-2); Squamous Epithelial Cell Urine 0-4 (0-5); WBC Urine 55-80 /hpf (0-5)
--- NOTE | 2020-06-15 16:43 | ONC FU_ITS ---
[facility] Patient Note Patient: Dionne Fitzgerald Unit #: [id number]: 1955 Dictated By: Andriy BeckettDate of Visit: Jun 11, 2020 Onc MED Follow-Up/Prog Note Chief Complaint: Cervical cancer. 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 By clinical evaluation her stage is at least IB2 (T1b2, N0, M0). She had presented with a 3-month history of intermittent vaginal bleeding. Her transvaginal ultrasound on 07/05/2019 showed marked thickening and decreased echogenicity and hypervascularity throughout the cervix. It was noted to be lobulated and enlarged, consistent with cervical carcinoma. The cervix appeared grossly abnormal on exam. Pap smear was attempted at that time was problematic due to the increased bleeding. Biopsy, though, did show undifferentiated carcinoma. She was referred to Dr. Zamorano in [place]. Her staging MRI of the pelvis on 07/21/2019 showed cervical mass which was noted to be possibly going into the uterus in its inferior anterior aspect. There was local surrounding enhancement suggestive of local infiltration and there was an enlarged iliac chain lymph node on the right side. Staging PET/CT on 07/22/2019 showed primary tumor mass involving the cervix with evidence of local spread to a right common iliac lymph node. Subcentimeter pulmonary nodules were FDG negative and nonspecific, but metastatic disease was not excluded. There was no other evidence of metastatic involvement. On 07/25/2019 she underwent exam under anesthesia and placement of Port-A-Cath venous access device. A repeat cervical biopsy at that time showed invasive poorly differentiated squamous cell carcinoma. She was recommended to undergo primary chemoradiation utilizing weekly cisplatin for chemosensitization. Her other medical illnesses include hypertension, hypothyroidism, COPD, and vitamin D deficiency. She has a history of treated hepatitis C. She also has a history of colonic polyps. She has a history of smoking 1 pack of cigarettes daily for approximately 20 years. She recently quit. INTERIM HISTORY: She began her radiation concurrently with weekly cisplatin on 08/10/2019. She completed the radiation on 09/22/2019 to a total dose of 6000 cGy. She tolerated the treatment pretty well, though her 6th weekly cisplatin infusion was held due to neutropenia and fatigue. She then underwent LDR brachytherapy with Ce-137 implants on 10/18/2019 and again on 10/31/2019. She tolerated it well. Restaging CT of the abdomen/pelvis on 12/08/2019 showed a low-attenuation 9 mm lesion in the fundal myometrium, felt to possibly represent a small fibroid. There was moderate diffuse uterine myometrium enhancement which was felt to be likely due to therapy related changes. There was no evidence of metastatic disease in the abdomen or pelvis. On 12/23/2019 she began cycle 1 of postoperative adjuvant chemotherapy with cisplatin/paclitaxel in combination with Avastin. She unfortunately experienced neuropathy and other side effects it, severe enough that Dr Warner did not think she would tolerate further treatment with that regimen. Following subsequent discussions with Dr. Zamorano, she was recommended to continue adjuvant chemotherapy with carboplatin and gemcitabine in combination with Avastin. However, at her follow-up visit on 03/14/2020 she was complaining of severe rectal pain. She also had a significant decline in her renal function. Her renal ultrasound was normal. A CT of the pelvis showed a small amount of air along the cervical and vaginal regions, felt to be possibly related to her recent radiation therapy. There was no evidence for recurrent adenopathy, abscess collection, or other pathology in the pelvis. She was referred to Dr. Ortega. She underwent attempted flexible sigmoidoscopy on 04/11/2020. The scope was not able to be transversed beyond the rectosigmoid region due to a narrowing lesion. Barium enema on 04/12/2020 showed mild narrowing of the sigmoid region due to overlapping loops of colon. There was no persistent high-grade stricture. It was a limited exam due to her inability to retain the barium mixture. She then began cycle 1 of carboplatin/gemcitabine in combination with Avastin on 04/26/2020. She tolerated the initial treatment without acute toxicity. At day 8 she had moderately severe neutropenia, ANC 600. She was not febrile. She recovered uneventfully with Neupogen. Mrs Fitzgerald is here today for a follow-up visit. he is due for cycle 3 carboplatin gemcitabine and Avastin. She states overall she is feeling ok. She states some of her old problems are coming back, She states she is starting to have perinal pain again and discharge that has a slight odor. She states she is tired but no more so than what is normal for her. She is able to do all of her ADLs without assistance. She states she thinks she is tolerating chemo well she denies any neuropathy. She has had no nausea or vomiting. She denies diarrhea or constipation. She continues to have some vaginal drainage which she describes as sticky and has an odor. She thinks it is a dark sheikh to dark yellowish color. She states she had one episode of fever over the weekend of 99.4 but that was 1 time when she rechecked an hour later it was normal. He has been normal since then. She also describes that she is having urinary frequency. She states her odor has a very foul smell to it as well. She is having urinary hesitancy as well. She has had multiple bladder infections in the past. She states she starting to have peritoneal/rectal pain again is uncertain what is causing it. She states this not to the severity was when she saw Dr. Ortega but it is showing back up again . She denies any constipation. She states she is having trouble finding anything that she wants to eat. She states her appetite has gradually decreased over the last couple of weeks. She states she just does not want to eat anything at this point. She denies nausea or gastritis symptoms. Her ECOG is 1. Past Medical History: Chronic obstructive pulmonary disease History of colonic polyps History of hepatitis C, treated in 2017 Hypertension Hypothyroidism Vitamin D deficiency Past Surgical History: Colonoscopy Diagnostic laparoscopy Colonoscopy in 2019 Flu vaccine 2019 in 2018 Placement of Port-A-Cath venous access device in 2019 Cholecystectomy in 2018 Allergies: Lyrica Medications: Aspirin Childrens 1 Tablet (of 81 mg) Tablet, chewable Oral daily [facility] Milk of Magnesia Suspension Oral PRN Docusate Sodium 1 Tablet (of 100 mg) Oral daily PRN Gabapentin 1 Capsule (of 100 mg) Oral daily HYDROmorphone HCl 4 - 5 mL (of 1 mg/mL) Liquid Oral PRN Ibuprofen 1 - 2 Capsule (of 200 mg) Oral daily PRN Irbesartan 1 (300 mg) Tablet Oral daily Levothyroxine Sodium 1 Tablet (of 75 mcg) Oral daily Magnesium Oxide 1 Capsule (of 400 mg) Oral b.i.d. Metoprolol Tartrate 1 Tablet (of 25 mg) Oral daily Family History: Ms. Fitzgerald's mother is alive. Ms. Fitzgerald's father at age 87. Ms. Fitzgerald has 1 brother who is alive. Father at age 87 with multiple myeloma. Mother is still living at age 85 and she is in pretty good health. A brother has been getting phlebotomies for polycythemia. It is uncertain whether this is PRV or secondary polycythemia. Social History: Ms. Fitzgerald is and she is unemployed. She is an occasional smoker who has smoked 0.5 packs/day for 20 years. She has no history of drinking. She will occasionally smoke a cig. Review Of Symptoms: Constitutional She states in general she feels okay but is tired. She states is no worse than what has been. She denies any fever or chills Eyes Denies significant visual changes. No diplopia. No amaurosis. ENMT Denies changes in hearing, sore throat, mouth sores, difficulty or changes in swallowing ability, and/or sinus drainage. Hematologic/Lymphatic Denies easy bruising or bleeding. The patient denies any tender or palpable lymph nodes. Respiratory Denies dyspnea on exertion, chest pain, cough or hemoptysis. Denies orthopnea. Cardiovascular Denies anginal chest pain, palpitations or orthopnea. Gastrointestinal Denies nausea, vomiting, diarrhea, GI bleeding, or constipation. Denies change in bowel habits and/or stool color, no heartburn or early satiety. Genitourinary (F) She complains of urinary frequency. She states that she did document a fever over the weekend of 99.4 on Thursday but has had none since. She states that the urine has a strong odor. She is also having some vaginal discharge that she describes as sticky . She denies any vaginal bleeding. She states that she is beginning to have pain in her perineal area as she did before. Musculoskeletal Denies new or worsening joint pain, swelling or redness. No decreased range of motion. Integumentary Denies chronic rashes, inflammation, ulcerations or skin changes. Neurologic Denies headache, blurred vision, and no areas of focal weakness or numbness. Normal gait. No sensory problems. Psychiatric Denies insomnia, depression, gabe or mood swings. Vital Signs: Performed on Jun 11, 2020 10:00 Height - 67.00 in Weight - 159.4 lbs (LOW) BSA - 1.84 sq.m BMI - 24.97 Temperature - 97.7 F (LOW) Pulse - 73 /min Respiration - 18 /min BP - 135/73 mm(hg) O2 Sat - 97 % Pain - 2,1 - No physically strenuous activity, but ambulatory and able to carry out light or sedentary work (e.g. office work, light house work). (ECOG) Physical Examination: Constitutional Alert, oriented, no acute distress. Skin pink, warm and dry. Head Normocephalic; atraumatic. Eyes Conjunctivae and sclerae are clear and without icterus. Pupils are reactive and equal. Neck Supple without masses or thyromegaly. No jugular venous distension. Hematologic/Lymphatic No petechiae or purpura. No tender or palpable lymph nodes in the cervical or supraclavicular areas. Respiratory Lungs are clear to auscultation without rhonchi or wheezing. Cardiovascular Regular rate and rhythm of heart without murmurs,clicks, gallops or rubs. Abdomen Non-tender, non-distended, no masses or ascites. Back/Spine Non-tender to palpation. Extremities No visible deformities, no cyanosis, clubbing or edema. Musculoskeletal No tenderness or swelling, normal range of motion without obvious weakness. Integumentary No rashes or lesions. Neurologic No sensory or motor deficits, normal cerebellar function, normal gait. Psychiatric Alert and oriented times three. Coherent speech. Verbalizes understanding of our discussions today. Laboratory:Test performed on Jun 11, 2020 12:28 Ua Micro: WBC 55-80 /hpf Ua Micro: RBC 0-4 /hpf Ua Micro: Squam Epith Cells 0-4 Ua Micro: Bacteria 2+ Test performed on Jun 11, 2020 08:15 Sodium 141 mmol/L Potassium 4.3 mmol/L Chloride 107 mmol/L CO2 25 mmol/L Anion Gap 13.3 BUN 10 mg/dL Creatinine 1.0 mg/dL Cr Clearance (Est) 66.5700 mL/min eGFR 55.5 mL/min Glucose 106 mg/dL Calcium 9.1 mg/dL Protein, Total 7.7 g/dL Albumin 3.7 g/dL Globulin 4.0 g/dL Bilirubin, Total 0.2 mg/dL ALT (SGPT) 12 U/L AST (SGOT) 21 U/L Alkaline Phosphatase 87 IU/L WBC 6.9 10 3/uL RBC 3.10 10 6/uL HGB 9.2 g/dL HCT 29.3 % MCV 94.5 fL MCH 29.7 pg MCHC 31.4 g/dL RDW 18.2 % Platelet Count 175 10 3/cmm MPV 10.6 fL Neutrophils 5.68 10 3/uL Lymphocytes 0.4 10 3/uL Monocytes 0.7 10 3/uL Eosinophils 0.0 10 3/uL Basophils 0.0 10 3/uL Neutrophil % 83.0 % Lymphocyte % 6.0 % Monocyte % 9.6 % Eosinophil % 0.6 % Basophils % 0.4 % NRBC % 0 % Test performed on Apr 25, 2020 12:15 Iron 43 mcg/dL Iron Binding Capacity (TIBC) 243 mcg/dl % Iron Saturation 17.6 % UIBC 200 mcg/dL Impression: 1. 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 By clinical evaluation her disease appeared to be at least stage IB2 (T1b2, N1, M0). 2. She was mildly anemic, and her serum iron studies were consistent with iron deficiency. Her other medical illnesses include: 3. Hypertension. 4. Hypothyroidism. 5. COPD. 6. She has a history of treated hepatitis C. 7. Vitamin D deficiency. 8. She has a history of colonic polyps. She underwent primary chemoradiation utilizing weekly cisplatin chemotherapy. Her treatment began on 08/10/2019. She completed radiation on 09/22/2019 to a total dose of 6000 cGy. She tolerated the treatment well other than her sixth weekly cisplatin infusion was held due to neutropenia and fatigue. She then underwent LDR brachytherapy with Ce-137 implants on 10/18/2019 and on 10/31/2019. Overall, she tolerated the treatment well. Restaging CT of the abdomen/pelvis on 12/08/2019 showed a low-attenuation 9 mm lesion in the fundal myometrium, felt to possibly represent a small fibroid. There was moderate diffuse uterine myometrium enhancement which was felt to be likely due to therapy related changes. There was no evidence of metastatic disease in the abdomen or pelvis. On 12/23/2019 she began cycle 1 of postoperative adjuvant chemotherapy with cisplatin/paclitaxel in combination with Avastin. She developed multiple toxicities following that treatment, the most significant being severe fatigue and neuropathy. She had gradual recovery which was complicated by rectal pain and by a decline in her renal function. A specific cause was not determined, but it subsequently resolved. On 04/26/2020 she began further adjuvant chemotherapy with carboplatin/gemcitabine in combination with Avastin. She had moderately severe neutropenia at day 8, but she recovered uneventfully with Neupogen. She also has had significant fatigue, and she remains mildly anemic. Her neuropathy appears stable. Overall, she has tolerated treatment with acceptable toxicity. Plan: 1. proceed with cycle 3 of carboplatin/gemcitabine in combination with Avastin. 2. Continue Neulasta support for chemo induced neutropenia. 3. Today's labs were reviewed in detail and discussed with Ms. Mistry and a copy was given to her. White count 6.9, hemoglobin 9.2, platelets 275,000 ANC is 5700. Potassium 4.3 random glucose 106 creatinine 1.0 LFTs are normal. 4. I did request a UA for follow-up of her urinary frequency and hesitancy. It was pending at time of visit. 5. I will go ahead and start her on Flagyl 500 mg twice daily for suspected bacterial vaginosis. 6. She will continue on the Bactrim that she Pawan started when she developed UTI symptoms. We will wait for the culture before we do any antibiotic changes. 7. I have asked her about her follow-up with Dr. Adams in [place] and she states she does have them back if she does not want to [place] if she does not have to. She is agreeable to see women's care here in [place] and states that she has seen Jess before. I have asked for a referral to [facility] for evaluation of the vaginal discharge. Mrs. Mistry has not had a pelvic exam since her radiation. I have encouraged her to go back to Dr. Powell and she states that if the doctors in [place] [facility] feel it is appropriate for her to see Dr. Powell then she will make that trip. She does want to see someone local first. 8. We discussed at length how much of her drainage and anal discomfort could be related to radiation. I am not certain that it is a full culprit it may be contributing some however I do feel it is warranted that she have an assessment by gynecology. 9. We will plan to see her back in 3 weeks with CBC CMP. 10. She will be due for cycle 4 carboplatin gemcitabine Avastin. Thus far she is only completed day 1 of the cycle. 11. Mrs. Mckeon was instructed to contact us in interim should questions or problems arise. She is aware that we will call her with results of the culture once it is available and we may need to change antibiotic depending on what the culture tells us. Signed By: Andriy Beckett-, CNP Homar Warner MD <<Signature on File>>
== END 2020-06-18 23:59 | disposition home or self-care (01) ==
LOC: ONCMED 05:42
PROVIDERS: Internal Medicine Medical Oncology; PCP Family Medicine; Visit Provider Nurse Practitioner
DX: Z51.11 Encounter for antineoplastic chemotherapy (principal); C53.8 Malignant neoplasm of overlapping sites of cervix uteri; D50.9 Iron deficiency anemia, unspecified; D70.1 Agranulocytosis secondary to cancer chemotherapy; T45.1X5A Adverse effect of antineoplastic and immunosuppressive drugs, initial encounter; D69.59 Other secondary thrombocytopenia; J44.9 Chronic obstructive pulmonary disease, unspecified; I10 Essential (primary) hypertension; E03.9 Hypothyroidism, unspecified; E55.9 Vitamin D deficiency, unspecified; Z86.19 Personal history of other infectious and parasitic diseases; Z86.010 Personal history of colon polyps
CPT/HCPCS: 36415; 36591; 80053; 81001; 85025; 87077; 87086; 87186; 96367; 96372; 96413; 96417; 99214; J1100; J1453; J2469; J2505; J3490; J7050; J9035; J9045; J9201

== ENCOUNTER 2020-07-10 05:35 | Outpatient (RCR) | payer MEDICARE, SELFPAY ==
[2020-07-02 15:16] LABS: Basophils % 0.4 %; Eosinophils % 0.7 %; Hematocrit 29.1 % (37.0-47.0); Hemoglobin 8.8 g/dL (11.5-15.3); Lymphocytes # 0.7 10^3/uL (0.8-4.8); Lymphocytes % 12.7 %; Mean Corpuscular HGB Conc 30.2 g/dL (30.0-36.0); Mean Corpuscular Hemoglobin 30.6 pg (28.0-34.0); Mean Platelet Volume 10.9 fL (7.4-10.4); Monocytes # 0.8 10^3/uL (0.2-0.9); Monocytes % 14.7 %; Neutrophils # 3.97 10^3/uL (1.8-7.7); Nucleated Red Blood Cells % 0 %; Platelet Count 126 10^3/cmm (130-400); Red Blood Count 2.88 10^6/uL (4.1-5.3); Red Cell Distribution Width 21.7 % (12.1-15.1); White Blood Count 5.6 10^3/uL (4.0-10.0)
[2020-07-02 15:30] LABS: Alanine Aminotransferase 22 U/L (0-33); Albumin Level 3.9 g/dL (3.5-5.2); Alkaline Phosphatase 80 IU/L (35-105); Anion Gap 14.8 (5-19); Aspartate Amino Transferase 27 U/L (0-32); Blood Urea Nitrogen 15 mg/dL (8-23); Calcium 8.9 mg/dL (8.5-10.5); Carbon Dioxide 26 mmol/L (22-29); Chloride 104 mmol/L (98-107); Globulin 4.2 g/dL (1.3-4.6); Glomerular Filtration Rate 71.8 mL/min (90-130); Glucose 78 mg/dL (65-115); Osmolality Calculated 285 mOsm/kg (285-295); Potassium 4.8 mmol/L (3.5-5.1); Sodium 140 mmol/L (136-145); Total Bilirubin 0.2 mg/dL (0.15-1.2); Total Protein 8.1 g/dL (6.6-8.7)
[2020-07-03 09:56] LABS: Iron 49 ug/dL (37-145); Percent Saturation 22.3 % (20-50); Total Iron Binding Capacity 219 mcg/dl; Unsaturated Iron Binding 170 ug/dL (112-347)
--- NOTE | 2020-07-03 10:20 | IR_ITS ---
WS: [id number] EXAM: FLUOROSCOPIC-GUIDED PORT-A-CATH INJECTION DATE OF EXAMINATION: 07/03/2020, 1143 hours COMPARISON: None. HISTORY: Patient is 64 years old with malfunctioning left subclavian Port-A-Cath. FINDINGS: Port-A-Cath injection was performed. The needle is within the reservoir. There are findings of immedi ate extravasation of contrast in the catheter tubing at the level as a catheter extends below the lef t clavicle. There is retrograde filling of contrast in the subcutaneous tissues along the more proxim al aspect of the catheter tubing. No contrast is seen extending through the distal catheter tubing. N o leak at the site of the reservoir is demonstrated. IR/[place] [id number] IMPRESSION: Imaging findings felt to represent failure of the Port-A-Cath tubing with extra vasation of contrast at the point where the tubing extends underneath of the le ft clavicle. General surgeon referral for Port-A-Cath revision recommended.
[2020-07-03] MEDS: sodium chloride 0.9% 250 ML 75 ML IV (11:20)
[2020-07-03] MEDS: iohexol 300 mg/mL 50 mL Btl IV (11:27)
[2020-07-03] MEDS: pegfilgrastim 6 mg/0.6 mL Kit (onpro) SUBCUT (14:40)
--- NOTE | 2020-07-07 10:32 | ONC FU_ITS ---
Dr. Warner Patient Follow-Up Note Patient: Dionne Fitzgerald Unit #: [id number]: 1955 Dicatated By: Homar Warner M.D.Date of Visit:Jul 03, 2020 Onc Med Follow-up/Prog Note Chief Complaint: Cervical cancer. 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 By clinical evaluation her stage is at least IB2 (T1b2, N0, M0). She had presented with a 3-month history of intermittent vaginal bleeding. Her transvaginal ultrasound on 07/05/2019 showed marked thickening and decreased echogenicity and hypervascularity throughout the cervix. It was noted to be lobulated and enlarged, consistent with cervical carcinoma. The cervix appeared grossly abnormal on exam. Pap smear was attempted at that time was problematic due to the increased bleeding. Biopsy, though, did show undifferentiated carcinoma. She was referred to Dr. Zamorano in [place]. Her staging MRI of the pelvis on 07/21/2019 showed cervical mass which was noted to be possibly going into the uterus in its inferior anterior aspect. There was local surrounding enhancement suggestive of local infiltration and there was an enlarged iliac chain lymph node on the right side. Staging PET/CT on 07/22/2019 showed primary tumor mass involving the cervix with evidence of local spread to a right common iliac lymph node. Subcentimeter pulmonary nodules were FDG negative and nonspecific, but metastatic disease was not excluded. There was no other evidence of metastatic involvement. On 07/25/2019 she underwent exam under anesthesia and placement of Port-A-Cath venous access device. A repeat cervical biopsy at that time showed invasive poorly differentiated squamous cell carcinoma. She was recommended to undergo primary chemoradiation utilizing weekly cisplatin for chemosensitization. Her other medical illnesses include hypertension, hypothyroidism, COPD, and vitamin D deficiency. She has a history of treated hepatitis C. She also has a history of colonic polyps. She has a history of smoking 1 pack of cigarettes daily for approximately 20 years. She recently quit. INTERIM HISTORY: She began her radiation concurrently with weekly cisplatin on 08/10/2019. She completed the radiation on 09/22/2019 to a total dose of 6000 cGy. She tolerated the treatment pretty well, though her 6th weekly cisplatin infusion was held due to neutropenia and fatigue. She then underwent LDR brachytherapy with Ce-137 implants on 10/18/2019 and again on 10/31/2019. She tolerated it well. Restaging CT of the abdomen/pelvis on 12/08/2019 showed a low-attenuation 9 mm lesion in the fundal myometrium, felt to possibly represent a small fibroid. There was moderate diffuse uterine myometrium enhancement which was felt to be likely due to therapy related changes. There was no evidence of metastatic disease in the abdomen or pelvis. On 12/23/2019 she began cycle 1 of postoperative adjuvant chemotherapy with cisplatin/paclitaxel in combination with Avastin. She unfortunately experienced neuropathy and other side effects it, severe enough that I did not think she would tolerate further treatment with that regimen. Following subsequent discussions with Dr. Zamorano, she was recommended to continue adjuvant chemotherapy with carboplatin and gemcitabine in combination with Avastin. However, at her follow-up visit on 03/14/2020 she was complaining of severe rectal pain. She also had a significant decline in her renal function. Her renal ultrasound was normal. A CT of the pelvis showed a small amount of air along the cervical and vaginal regions, felt to be possibly related to her recent radiation therapy. There was no evidence for recurrent adenopathy, abscess collection, or other pathology in the pelvis. She was referred to Dr. Ortega. She underwent attempted flexible sigmoidoscopy on 04/11/2020. The scope was not able to be transversed beyond the rectosigmoid region due to a narrowing lesion. Barium enema on 04/12/2020 showed mild narrowing of the sigmoid region due to overlapping loops of colon. There was no persistent high-grade stricture. It was a limited exam due to her inability to retain the barium mixture. She then began cycle 1 of carboplatin/gemcitabine in combination with Avastin on 04/26/2020. She tolerated the initial treatment without acute toxicity. At day 8 she had moderately severe neutropenia, ANC 600. She was not febrile. She recovered uneventfully with Neupogen. She continued with cycle 2 on 05/21/2020. She was given a dose reduction and she also was given Neulasta prophylactically. She tolerated it with acceptable toxicity, and she continue with cycle 3 on 06/11/2020. She is seen for a follow-up visit. She complains that she is tired, the point that she cannot do anything. Her ECOG score is 2. Appetite is not good. She makes herself eat. She was sick last week with bronchitis, for which she was given antibiotic therapy. She also was treated for yeast infection. She has not had fever, she did have some chills. She has hot flashes and sweating. She has had no mouth sores. She still has nonproductive cough. She does not complain of shortness of breath or chest pain. She sometimes has nausea. She still has some pain with defecation and with voiding, but it is getting better. She has pain in her back and legs and she also has muscle cramps in her legs. She has numbness/tingling in her feet. Medications: Aspirin Childrens 1 Tablet (of 81 mg) Tablet, chewable Oral daily, [employer] Milk of Magnesia Suspension Oral PRN, Docusate Sodium 1 Tablet (of 100 mg) Oral daily PRN, Gabapentin 1 Capsule (of 100 mg) Oral daily, HYDROmorphone HCl 1 Tablet (of 4 mg) Oral q 4 hours PRN, Ibuprofen 1 - 2 Capsule (of 200 mg) Oral daily PRN, Irbesartan 1 (300 mg) Tablet Oral daily, Levothyroxine Sodium 1 Tablet (of 75 mcg) Oral daily, Magnesium Oxide 1 Capsule (of 400 mg) Oral b.i.d., Metoprolol Tartrate 1 Tablet (of 25 mg) Oral daily Allergies: Lyrica Review of Systems: Constitutional - Her energy has decreased significantly. She has been very tired and not doing much at home. Her appetite is poor, she has to make herself and her weight is down 3 pounds from last visit. No fevers. She has night sweats. She has been having episodes of chilling during the day. No hot flashes. ECOG score is 2, ENMT - She has a constant nasal drip. No mouth sores. No sore throat or difficulty swallowing, Hematologic/Lymphatic - She bruises easily, Respiratory - No shortness of breath. No cough. No pleuritic pain or hemoptysis, Cardiovascular - No angina pain. No palpitations, Gastrointestinal - She has occasional nausea. No vomiting. No heartburn or acid reflux. No diarrhea. Her constipation has improved. No blood in the stool or black stools, Genitourinary (F) - She has dysuria. No hematuria. No urinary frequency. She has difficulty with urination and reports alot of pressure at times. She is also having alot of vaginal pain, Musculoskeletal - No joint or bone pain, Integumentary - No skin complications, Neurologic - No headache. She has dizziness with positional changes. She has occasional numbness in her hands and feet that is overly improved. No other focal neurologic symptoms, Psychiatric - She has some mild anxiety and depression. No insomnia. Vital Signs: Physical Examination: Constitutional - She appears somewhat weak generally, Eyes - Sclerae nonicteric. Conjunctivae clear, ENMT - No lesions noted in the oral cavity, Hematologic/Lymphatic - No cervical, clavicular, or axillary adenopathy, Respiratory - Lungs sound clear, Cardiovascular - Heart rhythm is regular. There is no murmur, gallop, or rub noted, Abdomen - Soft. Liver and spleen are not enlarged. There is no abdominal mass or ascites noted and there is no inguinal adenopathy, Extremities - No edema, Neurologic - No focal neurologic deficits noted. Lab/Imaging: CBC shows hemoglobin 8.8 g, white blood cell count 5600, and platelet count 126,000. Comprehensive metabolic profile is unremarkable. Impression: 1. 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 By clinical evaluation her disease appeared to be at least stage IB2 (T1b2, N1, M0). 2. She was mildly anemic, and her serum iron studies were consistent with iron deficiency. Her other medical illnesses include: 3. Hypertension. 4. Hypothyroidism. 5. COPD. 6. She has a history of treated hepatitis C. 7. Vitamin D deficiency. 8. She has a history of colonic polyps. She underwent primary chemoradiation utilizing weekly cisplatin chemotherapy. Her treatment began on 08/10/2019. She completed radiation on 09/22/2019 to a total dose of 6000 cGy. She tolerated the treatment well other than her sixth weekly cisplatin infusion was held due to neutropenia and fatigue. She then underwent LDR brachytherapy with Ce-137 implants on 10/18/2019 and on 10/31/2019. Overall, she tolerated the treatment well. Restaging CT of the abdomen/pelvis on 12/08/2019 showed a low-attenuation 9 mm lesion in the fundal myometrium, felt to possibly represent a small fibroid. There was moderate diffuse uterine myometrium enhancement which was felt to be likely due to therapy related changes. There was no evidence of metastatic disease in the abdomen or pelvis. On 12/23/2019 she began cycle 1 of postoperative adjuvant chemotherapy with cisplatin/paclitaxel in combination with Avastin. She developed multiple toxicities following that treatment, the most significant being severe fatigue and neuropathy. She had gradual recovery which was complicated by rectal pain and by a decline in her renal function. A specific cause was not determined, but it subsequently resolved. On 04/26/2020 she began further adjuvant chemotherapy with carboplatin/gemcitabine in combination with Avastin. She had moderately severe neutropenia at day 8, but she recovered uneventfully with Neupogen. Cycles 2 and 3 were administered with a dose reduction and with Neulasta prophylactically. She has been able to tolerate treatment with acceptable toxicity, though she does have moderately severe anemia and fatigue. Plan: She will continue now with cycle 4 of carboplatin/gemcitabine/Avastin. The dosages remain the same. She returns in 3 weeks. Signed By: Homar Warner M.D. <<Signature on File>>
[2020-07-09 14:46] LABS: Basophils % 0.1 %; Eosinophils % 0.1 %; Hematocrit 28.2 % (37.0-47.0); Hemoglobin 8.6 g/dL (11.5-15.3); Lymphocytes # 0.6 10^3/uL (0.8-4.8); Lymphocytes % 5.5 %; Mean Corpuscular HGB Conc 30.5 g/dL (30.0-36.0); Mean Corpuscular Hemoglobin 30.8 pg (28.0-34.0); Mean Corpuscular Volume 101.1 fL (81-99); Mean Platelet Volume 11.5 fL (7.4-10.4); Monocytes # 0.5 10^3/uL (0.2-0.9); Monocytes % 4.8 %; Neutrophils # 9.56 10^3/uL (1.8-7.7); Neutrophils % 88.8 %; Nucleated Red Blood Cells % 0 %; Platelet Count 85 10^3/cmm (130-400); Red Blood Count 2.79 10^6/uL (4.1-5.3); Red Cell Distribution Width 20.6 % (12.1-15.1); White Blood Count 10.8 10^3/uL (4.0-10.0)
[2020-07-09 15:35] LABS: Slide Review Slide Review Perform
== END 2020-07-18 23:59 | disposition home or self-care (01) ==
LOC: ONCMED 05:35
PROVIDERS: Internal Medicine Medical Oncology; PCP Family Medicine; Visit Provider Nurse Practitioner
DX: Z51.11 Encounter for antineoplastic chemotherapy (principal); C53.8 Malignant neoplasm of overlapping sites of cervix uteri; D70.1 Agranulocytosis secondary to cancer chemotherapy; D69.59 Other secondary thrombocytopenia; T45.1X5A Adverse effect of antineoplastic and immunosuppressive drugs, initial encounter; D50.9 Iron deficiency anemia, unspecified; I10 Essential (primary) hypertension; E03.9 Hypothyroidism, unspecified; J44.9 Chronic obstructive pulmonary disease, unspecified; E55.9 Vitamin D deficiency, unspecified; Z86.010 Personal history of colon polyps; Z86.19 Personal history of other infectious and parasitic diseases
CPT/HCPCS: 36598; 80053; 83540; 83550; 85025; 96367; 96372; 96413; 96417; 99214; J1100; J1453; J2469; J2505; J3490; J7050; J9035; J9045; J9201; Q9967

== ENCOUNTER → 2020-07-12 10:02 | Outpatient (BNVA) | payer MEDICARE, SELFPAY | PROVIDERS: PCP Family Medicine; Visit Provider Surgery | DX: Z20.828 Contact with and (suspected) exposure to other viral communicable diseases (principal) | CPT/HCPCS: 87635 ==

== ENCOUNTER 2020-07-17 07:43 | Day surgery (SDC) | payer MEDICARE, SELFPAY ==
[2020-07-16 10:07] VITALS: BMI 26.4
--- NOTE | 2020-07-17 | SCC_ITS ---
Procedure Done: Explantation of left upper port with part of the tubing with fluoroscopic guidance with fluoroscopic interpretation was done by me through the whole entire procedure 4.1 seconds of fluoroscopic guidance, for a cumulative dose of 2.1 mGy, was provided to Dr. Ortega by the radiology department. C-arm images of the chest were saved for the patient's permanent record. [facility]
[2020-07-17 08:50] VITALS: BP 147/79; PULSE 109; RESP 18; TEMP 36.4; O2SAT 98
[2020-07-17] MEDS: sodium chloride 0.9% 1,000 ML 30 ML IV (09:42)
--- NOTE | 2020-07-17 09:42 | P.ANESASSM_ITS ---
Pre-Anesthetic Assessment Pre-Anesthetic Assessment: Height/Weight: Height 1.63 m Weight 69.853 kg Temp Pulse Resp BP Pulse Ox 97.5 F L 109 H 18 147/79 98 07/17/20 08:50 07/17/20 08:50 07/17/20 08:50 07/17/20 08:50 07/17/20 08:50 Preop Diagnosis: Port-A-Cath malfunction Proposed Procedure: Operation Date: 07/17/20 09:20 Proposed Procedures p Portacath Removal 65317 C53.9(Not Applicable) - Bhavesh Ortega MD Familial anesthetic complications: none Was Beta Manuel taken within 24 ho urs: Yes Last intake: Intake Last Liquid Date 07/16/20 Last Liquid Time 23:00 Last Solid Date 07/16/20 Last Solid Time 15:00 Social: Social History: No alcohol and No tobacco Exam: Pre-Anes Outpt Exam: alert, oriented x 3, clear to auscultation bilaterally and regular rate & rhythm Airway: Cervical ROM: WNL MP: 4 Dentition: False Pulmonary: Pulmonary: COPD (patient denies) and MIRANDA CV/HEM: CV/HEM: HTN Hepatic: Hepatic: Hepatitis (C) Metabolic: Metabolic: Thyroid Neuropsych: Neuropsych: None reported Anesthetic Plan: ASA status: 2 Anesthesia: MAC Risk of > 500 ml blood loss (7ml/kg in children): No Meds/Allergies Current Medications: Current Medications Generic Name Dose Route Start Last Admin Trade Name Freq PRN Reason Stop Dose Admin Sodium Chloride 1,000 mls @ 30 ml s/hr 07/17/20 08:45 07/17/20 09:42 Sodium Chloride 0.9% IV 07/18/20 08:44 30 mls/hr .Q24H XIMENA Administration PFSH Anesthesia PFSH: Medical History Cervical cancer Chronic hepatitis C COPD (chronic obstructive pulmonary disease) Depression with anxiety Hypertension Hypothyroidism Port-A-Cath in place Rectal Pain Seasonal allergies Surgical History H/O dilation and curettage Done for one of the miscarriages. H/O laparoscopy with removal of scar tissue in the per patient. History of cholecystectomy (~08/2018) History of colonoscopy with polypectomy (~2018) Family History Mother Hypertension Breast cancer Cervical cancer Father Hypertension Diabetes Grandfather Chronic kidney disease (CKD) Maternal grandfather Heart disease Maternal grandfather Grandmother Chronic kidney disease (CKD) Maternal grandmother Heart disease Maternal grandmother Stroke Maternal grandmother Father No problems noted. Family/Other Breast cancer Maternal aunt Cervical cancer Maternal aunt x4 Other Thyroid disease Denies family history of Colon cancer Ovarian cancer Anesthesia complication Bleeding disorder Uterine cancer Social History Additional social history: - Tobacco use: Current smoker; Alcohol use: Denies Drug use: Denies Data Anesthesia Cardiac Studies: No Data to Display
--- NOTE | 2020-07-17 10:18 | W.PM.OPSUD ---
Surgery/Procedure H&P Update DATE OF PROCEDURE: July 17, 2020 DATE H&P PERFORMED: 07/11/20 H&P UPDATE INFORMATION: I have reviewed H&P completed within last 30 days, I have examined patient prior to procedure and No changes to prior documentation PREOP DIAGNOSIS: Port-A-Cath malfunction PRIMARY INDICATION FOR PROCEDURE: The same PLANNED PROCEDURE: Operation Date: 07/17/20 09:20 Proposed Procedures p Portacath Removal 73980 C53.9(Not Applicable) - Bhavesh Ortega MD
[2020-07-17] MEDS: lidocaine 2% INJ 20 mL INJECTION (10:36)
--- NOTE | 2020-07-17 10:46 | SC_ITS ---
WS: [id number] C-ARM RADIOGRAPHS CHEST; 2 IMAGES HISTORY: port removal COMPARISON: None available. Intraoperative imaging during Port-A-Cath removal. Hemostat noted over the thorax. Lumen of the xochilt ter is still present and projects over the medial LEFT upper thorax and inferiorly towards the heart. The access portion of the Port-A-Cath has been removed. SC/C-arm FL for CVA [id number] IMPRESSION: Lumen of the Port-A-Cath remains present over the mid LEFT thorax.
--- NOTE | 2020-07-17 11:33 | P.OP_ITS ---
Operative Report Date of procedure: July 17, 2020 Pre-op Diagnosis: Port-A-Cath malfunction Post-op diagnosis: other (Left upper chest Port-A-Cath disconnected from the index catheter) Post-op Findings: Scarred down distal part of Port-A-Cath catheter under the head of the left clavicle Procedure Done: Explantation of left upper port with part of the tubing with fluoroscopic guidance with fluoroscopic interpretation was done by me through the whole entire procedure Specimens removed/disposition: Port-A-Cath with part of the tubing for cultures and sensitivities Surgeon: Bhavesh Ortega Spring Coiling Machine Setter: satellite installation technician Jose Eduardo Medical student Cristofer Anesthesia: MAC (metal cleaner Hammad) Estimated blood loss (mL): 10 Condition: stable Disposition: same day Brief History: This is a pleasant 64 years old female patient with history of Port-A-Cath placement in [facility] in September 2019 and recently patient had a venogram and there was extravasation,patient was referred to me for explantation of the port. Plan of care; After thorough history physical examination and reviewing the chart.I counseled the patient for Port-A-Cath explantation, indications, risks including pneumothorax and injury of major vascular structures,benefits,indications and alternatives were all discussed with the patient, patient understands and is interested to proceed. Rationale was carefully and clearly discussed with the patient.Appropriate informed consent have been reviewed and signed. Procedure: After identifying the patient in the holding area and the left upper chest was marked by me, informed consent per chart ,patient was then transferred to the operative suite, was placed in supine position, IV propofol was infused by the anesthesia provider and both arms were tucked, prep and drape of left upper chest region was done usual sterile technique. Time-out was done verifying the patient's name/date of /planned procedure and destination after the procedure, all were in agreement. I started by injection of lidocaine 2% at the site of the planned incision started by a longitudinal incision including the previous scar of the catheter placement located at the left upper chest, after removal of the sutures and dissection at the site of exit the Port-A-Cath, the actual port was explanted without difficulty and was clearly disconnected from the catheter except for a fibrous track of the actual catheter but the catheter itself was not seen at the bed of the wound, fluoroscopy was obtained and showed the catheter located at the medial aspect underneath the clavicle but not being seen in the wound. Further dissection was done without locating the catheter yet I was not able to feel or see the catheter likely being scarred down. Consultation with Dr. Mata intraoperatively home he advised to leave the catheter in place since it has been scarred down. Multiple clips were applied onto the site of the potential distal part of the catheter at the wound bed and 3-0 Prolene sutures figure of 8 placed to approximate the overlying muscle. The port was sent for cultures and sensitivity Thorough irrigation of the wound was done followed by hemostasis, followed by 2- 0 Vicryl then 4-0 Monocryl by surgical glue and pressure dressing Interpretation of the fluoroscopy during the entire procedure was done by me. Patient tolerated the procedure well, count of instruments, needles and sponges were completed at the end of the procedure.And then patient was transferred to the recovery area in stable condition. I Was present for the whole entire procedure. Chest x-ray was obtained after the procedure and showed stable location of the catheter without migration and no pneumothorax.
--- NOTE | 2020-07-17 11:40 | XRR_ITS ---
PROCEDURE INFORMATION: Exam: XR Chest, 1 View Exam date and time: 07/17/2020 11:56 AM Age: 64 years old Clinical indication: Device placement; Other: Port removal; Additional info: Status post removal of left upper chest port and residual catheter stays in place. TECHNIQUE: Imaging protocol: XR of the chest Views: 1 view. COMPARISON: CR Chest 2 views* [id number] 11/04/2016 11:14 AM FINDINGS: Tubes, catheters and devices: Termination of central venous catheter in the right atrium. Lungs: Interstitial prominence, without acute airspace disease. Pleural space: No pneumothorax or pleural effusion. Heart/Mediastinum: No cardiomegaly. Vasculature: Calcification of the thoracic aorta. Bones/joints: Degenerative change. XR/XR chest 1V portable [id number] IMPRESSION: 1. Interstitial prominence, without acute airspace disease. 2. Termination of central venous catheter in the right atrium.
[2020-07-17 11:49] VITALS: BP 122/74; PULSE 71; RESP 18; TEMP 36.4; O2SAT 96
[2020-07-17 12:14] VITALS: BP 136/79; PULSE 69; RESP 18; O2SAT 97
--- NOTE | 2020-07-17 12:20 | ANE.PACU2 ---
Inpatient post-anesthesia follow up: Airway intact: Yes Vital signs: Temperature 97.6 F Pulse Rate 69 Respiratory Rate 18 Blood Pressure 136/79 Pulse Oximetry 97 Oxygen Delivery Me thod Room Air Oxygen Flow Rate Fraction of Inspir ed Oxygen Hydration adequate: Yes Nausea and vomiting: No Pain level: 1 Mental status: Baseline
== END 2020-07-17 12:41 | disposition home or self-care (01) ==
PROVIDERS: PCP Family Medicine; Visit Provider Surgery
PROC: (CPT 36589; principal; 2020-07-17 09:20)
DX: Z45.2 Encounter for adjustment and management of vascular access device (principal); J44.9 Chronic obstructive pulmonary disease, unspecified; B19.20 Unspecified viral hepatitis C without hepatic coma; E03.9 Hypothyroidism, unspecified; I10 Essential (primary) hypertension; F17.210 Nicotine dependence, cigarettes, uncomplicated; Z79.82 Long term (current) use of aspirin
CPT/HCPCS: 36590; 12345; 71045; 76000; 77001; 87070; 87176; 87205; 96365; J0690; J2704; J7030

== ENCOUNTER 2020-07-26 10:11 | Outpatient (CLI) | payer MEDICARE, SELFPAY ==
--- NOTE | 2020-07-26 10:27 | XR_ITS ---
WS: [id number] CHEST 2 VIEWS HISTORY: cervical cancer COMPARISON: 07/17/2020, 07/03/2020 Lungs: Large segment of the Port-A-Cath lumen remains projecting over the mediastinum. There is been a change in position of this lumen. The tip now extends inferiorly to the diaphragm. Residual cathete r fragment has moved towards the heart by 5 cm since the prior study. No pneumonia. Cardiac size: Normal. Mediastinum/Aorta: Mild atherosclerosis aorta. Bones: Normal. XR/XR chest 2V* [id number] IMPRESSION: 1. Port-A-Cath lumen fragment has changed position by 5 cm with the tip now te rminating at the level of the diaphragm. Recommend consultation with endovascul ar intervention to remove this fragment of catheter as it is at risk for contin ued movement through the RIGHT heart to the lung. 2. No pneumonia. Notified Bhavesh Ortega MD at 07/26/2020 11:00 AM. On available at this time. Forrest mac was left with office answering system.
== END 2020-07-26 10:12 | disposition home or self-care (01) ==
LOC: RADWPI 10:16
PROVIDERS: PCP Family Medicine; Visit Provider Surgery
DX: C53.9 Malignant neoplasm of cervix uteri, unspecified (principal)
CPT/HCPCS: 71046

== ENCOUNTER 2020-07-26 13:28 | Emergency (ER) | payer MEDICARE, SELFPAY ==
[2020-07-26] VITALS (10 sets, daily range): BP systolic 106–149; BP diastolic 67–77; PULSE 60–87; RESP 15–19; TEMP 36.8–37; O2SAT 95–99; BMI 27.4
--- NOTE | 2020-07-26 14:16 | ED_ITS ---
HPI - General Adult General: Chief complaint: General Medical Stated complaint: MIGRATED PORT WIRE Time Seen by Provider: 07/26/20 13:35 Source: patient and EMS Mode of arrival: EMS Limitations: no limitations History of Present Illness: HPI narrative: 64-year-old female who had a Port-A-Cath catheter in her left chest that was removed 2 weeks ago. During this port removal Dr. Ortega had part of the catheter that was dysfunctional and it broken off in the vein. He had a repeat x-ray today that showed that it moved 5 cm. Sent patient up here for possible endovascular procedure. Patient has no complaints. She denies any chest pain or shortness of breath. Associated symptoms: Deny chest pain, dyspnea, headache(s), nausea, rash or vomiting Review of Systems Const: Denies: fever(s), chills, body aches or change in appetite Eyes: Denies: blurry vision or eye discomfort ENMT: Denies: throat pain or dental pain Card: Denies: chest pain Resp: Denies: dyspnea GI: Denies: abdominal pain, nausea, vomiting or diarrhea : Denies: dysuria Musc: Denies: neck pain or back pain Skin/Breast: Denies: rash Neuro: Denies: headache(s) Psych: Denies: depression Dale/Lymph: Denies: easy bruising All/Imm: Denies: urticaria PFSH ED PFSH: Medical History Cervical cancer Chronic hepatitis C COPD (chronic obstructive pulmonary disease) Depression with anxiety Hypertension Hypothyroidism Port-A-Cath in place Rectal Pain Seasonal allergies Surgical History H/O dilation and curettage Done for one of the miscarriages. H/O laparoscopy with removal of scar tissue in the 1980s per patient. History of cholecystectomy (~08/2018) History of colonoscopy with polypectomy (~2017) Family History Mother Hypertension Breast cancer Cervical cancer Father Hypertension Diabetes Grandfather Chronic kidney disease (CKD) Maternal grandfather Heart disease Maternal grandfather Grandmother Chronic kidney disease (CKD) Maternal grandmother Heart disease Maternal grandmother Stroke Maternal grandmother Father No problems noted. Family/Other Breast cancer Maternal aunt Cervical cancer Maternal aunt x4 Other Thyroid disease Denies family history of Colon cancer Ovarian cancer Anesthesia complication Bleeding disorder Uterine cancer Social History Additional social history: - Tobacco use: Current smoker; Alcohol use: Denies Drug use: Denies Physical Exam Const: COMMON NORMALS: no acute distress, patient oriented x3 and healthy appearing HENMT: COMMON NORMALS: normocephalic and atraumatic HEAD & SCALP: normocephalic and atraumatic Eye: COMMON NORMALS: Equal, round and reactive pupils present and EOMs intact bilaterally PUPIL: Yes Equal, round and reactive pupils present Neck/C-Spine: COMMON NORMALS: full ROM and supple Chest: COMMONS NORMALS: normal inspection of the chest and normal palpation of entire chest wall Resp: COMMON NORMALS: normal respiratory effort, No retractions, No use of accessory muscles and clear to auscultation bilaterally AUSCULTATION: clear to auscultation bilaterally Cardio: COMMON NORMALS: regular rate, regular rhythm and No murmurs present (Cardio) RATE: regular rate RHYTHM: regular rhythm GI: COMMON NORMALS: Normal to inspection, nondistended, normoactive bowel sounds present, Soft to palpation, non-tender and no masses PALPATION: Yes Soft to palpation Extremity: COMMON NORMALS: normal to inspection and full ROM Neuro: COMMON NORMALS: patient oriented x3, moves all extremities and no focal motor deficits Psych: COMMON NORMALS: mental status grossly normal, Normal thought process present and cooperative THOUGHT PROCESS: Normal thought process present Skin: COMMON NORMALS: no rashes or lesions noted and no wounds GENERAL SKIN EXAM: no rashes or lesions noted Course Vital Signs: Vital signs: Vital Signs Temperature 98.6 F 07/26/20 13:29 Pulse Rate 60 07/26/20 20:15 Respiratory Rate 16 07/26/20 20:15 Blood Pressure 128/72 07/26/20 20:15 Pulse Oximetry 98 07/26/20 20:15 MDM - General Adult MDM Narrative: Medical decision making narrative: Patient presents here with catheter still in place from a Port-A-Cath. Catheter is moved 5 cm. Spoke to surgeon Dr. Ortega who spoke to physician at [facility] in [place] who is excepted patient as a transfer for endovascular procedure. Patient has been stable while here. Lab Data: Labs: Lab Results 07/26/20 07/26/20 Range/Units 14:40 14:40 WBC 5.6 (4.0-10.0) 10^3/ uL RBC 2.50 L (4.1-5.3) 10^6/u L Hgb 8.0 L (11.5-15.3) g/dL Hct 26.0 L (37.0-47.0) % MCV 104.0 H (81-99) fL MCH 32.0 (28.0-34.0) pg MCHC 30.8 (30.0-36.0) g/dL RDW 21.5 H (12.1-15.1) % Plt Count 97 L (130-400) 10^3/c mm MPV 11.2 H (7.4-10.4) fL Neut % (Auto) 75.7 % Lymph % (Auto) 11.3 % [place] % (Auto) 11.8 % Eos % (Auto) 0.4 % Baso % (Auto) 0.4 % Neut # (Auto) 4.24 (1.8-7.7) 10^3/u L Lymph # (Auto) 0.6 L (0.8-4.8) 10^3/u L [place] # (Auto) 0.7 (0.2-0.9) 10^3/u L Eos # (Auto) 0.0 (0.0-0.8) 10^3/u L Baso # (Auto) 0.0 (0.0-0.1) 10^3/u L Nucleated RBC % (a uto) 0 % Nucleated RBCs # 0.0 /100WBC Sodium 139 (136-145) mmol/L Potassium 4.0 (3.5-5.1) mmol/L Chloride 105 (98-107) mmol/L Carbon Dioxide 26 (22-29) mmol/L Anion Gap 12.0 (5-19) BUN 15 (8-23) mg/dL Creatinine 0.7 (0.5-0.9) mg/dL GFR Calculation 83.7 L (90-130) mL/min Glucose 96 (65-115) mg/dL Calculated Osmolal ity 289 (285-295) mOsm/k g Calcium 9.2 (8.5-10.5) mg/dL Total Bilirubin 0.4 (0.15-1.2) mg/dL AST 20 (0-32) U/L ALT 9 (0-33) U/L Alkaline Phosphata se 80 (35-105) IU/L Total Protein 8.2 (6.6-8.7) g/dL Albumin 4.0 (3.5-5.2) g/dL Globulin 4.2 (1.3-4.6) g/dL Discharge Plan Discharge Patient Disposition: Xfer Other Clinical Impression: Encounter for care related to Port-a-Cath Condition: Stable Discharge Orders: Transfer Out of Facility (Order); Ordered 07/26/20 Ordered By: Yordy Armstrong Referrals: Britany Mckeon MD [Primary Care Provider] - Coding Level of Care Code ED Security Representative for Chg Fwd Exam Comprehensive
[2020-07-26 14:53] LABS: Basophils % 0.4 %; Eosinophils % 0.4 %; Lymphocytes # 0.6 10^3/uL (0.8-4.8); Lymphocytes % 11.3 %; Mean Corpuscular HGB Conc 30.8 g/dL (30.0-36.0); Mean Platelet Volume 11.2 fL (7.4-10.4); Monocytes # 0.7 10^3/uL (0.2-0.9); Monocytes % 11.8 %; Neutrophils # 4.24 10^3/uL (1.8-7.7); Neutrophils % 75.7 %; Nucleated Red Blood Cells % 0 %; Platelet Count 97 10^3/cmm (130-400); Red Cell Distribution Width 21.5 % (12.1-15.1); White Blood Count 5.6 10^3/uL (4.0-10.0)
[2020-07-26] MEDS: ondansetron 2 mg/ML SDV 2 mL 4 MG IVP (14:57)
[2020-07-26 15:08] LABS: Alanine Aminotransferase 9 U/L (0-33); Alkaline Phosphatase 80 IU/L (35-105); Aspartate Amino Transferase 20 U/L (0-32); Blood Urea Nitrogen 15 mg/dL (8-23); Calcium 9.2 mg/dL (8.5-10.5); Carbon Dioxide 26 mmol/L (22-29); Chloride 105 mmol/L (98-107); Creatinine Clr Calc Pharmacy 67.5411; Globulin 4.2 g/dL (1.3-4.6); Glomerular Filtration Rate 83.7 mL/min (90-130); Glucose 96 mg/dL (65-115); Osmolality Calculated 289 mOsm/kg (285-295); Sodium 139 mmol/L (136-145); Total Bilirubin 0.4 mg/dL (0.15-1.2); Total Protein 8.2 g/dL (6.6-8.7)
--- NOTE | 2020-07-26 18:50 | PC.NURSE ---
[facility] called for small report on patient and stated they would call later for full nurse to nurse report at [phone]
[2020-07-27] VITALS: BP 127/79; PULSE 59; RESP 16; O2SAT 95
[2020-07-27 00:30] VITALS: BP 104/67; PULSE 66; RESP 16; O2SAT 94
[2020-07-27 01:00] VITALS: BP 100/50; PULSE 65; RESP 18; O2SAT 96
== END 2020-07-27 01:35 | disposition other institution (70) ==
PROVIDERS: Emergency Provider Emergency Medicine; PCP Family Medicine
DX: T82.898A Other specified complication of vascular prosthetic devices, implants and grafts, initial encounter (principal); F17.210 Nicotine dependence, cigarettes, uncomplicated; Z85.41 Personal history of malignant neoplasm of cervix uteri; Z86.19 Personal history of other infectious and parasitic diseases; J44.9 Chronic obstructive pulmonary disease, unspecified; I10 Essential (primary) hypertension
CPT/HCPCS: 12345; 36415; 80053; 85025; 96374; 96375; 99283; 99285; J2405

== ENCOUNTER 2020-08-01 05:30 | Outpatient (RCR) | payer MEDICARE, SELFPAY ==
[2020-07-30 14:20] LABS: Basophils % 0.4 %; Eosinophils % 0.6 %; Hematocrit 25.3 % (37.0-47.0); Hemoglobin 7.7 g/dL (11.5-15.3); Lymphocytes # 0.7 10^3/uL (0.8-4.8); Mean Corpuscular HGB Conc 30.4 g/dL (30.0-36.0); Mean Platelet Volume 11.9 fL (7.4-10.4); Monocytes # 0.7 10^3/uL (0.2-0.9); Monocytes % 13.7 %; Neutrophils # 3.35 10^3/uL (1.8-7.7); Neutrophils % 70.9 %; Nucleated Red Blood Cells % 0 %; Platelet Count 116 10^3/cmm (130-400); Red Blood Count 2.41 10^6/uL (4.1-5.3); Red Cell Distribution Width 21.5 % (12.1-15.1); White Blood Count 4.7 10^3/uL (4.0-10.0)
[2020-07-30 14:57] LABS: Alanine Aminotransferase 8 U/L (0-33); Albumin Level 3.9 g/dL (3.5-5.2); Alkaline Phosphatase 84 IU/L (35-105); Anion Gap 12.9 (5-19); Aspartate Amino Transferase 18 U/L (0-32); Blood Urea Nitrogen 16 mg/dL (8-23); Carbon Dioxide 26 mmol/L (22-29); Chloride 103 mmol/L (98-107); Globulin 3.6 g/dL (1.3-4.6); Glomerular Filtration Rate 71.8 mL/min (90-130); Glucose 110 mg/dL (65-115); Iron 41 ug/dL (37-145); Osmolality Calculated 288 mOsm/kg (285-295); Percent Saturation 16.3 % (20-50); Potassium 3.9 mmol/L (3.5-5.1); Sodium 138 mmol/L (136-145); Total Bilirubin 0.4 mg/dL (0.15-1.2); Total Iron Binding Capacity 251 mcg/dl; Total Protein 7.5 g/dL (6.6-8.7); Unsaturated Iron Binding 210 ug/dL (112-347)
[2020-07-31] MEDS: sodium chloride 0.9% 250 ML 75 ML IV (10:05)
[2020-08-01] VITALS (8 sets, daily range): BP systolic 128–146; BP diastolic 68–86; PULSE 59–71; RESP 18; TEMP 36.5–36.6; O2SAT 18–97
[2020-08-01] MEDS: diphenhydrAMINE 25 mg Capsule PO (09:30)
[2020-08-01] MEDS: sodium chloride 0.9% 250 ML 999 ML IV (09:30)
[2020-08-01] MEDS: acetaminophen 325 mg Tablet 650 MG PO (09:30)
[2020-08-01] MEDS: pegfilgrastim 6 mg/0.6 mL Kit (onpro) SUBCUT (10:10)
[2020-08-01] MEDS: FUROsemide 10 mg/mL SDV 2mL 20 MG IV (12:10)
--- NOTE | 2020-08-05 13:56 | ONC FU_ITS ---
[facility] Patient Note Patient: Dionne Fitzgerald Unit #: [id number]: [id number] Dictated By: Andriy BeckettDate of Visit: Jul 31, 2020 Onc MED Follow-Up/Prog Note Chief Complaint: Cervical cancer. 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 By clinical evaluation her stage is at least IB2 (T1b2, N0, M0). She had presented with a 3-month history of intermittent vaginal bleeding. Her transvaginal ultrasound on 07/05/2019 showed marked thickening and decreased echogenicity and hypervascularity throughout the cervix. It was noted to be lobulated and enlarged, consistent with cervical carcinoma. The cervix appeared grossly abnormal on exam. Pap smear was attempted at that time was problematic due to the increased bleeding. Biopsy, though, did show undifferentiated carcinoma. She was referred to Dr. Zamorano in [place]. Her staging MRI of the pelvis on 07/21/2019 showed cervical mass which was noted to be possibly going into the uterus in its inferior anterior aspect. There was local surrounding enhancement suggestive of local infiltration and there was an enlarged iliac chain lymph node on the right side. Staging PET/CT on 07/22/2019 showed primary tumor mass involving the cervix with evidence of local spread to a right common iliac lymph node. Subcentimeter pulmonary nodules were FDG negative and nonspecific, but metastatic disease was not excluded. There was no other evidence of metastatic involvement. On 07/25/2019 she underwent exam under anesthesia and placement of Port-A-Cath venous access device. A repeat cervical biopsy at that time showed invasive poorly differentiated squamous cell carcinoma. She was recommended to undergo primary chemoradiation utilizing weekly cisplatin for chemosensitization. Her other medical illnesses include hypertension, hypothyroidism, COPD, and vitamin D deficiency. She has a history of treated hepatitis C. She also has a history of colonic polyps. She has a history of smoking 1 pack of cigarettes daily for approximately 20 years. She recently quit. INTERIM HISTORY: She began her radiation concurrently with weekly cisplatin on 08/10/2019. She completed the radiation on 09/22/2019 to a total dose of 6000 cGy. She tolerated the treatment pretty well, though her 6th weekly cisplatin infusion was held due to neutropenia and fatigue. She then underwent LDR brachytherapy with Ce-137 implants on 10/18/2019 and again on 10/31/2019. She tolerated it well. Restaging CT of the abdomen/pelvis on 12/08/2019 showed a low-attenuation 9 mm lesion in the fundal myometrium, felt to possibly represent a small fibroid. There was moderate diffuse uterine myometrium enhancement which was felt to be likely due to therapy related changes. There was no evidence of metastatic disease in the abdomen or pelvis. On 12/23/2019 she began cycle 1 of postoperative adjuvant chemotherapy with cisplatin/paclitaxel in combination with Avastin. She unfortunately experienced neuropathy and other side effects it, severe enough that Dr Warner did not think she would tolerate further treatment with that regimen. Following subsequent discussions with Dr. Zamorano, she was recommended to continue adjuvant chemotherapy with carboplatin and gemcitabine in combination with Avastin. However, at her follow-up visit on 03/14/2020 she was complaining of severe rectal pain. She also had a significant decline in her renal function. Her renal ultrasound was normal. A CT of the pelvis showed a small amount of air along the cervical and vaginal regions, felt to be possibly related to her recent radiation therapy. There was no evidence for recurrent adenopathy, abscess collection, or other pathology in the pelvis. She was referred to Dr. Ortega. She underwent attempted flexible sigmoidoscopy on 04/11/2020. The scope was not able to be transversed beyond the rectosigmoid region due to a narrowing lesion. Barium enema on 04/12/2020 showed mild narrowing of the sigmoid region due to overlapping loops of colon. There was no persistent high-grade stricture. It was a limited exam due to her inability to retain the barium mixture. She then began cycle 1 of carboplatin/gemcitabine in combination with Avastin on 04/26/2020. She tolerated the initial treatment without acute toxicity. At day 8 she had moderately severe neutropenia, ANC 600. She was not febrile. She recovered uneventfully with Neupogen. She continued with cycle 2 on 05/21/2020. She was given a dose reduction and she also was given Neulasta prophylactically. She tolerated it with acceptable toxicity, and she continue with cycle 3 on 06/11/2020. Ms. Mistry is here today for follow-up. She is due for cycle 5 carboplatin gemcitabine Avastin. Since her visit here she has had her port removed as it had been disconnected from the catheter. The port was removed and under fluoroscopy the catheter was located underneath the medial head of the left clavicle and was not seen or appreciated in the wound bed. At that point per Dr. Chino's note the procedure was aborted after removal of the actual port and it was sent for cultures and came back as negative. She returned on 07/26/2020 for follow-up chest x-ray to rule out potential migration of the catheter and the x-ray did show actual migration of the catheter. It had changed position by 5 cm with the tip terminating at the level of the diaphragm. It was recommended that she have endovascular intervention to remove the fragment of catheter as it was at risk for movement throughout the right heart to the lung. The catheter was removed on 07/26/2020. Her side she states is sore but is healing well. She states she is tired and somewhat short of breath. Her fatigue has been a little worse than normal. It is noted that her hemoglobin is 7.7 today. We did discuss her getting blood and she is agreeable to this. She has no other new concerns. She continues to have some rectal pain but states it seems to be settling down some. She still has to utilize a pillow or extra support for sitting. She denies any fever or chills. She has had no Covid known exposure or symptoms. She has had no personal Covid testing. She denies any new shortness of breath orthopnea. She denies any cough. She has had no pain with inspiration. She denies any anginal type chest pain. Nausea or vomiting has not been a problem at this point. She denies any lower extremity edema. She has had some peripheral neuropathy but states it is stable. Her ECOG is 2 today. Past Medical History: Chronic obstructive pulmonary disease History of colonic polyps History of hepatitis C, treated in 2017 Hypertension Hypothyroidism Vitamin D deficiency Past Surgical History: Colonoscopy Diagnostic laparoscopy Port removal MIGRATED PORT WIRE in 2020 Colonoscopy in 2020 Flu vaccine 2019 in 2019 Placement of Port-A-Cath venous access device in 2019 Cholecystectomy in 2018 Allergies: Lyrica Medications: Aspirin Childrens 1 Tablet (of 81 mg) Tablet, chewable Oral daily [facility] Milk of Magnesia Suspension Oral PRN Docusate Sodium 1 Tablet (of 100 mg) Oral daily PRN Dronabinol 1 - 2 Capsule (of 2.5 mg) Oral b.i.d. PRN Gabapentin 1 Capsule (of 100 mg) Oral daily HYDROmorphone HCl 1 Tablet (of 4 mg) Oral q 4 hours PRN Ibuprofen 1 - 2 Capsule (of 200 mg) Oral daily PRN Irbesartan 1 (300 mg) Tablet Oral daily Levothyroxine Sodium 1 Tablet (of 75 mcg) Oral daily Magnesium Oxide 1 Capsule (of 400 mg) Oral b.i.d. Metoprolol Tartrate 1 Tablet (of 25 mg) Oral daily Family History: Ms. Fitzgerald's mother is alive. Ms. Fitzgerald's father at age 87. Ms. Fitzgerald has 1 brother who is alive. Father at age 87 with multiple myeloma. Mother is still living at age 85 and she is in pretty good health. A brother has been getting phlebotomies for polycythemia. It is uncertain whether this is PRV or secondary polycythemia. Social History: Ms. Fitzgerald is and she is unemployed. She is an occasional smoker who has smoked 0.5 packs/day for 21 years. She has no history of drinking. She will occasionally smoke a cig. Review Of Symptoms: Constitutional She states in general she feels okay but is tired. She states it is a little worse than what has been. She denies any fever or chills. Allergic/Immunologic No reactions. Eyes Denies significant visual changes. No diplopia. No amaurosis. ENMT Denies changes in hearing, sore throat, mouth sores, difficulty or changes in swallowing ability, and/or sinus drainage. Endocrine No diabetes, thyroid disease or hormone replacement. Denies hot flashes or night sweats. Hematologic/Lymphatic Denies easy bruising or bleeding. The patient denies any tender or palpable lymph nodes. Respiratory Denies dyspnea on exertion, chest pain, cough or hemoptysis. Denies orthopnea. Cardiovascular Denies anginal chest pain, palpitations or orthopnea. Gastrointestinal Denies nausea, vomiting, diarrhea, GI bleeding, or constipation. Denies change in bowel habits and/or stool color, no heartburn or early satiety. Genitourinary (F) No new concerns, continue intermittent urinary frequency and rectal pain but states it is some better overall. Musculoskeletal Denies new or worsening joint pain, swelling or redness. No decreased range of motion. Integumentary Denies chronic rashes, inflammation, ulcerations or skin changes. Neurologic Denies headache, blurred vision, and no areas of focal weakness or numbness. Normal gait. No sensory problems. Psychiatric Denies insomnia, depression, gabe or mood swings. Vital Signs: Performed on Jul 31, 2020 13:10 Height - 67.00 in Temperature - 97 F (LOW) Pulse - 69 /min Respiration - 18 /min BP - 117/68 mm(hg) O2 Sat - 97 % Pain - 0 Fatigue - 0 Performed on Jul 31, 2020 08:59 Height - 67.00 in Weight - 150.8 lbs (LOW) BSA - 1.79 sq.m BMI - 23.62 Temperature - 97.2 F (LOW) Pulse - 84 /min Respiration - 24 /min BP - 143/84 mm(hg) (HIGH) O2 Sat - 97 % Pain - 7,2 - Ambulatory/capable of all self-care, unable to perform any work activities. Up and about more than 50% of waking hours. (ECOG) Physical Examination: Constitutional Alert, oriented, no acute distress. Skin pink, warm and dry. Head Normocephalic; atraumatic. Eyes Conjunctivae and sclerae are clear and without icterus. Pupils are reactive and equal. Neck Supple without masses or thyromegaly. No jugular venous distension. Hematologic/Lymphatic No petechiae or purpura. No tender or palpable lymph nodes in the cervical or supraclavicular areas. Respiratory Lungs are clear to auscultation without rhonchi or wheezing. Cardiovascular Regular rate and rhythm of heart without murmurs,clicks, gallops or rubs. Abdomen Non-tender, non-distended, no masses or ascites. Back/Spine Non-tender to palpation. Extremities No visible deformities, no cyanosis, clubbing or edema. Musculoskeletal No tenderness or swelling, normal range of motion without obvious weakness. Integumentary No rashes or lesions. Neurologic No sensory or motor deficits, normal cerebellar function, normal gait. Psychiatric Alert and oriented times three. Coherent speech. Verbalizes understanding of our discussions today. Laboratory:Test performed on Jul 31, 2020 09:40 Anti-D Positive Blood Type OP Antibody Screen (Gel) NEGATIVE Test performed on Jul 30, 2020 12:40 WBC 4.7 10 3/uL RBC 2.41 10 6/uL HGB 7.7 g/dL HCT 25.3 % MCV 105.0 fL MCH 32.0 pg MCHC 30.4 g/dL RDW 21.5 % Platelet Count 116 10 3/cmm MPV 11.9 fL Neutrophils 3.35 10 3/uL Lymphocytes 0.7 10 3/uL Monocytes 0.7 10 3/uL Eosinophils 0.0 10 3/uL Basophils 0.0 10 3/uL Neutrophil % 70.9 % Lymphocyte % 14.0 % Monocyte % 13.7 % Eosinophil % 0.6 % Basophils % 0.4 % NRBC % 0 % Test performed on Jul 30, 2020 09:35 Creatinine 0.8 mg/dL Cr Clearance (Est) 74.70 mL/min Test performed on Jul 09, 2020 12:10 CBC Slide Review Slide Review Perform SLIDE REVIEW AGREES WITH AUTOMATED RESULTS Test performed on Jun 11, 2020 12:28 Ua Micro: WBC 55-80 /hpf Ua Micro: RBC 0-4 /hpf Ua Micro: Squam Epith Cells 0-4 Ua Micro: Bacteria 2+ Test performed on Jun 11, 2020 08:15 Sodium 141 mmol/L Potassium 4.3 mmol/L Chloride 107 mmol/L CO2 25 mmol/L Anion Gap 13.3 BUN 10 mg/dL eGFR 55.5 mL/min Glucose 106 mg/dL Calcium 9.1 mg/dL Protein, Total 7.7 g/dL Albumin 3.7 g/dL Globulin 4.0 g/dL Bilirubin, Total 0.2 mg/dL ALT (SGPT) 12 U/L AST (SGOT) 21 U/L Alkaline Phosphatase 87 IU/L Test performed on May 21, 2020 08:18 Osmolality - Calculated 279 mOsm/kg Test performed on March 01, 2020 12:17 Ua Micro: Trans Epith Cells NONE /hpf Ua Micro: Renal Epith Cells - /hpf Ua Micro: Hyaline Casts 0-4 Ua Micro: Mucous 1+ Impression: 1. 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 By clinical evaluation her disease appeared to be at least stage IB2 (T1b2, N1, M0). 2. She was mildly anemic, and her serum iron studies were consistent with iron deficiency. Her other medical illnesses include: 3. Hypertension. 4. Hypothyroidism. 5. COPD. 6. She has a history of treated hepatitis C. 7. Vitamin D deficiency. 8. She has a history of colonic polyps. She underwent primary chemoradiation utilizing weekly cisplatin chemotherapy. Her treatment began on 08/10/2019. She completed radiation on 09/22/2019 to a total dose of 6000 cGy. She tolerated the treatment well other than her sixth weekly cisplatin infusion was held due to neutropenia and fatigue. She then underwent LDR brachytherapy with Ce-137 implants on 10/18/2019 and on 10/31/2019. Overall, she tolerated the treatment well. Restaging CT of the abdomen/pelvis on 12/08/2019 showed a low-attenuation 9 mm lesion in the fundal myometrium, felt to possibly represent a small fibroid. There was moderate diffuse uterine myometrium enhancement which was felt to be likely due to therapy related changes. There was no evidence of metastatic disease in the abdomen or pelvis. On 12/23/2019 she began cycle 1 of postoperative adjuvant chemotherapy with cisplatin/paclitaxel in combination with Avastin. She developed multiple toxicities following that treatment, the most significant being severe fatigue and neuropathy. She had gradual recovery which was complicated by rectal pain and by a decline in her renal function. A specific cause was not determined, but it subsequently resolved. On 04/26/2020 she began further adjuvant chemotherapy with carboplatin/gemcitabine in combination with Avastin. She had moderately severe neutropenia at day 8, but she recovered uneventfully with Neupogen. Cycles 2 and 3 were administered with a dose reduction and with Neulasta prophylactically. She has been able to tolerate treatment with acceptable toxicity, though she does have moderately severe anemia and fatigue. Mrs. Mistry had her port removed and subsequently on 07/26/2020 had remainder of the Port-A-Cath catheter removed. She presents today with a hemoglobin of 7.7 from 07/30/2020. She will have supportive care with transfusion services. Plan: 1. Proceed with cycle 5 carboplatin/gemcitabine/Avastin. Continue Neulasta support for chemo induced neutropenia. 2. We will set her up for 2 units of packed red blood cells due to hemoglobin of 7.7 on 07/30/2020. She is symptomatic with shortness of breath and significant fatigue. 3. Labs from 07/30/2020 were reviewed in detail and discussed with Ms. Mistry and a copy was given to her. White count is 4.7 hemoglobin 7.7 platelets 116,000 ANC is 3400. Creatinine was 0.8. LFTs are normal. 4. I have asked for a UA today for Avastin monitoring. 5. We will plan to have her return in 3 weeks for cycle 6 carboplatin/gemcitabine/Avastin. I have asked for a CBC CMP and UA at that time as well. 6. Mrs. Mistry is instructed to contact us in the interim should questions or problems arise. Signed By: Andriy Beckett-, [facility] Wright MD <<Signature on File>>
== END 2020-08-18 23:59 | disposition home or self-care (01) ==
LOC: ONCMED 05:30
PROVIDERS: PCP Family Medicine; Visit Provider Nurse Practitioner
DX: Z51.11 Encounter for antineoplastic chemotherapy (principal); C53.8 Malignant neoplasm of overlapping sites of cervix uteri; D50.9 Iron deficiency anemia, unspecified; D69.59 Other secondary thrombocytopenia; D70.1 Agranulocytosis secondary to cancer chemotherapy; T45.1X5A Adverse effect of antineoplastic and immunosuppressive drugs, initial encounter; I10 Essential (primary) hypertension; E03.9 Hypothyroidism, unspecified; J44.9 Chronic obstructive pulmonary disease, unspecified; E55.9 Vitamin D deficiency, unspecified; Z86.010 Personal history of colon polyps; Z86.19 Personal history of other infectious and parasitic diseases
CPT/HCPCS: 36430; 80053; 83540; 83550; 85025; 86850; 86900; 86920; 96367; 96372; 96413; 96417; 99214; J1100; J1453; J1940; J2469; J2505; J3490; J7050; J9035; J9045; J9201; P9016

== ENCOUNTER → 2020-08-02 10:15 | Outpatient (BNVA) | payer MEDICARE, SELFPAY | PROVIDERS: PCP Family Medicine; Visit Provider Internal Medicine Medical Oncology | DX: Z51.81 Encounter for therapeutic drug level monitoring (principal) | CPT/HCPCS: 80053; 81003 ==

== ENCOUNTER → 2020-08-09 11:10 | Outpatient (BNVA) | payer MEDICARE, SELFPAY | PROVIDERS: PCP Family Medicine; Visit Provider Internal Medicine Medical Oncology | DX: R39.11 Hesitancy of micturition (principal) | CPT/HCPCS: 80053; 81003 ==

== ENCOUNTER → 2020-08-23 14:49 | Outpatient (BNVA) | payer MEDICARE, SELFPAY | PROVIDERS: PCP Family Medicine; Visit Provider Nurse Practitioner Family | DX: R39.11 Hesitancy of micturition (principal); N39.0 Urinary tract infection, site not specified | CPT/HCPCS: 81003 ==

== ENCOUNTER 2020-08-28 09:59 | Outpatient (RCR) | payer MEDICARE, SELFPAY ==
[2020-08-20 14:00] LABS: Basophils % 0.5 %; Eosinophils % 0.5 %; Hematocrit 31.8 % (37.0-47.0); Lymphocytes # 0.9 10^3/uL (0.8-4.8); Lymphocytes % 14.3 %; Mean Corpuscular HGB Conc 31.4 g/dL (30.0-36.0); Mean Corpuscular Hemoglobin 31.7 pg (28.0-34.0); Mean Platelet Volume 11.8 fL (7.4-10.4); Monocytes # 0.7 10^3/uL (0.2-0.9); Monocytes % 12.3 %; Neutrophils # 4.28 10^3/uL (1.8-7.7); Neutrophils % 72.1 %; Nucleated Red Blood Cells % 0 %; Platelet Count 83 10^3/cmm (130-400); Red Blood Count 3.15 10^6/uL (4.1-5.3); Red Cell Distribution Width 18.6 % (12.1-15.1); White Blood Count 5.9 10^3/uL (4.0-10.0)
[2020-08-20 14:22] LABS: Alanine Aminotransferase 11 U/L (0-33); Alkaline Phosphatase 106 IU/L (35-105); Anion Gap 15.6 (5-19); Aspartate Amino Transferase 18 U/L (0-32); Blood Urea Nitrogen 26 mg/dL (8-23); Calcium 9.8 mg/dL (8.5-10.5); Carbon Dioxide 26 mmol/L (22-29); Chloride 100 mmol/L (98-107); Globulin 4.5 g/dL (1.3-4.6); Glomerular Filtration Rate 37.6 mL/min (90-130); Glucose 107 mg/dL (65-115); Osmolality Calculated 289 mOsm/kg (285-295); Potassium 4.6 mmol/L (3.5-5.1); Sodium 137 mmol/L (136-145); Total Bilirubin 0.4 mg/dL (0.15-1.2); Total Protein 8.5 g/dL (6.6-8.7)
[2020-08-21] MEDS: sodium chloride 0.9% 1,000 ML 999 ML IV (10:54)
[2020-08-21] MEDS: HYDROmorphone 1 mg/mL INJ 1 mL 4 MG SUBCUT (11:12)
[2020-08-21 11:26] LABS: Add Urine Microscopic? YES; Bilirubin Urine Neg (Negative); Blood Urine Trace (Negative); Glucose Urine UA Norm (Normal); Ketones Urine Negative (Negative); Leukocyte Esterase Urine 2+ (Negative); Nitrate Urine Negative (Negative); Protein Urine Trace (Negative); Specific Gravity, Urine 1.015 (1.005-1.030); Urine Appearance Cloudy (CLEAR); Urine Color Yellow (Yellow); Urobilinogen Urine Norm (Negative); pH Urine 6 (5-7)
[2020-08-21 11:27] LABS: WBC Urine 80-100 /hpf (0-5)
[2020-08-21 11:28] LABS: Add Urine Culture? Yes; Bacteria Urine 1+ /hpf; Squamous Epithelial Cell Urine 0-4 /hpf (0-5)
--- NOTE | 2020-08-25 11:35 | ONC FU_ITS ---
Dr. Warner Patient Follow-Up Note Patient: Dionne Fitzgerald Unit #: [id number]: 1955 Dicatated By: Homar Warner M.D.Date of Visit:Aug 21, 2020 Onc Med Follow-up/Prog Note Chief Complaint: Cervical cancer. 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 By clinical evaluation her stage ws at least IB2 (T1b2, N0, M0) at initial diagnosis in July 2019. She had presented with a 3-month history of intermittent vaginal bleeding. Her transvaginal ultrasound on 07/05/2019 showed marked thickening and decreased echogenicity and hypervascularity throughout the cervix. It was noted to be lobulated and enlarged, consistent with cervical carcinoma. The cervix appeared grossly abnormal on exam. Pap smear was attempted at that time was problematic due to the increased bleeding. Biopsy, though, did show undifferentiated carcinoma. She was referred to Dr. Zamorano in [place]. Her staging MRI of the pelvis on 07/21/2019 showed cervical mass which was noted to be possibly going into the uterus in its inferior anterior aspect. There was local surrounding enhancement suggestive of local infiltration and there was an enlarged iliac chain lymph node on the right side. Staging PET/CT on 07/22/2019 showed primary tumor mass involving the cervix with evidence of local spread to a right common iliac lymph node. Subcentimeter pulmonary nodules were FDG negative and nonspecific, but metastatic disease was not excluded. There was no other evidence of metastatic involvement. On 07/25/2019 she underwent exam under anesthesia and placement of Port-A-Cath venous access device. A repeat cervical biopsy at that time showed invasive poorly differentiated squamous cell carcinoma. She was recommended to undergo primary chemoradiation utilizing weekly cisplatin for chemosensitization. Her other medical illnesses include hypertension, hypothyroidism, COPD, and vitamin D deficiency. She has a history of treated hepatitis C. She also has a history of colonic polyps. She has a history of smoking 1 pack of cigarettes daily for approximately 20 years. She recently quit. INTERIM HISTORY: She began her radiation concurrently with weekly cisplatin on 08/10/2019. She completed the radiation on 09/22/2019 to a total dose of 6000 cGy. She tolerated the treatment pretty well, though her 6th weekly cisplatin infusion was held due to neutropenia and fatigue. She then underwent LDR brachytherapy with Ce-137 implants on 10/18/2019 and again on 10/31/2019. She tolerated it well. Restaging CT of the abdomen/pelvis on 12/08/2019 showed a low-attenuation 9 mm lesion in the fundal myometrium, felt to possibly represent a small fibroid. There was moderate diffuse uterine myometrium enhancement which was felt to be likely due to therapy related changes. There was no evidence of metastatic disease in the abdomen or pelvis. On 12/23/2019 she began cycle 1 of postoperative adjuvant chemotherapy with cisplatin/paclitaxel in combination with Avastin. She unfortunately experienced neuropathy and other side effects it, severe enough that I did not think she would tolerate further treatment with that regimen. Following subsequent discussions with Dr. Zamorano, she was recommended to continue adjuvant chemotherapy with carboplatin and gemcitabine in combination with Avastin. However, at her follow-up visit on 03/14/2020 she was complaining of severe rectal pain. She also had a significant decline in her renal function. Her renal ultrasound was normal. A CT of the pelvis showed a small amount of air along the cervical and vaginal regions, felt to be possibly related to her recent radiation therapy. There was no evidence for recurrent adenopathy, abscess collection, or other pathology in the pelvis. She was referred to Dr. Ortega. She underwent attempted flexible sigmoidoscopy on 04/11/2020. The scope was not able to be transversed beyond the rectosigmoid region due to a narrowing lesion. Barium enema on 04/12/2020 showed mild narrowing of the sigmoid region due to overlapping loops of colon. There was no persistent high-grade stricture. It was a limited exam due to her inability to retain the barium mixture. She then began cycle 1 of carboplatin/gemcitabine in combination with Avastin on 04/26/2020. She tolerated the initial treatment without acute toxicity. At day 8 she had moderately severe neutropenia, ANC 600. She was not febrile. She recovered uneventfully with Neupogen. She continued with cycle 2 on 05/21/2020. She was given a dose reduction and she also was given Neulasta prophylactically. She tolerated it with acceptable toxicity, and she continue with cycle 3 on 06/11/2020. She tolerated with acceptable toxicity, though she still had moderately severe anemia. She was able to continue with cycle 4 on 07/03/2020 and with cycle 5 on 07/31/2020. During that time she did have to her Port-A-Cath replaced due to malfunction. She is seen for a scheduled visit. She has not been feeling good, in part because she ran out of pain medication 4 days ago. She is having significant pain in the lower abdominal area and lower back, and she also has generalized aching. She also has had blood in her urine. Her energy is not good. She complains that her legs are wobbly, and she has very limited activity. ECOG score is 3. Appetite is poor and she has continued to lose weight. She has not had fever but she has had chills and some sweating. She has had bronchitis and productive cough. She does not complain of shortness of breath or chest pain. She still sometimes has nausea, and she has diarrhea with Ensure. She has had hesitancy with urination and difficulty voiding. She also has been having burning with urination. She is scheduled to see Dr. Ochoa on . She is not having any significant joint or bone pain. She sometimes has headache. She has some orthostatic lightheadedness. She has numbness/tingling in her feet. Medications: Aspirin Childrens 1 Tablet (of 81 mg) Tablet, chewable Oral daily, [employer] Milk of Magnesia Suspension Oral PRN, Docusate Sodium 1 Tablet (of 100 mg) Oral daily PRN, Dronabinol 1 - 2 Capsule (of 2.5 mg) Oral b.i.d. PRN, Gabapentin 1 Capsule (of 100 mg) Oral daily, HYDROmorphone HCl 1 Tablet (of 4 mg) Oral q 4 hours PRN, Ibuprofen 1 - 2 Capsule (of 200 mg) Oral daily PRN, Irbesartan 1 (300 mg) Tablet Oral daily, Levothyroxine Sodium 1 Tablet (of 75 mcg) Oral daily, Magnesium Oxide 1 Capsule (of 400 mg) Oral b.i.d., Metoprolol Tartrate 1 Tablet (of 25 mg) Oral daily Allergies: Fabienneroxannejourdan Review of Systems: Constitutional - Her energy is poor. She complains that her legs are wobbly, and she continues to have very limited activity. Appetite also is not good, and she has lost more weight. She has not had fever. She sometimes has chills or sweating. ECOG score is 3, ENMT - No sinus congestion/drainage. No mouth sores. No sore throat or difficulty swallowing, Hematologic/Lymphatic - She has some bruising, Respiratory - No shortness of breath. She has been having bronchitis with productive cough. No pleuritic pain or hemoptysis, Cardiovascular - No angina pain. No palpitations, Gastrointestinal - She still sometimes has nausea. No heartburn or acid reflux. She has diarrhea with Ensure. No blood in the stool or black stools, Genitourinary (F) - She has hesitancy and difficulty voiding. No dysuria or hematuria. No urgency or incontinence, Musculoskeletal - She has no significant joint or bone pain, Integumentary - No skin rash, Neurologic - She sometimes has headache. She has orthostatic lightheadedness. She has numbness/tingling in her feet, Psychiatric - She is having some depression. No insomnia. Vital Signs: Performed on Aug 21, 2020 10:09 Height - 67.00 in Weight - 140.6 lbs (LOW) BSA - 1.74 sq.m BMI - 22.02 Temperature - 97.6 F (LOW) Pulse - 121 /min (HIGH) Respiration - 24 /min BP - 120/74 mm(hg) O2 Sat - 100 % Pain - 10 Physical Examination: Constitutional - She appears generally weak, Eyes - Sclerae nonicteric. Conjunctivae clear, ENMT - No lesions noted in the oral cavity, Hematologic/Lymphatic - No cervical, clavicular, or axillary adenopathy, Respiratory - Lungs sound clear, Cardiovascular - Heart rhythm is regular with the tachycardia. There is no murmur, gallop, or rub noted, Abdomen - Soft. There is mild tenderness in the lower abdomen. Liver and spleen are not enlarged. There is no abdominal mass or ascites noted and there is no inguinal adenopathy, Extremities - No edema, Neurologic - No focal neurologic deficits noted. Lab/Imaging: Her CBC shows hemoglobin 10.0 g, white blood cell count 5900, and platelet count 83,000. Comprehensive metabolic profile shows elevated BUN and creatinine at 26 and 1.4 mg/dL. Alkaline phosphatase is slightly elevated at 106/105 IU/L. The bilirubin and the other liver enzymes are normal. Impression: 1. 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 By clinical evaluation her disease appeared to be at least stage IB2 (T1b2, N1, M0). 2. She was mildly anemic, and her serum iron studies were consistent with iron deficiency. Her other medical illnesses include: 3. Hypertension. 4. Hypothyroidism. 5. COPD. 6. She has a history of treated hepatitis C. 7. Vitamin D deficiency. 8. She has a history of colonic polyps. She underwent primary chemoradiation utilizing weekly cisplatin chemotherapy. Her treatment began on 08/10/2019. She completed radiation on 09/22/2019 to a total dose of 6000 cGy. She tolerated the treatment well other than her sixth weekly cisplatin infusion was held due to neutropenia and fatigue. She then underwent LDR brachytherapy with Ce-137 implants on 10/18/2019 and on 10/31/2019. Overall, she tolerated the treatment well. Restaging CT of the abdomen/pelvis on 12/08/2019 showed a low-attenuation 9 mm lesion in the fundal myometrium, felt to possibly represent a small fibroid. There was moderate diffuse uterine myometrium enhancement which was felt to be likely due to therapy related changes. There was no evidence of metastatic disease in the abdomen or pelvis. On 12/23/2019 she began cycle 1 of postoperative adjuvant chemotherapy with cisplatin/paclitaxel in combination with Avastin. She developed multiple toxicities following that treatment, the most significant being severe fatigue and neuropathy. She had gradual recovery which was complicated by rectal pain and by a decline in her renal function. A specific cause was not determined, but it subsequently resolved. On 04/26/2020 she began further adjuvant chemotherapy with carboplatin/gemcitabine in combination with Avastin. She had moderately severe neutropenia at day 8, but she recovered uneventfully with Neupogen. Cycles 2 and 3 were administered with a dose reduction and with Neulasta prophylactically. She was able to tolerate treatment with acceptable toxicity, though she had persistent, moderately severe anemia and fatigue. She was able to continue with cycle 4 on 07/03/2020 and with cycle 5 on 07/31/2020. She comes in now with multiple complaints including increased pain and weakness. She is having burning with urination and difficulty voiding. She has had persistent pyuria but with negative urine cultures. Plan: Her treatment will be put on hold. She will see Dr. Ochoa on regard to her persistent bladder symptoms and aseptic pyuria. She will be scheduled for a bladder scan and for repeat CT abdomen/pelvis. She will have further evaluation as indicated. In the meantime, she also will be given the flu shot today. Signed By: Homar Warner M.D. <<Signature on File>>
[2020-08-27 15:06] LABS: Basophils % 0.6 %; Eosinophils % 0.2 %; Hematocrit 30.6 % (37.0-47.0); Hemoglobin 9.3 g/dL (11.5-15.3); Lymphocytes # 0.6 10^3/uL (0.8-4.8); Lymphocytes % 10.9 %; Mean Corpuscular HGB Conc 30.4 g/dL (30.0-36.0); Mean Corpuscular Hemoglobin 31.5 pg (28.0-34.0); Mean Corpuscular Volume 103.7 fL (81-99); Mean Platelet Volume 10.9 fL (7.4-10.4); Monocytes # 0.6 10^3/uL (0.2-0.9); Monocytes % 11.9 %; Neutrophils # 3.84 10^3/uL (1.8-7.7); Neutrophils % 76.2 %; Nucleated Red Blood Cells % 0 %; Platelet Count 162 10^3/cmm (130-400); Red Blood Count 2.95 10^6/uL (4.1-5.3); Red Cell Distribution Width 19.2 % (12.1-15.1)
[2020-08-27 16:28] LABS: Alanine Aminotransferase 7 U/L (0-33); Albumin Level 3.7 g/dL (3.5-5.2); Alkaline Phosphatase 88 IU/L (35-105); Anion Gap 14.7 (5-19); Aspartate Amino Transferase 17 U/L (0-32); Blood Urea Nitrogen 22 mg/dL (8-23); Calcium 9.8 mg/dL (8.5-10.5); Carbon Dioxide 25 mmol/L (22-29); Chloride 105 mmol/L (98-107); Globulin 4.5 g/dL (1.3-4.6); Glomerular Filtration Rate 55.5 mL/min (90-130); Glucose 120 mg/dL (65-115); Osmolality Calculated 295 mOsm/kg (285-295); Potassium 4.7 mmol/L (3.5-5.1); Sodium 140 mmol/L (136-145); Total Bilirubin 0.3 mg/dL (0.15-1.2); Total Protein 8.2 g/dL (6.6-8.7)
--- NOTE | 2020-08-28 10:09 | CT_ITS ---
WS: [id number] CT ABDOMEN PELVIS TECHNIQUE: Contrast-enhanced CT of the abdomen and pelvis with coronal and sagittal reformatted image s. CLINICAL INFORMATION: CERVICAL CANCER/LOWER ABDOMEN PAIN COMPARISON: CT December 08, 2019, CT pelvis March 16, 2020, PET CT February 25, 2020 DLP: 396.[address] scans at [facility] use at least one of these dose optimization techniques: automat ed exposure control; mA and/or kV adjustment per patient size (includes targeted exams where dose is matched to clinical indication); or iterative reconstruction. FINDINGS: Mild diffuse fatty infiltration liver. Cholecystectomy clips. Normal spleen. Normal GE junction. Lung bases are well aerated. Noncalcified nodule left lower lobe along the diaphragm measuring 6 mm. This is stable since CT abdomen pelvis December 08, 2019 Adrenal glands are normal. Normal renal parenchymal enhancement. Moderate right hydronephrosis with r ight ureterectasis. This is new from the prior examinations. No obstructing renal or ureteral calculi . Obstruction likely related to adhesions/fibrosis along the right adnexa. Ureter is dilated into the pelvis. No hydronephrosis in the left kidney. Mild fatty atrophy of the pancreas. Normal caliber abdominal ao rta. Aortic calcification. Tiny fat-containing umbilical hernia. Small amount of free fluid in the cul-de-sac. Small amount of air along the right cervix and vaginal cuff likely benign. Normal sigmoid colon. No evidence of small or large bowel obstruction. No adenopathy in the abdomen o r pelvis. No pelvic or inguinal lymphadenopathy. CT/CT abdomen pelvis w con* [id number] IMPRESSION: 1. Moderate right hydronephrosis is new from the prior examinations with urete rectasis. Ureter is dilated into the pelvis. No obstructing calculi. Suspect te thering of the right ureter in the right adnexa likely obstructed at this level due to adhesions or fibrosis from radiation therapy. Recommend urology consult ation. 2. Normal left kidney. No hydronephrosis. 3. No abdominal, pelvic, or inguinal lymphadenopathy. 4. Small amount of free fluid in the cul-de-sac. Small amount of air along the right vaginal cuff likely benign. 5. Stable noncalcified 6 mm nodule left lower lobe along the diaphragm. Recomm end 6 month follow-up chest CT.
[2020-08-28] MEDS: iohexol 300 mg/mL 50 mL Btl IV (11:55)
[2020-08-28] MEDS: iodixanol 320 mg/mL 100mL Btl IV (11:56)
== END 2020-09-10 11:40 | disposition home or self-care (01) ==
LOC: ONCMED 09:59
PROVIDERS: Nurse Practitioner; PCP Family Medicine; Visit Provider Internal Medicine Medical Oncology
DX: C53.9 Malignant neoplasm of cervix uteri, unspecified (principal); Z23 Encounter for immunization; R30.9 Painful micturition, unspecified; R82.81 Pyuria; N13.30 Unspecified hydronephrosis; D50.9 Iron deficiency anemia, unspecified; R53.1 Weakness; I10 Essential (primary) hypertension; E03.9 Hypothyroidism, unspecified; J44.9 Chronic obstructive pulmonary disease, unspecified; E55.9 Vitamin D deficiency, unspecified; Z86.19 Personal history of other infectious and parasitic diseases; Z86.010 Personal history of colon polyps
CPT/HCPCS: 74177; 80053; 81001; 85025; 87077; 87086; 87186; 90471; 90686; 96360; 96372; 99214; J1170; J7030

== ENCOUNTER → 2020-09-07 12:58 | Outpatient (BNVA) | payer MEDICARE, SELFPAY | PROVIDERS: PCP Family Medicine; Visit Provider Urology | DX: Z11.59 Encounter for screening for other viral diseases (principal); N39.0 Urinary tract infection, site not specified | CPT/HCPCS: 81003; 87635 ==

== ENCOUNTER 2020-09-10 11:43 | Day surgery (SDC) | payer MEDICARE, SELFPAY ==
[2020-09-07 17:29] VITALS: BMI 24.3
[2020-09-10 12:13] VITALS: BP 115/69; PULSE 83; RESP 18; TEMP 36.7; O2SAT 98
[2020-09-10] MEDS: sodium chloride 0.9% 1,000 ML 30 ML IV (12:30)
--- NOTE | 2020-09-10 12:50 | ANES.PREANE2 ---
Pre-Anesthetic Assessment Pre-Anesthetic Assessment: Height/Weight: Height 1.63 m Weight 64.41 kg Temp Pulse Resp BP Pulse Ox 98.0 F 83 18 115/69 98 09/10/20 12:13 09/10/20 12:13 09/10/20 12:13 09/10/20 12:13 09/10/20 12:13 Preop Diagnosis: Extrinsic obstruction right ureter Proposed Procedure: Operation Date: 09/10/20 17:45 Proposed Procedures p Cystoscopy 09493 10903 N13.30 N13.5(Not Applicable) - Casper Ochoa MD s right Ureteral Stent Placement(Right) - Casper Ochoa MD s Retrograde Pyelogram(Not Applicable) - Casper Ochoa MD Familial anesthetic complications: None Was Beta Manuel taken within 24 hours: N/A Last intake: Intake Last Liquid Date 09/10/20 Last Liquid Time 06:00 Last Solid Date 09/09/20 Last Solid Time 08:00 Social: Social History: Tobacco and No alcohol Exam: Pre-Anes Outpt Exam: alert, oriented x 3, clear to auscultation bilaterally and regular rate & rhythm Airway: Cervical ROM: WNL MP: 2 Dentition: False Pulmonary: Comments: chronic bronchitis CV/HEM: CV/HEM: HTN Metabolic: Metabolic: Thyroid Anesthetic Plan: ASA status: 3 Anesthesia: General Risk of > 500 ml blood loss (7ml/kg in children): No Meds/Allergies Current Medications: Current Medications Generic Name Dose Route Start Last Admin Trade Name Freq PRN Reason Stop Dose Admin Sodium Chloride 1,000 mls @ 30 ml s/hr 09/10/20 12:15 09/10/20 12:30 Sodium Chloride 0.9% IV 09/11/20 12:14 30 mls/hr .Q24H XIMENA Administration PFSH Anesthesia PFSH: Medical History Cervical cancer Chronic hepatitis C COPD (chronic obstructive pulmonary disease) Depression with anxiety Hypertension Hypothyroidism Port-A-Cath in place Rectal Pain Recurrent UTI Seasonal allergies Surgical History H/O dilation and curettage Done for one of the miscarriages. H/O laparoscopy with removal of scar tissue in the per patient. History of cholecystectomy (~08/2018) History of colonoscopy with polypectomy (~2018) Family History Mother Hypertension Breast cancer Cervical cancer Father Hypertension Diabetes Grandfather Chronic kidney disease (CKD) Maternal grandfather Heart disease Maternal grandfather Grandmother Chronic kidney disease (CKD) Maternal grandmother Heart disease Maternal grandmother Stroke Maternal grandmother Father No problems noted. Family/Other Breast cancer Maternal aunt Cervical cancer Maternal aunt x4 Other Thyroid disease Denies family history of Colon cancer Ovarian cancer Anesthesia complication Bleeding disorder Uterine cancer Social History Smoking and tobacco status: current every day smoker Alcohol intake: never Household members: spouse Marital status: Additional social history: - Tobacco use: Current smoker; Alcohol use: Denies Drug use: Denies Data Anesthesia Cardiac Studies: No Data to Display
[2020-09-10] MEDS: levofloxacin-dextrose 5 % 500 MG/100 ML PREMIX 100 MG IV (14:01)
--- NOTE | 2020-09-10 14:02 | PM.OP ---
Operative Report Date of procedure: September 10, 2020 Pre-op Diagnosis: Extrinsic obstruction right ureter Procedure Done: 1. Cystoscopy with right retrograde ureteropyelogram 2. Ureteroscopy, ureteral stent placement Surgeon: Don Anesthesia: General Estimated blood loss: Minimal Urine output: Not measured Complications: None Findings: An area of approximately 2-1/2 to 3 cm of the distal ureter was extremely narrowed more consistent with extrinsic compression. No evidence of an intraluminal process on ureteroscopy. The ureter proximal to that point was quite tortuous and dilated as expected from chronic obstruction. Stent was placed in left indwelling for further dilation and for relief of obstruction. Differential diagnosis of the findings intraoperatively were extrinsic obstruction related to malignant process or scarring post treatment of cervical cancer. Condition: stable Disposition: PACU Brief History: Dionne is a very pleasant 64-year-old white female referred for recurrent urinary tract infections and was placed on protracted course of antibiotics for chronic cystitis symptoms with prior cultures demonstrating Proteus mirabilis ESBL. A CT scan done for follow-up surveillance of her [employer] malignancy showed new onset of right hydroureteronephrosis with apparent level of the obstruction in the very distal aspect of the ureter suspicious possibly for scar tissue or a malignant process persistent. She is admitted now for cystoscopy, right retrograde ureteropyelogram, right ureteroscopy, stent Procedure: After routine preoperative evaluation examination and obtaining of informed consent she was taken to the operating suite on 09/10/2020 where general anesthesia was administered without difficulty after appropriate timeout was performed, SCDs confirmed to be functioning, preoperative antibiotics administered, beta-zakia protocol confirmed. Prepped and draped in usual sterile fashion in dorsolithotomy position paying careful attention to avoiding pressure points. 21 Cypriot cystoscope with 30 degree lens was introduced into the urethral meatus and advanced into the bladder to videoscopy. The bladder was systematically examined. An 8 [place] cone-tipped catheter was intubated to the right ureteral orifice for right retrograde ureteropyelogram demonstrating: The very distal aspect of the ureter appeared to be normal but abruptly changed to a very thin wispy channel with a clear demarcation to a dilated ureter approximately 2-1/2 cm proximal to the distal end of the stricture. The ureter proximal to that point was very dilated all the way to the kidney. A flexible tip guidewire was then passed through the scope up the right ureter bypassing the strictured area. The tortuous aspect of the proximal ureter was difficult to maneuver and for that reason an open-ended ureteral catheter was advanced over the guidewire just into that tortuous area which allowed easy passage of the wire into the kidney. The open-ended ureteral catheter was removed. A 7 Cypriot offset semirigid ureteroscope was then advanced over the guidewire into the distal ureter but could only be advanced approximately 2 cm but it was able to be manipulated into the narrowed area which showed no evidence of intrinsic pathology. Findings were consistent with extrinsic obstruction as expected. Cystoscope then backloaded over the guidewire and a 6 Cypriot by 30 cm [place] stent was advanced over the guidewire through the cystoscope into appropriate position as confirmed via fluoroscopy and cystoscopy. Stent was confirmed to be draining and the procedure was completed. Bladder was drained. Tolerated the procedure well without complication and was awakened in the operating room and returned to the recovery in stable condition. PLANS: 1. Discharge today from outpatient surgery with stent indwelling 2. Follow-up with oncology for further elucidation of the status regarding the malignant process. 3. Follow-up in my office in 3 months with KUB. May consider relook ureteroscopy at some point after period of passive dilation by indwelling stent.
--- NOTE | 2020-09-10 14:13 | P.HPUD_ITS ---
Surgery/Procedure H&P Update DATE OF PROCEDURE: September 10, 2020 DATE H&P PERFORMED: 09/07/20 H&P UPDATE INFORMATION: I have reviewed H&P completed within last 30 days, I have examined patient prior to procedure, No changes to prior documentation and H&P is in [facility] EMR on date indicated PREOP DIAGNOSIS: Extrinsic obstruction right ureter PLANNED PROCEDURE: Operation Date: 09/10/20 17:45 Proposed Procedures p Cystoscopy 38192 [id number] N13.30 N13.5(Not Applicable) - Casper Ochoa MD s right Ureteral Stent Placement(Right) - Casper Ochoa MD s Retrograde Pyelogram(Not Applicable) - Casper Ochoa MD
[2020-09-10] MEDS: iohexol 300 mg/mL 50 mL Btl (OR ONLY) XX (14:20)
[2020-09-10 14:42] VITALS: BP 126/74; PULSE 74; RESP 17; TEMP 36.6; O2SAT 100
[2020-09-10 14:45] VITALS: BP 126/74; PULSE 70; RESP 19; O2SAT 100
[2020-09-10 14:50] VITALS: BP 127/72; PULSE 70; RESP 16; TEMP 36.4; O2SAT 100
--- NOTE | 2020-09-10 14:55 | SUR.PHASEI ---
1454 pt very awake alert talkative asking pertinent questions wants sprite to sip on , handoff at bedside pt to OPS per ops nurse.
[2020-09-10 15:01] VITALS: BP 130/55; PULSE 68; RESP 18; TEMP 36.3; O2SAT 97
--- NOTE | 2020-09-10 15:13 | ANE.PACU2 ---
Inpatient post-anesthesia follow up: Airway intact: Yes Vital signs: Temperature 97.4 F Pulse Rate 68 Respiratory Rate 18 Blood Pressure 130/55 Pulse Oximetry 97 Oxygen Delivery Me thod Room Air Oxygen Flow Rate 8 Fraction of Inspir ed Oxygen Hydration adequate: Yes Nausea and vomiting: No Pain level: 3 Mental status: Baseline
[2020-09-10] MEDS: HYDROcodone-acetaminophen 5-325 mg Tablet 1 TAB PO (15:15)
== END 2020-09-10 15:36 | disposition home or self-care (01) ==
PROVIDERS: PCP Family Medicine; Visit Provider Urology
PROC: 0TJB8ZZ Inspection of Bladder, Via Natural or Artificial Opening Endoscopic (ICD-10-PCS; CPT 52000; principal; 2020-09-10 13:20)
PROC: (CPT 50605; 2020-09-10 13:20)
PROC: (CPT 74420; 2020-09-10 13:20)
DX: N13.5 Crossing vessel and stricture of ureter without hydronephrosis (principal); I10 Essential (primary) hypertension; Z85.41 Personal history of malignant neoplasm of cervix uteri; B18.2 Chronic viral hepatitis C; F41.8 Other specified anxiety disorders; E03.9 Hypothyroidism, unspecified; F17.210 Nicotine dependence, cigarettes, uncomplicated; Z79.82 Long term (current) use of aspirin; J44.9 Chronic obstructive pulmonary disease, unspecified
CPT/HCPCS: 52332; 52344; 12345; C2625; J1956; J2250; J2370; J2405; J2704; J3010; J7030

== ENCOUNTER 2020-09-18 05:41 | Outpatient (RCR) | payer MEDICARE, SELFPAY ==
[2020-09-18 08:36] LABS: Basophils % 0.6 %; Eosinophils # 0.1 10^3/uL (0.0-0.8); Eosinophils % 1.1 %; Hematocrit 34.8 % (37.0-47.0); Lymphocytes # 0.7 10^3/uL (0.8-4.8); Lymphocytes % 10.6 %; Mean Corpuscular HGB Conc 28.7 g/dL (30.0-36.0); Mean Corpuscular Hemoglobin 31.4 pg (28.0-34.0); Mean Corpuscular Volume 109.4 fL (81-99); Mean Platelet Volume 10.8 fL (7.4-10.4); Monocytes # 0.5 10^3/uL (0.2-0.9); Monocytes % 8.2 %; Neutrophils # 5.03 10^3/uL (1.8-7.7); Neutrophils % 79.3 %; Nucleated Red Blood Cells % 0 %; Platelet Count 141 10^3/cmm (130-400); Red Blood Count 3.18 10^6/uL (4.1-5.3); Red Cell Distribution Width 16.3 % (12.1-15.1); White Blood Count 6.3 10^3/uL (4.0-10.0)
[2020-09-18 08:55] LABS: Alanine Aminotransferase 6 U/L (0-33); Albumin Level 3.2 g/dL (3.5-5.2); Alkaline Phosphatase 84 IU/L (35-105); Anion Gap 16.5 (5-19); Aspartate Amino Transferase 13 U/L (0-32); Blood Urea Nitrogen 13 mg/dL (8-23); Calcium 9.5 mg/dL (8.5-10.5); Carbon Dioxide 22 mmol/L (22-29); Chloride 106 mmol/L (98-107); Globulin 4.5 g/dL (1.3-4.6); Glomerular Filtration Rate 55.5 mL/min (90-130); Glucose 115 mg/dL (65-115); Osmolality Calculated 291 mOsm/kg (285-295); Potassium 4.5 mmol/L (3.5-5.1); Sodium 140 mmol/L (136-145); Total Bilirubin 0.4 mg/dL (0.15-1.2); Total Protein 7.7 g/dL (6.6-8.7)
--- NOTE | 2020-09-21 13:42 | ONC FU_ITS ---
Dr. Warner Patient Follow-Up Note Patient: Dionne Ftizgerald Unit #: [id number]: 1955 Dicatated By: Homar Warner M.D.Date of Visit:Sep 18, 2020 Onc Med Follow-up/Prog Note Chief Complaint: Cervical cancer. 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 By clinical evaluation her stage ws at least IB2 (T1b2, N0, M0) at initial diagnosis in July 2019. She had presented with a 3-month history of intermittent vaginal bleeding. Her transvaginal ultrasound on 07/05/2019 showed marked thickening and decreased echogenicity and hypervascularity throughout the cervix. It was noted to be lobulated and enlarged, consistent with cervical carcinoma. The cervix appeared grossly abnormal on exam. Pap smear was attempted at that time was problematic due to the increased bleeding. Biopsy, though, did show undifferentiated carcinoma. She was referred to Dr. Zamorano in [place]. Her staging MRI of the pelvis on 07/21/2019 showed cervical mass which was noted to be possibly going into the uterus in its inferior anterior aspect. There was local surrounding enhancement suggestive of local infiltration and there was an enlarged iliac chain lymph node on the right side. Staging PET/CT on 07/22/2019 showed primary tumor mass involving the cervix with evidence of local spread to a right common iliac lymph node. Subcentimeter pulmonary nodules were FDG negative and nonspecific, but metastatic disease was not excluded. There was no other evidence of metastatic involvement. On 07/25/2019 she underwent exam under anesthesia and placement of Port-A-Cath venous access device. A repeat cervical biopsy at that time showed invasive poorly differentiated squamous cell carcinoma. She was recommended to undergo primary chemoradiation utilizing weekly cisplatin for chemosensitization. Her other medical illnesses include hypertension, hypothyroidism, COPD, and vitamin D deficiency. She has a history of treated hepatitis C. She also has a history of colonic polyps. She has a history of smoking 1 pack of cigarettes daily for approximately 20 years. She recently quit. INTERIM HISTORY: She began her radiation concurrently with weekly cisplatin on 08/10/2019. She completed the radiation on 09/22/2019 to a total dose of 6000 cGy. She tolerated the treatment pretty well, though her 6th weekly cisplatin infusion was held due to neutropenia and fatigue. She then underwent LDR brachytherapy with Ce-137 implants on 10/18/2019 and again on 10/31/2019. She tolerated it well. Restaging CT of the abdomen/pelvis on 12/08/2019 showed a low-attenuation 9 mm lesion in the fundal myometrium, felt to possibly represent a small fibroid. There was moderate diffuse uterine myometrium enhancement which was felt to be likely due to therapy related changes. There was no evidence of metastatic disease in the abdomen or pelvis. On 12/23/2019 she began cycle 1 of postoperative adjuvant chemotherapy with cisplatin/paclitaxel in combination with Avastin. She unfortunately experienced neuropathy and other side effects it, severe enough that I did not think she would tolerate further treatment with that regimen. Following subsequent discussions with Dr. Zamorano, she was recommended to continue adjuvant chemotherapy with carboplatin and gemcitabine in combination with Avastin. However, at her follow-up visit on 03/14/2020 she was complaining of severe rectal pain. She also had a significant decline in her renal function. Her renal ultrasound was normal. A CT of the pelvis showed a small amount of air along the cervical and vaginal regions, felt to be possibly related to her recent radiation therapy. There was no evidence for recurrent adenopathy, abscess collection, or other pathology in the pelvis. She was referred to Dr. Ortega. She underwent attempted flexible sigmoidoscopy on 04/11/2020. The scope was not able to be transversed beyond the rectosigmoid region due to a narrowing lesion. Barium enema on 04/12/2020 showed mild narrowing of the sigmoid region due to overlapping loops of colon. There was no persistent high-grade stricture. It was a limited exam due to her inability to retain the barium mixture. She then began cycle 1 of carboplatin/gemcitabine in combination with Avastin on 04/26/2020. She tolerated the initial treatment without acute toxicity. At day 8 she had moderately severe neutropenia, ANC 600. She was not febrile. She recovered uneventfully with Neupogen. She continued with cycle 2 on 05/21/2020. She was given a dose reduction and she also was given Neulasta prophylactically. She tolerated it with acceptable toxicity, and she continue with cycle 3 on 06/11/2020. She tolerated with acceptable toxicity, though she still had moderately severe anemia. She was able to continue with cycle 4 on 07/03/2020 and with cycle 5 on 07/31/2020. During that time she did have to her Port-A-Cath replaced due to malfunction. At her follow-up visit on 08/21/2020 I opted to put her further chemotherapy on hold, as she was having persistent bladder symptoms with associated pyuria and she also was showing decline in performance status. Her CT abdomen/pelvis on 08/28/2020 showed moderate right hydronephrosis with ureterectasis, new compared to previous studies. There appeared to be tethering of the right ureter in the right adnexa, thought to be most likely obstructed at that level due to adhesions or fibrosis. She was then seen by Dr. Ochoa and she underwent cystoscopy with ureteral stent placement on 09/10/2020. She is seen for a scheduled visit. She says her bladder symptoms have improved significantly following placement of the ureteral stent. However, she still does not have good energy and she has very limited activity. She is still mostly in bed. Her ECOG score is 3. Appetite is not very good. She has had significant weight loss. She does not have fever or night sweats. She has a little bit of cough. She sometimes has shortness of breath. She does not complain of chest pain. She sometimes has nausea and she has ongoing problems with constipation. She has had aching in both legs, but that is getting better. She has been having headache at night and she complains that she is always dizzy. She has no focal neurologic symptoms. Medications: Aspirin Childrens 1 Tablet (of 81 mg) Tablet, chewable Oral daily, [employer] Milk of Magnesia Suspension Oral PRN, Docusate Sodium 1 Tablet (of 100 mg) Oral daily PRN, Dronabinol 1 - 2 Capsule (of 2.5 mg) Oral b.i.d. PRN, Gabapentin 1 Capsule (of 100 mg) Oral daily, HYDROmorphone HCl 1 Tablet (of 4 mg) Oral q 4 hours PRN, Ibuprofen 1 - 2 Capsule (of 200 mg) Oral daily PRN, Irbesartan 1 (300 mg) Tablet Oral daily, Levothyroxine Sodium 1 Tablet (of 75 mcg) Oral daily, Magnesium Oxide 1 Capsule (of 400 mg) Oral b.i.d., Metoprolol Tartrate 1 Tablet (of 25 mg) Oral daily Allergies: Kimbera Review of Systems: Constitutional - Her energy is so-so. She has very limited activity, and she is now mostly in bed. Appetite also is not very good. She has lost weight. She does not have fever or night sweats. ECOG score is 3, ENMT - She has a little bit of runny nose. No mouth sores. No sore throat or difficulty swallowing, Hematologic/Lymphatic - No abnormal bruising or bleeding, Respiratory - She sometimes has shortness of breath. She has a little bit of cough. No pleuritic pain or hemoptysis, Cardiovascular - No angina pain. No palpitations, Gastrointestinal - She has had some nausea. No acid reflux. She has constipation, and she also reports having stomachache occasionally. No blood in the stool or black stools, Genitourinary (F) - Her bladder symptoms have improved. No dysuria or hematuria. No urgency or incontinence, Musculoskeletal - She has been having pain, especially in her legs, but that is better now, Integumentary - No skin rash, Neurologic - She has been having headache at night. She complains that she is always dizzy. No numbness or tingling. No other focal neurologic symptoms, Psychiatric - No anxiety or depression. She has difficulty sleeping. Vital Signs: Performed on Sep 18, 2020 09:11 Height - 67.00 in Weight - 138.0 lbs (LOW) BSA - 1.73 sq.m BMI - 21.61 Temperature - 99.4 F (HIGH) Pulse - 91 /min Respiration - 18 /min BP - 129/79 mm(hg) O2 Sat - 98 % Pain - 0 Physical Examination: Constitutional - She appears generally weak, Eyes - Sclerae nonicteric. Conjunctivae clear, ENMT - No lesions noted in the oral cavity, Hematologic/Lymphatic - No cervical, clavicular, or axillary adenopathy, Respiratory - Lungs sound clear, Cardiovascular - Heart rhythm is regular. There is no murmur, gallop, or rub noted, Abdomen - Soft. There is generalized, mild abdominal tenderness. Liver and spleen are not enlarged. There is no abdominal mass or ascites noted and there is no inguinal adenopathy, Extremities - No edema, Neurologic - No focal neurologic deficits noted. Lab/Imaging: Test performed on Sep 18, 2020 08:15 Sodium 140 mmol/L Potassium 4.5 mmol/L Chloride 106 mmol/L CO2 22 mmol/L Anion Gap 16.5 BUN 13 mg/dL Creatinine 1.0 mg/dL Cr Clearance (Est) 59.7600 mL/min eGFR 55.5 mL/min Glucose 115 mg/dL Osmolality - Calculated 291 mOsm/kg Calcium 9.5 mg/dL Protein, Total 7.7 g/dL Albumin 3.2 g/dL Globulin 4.5 g/dL Bilirubin, Total 0.4 mg/dL ALT (SGPT) 6 U/L AST (SGOT) 13 U/L Alkaline Phosphatase 84 IU/L WBC 6.3 10 3/uL RBC 3.18 10 6/uL HGB 10.0 g/dL HCT 34.8 % MCV 109.4 fL MCH 31.4 pg MCHC 28.7 g/dL RDW 16.3 % Platelet Count 141 10 3/cmm MPV 10.8 fL Neutrophils 5.03 10 3/uL Lymphocytes 0.7 10 3/uL Monocytes 0.5 10 3/uL Eosinophils 0.1 10 3/uL Basophils 0.0 10 3/uL Neutrophil % 79.3 % Lymphocyte % 10.6 % Monocyte % 8.2 % Eosinophil % 1.1 % Basophils % 0.6 % NRBC % 0 % Impression: 1. 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 By clinical evaluation her disease appeared to be at least stage IB2 (T1b2, N1, M0). 2. She was mildly anemic, and her serum iron studies were consistent with iron deficiency. Her other medical illnesses include: 3. Hypertension. 4. Hypothyroidism. 5. COPD. 6. She has a history of treated hepatitis C. 7. Vitamin D deficiency. 8. She has a history of colonic polyps. She underwent primary chemoradiation utilizing weekly cisplatin chemotherapy. Her treatment began on 08/10/2019. She completed radiation on 09/22/2019 to a total dose of 6000 cGy. She tolerated the treatment well other than her sixth weekly cisplatin infusion was held due to neutropenia and fatigue. She then underwent LDR brachytherapy with Ce-137 implants on 10/18/2019 and on 10/31/2019. Overall, she tolerated the treatment well. Restaging CT of the abdomen/pelvis on 12/08/2019 showed a low-attenuation 9 mm lesion in the fundal myometrium, felt to possibly represent a small fibroid. There was moderate diffuse uterine myometrium enhancement which was felt to be likely due to therapy related changes. There was no evidence of metastatic disease in the abdomen or pelvis. On 12/23/2019 she began cycle 1 of postoperative adjuvant chemotherapy with cisplatin/paclitaxel in combination with Avastin. She developed multiple toxicities following that treatment, the most significant being severe fatigue and neuropathy. She had gradual recovery which was complicated by rectal pain and by a decline in her renal function. A specific cause was not determined, but it subsequently resolved. On 04/26/2020 she began further adjuvant chemotherapy with carboplatin/gemcitabine in combination with Avastin. She had moderately severe neutropenia at day 8, but she recovered uneventfully with Neupogen. Cycles 2 and 3 were administered with a dose reduction and with Neulasta prophylactically. She was able to tolerate treatment with acceptable toxicity, though she had persistent, moderately severe anemia and fatigue. She was able to continue with cycle 4 on 07/03/2020 and with cycle 5 on 07/31/2020. At her follow-up visit on 08/21/2020 she was having significant bladder symptoms with persistent pyuria and she also is having decline in performance status. Her chemotherapy was put on hold. Repeat CT abdomen/pelvis showed new right hydronephrosis. She was seen by Dr. Ochoa, she underwent placement of ureteral stent on 09/10/2020. Plan: At this point I will not attempt any further chemotherapy and she will just be followed on observation/expectant management for the cervical cancer. I will have her try increasing gabapentin to 300 mg 3 times daily and she will take docusate 100 mg twice daily along with MiraLAX daily for the constipation. I will see her again in 1 month. Signed By: Homar Warner M.D. <<Signature on File>>
== END 2020-10-18 23:59 | disposition home or self-care (01) ==
LOC: ONCMED 05:41
PROVIDERS: PCP Family Medicine; Visit Provider Internal Medicine Medical Oncology
DX: C53.8 Malignant neoplasm of overlapping sites of cervix uteri (principal); D70.1 Agranulocytosis secondary to cancer chemotherapy; T45.1X5A Adverse effect of antineoplastic and immunosuppressive drugs, initial encounter; D69.59 Other secondary thrombocytopenia; D50.9 Iron deficiency anemia, unspecified; I10 Essential (primary) hypertension; E03.9 Hypothyroidism, unspecified; J44.9 Chronic obstructive pulmonary disease, unspecified; E55.9 Vitamin D deficiency, unspecified; Z86.010 Personal history of colon polyps; Z86.19 Personal history of other infectious and parasitic diseases; Z79.899 Other long term (current) drug therapy
CPT/HCPCS: 36415; 80053; 85025; 99214

== ENCOUNTER 2020-10-09 18:08 | Emergency (ER) | payer MEDICARE, SELFPAY ==
[2020-10-09] VITALS (7 sets, daily range): BP systolic 122–132; BP diastolic 67–76; PULSE 87–108; RESP 20–22; TEMP 36.9; O2SAT 96–100; BMI 20.5
--- NOTE | 2020-10-09 18:27 | CTR_ITS ---
PROCEDURE INFORMATION: Exam: CT Abdomen And Pelvis With Contrast Exam date and time: 10/09/2020 7:02 PM Age: 65 years old Clinical indication: Abdominal pain; Prior surgery; Surgery type: Ureteral stent, gb; Additional info: Abdominal pain x 1 week TECHNIQUE: Imaging protocol: Computed tomography of the abdomen and pelvis with intravenous contrast. Sagittal and coronal reformatted images were created and reviewed. Radiation optimization: All CT scans at this facility use at least one of these dose optimization techniques: automated exposure control; mA and/or kV adjustment per patient size (includes targeted exams where dose is matched to clinical indication); or iterative reconstruction. Contrast material: VISI 320; Contrast volume: 75 ml; Contrast route: INTRAVENOUS (IV); COMPARISON: 1. CT abdomen pelvis w con* [id number] 08/28/2020 11:[address] abdomen pelvis w con* [id number] 12/08/2019 11:12:20 AM RADIATION DOSE METRICS: Total DLP (mGy-cm): 316.94 FINDINGS: Lungs: Visualized lungs are clear. Noncalcified nodule in the left lower lobe with an average measurement of 6 mm, stable dating back to 12/08/2019 (series 2, image 12). The the Pleural space: No pleural effusion. Heart: Visualized portions of the heart are unremarkable. Liver: The liver is unremarkable. Gallbladder and bile ducts: Stable findings consistent with a previous cholecystectomy. Stable dilatation of the biliary ducts, not unexpected in a patient who has had a prior cholecystectomy. Pancreas: The pancreas is unremarkable. No pancreatic ductal dilatation. Spleen: Stable mild enlargement of the spleen measuring 13.7 cm in AP dimension (series 2, image 20). Adrenal glands: The right and left adrenal glands are unremarkable. Kidneys and ureters: Stable simple cyst in the right kidney measuring 1.2 cm (series 2, image 36). Interval placement of a right double-J ureteral stent with the proximal coil in the right renal pelvis and the distal coil in the bladder. Significant overall improvement of right hydroureteronephrosis with mild right hydroureteronephrosis visualized. The left kidney is unremarkable. The left ureter is unremarkable. 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 There is also extension of the fistula into the upper portion of the cervix on the right (series 601, images 39-43) and the upper vaginal canal on the left (series 601, images 33-37). There is stool, air, and fluid within the vaginal canal. There is also a small perforation within the anterosuperior aspect of the fistula with a small amount of free air posterior to the uterine fundus (series 601, images 37-44). Increased fecal content in the colon. No acute abnormality in the small bowel. The stomach is collapsed, which can limit evaluation. No focal abnormality in the stomach otherwise. Appendix: Appendix not definitely visualized. No inflammatory changes in the pericecal region however. Intraperitoneal space: No ascites. See also under stomach and bowel . Vasculature: Atherosclerotic changes in the visualized arteries. No evidence for aortic aneurysm or aortic dissection. Hepatic veins, portal veins, splenic vein, and SMV are patent. Lymph nodes: No lymphadenopathy. Urinary bladder: Diffuse, mild wall thickening of the bladder. Reproductive: The right and left ovaries are unremarkable. See also under stomach and bowel . Bones/joints: Bones are diffusely osteopenic. Moderate degenerative changes at both the right and left hips. Severe degenerative changes of the right and left sacroiliac joints. Multilevel degenerative changes of varying severity in the visualized spine. Mild spinal canal stenosis at L2-L3 through L5-S1. Multilevel foraminal stenosis of varying severity in the visualized spine. Soft tissues: No acute abnormality in the extra-abdominal soft tissues. CT/CT abdomen pelvis w con* [id number] IMPRESSION: 1. 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 There is extension of the fistula into the upper portion of the cervix on the right and the upper vaginal canal on the left. There is stool, air, and fluid within the vaginal canal. There is also a small perforation within the anterosuperior aspect of the fistula with a small amount of free air posterior to the uterine fundus. 2. Interval placement of a right double-J ureteral stent with the proximal coil in the right renal pelvis and the distal coil in the bladder. Significant overall improvement of right hydroureteronephrosis with mild right hydroureteronephrosis visualized. 3. Diffuse, mild wall thickening of the bladder. In the correct clinical setting, this may suggest cystitis. Recommend correlation with laboratory findings. Alternatively, this may be secondary to chronic outlet obstruction. 4. Stable mild splenomegaly. 5. Stable module in the left lower lobe dating back to 12/10/2019. Fleischner Society follow up recommendations for incidental nodules are not indicated. Follow up per the patient's medical condition. 6. Incidental/nonacute findings are listed in the report. COMMENTS: THIS REPORT CONTAINS FINDINGS THAT MAY BE CRITICAL TO PATIENT CARE. The findings were verbally communicated via telephone conference with Pattie Slaughter at 8:14 PM SAP BI ARCHITECT on 10/09/2020. The findings were acknowledged and understood. Radiation Dose CTDIVOL = (mGy): DLP = 316.94 (mGy-cm)
--- NOTE | 2020-10-09 18:28 | ECG_ITS ---
[facility] Test Date: 2020-10-09 Pat Name: Dionne Fitzgerald Department: Room: Gender: Female Press Assistant And Feeder: : 1955 Requested By: Pattie Baires Order Number: [id number] Nita MD: Ben Frank M.D. Measurements Intervals [place] Rate: 99 P: 82 RI: 148 QRS: 78 QRSD: 85 T: 42 QT: 337 QTc: 434 Interpretive Statements SINUS RHYTHM NONSPECIFIC T-WAVE ABNORMALITY Compared to ECG 11/04/2016 11:01:58 T-wave abnormality now present Sinus bradycardia no longer present Poor R-wave progression no longer present Electronically Signed On 10-10-2020 21:23:56 COAT OPERATOR INSULATOR by Ben Frank M.D. [email or web address]
--- NOTE | 2020-10-09 19:06 | ED_ITS ---
HPI - Abdominal Pain General: Chief Complaint: Abdominal Pain Stated Complaint: ABDOMINAL PAIN/ SOB/ SYNCOPE Time Seen by Provider: 10/09/20 18:17 Source: patient Mode of arrival: ambulatory Limitations: no limitations History of Present Illness: HPI narrative: Dionne is a nice 65-year-old female who comes in complaining of lower abdominal pain. Patient has history of cervical cancer she got chemo last month. Dr. Warner is her oncologist. She states that over the past 2 days she has had black tarry stools. She says her vaginal bleeding is slowed down but the melanotic stools are new. She denies any fevers or chills but has been nauseated. Patient feels lightheaded and dizzy when she gets up and moves too quickly. She denies any palpitations or chest pain. Patient denies have anything like this in the past. She not taking Pepto-Bismol. Associated Symptoms: Reports melena; Denies chills, coffee ground emesis, constipation, GI cramping, diarrhea, dysuria, fever(s), heartburn, hematochezia, hematuria, hematemesis, nausea, syncope and vomiting Review of Systems Const: Denies: fever(s), chills, body aches, fatigue, malaise or diaphoresis Eyes: Denies: change in vision, blurry vision, photophobia, eye discomfort, eye discharge, eye redness or yellow eyes ENMT: Denies: throat pain, odynophagia, hoarseness, swelling of lips/tongue, ear or mastoid pain, ear discharge, change in hearing or nasal discharge Card: Denies: chest pain, palpitations, irregular heart rhythm, edema, lightheadedness, syncope, pre-syncope, dyspnea on exertion or orthopnea Resp: Denies: dyspnea, productive cough, non-productive cough, wheezing, hemoptysis or chest congestion GI: Reports: abdominal pain and melena; Denies: nausea, vomiting, hematemesis, coffee ground emesis, heartburn, diarrhea, constipation, GI cramping or hematochezia : Reports: vaginal bleeding; Denies: flank pain, dysuria, urinary frequency, urinary urgency or hematuria Musc: Denies: neck pain, back pain, extremity pain, extremity swelling, joint pain, joint swelling, joint redness, joint warmth or joint stiffness Skin/Breast: Denies: rash, pruritus, erythema, skin pain or skin tenderness Neuro: Denies: headache(s), numbness in extremities, weakness in extremities, sensory changes, lack of coordination, difficulty walking, dizziness, vertigo, confusion, Slurred speech present or seizure-like activity Dale/Lymph: Denies: easy bruising, easy bleeding, petechiae, purpura or enlarged lymph nodes All/Imm: Denies: urticaria, throat swelling, tongue swelling, facial swelling or acute wheezing PFSH ED PFSH: Medical History (Updated 10/09/20 @ 21:39 by Pattie Robison) Cervical cancer Chronic hepatitis C COPD (chronic obstructive pulmonary disease) Depression with anxiety Hypertension Hypothyroidism Port-A-Cath in place Rectal Pain Recurrent UTI Seasonal allergies Surgical History H/O dilation and curettage Done for one of the miscarriages. H/O laparoscopy with removal of scar tissue in the per patient. History of cholecystectomy (~08/2018) History of colonoscopy with polypectomy (~2017) Family History Mother Hypertension Breast cancer Cervical cancer Father Hypertension Diabetes Grandfather Chronic kidney disease (CKD) Maternal grandfather Heart disease Maternal grandfather Grandmother Chronic kidney disease (CKD) Maternal grandmother Heart disease Maternal grandmother Stroke Maternal grandmother Father No problems noted. Family/Other Breast cancer Maternal aunt Cervical cancer Maternal aunt x4 Other Thyroid disease Denies family history of Colon cancer Ovarian cancer Anesthesia complication Bleeding disorder Uterine cancer Social History Smoking and tobacco status: current every day smoker Alcohol intake: never Household members: spouse Marital status: Additional social history: - Tobacco use: Current smoker; Alcohol use: Denies Drug use: Denies Physical Exam 2 Const: COMMON NORMALS: no acute distress, patient oriented x3, no limitations and alert GENERAL APPEARANCE: cooperative HENMT: COMMON NORMALS: normocephalic, atraumatic, external ears normal, EAC's normal and Normal external nose present HEAD & SCALP: normal to inspection, normocephalic and atraumatic FACE & SINUS: normal facial exam and face symmetric NOSE: Normal external nose present and Normal nares present EXTERNAL EAR: Yes external ears normal EXTERNAL AUDITORY CANAL: EAC's normal MOUTH: Normal oral and palatal mucosa present, lip normal and tongue normal Eye: COMMON NORMALS: Equal, round and reactive pupils present and conjunctivae normal GENERAL EYE: appearance normal, both eyes and all related structures ALIGNMENT: Yes alignment normal PERIORBITAL: periorbital findings normal EYELID: eyelids normal CONJUNCTIVA: Yes conjunctivae normal SCLERA: sclerae normal PUPIL: Yes Equal, round and reactive pupils present Neck/C-Spine: COMMON NORMALS: full ROM, no lymphadenopathy, supple, no meningeal signs and no JVD GENERAL: Yes normal visual inspection and Yes trachea midline Chest: COMMONS NORMALS: normal inspection of the chest and normal palpation of entire chest wall Resp: COMMON NORMALS: normal respiratory effort, No retractions, No use of accessory muscles and clear to auscultation bilaterally EFFORT & INSPECTION: Yes able to speak in complete sentences and Yes symmetric chest movement AUSCULTATION: clear to auscultation bilaterally, no crackles, no rales, no rhonchi and no wheezes Cardio: COMMON NORMALS: no JVD, regular rate, regular rhythm, S1 normal heart sound present and S2 normal heart sound present RATE: regular rate RHYTHM: regular rhythm HEART SOUNDS: S1 normal heart sound present, S2 normal heart sound present, no click, no gallops, no murmurs and no rubs GI: COMMON NORMALS: Soft to palpation and No hepatosplenomegaly present PALPATION: Yes Soft to palpation, No Tenderness to palpation present (GI), No Guarding due to palpation present (GI), No Rigid due to palpation, Yes No hepatosplenomegaly present, No Hernia present, No Palpable mass present and No Pulsatile mass present : COMMON NORMALS: Yes no CVA tenderness BLADDER/KIDNEY EXAM: Yes no CVA tenderness EXTERNAL FEMALE EXAM: No Hernia present Back/Pelvis: COMMON NORMALS: no CVA tenderness, thoracic and lumbar spine normal to inspection, no thoracic nor lumbar tenderness and thoraco-lumbar ROM normal Extremity: COMMON NORMALS: normal to inspection, full ROM, capillary refill normal, no joint enlargement, no clubbing, cyanosis or edema and no calf tenderness Neuro: COMMON NORMALS: patient oriented x3, CN's II-XII intact bilaterally, moves all extremities, no focal motor deficits and no sensory deficits noted SENSORIUM/ORIENTATION: Yes alert MENINGEAL SIGNS: Yes no meningeal signs SPEECH: speech normal Psych: COMMON NORMALS: mental status grossly normal, Normal thought process present, cooperative, normal affect, speech normal and activity/motor behavior normal SPEECH: Yes normal speech THOUGHT PROCESS: Normal thought process present Skin: COMMON NORMALS: no rashes or lesions noted, turgor normal, no jaundice, no petechiae and no mottling GENERAL SKIN EXAM: no rashes or lesions noted and turgor normal Course Vital Signs: Vital signs: Vital Signs Temperature 98.5 F 10/09/20 18:09 Pulse Rate 91 10/09/20 20:54 Respiratory Rate 22 H 10/09/20 21:34 Blood Pressure 122/70 10/09/20 18:09 Pulse Oximetry 96 10/09/20 20:54 MDM - Abdominal Pain MDM Narrative: Medical decision making narrative: The case was reviewed with Dr. Piedra and Adri, both feel the patient's disease process is too complex for here. Then reviewed the case with Dr. Ney brewer at [facility] and he agrees to accept the patient in transfer. Lab Data: Attestation: I reviewed the patient's lab results. Labs: Lab Results 10/09/20 10/09/20 10/09/20 Range/Units 19:00 19:00 19:00 WBC 13.3 H (4.0-10.0) 10^3/ uL RBC 3.06 L (4.1-5.3) 10^6/u L Hgb 9.1 L (11.5-15.3) g/dL Hct 29.8 L (37.0-47.0) % MCV 97.4 (81-99) fL MCH 29.7 (28.0-34.0) pg MCHC 30.5 (30.0-36.0) g/dL RDW 15.4 H (12.1-15.1) % Plt Count 186 (130-400) 10^3/c mm MPV 10.3 (7.4-10.4) fL Neut % (Auto) 90.0 % Lymph % (Auto) 3.5 % [place] % (Auto) 5.6 % Eos % (Auto) 0.0 % Baso % (Auto) 0.2 % Neut # (Auto) 11.95 H (1.8-7.7) 10^3/u L Lymph # (Auto) 0.5 L (0.8-4.8) 10^3/u L [place] # (Auto) 0.7 (0.2-0.9) 10^3/u L Eos # (Auto) 0.0 (0.0-0.8) 10^3/u L Baso # (Auto) 0.0 (0.0-0.1) 10^3/u L Nucleated RBC % (a uto) 0 % Nucleated RBCs # 0.0 /100WBC PT 15.80 H (12.1-14.9) SECO NDS INR 1.22 H (0.8-1.2) APTT 31.4 (23.9-36.7) SECO NDS Sodium 141 (136-145) mmol/L Potassium 4.0 (3.5-5.1) mmol/L Chloride 104 (98-107) mmol/L Carbon Dioxide 26 (22-29) mmol/L Anion Gap 15.0 (5-19) BUN 32 H (8-23) mg/dL Creatinine 1.0 H (0.5-0.9) mg/dL GFR Calculation 55.3 L (90-130) mL/min Glucose 122 H (65-115) mg/dL Calculated Osmolal ity 300 H (285-295) mOsm/k g Calcium 9.0 (8.5-10.5) mg/dL Magnesium 2.8 H (1.7-2.3) mg/dL Total Bilirubin 0.4 (0.15-1.2) mg/dL AST 10 (0-32) U/L ALT < 5 (0-33) U/L Alkaline Phosphata se 100 (35-105) IU/L Troponin T Baselin e (0-10) ng/L Total Protein 7.2 (6.6-8.7) g/dL Albumin 3.2 L (3.5-5.2) g/dL Globulin 4.0 (1.3-4.6) g/dL Lipase 6 L (13-60) U/L Amorphous Sediment 10/09/20 10/09/20 Range/Units 19:00 20:55 WBC (4.0-10.0) 10^3/ uL RBC (4.1-5.3) 10^6/u L Hgb (11.5-15.3) g/dL Hct (37.0-47.0) % MCV (81-99) fL MCH (28.0-34.0) pg MCHC (30.0-36.0) g/dL RDW (12.1-15.1) % Plt Count (130-400) 10^3/c mm MPV (7.4-10.4) fL Neut % (Auto) % Lymph % (Auto) % [place] % (Auto) % Eos % (Auto) % Baso % (Auto) % Neut # (Auto) (1.8-7.7) 10^3/u L Lymph # (Auto) (0.8-4.8) 10^3/u L [place] # (Auto) (0.2-0.9) 10^3/u L Eos # (Auto) (0.0-0.8) 10^3/u L Baso # (Auto) (0.0-0.1) 10^3/u L Nucleated RBC % (a uto) % Nucleated RBCs # /100WBC PT (12.1-14.9) SECO NDS INR (0.8-1.2) APTT (23.9-36.7) SECO NDS Sodium (136-145) mmol/L Potassium (3.5-5.1) mmol/L Chloride (98-107) mmol/L Carbon Dioxide (22-29) mmol/L Anion Gap (5-19) BUN (8-23) mg/dL Creatinine (0.5-0.9) mg/dL GFR Calculation (90-130) mL/min Glucose (65-115) mg/dL Calculated Osmolal ity (285-295) mOsm/k g Calcium (8.5-10.5) mg/dL Magnesium (1.7-2.3) mg/dL Total Bilirubin (0.15-1.2) mg/dL AST (0-32) U/L ALT (0-33) U/L Alkaline Phosphata se (35-105) IU/L Troponin T Baselin e 13 H (0-10) ng/L Total Protein (6.6-8.7) g/dL Albumin (3.5-5.2) g/dL Globulin (1.3-4.6) g/dL Lipase (13-60) U/L Amorphous Sediment Not Reportable Imaging Data ^: CT Abd/Pel: Radiologist's impression: [facility] [address] [address] Scan Report Signed Patient: Dionne Fitzgerald Unit #: [id number] : 1955 Age/Sex: 65 / F ADM Date: 10/09/20 Loc: ER Room/Bed: Attending Dr: Ordering Provider/Ordering MD: Pattie Robison DO Date of Service: 10/09/20 Procedure(s): CT abdomen pelvis w con* [id number] Accession Number(s): [id number] Report Number: [id number] PROCEDURE INFORMATION: Exam: CT Abdomen And Pelvis With Contrast Exam date and time: 10/09/2020 7:02 PM Age: 65 years old Clinical indication: Abdominal pain; Prior surgery; Surgery type: Ureteral stent, gb; Additional info: Abdominal pain x 1 week TECHNIQUE: Imaging protocol: Computed tomography of the abdomen and pelvis with intravenous contrast. Sagittal and coronal reformatted images were created and reviewed. Radiation optimization: All CT scans at this facility use at least one of these dose optimization techniques: automated exposure control; mA and/or kV adjustment per patient size (includes targeted exams where dose is matched to clinical indication); or iterative reconstruction. Contrast material: VISI 320; Contrast volume: 75 ml; Contrast route: INTRAVENOUS (IV); COMPARISON: 1. CT abdomen pelvis w con* [id number] 08/28/2020 11:[address] abdomen pelvis w con* [id number] 12/08/2019 11:12:20 AM RADIATION DOSE METRICS: Total DLP (mGy-cm): 316.94 FINDINGS: Lungs: Visualized lungs are clear. Noncalcified nodule in the left lower lobe with an average measurement of 6 mm, stable dating back to 12/08/2019 (series 2, image 12). The the Pleural space: No pleural effusion. Heart: Visualized portions of the heart are unremarkable. Liver: The liver is unremarkable. Gallbladder and bile ducts: Stable findings consistent with a previous cholecystectomy. Stable dilatation of the biliary ducts, not unexpected in a patient who has had a prior cholecystectomy. Pancreas: The pancreas is unremarkable. No pancreatic ductal dilatation. Spleen: Stable mild enlargement of the spleen measuring 13.7 cm in AP dimension (series 2, image 20). Adrenal glands: The right and left adrenal glands are unremarkable. Kidneys and ureters: Stable simple cyst in the right kidney measuring 1.2 cm (series 2, image 36). Interval placement of a right double-J ureteral stent with the proximal coil in the right renal pelvis and the distal coil in the bladder. Significant overall improvement of right hydroureteronephrosis with mild right hydroureteronephrosis visualized. The left kidney is unremarkable. The left ureter is unremarkable. 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 There is also extension of the fistula into the upper portion of the cervix on the right (series 601, images 39-43) and the upper vaginal canal on the left (series 601, images 33-37). There is stool, air, and fluid within the vaginal canal. There is also a small perforation within the anterosuperior aspect of the fistula with a small amount of free air posterior to the uterine fundus (series 601, images 37-44). Increased fecal content in the colon. No acute abnormality in the small bowel. The stomach is collapsed, which can limit evaluation. No focal abnormality in the stomach otherwise. Appendix: Appendix not definitely visualized. No inflammatory changes in the pericecal region however. Intraperitoneal space: No ascites. See also under stomach and bowel . Vasculature: Atherosclerotic changes in the visualized arteries. No evidence for aortic aneurysm or aortic dissection. Hepatic veins, portal veins, splenic vein, and SMV are patent. Lymph nodes: No lymphadenopathy. Urinary bladder: Diffuse, mild wall thickening of the bladder. Reproductive: The right and left ovaries are unremarkable. See also under stomach and bowel . Bones/joints: Bones are diffusely osteopenic. Moderate degenerative changes at both the right and left hips. Severe degenerative changes of the right and left sacroiliac joints. Multilevel degenerative changes of varying severity in the visualized spine. Mild spinal canal stenosis at L2-L3 through L5-S1. Multilevel foraminal stenosis of varying severity in the visualized spine. Soft tissues: No acute abnormality in the extra-abdominal soft tissues. CT/CT abdomen pelvis w con* [id number] IMPRESSION: 1. 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 There is extension of the fistula into the upper portion of the cervix on the right and the upper vaginal canal on the left. There is stool, air, and fluid within the vaginal canal. There is also a small perforation within the anterosuperior aspect of the fistula with a small amount of free air posterior to the uterine fundus. 2. Interval placement of a right double-J ureteral stent with the proximal coil in the right renal pelvis and the distal coil in the bladder. Significant overall improvement of right hydroureteronephrosis with mild right hydroureteronephrosis visualized. 3. Diffuse, mild wall thickening of the bladder. In the correct clinical setting, this may suggest cystitis. Recommend correlation with laboratory findings. Alternatively, this may be secondary to chronic outlet obstruction. 4. Stable mild splenomegaly. 5. Stable module in the left lower lobe dating back to 12/10/2019. Fleischner Society follow up recommendations for incidental nodules are not indicated. Follow up per the patient's medical condition. 6. Incidental/nonacute findings are listed in the report. COMMENTS: THIS REPORT CONTAINS FINDINGS THAT MAY BE CRITICAL TO PATIENT CARE. The findings were verbally communicated via telephone conference with Pattie Slaughter at 8:14 PM [employer] W[employer]OWS ENGINEER on 10/09/2020. The findings were acknowledged and understood. Radiation Dose CTDIVOL = (mGy): DLP = 316.94 (mGy-cm) Dictated By: Nina Barros MD Signed By: Nina Barros MD Signed Date/Time: 10/09/202016 DD/ 14 EKG Data ^: EKG 1: Attestation: I personally reviewed and interpreted this EKG as follows: EKG interpretation date: 10/09/20 EKG interpretation time: 19:08 Interpretation: Normal sinus rhythm 99 beats a minute, normal axis, normal intervals, nonspecific ST and T wave changes. Discharge Plan Discharge Patient Disposition: Xfer Short-Term Hosp Clinical Impression: Colon perforation Condition: Stable Prescriptions: No Action aspirin [Adult Low Dose Aspirin] 81 mg tablet,delayed release (DR/EC) 81 mg PO DAILY@0900 RF: 0 Hold Instructions: Resume on 07/20/20. vitamin B complex [B Complex-Vitamin B12] Tablet 1 tab PO DAILY@0900 RF: 0 magnesium hydroxide [Milk of Magnesia] 400 mg/5 mL suspension 5 ml PO DAILY PRN (Reason: constipation) RF: 0 gabapentin 300 mg capsule 300 mg PO BID@0900,2100 RF: 0 levothyroxine 75 mcg tablet 75 mcg PO DAILY@0900 RF: 0 magnesium oxide 400 mg (241.3 mg magnesium) tablet 800 mg PO DAILY@0900 RF: 0 metoprolol succinate 25 mg tablet extended release 24 hr 25 mg PO DAILY@0900 RF: 0 irbesartan 300 mg tablet 300 mg PO DAILY@0900 RF: 0 Referrals: Britany Mckeon MD [Primary Care Provider] - Coding Level of Care Code ED Assembler Production Line for Chg Fwd Exam Comprehensive
[2020-10-09 19:21] LABS: Basophils % 0.2 %; Hematocrit 29.8 % (37.0-47.0); Hemoglobin 9.1 g/dL (11.5-15.3); Lymphocytes # 0.5 10^3/uL (0.8-4.8); Lymphocytes % 3.5 %; Mean Corpuscular HGB Conc 30.5 g/dL (30.0-36.0); Mean Corpuscular Hemoglobin 29.7 pg (28.0-34.0); Mean Corpuscular Volume 97.4 fL (81-99); Mean Platelet Volume 10.3 fL (7.4-10.4); Monocytes # 0.7 10^3/uL (0.2-0.9); Monocytes % 5.6 %; Neutrophils # 11.95 10^3/uL (1.8-7.7); Nucleated Red Blood Cells % 0 %; Platelet Count 186 10^3/cmm (130-400); Red Blood Count 3.06 10^6/uL (4.1-5.3); Red Cell Distribution Width 15.4 % (12.1-15.1); White Blood Count 13.3 10^3/uL (4.0-10.0)
[2020-10-09 19:28] LABS: INR 1.22 (0.8-1.2)
[2020-10-09 19:29] LABS: Partial Thromboplastin Time 31.4 SECONDS (23.9-36.7)
[2020-10-09 19:32] LABS: Alanine Aminotransferase < 5 U/L (0-33); Albumin Level 3.2 g/dL (3.5-5.2); Alkaline Phosphatase 100 IU/L (35-105); Aspartate Amino Transferase 10 U/L (0-32); Blood Urea Nitrogen 32 mg/dL (8-23); Carbon Dioxide 26 mmol/L (22-29); Chloride 104 mmol/L (98-107); Glomerular Filtration Rate 55.3 mL/min (90-130); Glucose 122 mg/dL (65-115); Lipase 6 U/L (13-60); Magnesium 2.8 mg/dL (1.7-2.3); Osmolality Calculated 300 mOsm/kg (285-295); Sodium 141 mmol/L (136-145); Total Bilirubin 0.4 mg/dL (0.15-1.2); Total Protein 7.2 g/dL (6.6-8.7)
[2020-10-09 19:34] LABS: Troponin(5th) Baseline 13 ng/L (0-10)
[2020-10-09] MEDS: iodixanol 320 mg/mL 100mL Btl IV (19:34)
[2020-10-09] MEDS: sodium chloride 0.9% 1,000 ML 100 ML IV (19:41)
[2020-10-09] MEDS: piperacillin-tazobactam 4.5 GM in sodium chloride 0.9% (plus) 50 ML IV (20:44)
[2020-10-09] MEDS: morphine 4 mg/mL SDV 1 mL IVP (21:34)
[2020-10-09] MEDS: ondansetron 2 mg/ML SDV 2 mL 4 MG IVP (21:34)
[2020-10-09 21:37] LABS: Troponin 5 2HR 11.85 ng/L (0-10)
[2020-10-09 21:38] LABS: Troponin 5 2HR Delta -1.15 ABS# (0-10)
[2020-10-09 21:38] LABS: Urine Appearance Hazy (CLEAR); Urine Color Yellow (Yellow)
[2020-10-09 21:39] LABS: Bilirubin Urine 1+ (Negative); Blood Urine 3+ (Negative); Glucose Urine UA Norm (Normal); Ketones Urine Negative (Negative); Leukocyte Esterase Urine Trace (Negative); Nitrate Urine Negative (Negative); Protein Urine 1+ (Negative); Specific Gravity, Urine 1.015 (1.005-1.030); Sulfosalicylic Acid Urine Positive (Negative); Urobilinogen Urine 1 mg/dL (Negative); pH Urine 9 (5-7)
[2020-10-09 21:52] LABS: Add Urine Culture? Yes; Amorphous Sediment Urine 1+ /hpf; Bacteria Urine TRACE /hpf; Squamous Epithelial Cell Urine 0-4 /hpf (0-5); WBC Urine 0-4 /hpf (0-5)
--- NOTE | 2020-10-09 23:33 | PC.NURSE ---
Danial Sanchez updated on pt status,obtained cell phone for room info
[2020-10-10 01:32] VITALS: BP 118/72; PULSE 86; O2SAT 96
[2020-10-10 01:50] VITALS: RESP 18
[2020-10-10] MEDS: morphine 4 mg/mL SDV 1 mL IVP (01:50)
[2020-10-10 02:01] VITALS: BP 118/72; PULSE 96; O2SAT 96
--- NOTE | 2020-10-10 06:49 | PC.NURSE ---
the patient wanted to wait to notify family of transfer to [facility] until 10/10 am. called donnelly gave them families names and numbers to contact
== END 2020-10-10 02:04 | disposition short-term general hospital (02) ==
PROVIDERS: Emergency Provider Emergency Medicine; PCP Family Medicine
DX: K63.1 Perforation of intestine (nontraumatic) (principal); Z79.82 Long term (current) use of aspirin; Z85.41 Personal history of malignant neoplasm of cervix uteri; Z86.19 Personal history of other infectious and parasitic diseases; J44.9 Chronic obstructive pulmonary disease, unspecified; I10 Essential (primary) hypertension; F17.210 Nicotine dependence, cigarettes, uncomplicated
CPT/HCPCS: 12345; 36415; 74177; 80053; 81001; 83690; 83735; 84484; 85025; 85610; 85730; 86850; 86900; 87086; 93005; 96361; 96365; 96375; 96376; 99283; 99291; J2270; J2405; J2543; J7030; Q9967

== ENCOUNTER 2020-11-09 13:55 | Emergency (ER) | payer MEDICARE, SELFPAY ==
[2020-11-09 13:56] VITALS: BP 125/67; PULSE 98; RESP 17; TEMP 36.4; O2SAT 97; BMI 22.3
--- NOTE | 2020-11-09 14:06 | ECG_ITS ---
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 Measurements Intervals [place] Rate: 84 P: 70 SD: 149 QRS: 70 QRSD: 83 T: 63 QT: 348 QTc: 412 Interpretive Statements SINUS RHYTHM WITH SINUS ARRHYTHMIA MODERATE T-WAVE ABNORMALITY, CONSIDER ANTERIOR ISCHEMIA [-0.1+ mV T WAVE IN V3/V4] Compared to ECG 10/09/2020 19:08:42 Possible ischemia now present T-wave abnormality still present Electronically Signed On 11-09-2020 19:12:51 RN LPN LVN by Ben Frank M.D. [id number]
--- NOTE | 2020-11-09 14:06 | XR_ITS ---
WS: [id number] Portable AP upright chest, 11/09/2020 Clinical Data: dyspnea/cough Comparison: PA and lateral chest, 07/26/2020. Findings: No nodules, masses or effusions are seen. The heart is normal. The pulmonary vascularity is not increased. No pneumonia or pneumothorax is seen. The aortic arch and descending aorta show calci fication and tortuosity. There are clips in the right upper quadrant from a cholecystectomy. XR/XR chest 1V portable [id number] Impression: Atherosclerosis.
--- NOTE | 2020-11-09 14:09 | ED_ITS ---
HPI - Weakness General: Chief complaint: Weakness Stated complaint: GENERALIZED WEAKNESS, DIZZY Time Seen by Provider: 11/09/20 13:56 History of Present Illness: HPI Narrative: 65-year-old female presents emergency room complaining of generally feeling weak and having some abdominal pain. She had abdominal fistula repaired approximately 1 month ago. She has a history of cervical CA and has been receiving radiation and chemotherapy. She not had any change in colostomy output no blood in the colostomy bag. She denies chest pain recently she did have a little bit of chest pain briefly approximately a week ago. She not had any shortness of breath no dysuria urgency or frequency she is currently being treated for a bladder infection on oral antibiotics. She states her blood pressure has been low and her heart rate irregular over the last week. MD Complaint: generalized weakness Onset (ago): day(s) Duration: intermittent Location: generalized Migration: none Severity: mild Relieving factors: none Exacerbating factors: none Associated symptoms: Denies chest pain, chills, confusion, melena, decreased appetite, diaphoresis, dysuria, easy bruising, fever(s), headache(s), myalgias, nausea, rash, short of breath, syncope or vomiting Review of Systems Const: Denies: fever(s), chills or diaphoresis ENMT: Denies: throat pain, ear or mastoid pain, nasal discharge or nasal congestion Card: Denies: chest pain or syncope Resp: Denies: dyspnea, productive cough or non-productive cough GI: Denies: nausea, vomiting or melena : Denies: dysuria Skin/Breast: Denies: rash or pruritus Neuro: Denies: headache(s) or confusion Dale/Lymph: Denies: easy bruising PFS ED PFSH: Medical History (Updated 11/09/20 @ 16:48 by Collin Penny DO) Cervical cancer Chronic hepatitis C COPD (chronic obstructive pulmonary disease) Depression with anxiety Hypertension Hypothyroidism Port-A-Cath in place Rectal Pain Recurrent UTI Seasonal allergies Surgical History H/O dilation and curettage Done for one of the miscarriages. H/O laparoscopy with removal of scar tissue in the 1980s per patient. History of cholecystectomy (~08/2018) History of colonoscopy with polypectomy (~2017) Family History Mother Hypertension Breast cancer Cervical cancer Father Hypertension Diabetes Grandfather Chronic kidney disease (CKD) Maternal grandfather Heart disease Maternal grandfather Grandmother Chronic kidney disease (CKD) Maternal grandmother Heart disease Maternal grandmother Stroke Maternal grandmother Father No problems noted. Family/Other Breast cancer Maternal aunt Cervical cancer Maternal aunt x4 Other Thyroid disease Denies family history of Colon cancer Ovarian cancer Anesthesia complication Bleeding disorder Uterine cancer Social History Smoking and tobacco status: current every day smoker Alcohol intake: never Household members: spouse Marital status: Additional social history: - Tobacco use: Current smoker; Alcohol use: Denies Drug use: Denies Physical Exam Const: COMMON NORMALS: no acute distress GENERAL APPEARANCE: cooperative and comfortable ORIENTATION/CONSCIOUSNESS: Yes awake, Yes oriented to person, Yes oriented to place and Yes oriented to time HENMT: COMMON NORMALS: normocephalic, atraumatic and hearing grossly normal bilaterally HEAD & SCALP: normocephalic and atraumatic Neck/C-Spine: COMMON NORMALS: no JVD Lymph: LYMPHATIC: no lymphadenopathy noted and no lymphedema noted Resp: COMMON NORMALS: normal respiratory effort, No retractions, No use of accessory muscles and clear to auscultation bilaterally AUSCULTATION: clear to auscultation bilaterally Cardio: COMMON NORMALS: no JVD, regular rate, regular rhythm and No murmurs present (Cardio) RATE: regular rate RHYTHM: regular rhythm GI: COMMON NORMALS: Soft to palpation and No hepatosplenomegaly present AUSCULTATION: Yes normoactive bowel sounds PALPATION: Yes Soft to palpation, No Tenderness to palpation present (GI), No Guarding due to palpation present (GI) and Yes No hepatosplenomegaly present OTHER: colostomy in the left lower quadrant Extremity: COMMON NORMALS: normal to inspection, capillary refill normal, no clubbing, cyanosis or edema, no calf tenderness and no pedal edema Neuro: SENSORIUM/ORIENTATION: Yes oriented to person, Yes oriented to place and Yes oriented to time Skin: COMMON NORMALS: no rashes or lesions noted GENERAL SKIN EXAM: no rashes or lesions noted Course Vital Signs: Vital signs: Vital Signs Temperature 97.6 F 11/09/20 13:56 Pulse Rate 98 11/09/20 13:56 Respiratory Rate 17 11/09/20 13:56 Blood Pressure 125/67 11/09/20 13:56 Pulse Oximetry 97 11/09/20 13:56 MDM - Weakness MDM Narrative: Medical decision making narrative: CT shows some fluid and air collection in the cul-de-sac. Is improved from her previous CT however she had an acute fistula at that time. There is not appear to be an abscess. She has no abdominal symptoms were trying to get a hold of Dr. Ney brewer at her for surgery. Discussed Dr. Ney brewer she still has a vaginal wall perforation is creating the air pocket seen. He states that his unknown entity and there is nothing else that needs to be done with it at this point. She is currently on Augmentin for a cystitis have her complete the course of antibiotics follow-up with Dr. Ney brewer as previously scheduled for hypotensive lightheadedness and dizziness episodes we will go ahead and cut her irbesartan down to 150 mg daily Lab Data: Labs: Lab Results 11/09/20 11/09/20 11/09/20 Range/Units 14:39 15:00 15:00 WBC 7.2 (4.0-10.0) 10^3/ uL RBC 3.23 L (4.1-5.3) 10^6/u L Hgb 9.4 L (11.5-15.3) g/dL Hct 30.9 L (37.0-47.0) % MCV 95.7 (81-99) fL MCH 29.1 (28.0-34.0) pg MCHC 30.4 (30.0-36.0) g/dL RDW 16.3 H (12.1-15.1) % Plt Count 270 (130-400) 10^3/c mm MPV 10.0 (7.4-10.4) fL Neut % (Auto) 78.8 % Lymph % (Auto) 10.5 % [place] % (Auto) 9.3 % Eos % (Auto) 0.7 % Baso % (Auto) 0.4 % Neut # (Auto) 5.70 (1.8-7.7) 10^3/u L Lymph # (Auto) 0.8 (0.8-4.8) 10^3/u L [place] # (Auto) 0.7 (0.2-0.9) 10^3/u L Eos # (Auto) 0.1 (0.0-0.8) 10^3/u L Baso # (Auto) 0.0 (0.0-0.1) 10^3/u L Nucleated RBC % (a uto) 0 % Nucleated RBCs # 0.0 /100WBC Sodium 138 (136-145) mmol/L Potassium 4.6 (3.5-5.1) mmol/L Chloride 102 (98-107) mmol/L Carbon Dioxide 26 (22-29) mmol/L Anion Gap 14.6 (5-19) BUN 22 (8-23) mg/dL Creatinine 0.7 (0.5-0.9) mg/dL GFR Calculation 83.5 L (90-130) mL/min Glucose 118 H (65-115) mg/dL Calculated Osmolal ity 290 (285-295) mOsm/k g Calcium 9.4 (8.5-10.5) mg/dL Total Bilirubin 0.2 (0.15-1.2) mg/dL AST 16 (0-32) U/L ALT 7 (0-33) U/L Alkaline Phosphata se 96 (35-105) IU/L Total Protein 8.0 (6.6-8.7) g/dL Albumin 3.2 L (3.5-5.2) g/dL Globulin 4.8 H (1.3-4.6) g/dL Urine Color Yellow (Yellow) Urine Appearance Cloudy (CLEAR) Urine pH 6.0 (5-7) Ur Specific Gravit y 1.015 (1.005-1.030) Urine Protein 2+ H (Negative) Urine Glucose (UA) Norm (Normal) Urine Ketones Negative (Negative) Urine Blood 3+ H (Negative) Urine Nitrate Negative (Negative) Urine Bilirubin Neg (Negative) Urine Urobilinogen Norm (Negative) mg/dL Ur Leukocyte Judy ase 2+ H (Negative) Urine RBC 50-80 H (0-2) /hpf Urine WBC 40-55 H (0-5) /hpf Ur Squamous Epith Cells 0-4 H (0-5) /hpf Amorphous Sediment Not Reportable Urine Bacteria 2+ H (NONE) /hpf Discharge Plan Discharge Patient Disposition: Home Clinical Impression: Cervical cancer, Cystitis, RVF (rectovaginal fistula) Condition: Stable Prescriptions: Changed irbesartan 300 mg tablet 150 mg PO DAILY@0900 Qty: 0 RF: 0 No Action aspirin [Adult Low Dose Aspirin] 81 mg tablet,delayed release (DR/EC) 81 mg PO DAILY@0900 RF: 0 Hold Instructions: Resume on 07/20/20. vitamin B complex [B Complex-Vitamin B12] Tablet 1 tab PO DAILY@0900 RF: 0 magnesium hydroxide [Milk of Magnesia] 400 mg/5 mL suspension 5 ml PO DAILY PRN (Reason: constipation) RF: 0 gabapentin 300 mg capsule 300 mg PO BID@0900,2100 RF: 0 levothyroxine 75 mcg tablet 75 mcg PO DAILY@0900 RF: 0 magnesium oxide 400 mg (241.3 mg magnesium) tablet 800 mg PO DAILY@0900 RF: 0 metoprolol succinate 25 mg tablet extended release 24 hr 25 mg PO DAILY@0900 RF: 0 cyclobenzaprine 10 mg tablet 10 mg PO TID@0900,1200,2100 RF: 0 hydrocodone-acetaminophen 5-325 mg tablet 1 tab PO Q4H PRN (Reason: Pain) RF: 0 amoxicillin-pot clavulanate 875-125 mg tablet 1 tab PO BID@0900,2100 RF: 0 Discharge Orders: Discharge ED (Routine); Ordered 11/09/20 Ordered By: Collin Penny Referrals: Britany Mckeon MD [Primary Care Provider] - Discharge Diet: Usual diet Discharge Activity: Increase activity as tolerated Coding Level of Care Code ED Still Operator Brandy for Chg Fwd Exam Comprehensive
--- NOTE | 2020-11-09 14:17 | CT_ITS ---
WS: [id number] CT ABDOMEN AND PELVIS WITH CONTRAST HISTORY: Weakness and abdominal pain. TECHNIQUE: Imaging performed of the abdomen and pelvis with IV contrast. Single phase imaging of the abdomen. Coronal and sagittal reformats are submitted. All CT scans at [facility] use at least one of these dose optimization techniques: automated exposure control; mA and/or kV adjustment per patient size (includes targeted exams where dose is matched to clinical indication); or iterativ e reconstruction. IV CONTRAST: Visipaque 320; 95 mL IV. Oral contrast: No DLP: 268.32 mGy.cm COMPARISON: 10/09/2020 Lower thorax: Lung bases are clear. Heart is normal size. No hiatal hernia. Liver/biliary system: Normal size with no intrahepatic dilatation. Gallbladder: Status post cholecystectomy. Pancreas: Normal. Spleen: Normal. Adrenal glands: Normal. Right kidney: Normal size RIGHT kidney. No obstruction. Double pigtail RIGHT ureteral stent remains i n good position. Left kidney: Normal. Aorta: Mild atherosclerosis with no aneurysm. Lymphadenopathy: None. Free fluid: None. GI tract: Extensive fecal retention in the proximal colon. LEFT lower quadrant colostomy site. Abdominal wall: Soft tissue thickening along the abdominal wall below the umbilicus is probably relat ed to prior surgery. No abscess identified. Pelvis: Pigtail from the RIGHT ureteral stent is noted within the bladder. There is also bladder wall thickening and air within the bladder. There is a small fluid collection containing air posterior to the bladder measuring 4.3 x 2.1 cm. There is posterior rectal wall thickening. Overall the extent of the fistula previously described between the mid to distal sigmoid colon and into the cervix and vag champ appears improved but not resolved. There is an additional small fluid collection anterior to the bladder measuring 1.7 x 2.5 cm. This may be a loop of small bowel. Bones: Unremarkable. CT/CT abdomen pelvis w con* [id number] IMPRESSION: 1. Continued cul-de-sac collection containing fluid and air is more organized as compared to 10/09/2020 but there is less air and the overall inflammatory pr ocess has decreased. Small abscess in the cul-de-sac is not excluded. 2. Interval placement of a LEFT abdominal colostomy site. The inflammatory kenzie nges surrounding the distal colon and the fistula has slightly improved. 3. Air in the urinary bladder. May be secondary to a fistula or recent cathete rization. 4. RIGHT ureteral stent remains in position with no hydronephrosis. Notified Collin Penny DO at 11/09/2020 4:09 PM.
[2020-11-09 15:11] LABS: Basophils % 0.4 %; Eosinophils # 0.1 10^3/uL (0.0-0.8); Eosinophils % 0.7 %; Hematocrit 30.9 % (37.0-47.0); Hemoglobin 9.4 g/dL (11.5-15.3); Lymphocytes # 0.8 10^3/uL (0.8-4.8); Lymphocytes % 10.5 %; Mean Corpuscular HGB Conc 30.4 g/dL (30.0-36.0); Mean Corpuscular Hemoglobin 29.1 pg (28.0-34.0); Mean Corpuscular Volume 95.7 fL (81-99); Monocytes # 0.7 10^3/uL (0.2-0.9); Monocytes % 9.3 %; Neutrophils % 78.8 %; Nucleated Red Blood Cells % 0 %; Platelet Count 270 10^3/cmm (130-400); Red Blood Count 3.23 10^6/uL (4.1-5.3); Red Cell Distribution Width 16.3 % (12.1-15.1); White Blood Count 7.2 10^3/uL (4.0-10.0)
[2020-11-09 15:33] LABS: Alanine Aminotransferase 7 U/L (0-33); Albumin Level 3.2 g/dL (3.5-5.2); Alkaline Phosphatase 96 IU/L (35-105); Anion Gap 14.6 (5-19); Aspartate Amino Transferase 16 U/L (0-32); Blood Urea Nitrogen 22 mg/dL (8-23); Calcium 9.4 mg/dL (8.5-10.5); Carbon Dioxide 26 mmol/L (22-29); Chloride 102 mmol/L (98-107); Creatinine Clr Calc Pharmacy 60.7646; Globulin 4.8 g/dL (1.3-4.6); Glomerular Filtration Rate 83.5 mL/min (90-130); Glucose 118 mg/dL (65-115); Osmolality Calculated 290 mOsm/kg (285-295); Potassium 4.6 mmol/L (3.5-5.1); Sodium 138 mmol/L (136-145); Total Bilirubin 0.2 mg/dL (0.15-1.2)
[2020-11-09] MEDS: iodixanol 320 mg/mL 100mL Btl IV (15:48)
[2020-11-09 16:18] LABS: Ketones Urine Negative (Negative); Protein Urine 2+ (Negative); Specific Gravity, Urine 1.015 (1.005-1.030); Urine Appearance Cloudy (CLEAR); Urine Color Yellow (Yellow)
[2020-11-09 16:19] LABS: Add Urine Microscopic? YES; Bilirubin Urine Neg (Negative); Blood Urine 3+ (Negative); Glucose Urine UA Norm (Normal); Leukocyte Esterase Urine 2+ (Negative); Nitrate Urine Negative (Negative); RBC Urine 50-80 /hpf (0-2); Squamous Epithelial Cell Urine 0-4 /hpf (0-5); Urobilinogen Urine Norm (Negative); WBC Urine 40-55 /hpf (0-5)
[2020-11-09 16:20] LABS: Add Urine Culture? Yes; Bacteria Urine 2+ /hpf
[2020-11-09] MEDS: cefTRIAXone 1,000 MG in lidocaine 1% 2.1 ML 2.1 MG IM (17:18)
[2020-11-09 17:23] VITALS: BP 120/73; PULSE 75; RESP 20; O2SAT 97
[2020-11-09 17:36] VITALS: BP 127/71; PULSE 87; RESP 20; O2SAT 98
== END 2020-11-09 17:42 | disposition home or self-care (01) ==
PROVIDERS: Emergency Provider Family Medicine; PCP Family Medicine
DX: C53.9 Malignant neoplasm of cervix uteri, unspecified (principal); N30.90 Cystitis, unspecified without hematuria; N82.3 Fistula of vagina to large intestine; Z79.82 Long term (current) use of aspirin; Z86.19 Personal history of other infectious and parasitic diseases; J44.9 Chronic obstructive pulmonary disease, unspecified; I10 Essential (primary) hypertension; Z87.440 Personal history of urinary (tract) infections; F17.210 Nicotine dependence, cigarettes, uncomplicated
CPT/HCPCS: 12345; 71045; 74177; 80053; 81001; 85025; 87086; 93005; 96372; 99282; 99283; J0696; Q9967

== ENCOUNTER 2020-12-12 09:01 | Outpatient (CLI) | payer MEDICARE, SELFPAY ==
--- NOTE | 2020-12-12 08:30 | XR_ITS ---
WS: [id number] Exam: XR KUB [id number] Date/Time of Exam: 12/12/2020 8:30 AM Reason For Exam: RENAL OBSTRUCTION Comparison 02/05/2016. A right-sided ureteral pigtail stent is noted and appears to be in appropriate location. No abnormal calcifications identified in the region of the kidneys. Several tiny nonspecific pelvic calcification s noted. Signs of prior cholecystectomy. Large amount of stool in the colon. XR/XR KUB [id number] IMPRESSION: 1. Right-sided ureteral stent in place appearing to be in satisfactory location . 2. No abnormal calcifications noted in the region of the kidneys. 3. No acute abdominal process. Constipation.
== END 2020-12-12 09:02 | disposition home or self-care (01) ==
LOC: RAD 09:07
PROVIDERS: PCP Family Medicine; Visit Provider Urology
DX: N13.5 Crossing vessel and stricture of ureter without hydronephrosis (principal); Z96.0 Presence of urogenital implants
CPT/HCPCS: 74018; 81003; 87077; 87086; 87184

== ENCOUNTER → 2020-12-14 09:24 | Outpatient (BNVA) | payer MEDICARE, SELFPAY | PROVIDERS: PCP Family Medicine; Visit Provider Urology | DX: N13.5 Crossing vessel and stricture of ureter without hydronephrosis (principal); N13.30 Unspecified hydronephrosis | CPT/HCPCS: 87635 ==

== ENCOUNTER 2020-12-19 12:00 | Outpatient (CLI) | payer MEDICARE, SELFPAY ==
[2020-12-19 12:49] LABS: Basophils % 0.7 %; Eosinophils # 0.1 10^3/uL (0.0-0.8); Hematocrit 32.8 % (37.0-47.0); Hemoglobin 9.7 g/dL (11.5-15.3); Lymphocytes # 0.9 10^3/uL (0.8-4.8); Lymphocytes % 19.9 %; Mean Corpuscular HGB Conc 29.6 g/dL (30.0-36.0); Mean Corpuscular Hemoglobin 28.2 pg (28.0-34.0); Mean Corpuscular Volume 95.3 fL (81-99); Mean Platelet Volume 9.4 fL (7.4-10.4); Monocytes # 0.4 10^3/uL (0.2-0.9); Monocytes % 9.2 %; Neutrophils # 3.05 10^3/uL (1.8-7.7); Neutrophils % 68.2 %; Nucleated Red Blood Cells % 0 %; Platelet Count 198 10^3/cmm (130-400); Red Blood Count 3.44 10^6/uL (4.1-5.3); Red Cell Distribution Width 16.8 % (12.1-15.1); White Blood Count 4.5 10^3/uL (4.0-10.0)
[2020-12-19 13:12] LABS: Alanine Aminotransferase 9 U/L (0-33); Albumin Level 3.6 g/dL (3.5-5.2); Alkaline Phosphatase 67 IU/L (35-105); Anion Gap 11.2 (5-19); Aspartate Amino Transferase 19 U/L (0-32); Blood Urea Nitrogen 15 mg/dL (8-23); Calcium 9.4 mg/dL (8.5-10.5); Carbon Dioxide 28 mmol/L (22-29); Chloride 106 mmol/L (98-107); Glomerular Filtration Rate 83.5 mL/min (90-130); Glucose 89 mg/dL (65-115); Osmolality Calculated 292 mOsm/kg (285-295); Potassium 4.2 mmol/L (3.5-5.1); Sodium 141 mmol/L (136-145); Total Bilirubin 0.2 mg/dL (0.15-1.2); Total Protein 7.6 g/dL (6.6-8.7)
[2020-12-19 17:39] LABS: Iron 31 ug/dL (37-145); Percent Saturation 11.9 % (20-50); Total Iron Binding Capacity 260 mcg/dl; Unsaturated Iron Binding 229 ug/dL (112-347)
--- NOTE | 2021-01-06 13:28 | ONC FU_ITS ---
[facility] Patient Note Patient: Dionne Fitzgerald Unit #: [id number]: 1955 Dictated By: Andriy BeckettDate of Visit: Dec 19, 2020 Onc MED Follow-Up/Prog Note Chief Complaint: Cervical cancer. 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 By clinical evaluation her stage ws at least IB2 (T1b2, N0, M0) at initial diagnosis in July 2019. She had presented with a 3-month history of intermittent vaginal bleeding. Her transvaginal ultrasound on 07/05/2019 showed marked thickening and decreased echogenicity and hypervascularity throughout the cervix. It was noted to be lobulated and enlarged, consistent with cervical carcinoma. The cervix appeared grossly abnormal on exam. Pap smear was attempted at that time was problematic due to the increased bleeding. Biopsy, though, did show undifferentiated carcinoma. She was referred to Dr. Zamorano in [place]. Her staging MRI of the pelvis on 07/21/2019 showed cervical mass which was noted to be possibly going into the uterus in its inferior anterior aspect. There was local surrounding enhancement suggestive of local infiltration and there was an enlarged iliac chain lymph node on the right side. Staging PET/CT on 07/22/2019 showed primary tumor mass involving the cervix with evidence of local spread to a right common iliac lymph node. Subcentimeter pulmonary nodules were FDG negative and nonspecific, but metastatic disease was not excluded. There was no other evidence of metastatic involvement. On 07/25/2019 she underwent exam under anesthesia and placement of Port-A-Cath venous access device. A repeat cervical biopsy at that time showed invasive poorly differentiated squamous cell carcinoma. She was recommended to undergo primary chemoradiation utilizing weekly cisplatin for chemosensitization. Her other medical illnesses include hypertension, hypothyroidism, COPD, and vitamin D deficiency. She has a history of treated hepatitis C. She also has a history of colonic polyps. She has a history of smoking 1 pack of cigarettes daily for approximately 20 years. She recently quit. INTERIM HISTORY: She began her radiation concurrently with weekly cisplatin on 08/10/2019. She completed the radiation on 09/22/2019 to a total dose of 6000 cGy. She tolerated the treatment pretty well, though her 6th weekly cisplatin infusion was held due to neutropenia and fatigue. She then underwent LDR brachytherapy with Ce-137 implants on 10/18/2019 and again on 10/31/2019. She tolerated it well. Restaging CT of the abdomen/pelvis on 12/08/2019 showed a low-attenuation 9 mm lesion in the fundal myometrium, felt to possibly represent a small fibroid. There was moderate diffuse uterine myometrium enhancement which was felt to be likely due to therapy related changes. There was no evidence of metastatic disease in the abdomen or pelvis. On 12/23/2019 she began cycle 1 of postoperative adjuvant chemotherapy with cisplatin/paclitaxel in combination with Avastin. She unfortunately experienced neuropathy and other side effects it, severe enough that Dr Warner did not think she would tolerate further treatment with that regimen. Following subsequent discussions with Dr. Zamorano, she was recommended to continue adjuvant chemotherapy with carboplatin and gemcitabine in combination with Avastin. However, at her follow-up visit on 03/14/2020 she was complaining of severe rectal pain. She also had a significant decline in her renal function. Her renal ultrasound was normal. A CT of the pelvis showed a small amount of air along the cervical and vaginal regions, felt to be possibly related to her recent radiation therapy. There was no evidence for recurrent adenopathy, abscess collection, or other pathology in the pelvis. She was referred to Dr. Ortega. She underwent attempted flexible sigmoidoscopy on 04/11/2020. The scope was not able to be transversed beyond the rectosigmoid region due to a narrowing lesion. Barium enema on 04/12/2020 showed mild narrowing of the sigmoid region due to overlapping loops of colon. There was no persistent high-grade stricture. It was a limited exam due to her inability to retain the barium mixture. She then began cycle 1 of carboplatin/gemcitabine in combination with Avastin on 04/26/2020. She tolerated the initial treatment without acute toxicity. At day 8 she had moderately severe neutropenia, ANC 600. She was not febrile. She recovered uneventfully with Neupogen. She continued with cycle 2 on 05/21/2020. She was given a dose reduction and she also was given Neulasta prophylactically. She tolerated it with acceptable toxicity, and she continue with cycle 3 on 06/11/2020. She tolerated with acceptable toxicity, though she still had moderately severe anemia. She was able to continue with cycle 4 on 07/03/2020 and with cycle 5 on 07/31/2020. During that time she did have to her Port-A-Cath replaced due to malfunction. At her follow-up visit on 08/21/2020 I opted to put her further chemotherapy on hold, as she was having persistent bladder symptoms with associated pyuria and she also was showing decline in performance status. Her CT abdomen/pelvis on 08/28/2020 showed moderate right hydronephrosis with ureterectasis, new compared to previous studies. There appeared to be tethering of the right ureter in the right adnexa, thought to be most likely obstructed at that level due to adhesions or fibrosis. She was then seen by Dr. Ochoa and she underwent cystoscopy with ureteral stent placement on 09/10/2020. OIn September 19, 2020, she presented to the emergency room at [facility] with abdominal pain shortness of breath and syncope. Her white count was 13.3 hemoglobin was 9.1 platelets 186,000 BUN was 32 creatinine 1.0 magnesium 2.8. 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 There was also extension of the fistula into the upper portion of the cervix on the right and upper vaginal canal on the left. There was stool, air and fluid within the vaginal canal. There was a small perforation within the anterior superior aspect of the fistula with a small amount of free air posterior to the uterine fundus. There was increased fecal content in the colon no acute abnormality in the small bowel and the stomach was collapsed but no focal abnormality noted in the stomach otherwise. She was also found to have significant improvement of the right hydroutero nephrosis with mild right hydroureteronephrosis visualized. The left kidney was unremarkable and the left ureter was unremarkable. There was a double-J urethral stent with the proximal coil in the right renal pelvis and the distal coil in the bladder did on the CT. She was transferred to [facility] in [facility] and on October 15, 2020. she underwent examination under anesthesia, cervical vaginal biopsy; diagnostic laparoscopy; exploratory laparotomy with end sigmoid colostomy with Dr. Powell at [facility] in [place]. 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 She is continue to recover. Mrs. Yates is here today for follow-up. She has multiple complaints today. She does have noted renal obstruction and is following with Dr. Ochoa tomorrow for replacement of her stent and further follow-up of the renal obstruction. Most of her complaints today seem to revolve more around that then her cancer related diagnosis. She states that she has had urinary incontinence and has to wear depends continuously. She states she feels like she leaks all the time. She was started on antibiotic per Dr. Ochoa for UTI. She thinks maybe the leaking has gotten some better. She is having some hematuria in her urine. She denies any stool from her vaginal area. Her abdominal pain that she was having prior to her fistula and pelvic abscess has resolved. She does have some kidney pain she states but overall that seems to be stable. She denies any fever or chills. She states her appetite is good but her anxiety continues to be high, which is normal for her. She has multiple questions regarding the stent and urinary issues and have asked her to follow-up with Dr. Ochoa on that because of really uncertain of his plan of care at this point and she needs to discuss those concerns with him. She is due to see him first thing in the morning by her report. In regards to the cervical cancer she seems to be stable at this point. She did have follow-up in October [address] Ney doss nurse practitioner Katrina Zhang. At that point there had been some issues with Mr. Mistry calling [facility] for pain medication for himself. He reported that Dionne had stolen 2 weeks of his pain medication and he wanted that replaced. Mrs. Mistry states that he is a habitual liar and they were try to get him into rehab during that point. She had requested that he no longer have any information from Dr. Adams's office regarding her care. Mrs. Mistry ECOG today is 3 a she continues to recover from her fistula, ostomy placement and current urinary problems for which she is followed with Dr. Ochoa. Past Medical History: Chronic obstructive pulmonary disease History of colonic polyps History of hepatitis C, treated in 2017 Hypertension Hypothyroidism Vitamin D deficiency Past Surgical History: Colonoscopy Diagnostic laparoscopy Rectovaginal fistula/end sigmoid colostomy-Dr Zamorano in 2019 Flu Vaccine 2019 in 2019 - RIght Deltoid Port removal MIGRATED PORT WIRE in 2019 Colonoscopy in 2019 Flu vaccine 2019 in 2018 Placement of Port-A-Cath venous access device in 2019 Cholecystectomy in 2018 Allergies: Lyrica Medications: Aspirin Childrens 1 Tablet (of 81 mg) Tablet, chewable Oral daily [facility] Milk of Magnesia Suspension Oral PRN Docusate Sodium 1 Tablet (of 100 mg) Oral daily PRN Dronabinol 1 - 2 Capsule (of 2.5 mg) Oral b.i.d. PRN Gabapentin 1 Capsule (of 100 mg) Oral daily HYDROmorphone HCl 1 Tablet (of 4 mg) Oral q 4 hours PRN Ibuprofen 1 - 2 Capsule (of 200 mg) Oral daily PRN Irbesartan 1 (300 mg) Tablet Oral daily Levothyroxine Sodium 1 Tablet (of 75 mcg) Oral daily Magnesium Oxide 1 Capsule (of 400 mg) Oral b.i.d. Metoprolol Tartrate 1 Tablet (of 25 mg) Oral daily Family History: Ms. Fitzgerald's mother is alive. Ms. Fitzgerald's father at age 87. Ms. Fitzgerald has 1 brother who is alive. Father at age 87 with multiple myeloma. Mother is still living at age 85 and she is in pretty good health. A brother has been getting phlebotomies for polycythemia. It is uncertain whether this is PRV or secondary polycythemia. Social History: Ms. Fitzgerald is and she is unemployed. She is an occasional smoker who has smoked 0.5 packs/day for 21 years. She has no history of drinking. She will occasionally smoke a cig. Review Of Symptoms: Constitutional She states in general she feels okay but is tired. She states it is a little worse than what has been. She denies any fever or chills. Allergic/Immunologic No reactions. Eyes Denies significant visual changes. No diplopia. No amaurosis. ENMT Denies changes in hearing, sore throat, mouth sores, difficulty or changes in swallowing ability, and/or sinus drainage. Hematologic/Lymphatic Denies easy bruising or bleeding. The patient denies any tender or palpable lymph nodes. Respiratory Denies dyspnea on exertion, chest pain, cough or hemoptysis. Denies orthopnea. Cardiovascular Denies anginal chest pain, palpitations or orthopnea. Gastrointestinal Denies nausea, vomiting, diarrhea, GI bleeding, or constipation. Denies change in bowel habits and/or stool color, no heartburn or early satiety. Genitourinary (F) No new concerns, continued Urinary incontinence???hematuria???following with Dr. Ochoa. She sees him tomorrow for stent replacement per her report. She states she is also on antibiotics for UTI . Musculoskeletal Denies new or worsening joint pain, swelling or redness. No decreased range of motion. Integumentary Denies chronic rashes, inflammation, ulcerations or skin changes. Neurologic Denies headache, blurred vision, and no areas of focal weakness or numbness. Normal gait. No sensory problems. Psychiatric Denies insomnia, depression, gabe or mood swings. Vital Signs: Performed on Dec 19, 2020 13:53 Height - 67.00 in Weight - 120.4 lbs (LOW) BSA - 1.63 sq.m BMI - 18.86 Temperature - 97.4 F (LOW) Pulse - 72 /min Respiration - 18 /min BP - 109/68 mm(hg) O2 Sat - 100 % Pain - 0 Fatigue - 0,3 - Capable of only limited self-care, confined to bed or chair more than 50% of waking hours. (ECOG) Physical Examination: Constitutional Alert, oriented, no acute distress. Skin pink, warm and dry. Head Normocephalic; atraumatic. Eyes Conjunctivae and sclerae are clear and without icterus. Pupils are reactive and equal. Neck Supple without masses or thyromegaly. No jugular venous distension. Hematologic/Lymphatic No petechiae or purpura. No tender or palpable lymph nodes in the cervical or supraclavicular areas. Respiratory Lungs are clear to auscultation without rhonchi or wheezing. Cardiovascular Regular rate and rhythm of heart without murmurs,clicks, gallops or rubs. Abdomen Non-tender, non-distended, no masses or ascites. Back/Spine Non-tender to palpation. Extremities No visible deformities, no cyanosis, clubbing or edema. Musculoskeletal No tenderness or swelling, normal range of motion without obvious weakness. Integumentary No rashes or lesions. Neurologic No sensory or motor deficits, normal cerebellar function. Psychiatric Alert and oriented times three. Coherent speech. Verbalizes understanding of our discussions today. Laboratory:Test performed on Dec 19, 2020 12:30 Iron 31 mcg/dL Sodium 141 mmol/L Iron Binding Capacity (TIBC) 260 mcg/dl Potassium 4.2 mmol/L % Iron Saturation 11.9 % Chloride 106 mmol/L CO2 28 mmol/L UIBC 229 mcg/dL Anion Gap 11.2 BUN 15 mg/dL Creatinine 0.7 mg/dL Cr Clearance (Est) 67.2400 mL/min eGFR 83.5 mL/min Glucose 89 mg/dL Osmolality - Calculated 292 mOsm/kg Calcium 9.4 mg/dL Protein, Total 7.6 g/dL Albumin 3.6 g/dL Globulin 4.0 g/dL Bilirubin, Total 0.2 mg/dL ALT (SGPT) 9 U/L AST (SGOT) 19 U/L Alkaline Phosphatase 67 IU/L WBC 4.5 10 3/uL RBC 3.44 10 6/uL HGB 9.7 g/dL HCT 32.8 % MCV 95.3 fL MCH 28.2 pg MCHC 29.6 g/dL RDW 16.8 % Platelet Count 198 10 3/cmm MPV 9.4 fL Neutrophils 3.05 10 3/uL Lymphocytes 0.9 10 3/uL Monocytes 0.4 10 3/uL Eosinophils 0.1 10 3/uL Basophils 0.0 10 3/uL Neutrophil % 68.2 % Lymphocyte % 19.9 % Monocyte % 9.2 % Eosinophil % 2.0 % Basophils % 0.7 % NRBC % 0 % Test performed on Aug 21, 2020 10:30 Ua Color Yellow Ua Appearance Cloudy Ua Glucose Norm Ua Bilirubin Neg Ua Ketones Negative Ua Specific [place] 1.015 Ua Blood Trace Ua pH 6 Ua Protein Trace Ua Nitrites Negative Ua Leukocyte Esterase 2+ Ua Micro: WBC 80-100 /hpf Urine Culture Pending CCRB Y CCRBTECH ROBJE CCRBTO DUPKA CCRDATE1 [id number] CCRTIME1 1001 CC 20 CFU/ml Ua Micro: RBC 5-10 /hpf Ua Micro: Squam Epith Cells 0-4 /hpf Ua Micro: Bacteria 1+ /hpf Test performed on Jul 31, 2020 09:40 Anti-D Positive Blood Type OP Antibody Screen (Gel) NEGATIVE Test performed on Jul 09, 2020 12:10 CBC Slide Review Slide Review Perform SLIDE REVIEW AGREES WITH AUTOMATED RESULTS Impression: 1. 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 By clinical evaluation her disease appeared to be at least stage IB2 (T1b2, N1, M0). 2. She was mildly anemic, and her serum iron studies were consistent with iron deficiency. Her other medical illnesses include: 3. Hypertension. 4. Hypothyroidism. 5. COPD. 6. She has a history of treated hepatitis C. 7. Vitamin D deficiency. 8. She has a history of colonic polyps. Plan: PROBLEMS ADDRESSED TODAY 1. Invasive poorly differentiated squamous cell carcinoma of the cervix. She has undergone primary chemoradiation utilizing weekly cisplatin. She completed radiation to a total dose of 6000 cGy and tolerated the chemotherapy well with the exception of her sixth week as that was held due to neutropenia and fatigue. She then underwent LDR brachytherapy with CEA 137 implants on 10/18/2019 and October 31, 2019. She seemed to tolerate that treatment well. Restaging CTs of the abdomen pelvis in November 2019 reported a low attenuation 9 mm lesion in the fundal myometrium, felt to be possibly related to a small fibroid. There is moderate diffuse uterine mild metria enhancement which is felt to be likely due to the therapy related changes. There was no evidence of metastatic disease in the abdomen or pelvis. In December 2019 she began cycle 1 of postoperative adjuvant chemotherapy with cisplatin paclitaxel accommodation with Avastin. She had multiple toxicities following that treatment with the most significant being severe fatigue and neuropathy. She had gradual recovery which is complicated by rectal pain and a decline in her renal function. A specific cause was never determined but it subsequently resolved. April 2020 she began further adjuvant chemotherapy with carboplatin gemcitabine in combination with Avastin and she had moderate severe neutropenia day 8 but she recovered uneventfully with Neupogen. Cycle 2 and 3 were administered with a dose reduction and Neulasta prophylactically. She was able to tolerate treatment with acceptable toxicity though she had persistent moderately severe anemia and fatigue. She completed cycle 5 on August 31, 2020. At her follow-up visit in August 2020 she was having significant bladder problems persistent with pyuria and also again significant decline in performance status. Her chemotherapy was put on hold and repeat CT of the abdomen pelvis reported new right hydronephrosis. She was seen by Dr. Ochoa and underwent placement of ureteral stent on 09/10/2020. On October 09, 2020 she presented to [facility] emergency room with abdominal pain, shortness of breath and syncope. She was found to have rectovaginal fistula and was transferred to [facility] in [place]. She underwent examination under anesthesia, cervical vaginal biopsies; diagnostic laparoscopic exam; exploratory laparotomy with end sigmoid colostomy on 10/15/[address] Zamorano. She remains on observation expectant management for the cervical cancer. We have not attempted any further chemotherapy with her due to her significant performance status decline. A. Labs from today reviewed in detail discussed with Mr. Mckeon and a copy was given to her. WBC 4.5, hemoglobin 9.7, platelets 198,000 ANC is 3050. Potassium 4.2 creatinine 0.7 LFTs are normal. B. We will plan to see her back in a month to allow her time to recover from her procedures planned with Dr. Ochoa and recent ileostomy placement in September [address] Zamorano 2. Hydronephrosis/hematuria A. She is currently following with Dr. Ochoa and is scheduled for stent replacement tomorrow per her report. B. She was also started on an antibiotic recently per Dr. Ochoa for UTI . C. She is having chronic incontinence and having to wear depends continuously. She is following with Dr. Ochoa for her urinary management. 3. Chronic pain management A. We are currently not managing her chronic pain. The last prescription she received from this clinic was July 03, 2020 for hydromorphone 4 mg. B. She is taking gabapentin 300 mg 3 times daily for chemotherapy-induced neuropathy pain. We have been able to help her with the neuropathy pain with the gabapentin. She will continue the same dose for now. 4. Follow-up plan A. We will plan to see her back in 1 month with CBC CMP. B. I have asked for her ferritin and TIBC be added to the blood in lab today if possible given that she has persistent anemia. She had a iron saturation of 16.3% in July 2020 and her iron level was 41 at that time. C. Mrs. Mckeon was instructed to contact us in the interim should questions or problems arise. 65 minutes was spent in total in reviewing the patient's history since her last visit including review of records from her ER visit on October 09, 2020 and subsequent referral to [facility]/Dr. Zamorano's records; answering questions, determining plan of care and post visit documentation Signed By: Andriy Beckett-, [facility] Homar Warner MD <<Signature on File>>
== END 2020-12-19 12:01 | disposition home or self-care (01) ==
LOC: ONCMED 12:03
PROVIDERS: Nurse Practitioner; PCP Family Medicine; Visit Provider Internal Medicine Medical Oncology
DX: C53.8 Malignant neoplasm of overlapping sites of cervix uteri (principal); D50.9 Iron deficiency anemia, unspecified; D63.0 Anemia in neoplastic disease; D64.81 Anemia due to antineoplastic chemotherapy; R53.83 Other fatigue; T45.1X5D Adverse effect of antineoplastic and immunosuppressive drugs, subsequent encounter; N39.498 Other specified urinary incontinence; N39.0 Urinary tract infection, site not specified; J45.909 Unspecified asthma, uncomplicated; G89.29 Other chronic pain; F17.210 Nicotine dependence, cigarettes, uncomplicated; Z93.3 Colostomy status; Z93.2 Ileostomy status; Z92.3 Personal history of irradiation; Z92.21 Personal history of antineoplastic chemotherapy; Z79.899 Other long term (current) drug therapy
CPT/HCPCS: 36415; 80053; 83540; 83550; 85025; 99215

== ENCOUNTER 2020-12-20 10:42 | Day surgery (SDC) | payer MEDICARE, SELFPAY ==
[2020-12-18 09:05] VITALS: BMI 19.7
[2020-12-20] VITALS (7 sets, daily range): BP systolic 109–138; BP diastolic 67–80; PULSE 67–87; RESP 14–18; TEMP 36.1–36.6; O2SAT 97–100
--- NOTE | 2020-12-20 | SCC_ITS ---
Procedure Done: Cystoscopy, right ureteral stent exchange 12.4 seconds of fluoroscopic guidance, for a cumulative dose of 1.42 mGy, was provided to Dr. Ochoa by the radiology department. C-arm images of the abdomen were saved for the patient's permanent record. KOREYD
--- NOTE | 2020-12-20 10:48 | SC_ITS ---
WS: [id number] C-arm fluoroscopy of the right abdomen for stent placement, 12/20/2020 Clinical Data: Right ureteral stent change Comparison: KUB, 12/12/2020. Findings: The right ureteral stent is curled in the region of the right renal pelvis. SC/C-arm FL for Urology Impression: Insertion of right ureteral stent.
[2020-12-20] MEDS: sodium chloride 0.9% 1,000 ML 30 ML IV (11:15)
--- NOTE | 2020-12-20 11:23 | ANES.PREANE2 ---
Pre-Anesthetic Assessment Pre-Anesthetic Assessment: Height/Weight: Height 1.63 m Weight 52.163 kg Temp Pulse Resp BP Pulse Ox 97 F L 87 18 138/80 97 12/20/20 11:15 12/20/20 11:15 12/20/20 11:15 12/20/20 11:15 12/20/20 11:15 Preop Diagnosis: Chronic right ureteral obstruction. Due for stent change Proposed Procedure: Operation Date: 12/20/20 12:00 Proposed Procedures p Cystoscopy Pelvic exam under anesthesia 66226 N13.30 N13.5(Not Applicable) - Casper Ochoa MD s Ureteral Stent Exchange(Not Applicable) - Casper Ochoa MD Familial anesthetic complications: NOne Was Beta Manuel taken within 24 hours: Yes Last intake: Intake Last Liquid Date 12/19/20 Last Liquid Time 16:30 Last Solid Date 12/19/20 Last Solid Time 16:30 Social: Social History: Tobacco and No alcohol Exam: Pre-Anes Outpt Exam: alert, oriented x 3, clear to auscultation bilaterally and regular rate & rhythm Airway: Cervical ROM: WNL MP: 3 Dentition: False Pulmonary: Pulmonary: COPD CV/HEM: CV/HEM: HTN Hepatic: Hepatic: Hepatitis (Hep C listed in chart, but she doesn't think she has Hep c) Metabolic: Metabolic: Thyroid Anesthetic Plan: ASA status: 3 Anesthesia: General Risk of > 500 ml blood loss (7ml/kg in children): No Meds/Allergies Current Medications: Current Medications Generic Name Dose Route Start Last Admin Trade Name Freq PRN Reason Stop Dose Admin Sodium Chloride 1,000 mls @ 30 ml s/hr 12/20/20 11:00 12/20/20 11:15 Sodium Chloride 0.9% IV 12/21/20 10:59 30 mls/hr .Q24H XIMENA Administration PFSH Anesthesia PFSH: Medical History Cervical cancer Chronic hepatitis C COPD (chronic obstructive pulmonary disease) Depression with anxiety Hypertension Hypothyroidism Port-A-Cath in place Rectal Pain Recurrent UTI Seasonal allergies Surgical History H/O dilation and curettage Done for one of the miscarriages. H/O laparoscopy with removal of scar tissue in the per patient. History of cholecystectomy (~08/2018) History of colonoscopy with polypectomy (~2017) Family History Mother Hypertension Breast cancer Cervical cancer Father Hypertension Diabetes Grandfather Chronic kidney disease (CKD) Maternal grandfather Heart disease Maternal grandfather Grandmother Chronic kidney disease (CKD) Maternal grandmother Heart disease Maternal grandmother Stroke Maternal grandmother Father No problems noted. Family/Other Breast cancer Maternal aunt Cervical cancer Maternal aunt x4 Other Thyroid disease Denies family history of Colon cancer Ovarian cancer Anesthesia complication Bleeding disorder Uterine cancer Social History Smoking and tobacco status: current every day smoker Alcohol intake: never Household members: spouse Marital status: Additional social history: - Tobacco use: Current smoker; Alcohol use: Denies Drug use: Denies Data Anesthesia Cardiac Studies: No Data to Display
[2020-12-20] MEDS: levofloxacin-dextrose 5 % 500 MG/100 ML PREMIX 100 MG IV (12:18)
--- NOTE | 2020-12-20 12:22 | W.PM.OPSUD ---
Surgery/Procedure H&P Update DATE OF PROCEDURE: December 20, 2020 DATE H&P PERFORMED: 12/12/20 H&P UPDATE INFORMATION: I have reviewed H&P completed within last 30 days, I have examined patient prior to procedure, No changes to prior documentation and H&P is in [facility] [place] on date indicated PREOP DIAGNOSIS: Chronic right ureteral obstruction. Due for stent change PLANNED PROCEDURE: Operation Date: 12/20/20 12:00 Proposed Procedures p Cystoscopy Pelvic exam under anesthesia 11093 N13.30 N13.5(Not Applicable) - Casper Ochoa MD s Ureteral Stent Exchange(Not Applicable) - Casper Ochoa MD
--- NOTE | 2020-12-20 12:48 | P.OP_ITS ---
Operative Report Date of procedure: December 20, 2020 Pre-op Diagnosis: Chronic right ureteral obstruction. 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 Findings: 1. Ureteral stent exchange performed without difficulty. 6 Greek by 26 cm double-pigtail stent placed. 2. Fluid in the vagina. Vaginal exam revealed necrosis of the right proximal vaginal wall extending anteriorly with the right ureteral stent just placed exposed for least a 3 to 4 cm. 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 On original staging there appeared to be significant lymph node enlargement as well. There was local spread in the direction of the sidewall as well. Treatment included chemoradiation program. Had external beam radiation therapy then LDR brachytherapy with cesium 137 implants which originally she appeared to tolerate well. This was followed by postoperative chemotherapy with carboplatinum gemcitabine in combination with Avastin She developed increasing amount of lower abdominal rectal pain. Barium enema revealed mild narrowing of the sigmoid region without severe obstruction. CT scan also demonstrated right hydronephrosis which was new and ultimately she underwent cystoscopy and stent placement September 10, 2020. Later chemotherapy was put on hold and was treated with expectant therapy. In September she presented with lower abdominal pain and was transferred to [facility] for intra-abdominal air. No obvious abscess was identified. Was transferred to [facility] and evaluated by Dr. Powell. We do not have the entire records but apparently findings were consistent with an abdominal fistula described as a large colocolic located in the mid and distal sigmoid colon with an extension of the fistula into the upper portion of the cervix on the right and upper vaginal canal on the left. Her hydronephrosis was improved. There was mention of a possible abdominal fistula repair In October she was reevaluated in the emergency department with mention of a fistula repair procedure the month preceding. There was some air in the cul-de-sac and a discussion was held with Dr. Powell who felt that no further treatment was indicated other than keeping her follow-up scheduled appointment. This information was behind the scenes from my clinic's perspective until she presented for her scheduled appointment for routine stent change. She was complaining a lot of leakage from the vagina, blood in her urine, recurrent UTIs and ongoing abdominal/pelvic pain. It was recommended that she present for stent change today as part of her routine schedule and evaluation under anesthesia with pelvic exam Procedure: After routine preoperative evaluation examination and obtaining of informed consent she was taken to the operating suite on 12/20/2020 where general anesthesia was administered without difficulty after appropriate timeout was p erformed, SCDs confirmed to be functioning, preoperative antibiotics administered, beta-zakia protocol confirmed. Prepped and draped in usual sterile fashion in dorsolithotomy position paying careful attention to avoiding pressure points. 21 Greek cystoscope with 30 degree lens was introduced into urethra meatus and advanced into the bladder under videoscopy. Urine was cloudy and bloody. There are some clots in the bladder that were evacuated. The stent had minimal amount of encrustation on it. A flexible tip guidewire was then attempted to be passed next to the stent but met resistance and was removed. The distal aspect of the stent was then grasped with grasping forceps and withdrawn just through the tip of the urethral meatus. Thankfully it was patent and a flexible tip guidewire was advanced up the stent and under fluoroscopy was confirmed to be curling in the upper pole calyx area. The stent was removed without difficulty. A 6 Greek by 26 cm double-pigtail was then easily advanced over the guidewire through the cystoscope into appropriate position as confirmed via fluoroscopy and cystoscopy. Bladder was drained and that portion procedure was completed. Attention was then directed to the vaginal exam. There was cloudy fluid in the vagina on first inspection. A posterior speculum was used to depress the posterior vaginal wall and was clear that there was a necrotic process near the proximal aspect of the vagina that extended to the right lateral wall. Careful inspection revealed an exposed ureteral stent confirming ureteral necrosis. There was no gross purulence in that area. I could not feel a mass. The procedure was then completed. She tolerated procedure well without complications and was awakened in the operating room and returned to recovery in stable condition. PLANS: 1. Anticipate discharge today from outpatient surgery 2. We will review with her options but as we had discussed previously if there was a significant amount of radiation damage involving pelvic structures she would likely require diversion of the urinary tract if intervention would be undertaken.
--- NOTE | 2020-12-20 14:49 | ANE.PACU2 ---
Inpatient post-anesthesia follow up: Airway intact: Yes Vital signs: Temperature 98 F Pulse Rate 67 Respiratory Rate 18 Blood Pressure 126/76 Pulse Oximetry 100 Oxygen Delivery Me thod Room Air Oxygen Flow Rate 6 Fraction of Inspir ed Oxygen Hydration adequate: Yes Nausea and vomiting: No Pain level: 2 Mental status: Baseline
== END 2020-12-20 13:59 | disposition home or self-care (01) ==
PROVIDERS: PCP Family Medicine; Visit Provider Urology
PROC: 0TJB8ZZ Inspection of Bladder, Via Natural or Artificial Opening Endoscopic (ICD-10-PCS; CPT 52000; principal; 2020-12-20 12:00)
PROC: (CPT 52332; 2020-12-20 12:00)
DX: N13.5 Crossing vessel and stricture of ureter without hydronephrosis (principal); C55 Malignant neoplasm of uterus, part unspecified; J44.9 Chronic obstructive pulmonary disease, unspecified; I10 Essential (primary) hypertension; B19.20 Unspecified viral hepatitis C without hepatic coma; Z85.41 Personal history of malignant neoplasm of cervix uteri; E03.9 Hypothyroidism, unspecified; F17.210 Nicotine dependence, cigarettes, uncomplicated
CPT/HCPCS: 52332; 76000; 96365; C2625; J1956; J2250; J2704; J3010; J7030

== ENCOUNTER 2021-01-17 08:08 | Outpatient (CLI) | payer MEDICARE, SELFPAY ==
[2021-01-17 09:13] LABS: Basophils % 0.6 %; Eosinophils # 0.1 10^3/uL (0.0-0.8); Eosinophils % 1.9 %; Hemoglobin 9.2 g/dL (11.5-15.3); Lymphocytes # 0.7 10^3/uL (0.8-4.8); Lymphocytes % 14.2 %; Mean Corpuscular HGB Conc 28.8 g/dL (30.0-36.0); Mean Corpuscular Hemoglobin 27.3 pg (28.0-34.0); Mean Platelet Volume 9.9 fL (7.4-10.4); Monocytes # 0.5 10^3/uL (0.2-0.9); Monocytes % 10.1 %; Neutrophils # 3.55 10^3/uL (1.8-7.7); Nucleated Red Blood Cells % 0 %; Platelet Count 265 10^3/cmm (130-400); Red Blood Count 3.37 10^6/uL (4.1-5.3); Red Cell Distribution Width 16.2 % (12.1-15.1); White Blood Count 4.9 10^3/uL (4.0-10.0)
[2021-01-17 09:39] LABS: Alanine Aminotransferase 10 U/L (0-33); Albumin Level 3.4 g/dL (3.5-5.2); Alkaline Phosphatase 78 IU/L (35-105); Anion Gap 12.7 (5-19); Aspartate Amino Transferase 17 U/L (0-32); Blood Urea Nitrogen 16 mg/dL (8-23); Calcium 9.1 mg/dL (8.5-10.5); Carbon Dioxide 26 mmol/L (22-29); Chloride 106 mmol/L (98-107); Globulin 4.7 g/dL (1.3-4.6); Glomerular Filtration Rate 71.5 mL/min (90-130); Glucose 104 mg/dL (65-115); Osmolality Calculated 293 mOsm/kg (285-295); Potassium 3.7 mmol/L (3.5-5.1); Sodium 141 mmol/L (136-145); Total Bilirubin 0.2 mg/dL (0.15-1.2); Total Protein 8.1 g/dL (6.6-8.7)
[2021-01-17 11:39] LABS: Iron 29 ug/dL (37-145); Percent Saturation 11.5 % (20-50); Thyroid Stimulating Hormone 1.15 uIU/mL (0.27-4.20); Total Iron Binding Capacity 252 mcg/dl; Unsaturated Iron Binding 223 ug/dL (112-347); Vitamin B12 259 pg/mL (232-1245)
--- NOTE | 2021-01-17 17:51 | ONC FU_ITS ---
Dr. Warner Patient Follow-Up Note Patient: Dionne Fitzgerald Unit #: [id number]: [id number] Dicatated By: Homar Warner M.D.Date of Visit:Jan 17, 2021 Onc Med Follow-up/Prog Note Chief Complaint: Cervical cancer. 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 By clinical evaluation her stage ws at least IB2 (T1b2, N0, M0) at initial diagnosis in July 2019. She had presented with a 3-month history of intermittent vaginal bleeding. Her transvaginal ultrasound on 07/05/2019 showed marked thickening and decreased echogenicity and hypervascularity throughout the cervix. It was noted to be lobulated and enlarged, consistent with cervical carcinoma. The cervix appeared grossly abnormal on exam. Pap smear was attempted at that time was problematic due to the increased bleeding. Biopsy, though, did show undifferentiated carcinoma. She was referred to Dr. Zamorano in [place]. Her staging MRI of the pelvis on 07/21/2019 showed cervical mass which was noted to be possibly going into the uterus in its inferior anterior aspect. There was local surrounding enhancement suggestive of local infiltration and there was an enlarged iliac chain lymph node on the right side. Staging PET/CT on 07/22/2019 showed primary tumor mass involving the cervix with evidence of local spread to a right common iliac lymph node. Subcentimeter pulmonary nodules were FDG negative and nonspecific, but metastatic disease was not excluded. There was no other evidence of metastatic involvement. On 07/25/2019 she underwent exam under anesthesia and placement of Port-A-Cath venous access device. A repeat cervical biopsy at that time showed invasive poorly differentiated squamous cell carcinoma. She was recommended to undergo primary chemoradiation utilizing weekly cisplatin for chemosensitization. Her other medical illnesses include hypertension, hypothyroidism, COPD, and vitamin D deficiency. She has a history of treated hepatitis C. She also has a history of colonic polyps. She has a history of smoking 1 pack of cigarettes daily for approximately 20 years. She recently quit. INTERIM HISTORY: She began her radiation concurrently with weekly cisplatin on 08/10/2019. She completed the radiation on 09/22/2019 to a total dose of 6000 cGy. She tolerated the treatment pretty well, though her 6th weekly cisplatin infusion was held due to neutropenia and fatigue. She then underwent LDR brachytherapy with Ce-137 implants on 10/18/2019 and again on 10/31/2019. She tolerated it well. Restaging CT of the abdomen/pelvis on 12/08/2019 showed a low-attenuation 9 mm lesion in the fundal myometrium, felt to possibly represent a small fibroid. There was moderate diffuse uterine myometrium enhancement which was felt to be likely due to therapy related changes. There was no evidence of metastatic disease in the abdomen or pelvis. On 12/23/2019 she began cycle 1 of postoperative adjuvant chemotherapy with cisplatin/paclitaxel in combination with Avastin. She unfortunately experienced neuropathy and other side effects it, severe enough that I did not think she would tolerate further treatment with that regimen. Following subsequent discussions with Dr. Zamorano, she was recommended to continue adjuvant chemotherapy with carboplatin and gemcitabine in combination with Avastin. However, at her follow-up visit on 03/14/2020 she was complaining of severe rectal pain. She also had a significant decline in her renal function. Her renal ultrasound was normal. A CT of the pelvis showed a small amount of air along the cervical and vaginal regions, felt to be possibly related to her recent radiation therapy. There was no evidence for recurrent adenopathy, abscess collection, or other pathology in the pelvis. She was referred to Dr. Ortega. She underwent attempted flexible sigmoidoscopy on 04/11/2020. The scope was not able to be transversed beyond the rectosigmoid region due to a narrowing lesion. Barium enema on 04/12/2020 showed mild narrowing of the sigmoid region due to overlapping loops of colon. There was no persistent high-grade stricture. It was a limited exam due to her inability to retain the barium mixture. She then began cycle 1 of carboplatin/gemcitabine in combination with Avastin on 04/26/2020. She tolerated the initial treatment without acute toxicity. At day 8 she had moderately severe neutropenia, ANC 600. She was not febrile. She recovered uneventfully with Neupogen. She continued with cycle 2 on 05/21/2020. She was given a dose reduction and she also was given Neulasta prophylactically. She tolerated it with acceptable toxicity, and she continue with cycle 3 on 06/11/2020. She tolerated with acceptable toxicity, though she still had moderately severe anemia. She was able to continue with cycle 4 on 07/03/2020 and with cycle 5 on 07/31/2020. During that time she did have to her Port-A-Cath replaced due to malfunction. At her follow-up visit on 08/21/2020 I opted to put her further chemotherapy on hold, as she was having persistent bladder symptoms with associated pyuria and she also was showing decline in performance status. Her CT abdomen/pelvis on 08/28/2020 showed moderate right hydronephrosis with ureterectasis, new compared to previous studies. There appeared to be tethering of the right ureter in the right adnexa, thought to be most likely obstructed at that level due to adhesions or fibrosis. She was then seen by Dr. Ochoa and she underwent cystoscopy with ureteral stent placement on 09/10/2020. 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 There was extension of the fistula into the upper portion of the cervix on the right and the upper vaginal canal on the left. Stool, air, and fluid were noted within the vaginal canal. There was interval placement of right double-J ureteral stent with significant improvement in the right hydronephrosis. There is diffuse, mild wall thickening of the bladder. A left lower lobe lung nodule appeared stable. With those findings, arrangements were made for admission to [facility] and on 10/15/2020 underwent exam under anesthesia, cervical biopsy, diagnostic laparoscopy and exploratory laparotomy with placement of and sigmoid colostomy. 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 It had somewhat of a nodular, suspicious appearance, but the biopsies were negative at laparoscopy the cul-de-sac was noted to be obliterated by adhesions to the rectosigmoid colon, and the procedure was converted to laparotomy. There is no gross evidence of metastatic disease. She had a follow-up CT abdomen/pelvis on 11/09/2020. There is persistent collection containing fluid and air in the cul-de-sac which appeared more organized compared to the September 2020 study. The overall inflammatory process was noted to have decreased. A small residual abscess in the cul-de-sac was not excluded. Air was noted in the urinary bladder. A right ureteral stent remained in place with no hydronephrosis. She is seen for a follow-up visit. She still has very limited activity, but she says her energy is getting better. She is doing some walking, though she says her legs are still wobbly. She has good appetite now. She has not had fever. She has occasional drenching night sweats. She does not complain of shortness of breath, cough, or chest pain. She has no GI complaints. Bowel function has been adequate with the ostomy. She has developed bladder incontinence and she has a gel-like vaginal discharge. There is sometimes tiny blood clots. She also complains that it sometimes has a strong odor. She has no significant joint or bone pain. She occasionally has headache. She is sometimes dizzy. She complains that her hands tend to get numb at night and she still has tingling in her feet. Medications: Aspirin Childrens 1 Tablet (of 81 mg) Tablet, chewable Oral daily, HYDROmorphone HCl 1 Tablet (of 4 mg) Oral q 4 hours PRN, Ibuprofen 1 - 2 Capsule (of 200 mg) Oral daily PRN, Levothyroxine Sodium 1 Tablet (of 75 mcg) Oral daily, Metoprolol Tartrate 1 Tablet (of 25 mg) Oral daily Allergies: Kimbera Vital Signs: Performed on Jan 17, 2021 10:09 Height - 67.00 in Weight - 124.2 lbs (HIGH) BSA - 1.65 sq.m BMI - 19.45 Temperature - 97.2 F (LOW) Pulse - 77 /min Respiration - 18 /min BP - 128/78 mm(hg) O2 Sat - 99 % Pain - 0 Fatigue - 0 Physical Examination: Constitutional - She still appears generally weak, Eyes - Sclerae nonicteric. Conjunctivae clear, ENMT - No lesions noted in the oral cavity, Hematologic/Lymphatic - No cervical, clavicular, or axillary adenopathy, Respiratory - Lungs sound clear, Cardiovascular - Heart rhythm is regular. There is no murmur, gallop, or rub noted, Abdomen - Soft. The ostomy site looks OK. Liver and spleen are not enlarged. There is no abdominal mass or ascites noted and there is no inguinal adenopathy, Extremities - No edema, Neurologic - No focal neurologic deficits noted. Lab/Imaging: Test performed on Jan 17, 2021 08:40 Sodium 141 mmol/L Potassium 3.7 mmol/L Chloride 106 mmol/L CO2 26 mmol/L Anion Gap 12.7 BUN 16 mg/dL Creatinine 0.8 mg/dL Cr Clearance (Est) 60.69 mL/min eGFR 71.5 mL/min Glucose 104 mg/dL Osmolality - Calculated 293 mOsm/kg Calcium 9.1 mg/dL Protein, Total 8.1 g/dL Albumin 3.4 g/dL Globulin 4.7 g/dL Bilirubin, Total 0.2 mg/dL ALT (SGPT) 10 U/L AST (SGOT) 17 U/L Alkaline Phosphatase 78 IU/L WBC 4.9 10 3/uL RBC 3.37 10 6/uL HGB 9.2 g/dL HCT 32.0 % MCV 95.0 fL MCH 27.3 pg MCHC 28.8 g/dL RDW 16.2 % Platelet Count 265 10 3/cmm MPV 9.9 fL Neutrophils 3.55 10 3/uL Lymphocytes 0.7 10 3/uL Monocytes 0.5 10 3/uL Eosinophils 0.1 10 3/uL Basophils 0.0 10 3/uL Neutrophil % 73.0 % Lymphocyte % 14.2 % Monocyte % 10.1 % Eosinophil % 1.9 % Basophils % 0.6 % NRBC % 0 % Problem List: 1. 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 By clinical evaluation her disease appeared to be at least stage IB2 (T1b2, N1, M0). 2. She also had evidence of iron deficiency anemia. 3. Hypertension. 4. Hypothyroidism. 5. COPD. 6. She has a history of treated hepatitis C. 7. Vitamin D deficiency. 8. She has a history of colonic polyps. Problems Addressed with this Encounter and Plan: 1. 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 By clinical evaluation her disease appeared to be at least stage IB2 (T1b2, N1, M0). She underwent primary chemoradiation utilizing weekly cisplatin chemotherapy. Her treatment began on 08/10/2019. She completed radiation on 09/22/2019 to a total dose of 6000 cGy. Her 6th weekly cisplatin infusion was held due to neutropenia and fatigue. She then underwent LDR brachytherapy with Ce-137 implants on 10/18/2019 and on 10/31/2019. Overall, she tolerated the treatment well. Restaging CT of the abdomen/pelvis on 12/08/2019 showed a low-attenuation 9 mm lesion in the fundal myometrium, felt to possibly represent a small fibroid. There was moderate diffuse uterine myometrium enhancement which was felt to be likely due to therapy related changes. There was no evidence of metastatic disease in the abdomen or pelvis. On 12/23/2019 she began cycle 1 of postoperative adjuvant chemotherapy with cisplatin/paclitaxel in combination with Avastin. She developed multiple toxicities following that treatment, the most significant being severe fatigue and neuropathy. She had gradual recovery which was complicated by rectal pain and by a decline in her renal function. A specific cause was not determined, but it subsequently resolved. On 04/26/2020 she began further adjuvant chemotherapy with carboplatin/gemcitabine in combination with Avastin. She had moderately severe neutropenia at day 8, but she recovered uneventfully with Neupogen. Cycles 2 and 3 were administered with a dose reduction and with Neulasta prophylactically. She was able to tolerate treatment with acceptable toxicity, though she had persistent, moderately severe anemia and fatigue. She was able to continue with cycle 4 on 07/03/2020 and with cycle 5 on 07/31/2020. At her follow-up visit on 08/21/2020 she was having significant bladder symptoms with persistent pyuria and she also had a decline in performance status. Her chemotherapy was put on hold. Repeat CT abdomen/pelvis showed new right hydronephrosis. She was seen by Dr. Ochoa, she underwent placement of ureteral stent on 09/10/2020. Her repeat CT abdomen/pelvis on 10/09/2020 showed findings consistent with colo-colic fistula with extension of the fistula into the upper portion of the cervix on the right in the upper vaginal canal on the left. There was improvement in the hydronephrosis with ureteral stent placement. With that finding she was admitted to [facility]. On 10/15/2020 she underwent exam under anesthesia, cervical biopsy, diagnostic laparoscopy and exploratory laparotomy with placement of and sigmoid colostomy. There was no evidence of malignancy so this is presumed to be secondary to radiation. She has been showing gradual recovery following the surgery in September, though she continues have very marginal performance status. She will now continue on observation/expectant management for the cervical cancer. She is going to continue nutritional support with Ensure. She will be scheduled for a follow-up visit in 1 month. 2. She has undergone placement of ureteral stent for hydronephrosis. It will require ongoing follow-up with Dr. Ochoa. She also has developed bladder incontinence. Dr. Zamorano had discussed possibility of urostomy placement, which she declined. 3. She is moderately anemic. Her previous studies were consistent with iron deficiency. Those studies will be repeated. I also will check a B12 level and a TSH level. She will have further evaluation as indicated. Signed By: Homar Warner M.D. <<Signature on File>>
== END 2021-01-17 08:09 | disposition home or self-care (01) ==
LOC: ONCMED 08:10
PROVIDERS: PCP Family Medicine; Visit Provider Internal Medicine Medical Oncology
DX: C53.9 Malignant neoplasm of cervix uteri, unspecified (principal); D50.9 Iron deficiency anemia, unspecified; R32 Unspecified urinary incontinence; E03.9 Hypothyroidism, unspecified; Z96.0 Presence of urogenital implants; Z92.3 Personal history of irradiation; Z92.21 Personal history of antineoplastic chemotherapy
CPT/HCPCS: 36415; 80053; 82607; 83540; 83550; 84443; 85025; 99214

== ENCOUNTER → 2021-03-13 13:22 | Outpatient (BNVA) | payer MEDICARE, SELFPAY | PROVIDERS: PCP Family Medicine; Visit Provider Family Medicine | DX: R30.0 Dysuria (principal); H61.22 Impacted cerumen, left ear | CPT/HCPCS: 81003; 87086 ==

== ENCOUNTER → 2021-04-17 10:31 | Outpatient (BNVA) | payer MEDICARE, SELFPAY | PROVIDERS: PCP Family Medicine; Visit Provider Nurse Practitioner Family | DX: I10 Essential (primary) hypertension (principal); D64.9 Anemia, unspecified | CPT/HCPCS: 85025 ==

== ENCOUNTER → 2021-04-25 11:11 | Outpatient (BNVA) | payer MEDICARE, SELFPAY | PROVIDERS: PCP Family Medicine; Visit Provider Nurse Practitioner Family | DX: D64.9 Anemia, unspecified (principal) | CPT/HCPCS: 85025 ==

== ENCOUNTER 2021-04-30 13:03 | Outpatient (CLI) | payer MEDICARE, SELFPAY ==
--- NOTE | 2021-04-30 13:07 | XRR_ITS ---
PROCEDURE INFORMATION: Exam: XR Abdomen Exam date and time: 04/30/2021 1:07 PM Age: 65 years old Clinical indication: Prior surgery; Surgery type: Ostomy, bladdder stent, gb; Patient HX: History--back pain; Additional info: N13.30 - unspecified hydronephrosis TECHNIQUE: Imaging protocol: XR of the abdomen. Views: Frontal supine view of the abdomen. 1 View. COMPARISON: CR XR KUB [id number] 12/12/2020 9:24 AM FINDINGS: Tubes, catheters and devices: A right double-J stent is present. The proximal pigtail is in the expected location of the right renal pelvis. The distal pigtail is in the urinary bladder. Gastrointestinal tract: No dilated gas-filled loops of bowel. Organs: Clips in the right upper quadrant from prior cholecystectomy. No radiopaque renal or ureteral calculi are identified. However, small or poorly opaque calculi may not be detected on this study, particularly given the fact that enteric contents overlies the right renal pelvis and the entire course of the right ureter. Bones/joints: Multilevel facet arthropathy and osteophyte formation in the lower lumbar spine. XR/XR KUB [id number] IMPRESSION: 1. Appropriate positioning of the right double-J stent. 2. No radiopaque renal or ureteral calculi are identified.
== END 2021-04-30 13:04 | disposition home or self-care (01) ==
PROVIDERS: PCP Family Medicine; Visit Provider Urology
DX: N13.30 Unspecified hydronephrosis (principal); Z96.0 Presence of urogenital implants; N39.0 Urinary tract infection, site not specified
CPT/HCPCS: 74018; 81003; 87077; 87086; 87184

== ENCOUNTER → 2021-05-06 11:40 | Outpatient (BNVA) | payer MEDICARE, SELFPAY | PROVIDERS: PCP Family Medicine; Visit Provider Urology | DX: N13.5 Crossing vessel and stricture of ureter without hydronephrosis (principal); Z20.822 Contact with and (suspected) exposure to COVID-19 | CPT/HCPCS: 87635 ==

== ENCOUNTER 2021-05-09 11:12 | Day surgery (SDC) | payer MEDICARE, SELFPAY ==
--- NOTE | 2021-05-09 | SCC_ITS ---
Procedure Done: 1. Cystoscopy, right ureteral stent exchange (7 [place] by 26 cm double-pigtail without string) 12.9 seconds of fluoroscopic guidance, for a cumulative dose of 1.57 mGy, was provided to Dr. Ochoa by the radiology department. C-arm images of the abdomen were saved for the patient's permanent record. [facility]
--- NOTE | 2021-05-09 11:23 | SC_ITS ---
WS: [id number] INTRAOPERATIVE TECHNIQUE: 2 Spot fluoroscopic images for intraoperative purposes. FLUOROSCOPY TIME: 12.9 seconds CLINICAL INFORMATION: Right ureteral stent exchange COMPARISON: None. FINDINGS: Fluoroscopy used for right ureteral stent exchange SC/C-arm [place] for Urology IMPRESSION: Images obtained for intraoperative purposes.
--- NOTE | 2021-05-09 12:39 | ANES.PREANE2 ---
Pre-Anesthetic Assessment Pre-Anesthetic Assessment: Height/Weight: Height 1.65 m Weight 58.06 kg Preop Diagnosis: Right ureteral obstruction, ureterovaginal fistula Proposed Procedure: Operation Date: 05/09/21 13:00 Proposed Procedures p Cystoscopy 12418 n13.5(Not Applicable) - Casper Ochoa MD s right Ureteral Stent Exchange(Right) - Casper Ochoa MD Familial anesthetic complications: None Was Beta Manuel taken within 24 hours: Yes Was Clonidine taken within 24 hours: N/A Last intake: Intake Last Liquid Date 05/09/21 Last Liquid Time 06:00 Last Solid Date 05/08/21 Last Solid Time 20:00 Social: Social History: Tobacco and No alcohol Exam: Pre-Anes Outpt Exam: alert, oriented x 3, clear to auscultation bilaterally and regular rate & rhythm Airway: Cervical ROM: WNL MP: 3 Dentition: False Pulmonary: Pulmonary: COPD CV/HEM: CV/HEM: Anemia and HTN Hepatic: Hepatic: Hepatitis (C) Metabolic: Metabolic: Thyroid Anesthetic Plan: ASA status: 3 Anesthesia: General Risk of > 500 ml blood loss (7ml/kg in children): No PFSH Anesthesia PFSH: Medical History (Updated 04/30/21 @ 14:43 by Casper Ochoa MD) Cervical cancer Chronic hepatitis C COPD (chronic obstructive pulmonary disease) Depression with anxiety Hypertension Hypothyroidism Port-A-Cath in place Rectal Pain Recurrent UTI Seasonal allergies Surgical History H/O dilation and curettage Done for one of the miscarriages. H/O laparoscopy with removal of scar tissue in the per patient. History of cholecystectomy (~08/2018) History of colonoscopy with polypectomy (~2017) Family History Mother Hypertension Breast cancer Cervical cancer Father Hypertension Diabetes Grandfather Chronic kidney disease (CKD) Maternal grandfather Heart disease Maternal grandfather Grandmother Chronic kidney disease (CKD) Maternal grandmother Heart disease Maternal grandmother Stroke Maternal grandmother Father No problems noted. Family/Other Breast cancer Maternal aunt Cervical cancer Maternal aunt x4 Other Thyroid disease Denies family history of Colon cancer Ovarian cancer Anesthesia complication Bleeding disorder Uterine cancer Social History Second hand smoke exposure: Yes Alcohol intake: never Caregiver/support person: Yes Lives independently: Yes Household members: spouse Marital status: service: No Current occupational status: retired History of recent travel: No Current gender identity: Female Additional social history: - Tobacco use: Current smoker; Alcohol use: Denies Drug use: Denies Data Anesthesia Cardiac Studies: No Data to Display
[2021-05-09] MEDS: sodium chloride 0.9% 1,000 ML 30 ML IV (12:49)
--- NOTE | 2021-05-09 14:01 | P.HPUD_ITS ---
Surgery/Procedure H&P Update DATE OF PROCEDURE: May 09, 2021 DATE H&P PERFORMED: 04/30/21 H&P UPDATE INFORMATION: I have reviewed H&P completed within last 30 days, I have examined patient prior to procedure, No changes to prior documentation and H&P is in [facility] EMR on date indicated CHANGES TO PREVIOUS DOCUMENTATION: Reviewed need to pursue urinary diversion options. PREOP DIAGNOSIS: Right ureteral obstruction, ureterovaginal fistula PLANNED PROCEDURE: Operation Date: 05/09/21 13:00 Proposed Procedures p Cystoscopy 08330 n13.5(Not Applicable) - Casper Ochoa MD s right Ureteral Stent Exchange(Right) - Casper Ochoa MD
[2021-05-09] MEDS: levofloxacin-dextrose 5 % 500 MG/100 ML PREMIX 100 MG IV (14:07)
[2021-05-09] MEDS: iohexol 300 mg/mL 50 mL Btl (OR ONLY) XX (14:31)
--- NOTE | 2021-05-09 14:41 | PM.OP ---
Operative Report Date of procedure: May 09, 2021 Pre-op Diagnosis: Right ureteral obstruction, ureterovaginal fistula Post-op Diagnosis: Right ureteral obstruction, ureterovaginal fistula Procedure Done: 1. Cystoscopy, right ureteral stent exchange (7 Citizen [place] by 26 cm double-pigtail without string) Pathology: none sent Surgeon: Don Anesthesia: General Estimated blood loss: Minimal Urine output: Not measured Complications: None Findings: 1. Distal aspect of the stent was heavily encrusted. Encrustation cleared with grasping forcep 2. Wire was easily passed up the right ureteral stent and the stent exchange went well. 7 [place] by 26 cm double-pigtail. Condition: stable Disposition: PACU Brief History: Dionne is a very pleasant 65-year-old white female with a history of GARDE MANGER cancer having undergone surgical and radiation therapy. She has developed a right distal ureteral vaginal fistula with large gap. It is not felt that this is likely to be repairable surgically. She has had a stent in our for several months and is due for change. We have reviewed the option of urinary diversion and she is considering it but has not made a final decision yet. I have recommended consultation with one of the [facility] services for evaluation for that. Originally the stent was placed for ureteral stricture felt likely to be related to radiation therapy. Procedure: After routine preoperative evaluation examination and obtaining of informed consent she was taken to the operating suite on 05/09/2021 where general anesthesia was administered without difficulty after appropriate timeout was performed, SCDs confirmed to be functioning, preoperative antibiotics administered, beta-zakia protocol confirmed. Prepped and draped in the usual sterile fashion in dorsolithotomy position paying careful attention to avoiding pressure points. 21 [place] cystoscope with 30 degree lens was introduced into the urethra meatus and advanced to the bladder under videoscopy. There were some clots in the bladder and these were cleared from the bladder with an Ellik evacuator. No active bleeding was identified with careful inspection of the bladder. It was felt that the bleeding was probably coming from the irritation related to encrustation on the distal aspect of the stent. The encrustation was cleared with grasping forceps and the tip of the stent was secured and withdrawn through the urethral meatus with the proximal aspect viewed on fluoroscopy with good uncurling. A wire was able to be advanced through the stent without difficulty into the area of the kidney and the stent was removed. The cystoscope was backloaded over the guidewire and a 7 [place] by 26 cm double-pigtail stent was advanced over the guidewire through the cystoscope into appropriate position as confirmed via fluoroscopy and cystoscopy. The bladder was flushed free of any remaining debris including the encrustation broken off of the stent Bladder was drained and procedure was completed. PLANS: 1. Follow-up next week for more definitive planning regarding consultation at a university setting for possible urinary diversion due to ureterovaginal fistula.
[2021-05-09 14:45] VITALS: BP 89/52; PULSE 62; RESP 20; TEMP 36.6; O2SAT 100
[2021-05-09 14:50] VITALS: BP 100/57; BP 89/52; PULSE 62; PULSE 63; RESP 20; RESP 21; TEMP 36.6; O2SAT 100
[2021-05-09 14:56] VITALS: BP 100/61; PULSE 63; RESP 18; TEMP 36.6; O2SAT 100
[2021-05-09 15:02] VITALS: BP 100/61; PULSE 64; RESP 18; TEMP 36.6; O2SAT 99
--- NOTE | 2021-05-09 16:56 | ANE.PACU2 ---
Inpatient post-anesthesia follow up: Airway intact: Yes Vital signs: Temperature 97.8 F Pulse Rate 64 Respiratory Rate 18 Blood Pressure 100/61 Pulse Oximetry 99 Oxygen Delivery Me thod Room Air Oxygen Flow Rate Fraction of Inspir ed Oxygen Hydration adequate: Yes Nausea and vomiting: No Pain level: 2 Mental status: Baseline
== END 2021-05-09 15:47 | disposition home or self-care (01) ==
PROVIDERS: PCP Family Medicine; Visit Provider Urology
PROC: 0TJB8ZZ Inspection of Bladder, Via Natural or Artificial Opening Endoscopic (ICD-10-PCS; CPT 52000; principal; 2021-05-09 12:55)
PROC: (CPT 52332; 2021-05-09 12:55)
DX: N13.5 Crossing vessel and stricture of ureter without hydronephrosis (principal); N82.1 Other female urinary-genital tract fistulae; J44.9 Chronic obstructive pulmonary disease, unspecified; I10 Essential (primary) hypertension; Z86.19 Personal history of other infectious and parasitic diseases; Z85.41 Personal history of malignant neoplasm of cervix uteri; E03.9 Hypothyroidism, unspecified
CPT/HCPCS: 52332; 76000; C2625; J1956; J2704; J3010; J7030

== ENCOUNTER 2021-06-10 13:38 | Outpatient (CLI) | payer MEDICARE, SELFPAY ==
[2021-06-10 15:09] LABS: Basophils % 0.3 %; Eosinophils # 0.1 10^3/uL (0.0-0.8); Eosinophils % 3.4 %; Hematocrit 31.3 % (37.0-47.0); Hemoglobin 9.2 g/dL (11.5-15.3); Lymphocytes # 1.2 10^3/uL (0.8-4.8); Lymphocytes % 39.7 %; Mean Corpuscular HGB Conc 29.4 g/dL (30.0-36.0); Mean Corpuscular Hemoglobin 25.3 pg (28.0-34.0); Mean Platelet Volume 10.1 fL (7.4-10.4); Monocytes # 0.4 10^3/uL (0.2-0.9); Monocytes % 13.5 %; Neutrophils # 1.28 10^3/uL (1.8-7.7); Neutrophils % 43.1 %; Nucleated Red Blood Cells % 0 %; Platelet Count 133 10^3/cmm (130-400); Red Blood Count 3.64 10^6/uL (4.1-5.3); Red Cell Distribution Width 17.7 % (12.1-15.1)
[2021-06-10 15:24] LABS: Alanine Aminotransferase 6 U/L (0-33); Albumin Level 3.8 g/dL (3.5-5.2); Alkaline Phosphatase 81 IU/L (35-105); Anion Gap 14.1 (5-19); Aspartate Amino Transferase 14 U/L (0-32); Blood Urea Nitrogen 19 mg/dL (8-23); Calcium 8.7 mg/dL (8.5-10.5); Carbon Dioxide 23 mmol/L (22-29); Chloride 108 mmol/L (98-107); Globulin 3.9 g/dL (1.3-4.6); Glomerular Filtration Rate 62.5 mL/min (90-130); Glucose 84 mg/dL (65-115); Osmolality Calculated 293 mOsm/kg (285-295); Potassium 4.1 mmol/L (3.5-5.1); Sodium 141 mmol/L (136-145); Total Bilirubin 0.2 mg/dL (0.15-1.2); Total Protein 7.7 g/dL (6.6-8.7)
[2021-06-10 17:44] LABS: Iron 27 ug/dL (37-145); Percent Saturation 9.5 % (20-50); Total Iron Binding Capacity 282 mcg/dl; Unsaturated Iron Binding 255 ug/dL (112-347)
--- NOTE | 2021-06-11 07:33 | ONC FU_ITS ---
Dr. Warner Patient Follow-Up Note Patient: Dionne Fitzgerald Unit #: [id number]: 1955 Dicatated By: Homar Warner M.D.Date of Visit:Jun 10, 2021 Onc Med Follow-up/Prog Note Chief Complaint: Cervical cancer. 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 By clinical evaluation her stage was at least IB2 (T1b2, N0, M0) at initial diagnosis in July 2019. She had presented with a 3-month history of intermittent vaginal bleeding. Her transvaginal ultrasound on 07/05/2019 showed marked thickening and decreased echogenicity and hypervascularity throughout the cervix. It was noted to be lobulated and enlarged, consistent with cervical carcinoma. The cervix appeared grossly abnormal on exam. Pap smear was attempted at that time was problematic due to the increased bleeding. Biopsy, though, did show undifferentiated carcinoma. She was referred to Dr. Zamorano in [place]. Her staging MRI of the pelvis on 07/21/2019 showed cervical mass which was noted to be possibly going into the uterus in its inferior anterior aspect. There was local surrounding enhancement suggestive of local infiltration and there was an enlarged iliac chain lymph node on the right side. Staging PET/CT on 07/22/2019 showed primary tumor mass involving the cervix with evidence of local spread to a right common iliac lymph node. Subcentimeter pulmonary nodules were FDG negative and nonspecific, but metastatic disease was not excluded. There was no other evidence of metastatic involvement. On 07/25/2019 she underwent exam under anesthesia and placement of Port-A-Cath venous access device. A repeat cervical biopsy at that time showed invasive poorly differentiated squamous cell carcinoma. She was recommended to undergo primary chemoradiation utilizing weekly cisplatin for chemosensitization. She began her radiation concurrently with weekly cisplatin on 08/10/2019. She completed the radiation on 09/22/2019 to a total dose of 6000 cGy. She tolerated the treatment pretty well, though her 6th weekly cisplatin infusion was held due to neutropenia and fatigue. She then underwent LDR brachytherapy with Ce-137 implants on 10/18/2019 and again on 10/31/2019. She tolerated it well. Restaging CT of the abdomen/pelvis on 12/08/2019 showed a low-attenuation 9 mm lesion in the fundal myometrium, felt to possibly represent a small fibroid. There was moderate diffuse uterine myometrium enhancement which was felt to be likely due to therapy related changes. There was no evidence of metastatic disease in the abdomen or pelvis. On 12/23/2019 she began cycle 1 of postoperative adjuvant chemotherapy with cisplatin/paclitaxel in combination with Avastin. She unfortunately experienced neuropathy and other side effects it, severe enough that I did not think she would tolerate further treatment with that regimen. Following subsequent discussions with Dr. Zamorano, she was recommended to continue adjuvant chemotherapy with carboplatin and gemcitabine in combination with Avastin. However, at her follow-up visit on 03/14/2020 she was complaining of severe rectal pain. She also had a significant decline in her renal function. Her renal ultrasound was normal. A CT of the pelvis showed a small amount of air along the cervical and vaginal regions, felt to be possibly related to her recent radiation therapy. There was no evidence for recurrent adenopathy, abscess collection, or other pathology in the pelvis. She was referred to Dr. Ortega. She underwent attempted flexible sigmoidoscopy on 04/11/2020. The scope was not able to be transversed beyond the rectosigmoid region due to a narrowing lesion. Barium enema on 04/12/2020 showed mild narrowing of the sigmoid region due to overlapping loops of colon. There was no persistent high-grade stricture. It was a limited exam due to her inability to retain the barium mixture. She then began cycle 1 of carboplatin/gemcitabine in combination with Avastin on 04/26/2020. She tolerated the initial treatment without acute toxicity. At day 8 she had moderately severe neutropenia, ANC 600. She was not febrile. She recovered uneventfully with Neupogen. She continued with cycle 2 on 05/21/2020. She was given a dose reduction and she also was given Neulasta prophylactically. She tolerated it with acceptable toxicity, and she continue with cycle 3 on 06/11/2020. She tolerated with acceptable toxicity, though she still had moderately severe anemia. She was able to continue with cycle 4 on 07/03/2020 and with cycle 5 on 07/31/2020. During that time she did have to her Port-A-Cath replaced due to malfunction. At her follow-up visit on 08/21/2020 I opted to put her further chemotherapy on hold, as she was having persistent bladder symptoms with associated pyuria and she also was showing decline in performance status. Her CT abdomen/pelvis on 08/28/2020 showed moderate right hydronephrosis with ureterectasis, new compared to previous studies. There appeared to be tethering of the right ureter in the right adnexa, thought to be most likely obstructed at that level due to adhesions or fibrosis. She was then seen by Dr. Ochoa and she underwent cystoscopy with ureteral stent placement on 09/10/2020. 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 There was extension of the fistula into the upper portion of the cervix on the right and the upper vaginal canal on the left. Stool, air, and fluid were noted within the vaginal canal. There was interval placement of right double-J ureteral stent with significant improvement in the right hydronephrosis. There is diffuse, mild wall thickening of the bladder. A left lower lobe lung nodule appeared stable. With those findings, arrangements were made for admission to [facility] and on 10/15/2020 underwent exam under anesthesia, cervical biopsy, diagnostic laparoscopy and exploratory laparotomy with placement of and sigmoid colostomy. 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 It had somewhat of a nodular, suspicious appearance, but the biopsies were negative at laparoscopy the cul-de-sac was noted to be obliterated by adhesions to the rectosigmoid colon, and the procedure was converted to laparotomy. There was no gross evidence of metastatic disease. She had a follow-up CT abdomen/pelvis on 11/09/2020. There is persistent collection containing fluid and air in the cul-de-sac which appeared more organized compared to the September 2020 study. The overall inflammatory process was noted to have decreased. A small residual abscess in the cul-de-sac was not excluded. Air was noted in the urinary bladder. A right ureteral stent remained in place with no hydronephrosis. With those findings, she was then followed expectantly for the cervical cancer. She continued followup with Dr. Ochoa for management of the ureteral stent. Her other medical illnesses include hypertension, hypothyroidism, COPD, and vitamin D deficiency. She has a history of treated hepatitis C. She also has a history of colonic polyps. She has a history of smoking 1 pack of cigarettes daily for approximately 20 years. She recently quit. INTERIM HISTORY: On 05/09/2021 she underwent cystoscopy and replacement of the ureteral stent. She apparently had been having significant hematuria. She also had become more anemic, requiring oral iron supplementation. She is seen for a follow-up visit. She continues to have some weakness/fatigue. She says she has good days and bad days. She is able to do light work. ECOG score is 1. She has had good appetite, and she has been able to gain some weight. She does not have fever or night sweats. She has a little bit of cough and she has been having mild pleuritic pain in her upper chest area. She has some exertional dyspnea. She has nausea off and on. Bowel function has been okay with the ostomy, though she sometimes has diarrhea. She has pressure in the bladder area and she also reports having a lot of urges. She says her bladder leaks all the time. She has no significant joint or bone pain. She does not complain of headache. She does report having dizzy spells, and she has numbness/tingling in her feet. She is having some anxiety. Medications: [employer] Iron 1 Tablet (of 325 (65 fe) mg) Oral b.i.d., Levothyroxine Sodium 1 Tablet (of 75 mcg) Oral daily, Metoprolol Tartrate 1 Tablet (of 25 mg) Oral daily Allergies: Viraj Vital Signs: Performed on Jun 10, 2021 15:00 Height - 67.00 in Weight - 135.6 lbs (HIGH) BSA - 1.71 sq.m BMI - 21.24 Temperature - 97.4 F (LOW) Pulse - 59 /min (LOW) Respiration - 18 /min BP - 155/79 mm(hg) (HIGH) O2 Sat - 99 % Pain - 0 Fatigue - 5 Physical Examination: Constitutional - She appears somewhat weak generally, Eyes - Sclerae nonicteric. Conjunctivae clear, ENMT - No lesions noted in the oral cavity, Hematologic/Lymphatic - No cervical, clavicular, or axillary adenopathy, Respiratory - Lungs sound clear, Cardiovascular - Heart rhythm is regular. There is no murmur, gallop, or rub noted, Abdomen - Soft. Liver and spleen are not enlarged. There is no abdominal mass or ascites noted and there is no inguinal adenopathy, Extremities - No edema, Neurologic - No focal neurologic deficits noted. Lab/Imaging: Test performed on Jun 10, 2021 14:35 Iron 27 mcg/dL Sodium 141 mmol/L Iron Binding Capacity (TIBC) 282 mcg/dl Potassium 4.1 mmol/L % Iron Saturation 9.5 % Chloride 108 mmol/L CO2 23 mmol/L UIBC 255 mcg/dL Anion Gap 14.1 BUN 19 mg/dL Creatinine 0.9 mg/dL Cr Clearance (Est) 58.9000 mL/min eGFR 62.5 mL/min Glucose 84 mg/dL Osmolality - Calculated 293 mOsm/kg Calcium 8.7 mg/dL Protein, Total 7.7 g/dL Albumin 3.8 g/dL Globulin 3.9 g/dL Bilirubin, Total 0.2 mg/dL ALT (SGPT) 6 U/L AST (SGOT) 14 U/L Alkaline Phosphatase 81 IU/L WBC 3.0 10 3/uL RBC 3.64 10 6/uL HGB 9.2 g/dL HCT 31.3 % MCV 86.0 fl MCH 25.3 pg MCHC 29.4 g/dL RDW 17.7 % Platelet Count 133 10 3/cmm MPV 10.1 fL Neutrophils 1.28 10 3/uL Lymphocytes 1.2 10 3/uL Monocytes 0.4 10 3/uL Eosinophils 0.1 10 3/uL Basophils 0.0 10 3/uL Neutrophil % 43.1 % Lymphocyte % 39.7 % Monocyte % 13.5 % Eosinophil % 3.4 % Basophils % 0.3 % NRBC % 0 % Problem List: 1. Invasive poorly differentiated squamous cell carcinoma of the cervix. By clinical evaluation her disease appeared to be at least stage IB2 (T1b2, N1, M0) at initial diagnosis in June 2019. 2. She also had evidence of iron deficiency anemia. 3. Hypertension. 4. Hypothyroidism. 5. COPD. 6. She has a history of treated hepatitis C. 7. Vitamin D deficiency. 8. She has a history of colonic polyps. Problems Addressed with this Encounter and Plan: 1. 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 By clinical evaluation her disease appeared to be at least stage IB2 (T1b2, N1, M0) at intial diagnosis in June 2019. She underwent primary chemoradiation utilizing weekly cisplatin chemotherapy. Her treatment began on 08/10/2019. She completed radiation on 09/22/2019 to a total dose of 6000 cGy. Her 6th weekly cisplatin infusion was held due to neutropenia and fatigue. She then underwent LDR brachytherapy with Ce-137 implants on 10/18/2019 and on 10/31/2019. Overall, she tolerated the treatment well. Restaging CT of the abdomen/pelvis on 12/08/2019 showed a low-attenuation 9 mm lesion in the fundal myometrium, felt to possibly represent a small fibroid. There was moderate diffuse uterine myometrium enhancement which was felt to be likely due to therapy related changes. There was no evidence of metastatic disease in the abdomen or pelvis. On 12/23/2019 she began cycle 1 of postoperative adjuvant chemotherapy with cisplatin/paclitaxel in combination with Avastin. She developed multiple toxicities following that treatment, the most significant being severe fatigue and neuropathy. She had gradual recovery which was complicated by rectal pain and by a decline in her renal function. A specific cause was not determined, but it subsequently resolved. On 04/26/2020 she began further adjuvant chemotherapy with carboplatin/gemcitabine in combination with Avastin. She had moderately severe neutropenia at day 8, but she recovered uneventfully with Neupogen. Cycles 2 and 3 were administered with a dose reduction and with Neulasta prophylactically. She was able to tolerate treatment with acceptable toxicity, though she had persistent, moderately severe anemia and fatigue. She was able to continue with cycle 4 on 07/03/2020 and with cycle 5 on 07/31/2020. At her follow-up visit on 08/21/2020 she was having significant bladder symptoms with persistent pyuria and she also had a decline in performance status. Her chemotherapy was put on hold. Repeat CT abdomen/pelvis showed new right hydronephrosis. She was seen by Dr. Ochoa, and she underwent placement of ureteral stent on 09/10/2020. Her repeat CT abdomen/pelvis on 10/09/2020 showed findings consistent with colo-colic fistula with extension of the fistula into the upper portion of the cervix on the right in the upper vaginal canal on the left. There was improvement in the hydronephrosis with ureteral stent placement. With that finding she was admitted to [facility]. On 10/15/2020 she underwent exam under anesthesia, cervical biopsy, diagnostic laparoscopy and exploratory laparotomy with placement of and sigmoid colostomy. As there was no evidence of malignancy, it was presumed to be secondary to radiation. She is being followed expectantly for the cervical cancer. Thus far there has been no evidence of recurrence. 2. She underwent placement of ureteral stent for hydronephrosis. It is being managed by Dr. Ochoa. She has had ongoing problems with hematuria and she also has bladder incontinence. She has been recommended to proceed with a urinary diversion procedure, but far she has been very reluctant to have any additional surgery. 3. During follow-up she has continued to have mild to moderately severe anemia. At least some component of this does appear to be due to blood loss/iron deficiency. For now she will just continue her oral iron supplementation. She will be scheduled for 1-month interval follow-up. If the iron deficiency is not correcting, she will be given the option to have parenteral iron replacement. Signed By: Homar Warner M.D. <<Signature on File>>
== END 2021-06-10 13:39 | disposition home or self-care (01) ==
LOC: ONCMED 13:43
PROVIDERS: PCP Family Medicine; Visit Provider Internal Medicine Medical Oncology
DX: Z08 Encounter for follow-up examination after completed treatment for malignant neoplasm (principal); Z85.41 Personal history of malignant neoplasm of cervix uteri; D64.9 Anemia, unspecified; Z92.21 Personal history of antineoplastic chemotherapy; Z92.3 Personal history of irradiation
CPT/HCPCS: 36415; 80053; 83540; 83550; 85025; 99214

== ENCOUNTER 2021-06-20 05:49 | Outpatient (CLI) | payer MEDICARE, SELFPAY ==
[2021-06-20] MEDS: ferric carboxy (IVPB) 750 MG in sodium chloride 0.9% (100 ml) 100 ML 460 MG IV (13:30)
[2021-06-20] MEDS: sodium chloride 0.9% 250 ML 999 ML IV (13:30)
== END 2021-06-20 05:50 | disposition home or self-care (01) ==
PROVIDERS: PCP Family Medicine; Visit Provider Internal Medicine Medical Oncology
DX: D50.9 Iron deficiency anemia, unspecified (principal); Z79.899 Other long term (current) drug therapy
CPT/HCPCS: 96365; J1439; J7050

== ENCOUNTER 2021-06-27 06:18 | Outpatient (CLI) | payer MEDICARE, SELFPAY ==
[2021-06-27] MEDS: ferric carboxy (IVPB) 750 MG in sodium chloride 0.9% (100 ml) 100 ML 460 MG IV (13:12)
== END 2021-06-27 06:19 | disposition home or self-care (01) ==
PROVIDERS: PCP Family Medicine; Visit Provider Internal Medicine Medical Oncology
DX: D50.9 Iron deficiency anemia, unspecified (principal); Z79.899 Other long term (current) drug therapy
CPT/HCPCS: 96365; J1439

== ENCOUNTER 2021-08-05 13:07 | Outpatient (CLI) | payer MEDICARE, SELFPAY ==
[2021-08-05 14:17] LABS: Basophils % 0.5 %; Eosinophils # 0.1 10^3/uL (0.0-0.8); Eosinophils % 2.9 %; Hematocrit 42.4 % (37.0-47.0); Hemoglobin 13.3 g/dL (11.5-15.3); Lymphocytes # 1.6 10^3/uL (0.8-4.8); Lymphocytes % 40.9 %; Mean Corpuscular HGB Conc 31.4 g/dL (30.0-36.0); Mean Corpuscular Hemoglobin 27.4 pg (28.0-34.0); Mean Corpuscular Volume 87.2 fl (81-99); Mean Platelet Volume 9.5 fL (7.4-10.4); Monocytes # 0.4 10^3/uL (0.2-0.9); Monocytes % 9.4 %; Neutrophils # 1.75 10^3/uL (1.8-7.7); Nucleated Red Blood Cells % 0 %; Platelet Count 126 10^3/cmm (130-400); Red Blood Count 4.86 10^6/uL (4.1-5.3); Red Cell Distribution Width 21.4 % (12.1-15.1); White Blood Count 3.8 10^3/uL (4.0-10.0)
[2021-08-05 14:45] LABS: Alanine Aminotransferase 18 U/L (0-33); Albumin Level 4.1 g/dL (3.5-5.2); Alkaline Phosphatase 98 IU/L (35-105); Anion Gap 14.1 (5-19); Aspartate Amino Transferase 19 U/L (0-32); Blood Urea Nitrogen 17 mg/dL (8-23); Calcium 9.1 mg/dL (8.5-10.5); Carbon Dioxide 23 mmol/L (22-29); Chloride 107 mmol/L (98-107); Ferritin 383 ng/mL (15-150); Globulin 3.6 g/dL (1.3-4.6); Glomerular Filtration Rate 83.5 mL/min (90-130); Glucose 85 mg/dL (65-115); Iron 59 ug/dL (37-145); Osmolality Calculated 291 mOsm/kg (285-295); Percent Saturation 24.7 % (20-50); Potassium 4.1 mmol/L (3.5-5.1); Sodium 140 mmol/L (136-145); Total Bilirubin 0.2 mg/dL (0.15-1.2); Total Iron Binding Capacity 238 mcg/dl; Total Protein 7.7 g/dL (6.6-8.7); Unsaturated Iron Binding 179 ug/dL (112-347)
--- NOTE | 2021-08-06 07:26 | ONC FU_ITS ---
Dr. Warner Patient Follow-Up Note Patient: Dionne Fitzgerald Unit #: [id number]: 1955 Dicatated By: Homar Warner M.D.Date of Visit:Aug 05, 2021 Onc Med Follow-up/Prog Note Chief Complaint: Cervical cancer. 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 By clinical evaluation her stage was at least IB2 (T1b2, N0, M0) at initial diagnosis in July 2019. She had presented with a 3-month history of intermittent vaginal bleeding. Her transvaginal ultrasound on 07/05/2019 showed marked thickening and decreased echogenicity and hypervascularity throughout the cervix. It was noted to be lobulated and enlarged, consistent with cervical carcinoma. The cervix appeared grossly abnormal on exam. Pap smear was attempted at that time was problematic due to the increased bleeding. Biopsy, though, did show undifferentiated carcinoma. She was referred to Dr. Zamorano in [place]. Her staging MRI of the pelvis on 07/21/2019 showed cervical mass which was noted to be possibly going into the uterus in its inferior anterior aspect. There was local surrounding enhancement suggestive of local infiltration and there was an enlarged iliac chain lymph node on the right side. Staging PET/CT on 07/22/2019 showed primary tumor mass involving the cervix with evidence of local spread to a right common iliac lymph node. Subcentimeter pulmonary nodules were FDG negative and nonspecific, but metastatic disease was not excluded. There was no other evidence of metastatic involvement. On 07/25/2019 she underwent exam under anesthesia and placement of Port-A-Cath venous access device. A repeat cervical biopsy at that time showed invasive poorly differentiated squamous cell carcinoma. She was recommended to undergo primary chemoradiation utilizing weekly cisplatin for chemosensitization. She began her radiation concurrently with weekly cisplatin on 08/10/2019. She completed the radiation on 09/22/2019 to a total dose of 6000 cGy. She tolerated the treatment pretty well, though her 6th weekly cisplatin infusion was held due to neutropenia and fatigue. She then underwent LDR brachytherapy with Ce-137 implants on 10/18/2019 and again on 10/31/2019. She tolerated it well. Restaging CT of the abdomen/pelvis on 12/08/2019 showed a low-attenuation 9 mm lesion in the fundal myometrium, felt to possibly represent a small fibroid. There was moderate diffuse uterine myometrium enhancement which was felt to be likely due to therapy related changes. There was no evidence of metastatic disease in the abdomen or pelvis. On 12/23/2019 she began cycle 1 of postoperative adjuvant chemotherapy with cisplatin/paclitaxel in combination with Avastin. She unfortunately experienced neuropathy and other side effects it, severe enough that I did not think she would tolerate further treatment with that regimen. Following subsequent discussions with Dr. Zamorano, she was recommended to continue adjuvant chemotherapy with carboplatin and gemcitabine in combination with Avastin. However, at her follow-up visit on 03/14/2020 she was complaining of severe rectal pain. She also had a significant decline in her renal function. Her renal ultrasound was normal. A CT of the pelvis showed a small amount of air along the cervical and vaginal regions, felt to be possibly related to her recent radiation therapy. There was no evidence for recurrent adenopathy, abscess collection, or other pathology in the pelvis. She was referred to Dr. Ortega. She underwent attempted flexible sigmoidoscopy on 04/11/2020. The scope was not able to be transversed beyond the rectosigmoid region due to a narrowing lesion. Barium enema on 04/12/2020 showed mild narrowing of the sigmoid region due to overlapping loops of colon. There was no persistent high-grade stricture. It was a limited exam due to her inability to retain the barium mixture. She then began cycle 1 of carboplatin/gemcitabine in combination with Avastin on 04/26/2020. She tolerated the initial treatment without acute toxicity. At day 8 she had moderately severe neutropenia, ANC 600. She was not febrile. She recovered uneventfully with Neupogen. She continued with cycle 2 on 05/21/2020. She was given a dose reduction and she also was given Neulasta prophylactically. She tolerated it with acceptable toxicity, and she continue with cycle 3 on 06/11/2020. She tolerated with acceptable toxicity, though she still had moderately severe anemia. She was able to continue with cycle 4 on 07/03/2020 and with cycle 5 on 07/31/2020. During that time she did have to her Port-A-Cath replaced due to malfunction. At her follow-up visit on 08/21/2020 I opted to put her further chemotherapy on hold, as she was having persistent bladder symptoms with associated pyuria and she also was showing decline in performance status. Her CT abdomen/pelvis on 08/28/2020 showed moderate right hydronephrosis with ureterectasis, new compared to previous studies. There appeared to be tethering of the right ureter in the right adnexa, thought to be most likely obstructed at that level due to adhesions or fibrosis. She was then seen by Dr. Ochoa and she underwent cystoscopy with ureteral stent placement on 09/10/2020. 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 There was extension of the fistula into the upper portion of the cervix on the right and the upper vaginal canal on the left. Stool, air, and fluid were noted within the vaginal canal. There was interval placement of right double-J ureteral stent with significant improvement in the right hydronephrosis. There is diffuse, mild wall thickening of the bladder. A left lower lobe lung nodule appeared stable. With those findings, arrangements were made for admission to [facility] and on 10/15/2020 underwent exam under anesthesia, cervical biopsy, diagnostic laparoscopy and exploratory laparotomy with placement of and sigmoid colostomy. 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 It had somewhat of a nodular, suspicious appearance, but the biopsies were negative at laparoscopy the cul-de-sac was noted to be obliterated by adhesions to the rectosigmoid colon, and the procedure was converted to laparotomy. There was no gross evidence of metastatic disease. She had a follow-up CT abdomen/pelvis on 11/09/2020. There is persistent collection containing fluid and air in the cul-de-sac which appeared more organized compared to the September 2020 study. The overall inflammatory process was noted to have decreased. A small residual abscess in the cul-de-sac was not excluded. Air was noted in the urinary bladder. A right ureteral stent remained in place with no hydronephrosis. With those findings, she was then followed expectantly for the cervical cancer. She continued followup with Dr. Ochoa for management of the ureteral stent. Her other medical illnesses include hypertension, hypothyroidism, COPD, and vitamin D deficiency. She has a history of treated hepatitis C. She also has a history of colonic polyps. She has a history of smoking 1 pack of cigarettes daily for approximately 20 years. She has quit. INTERIM HISTORY: On 05/09/2021 she underwent cystoscopy and replacement of the ureteral stent. She apparently had been having significant hematuria. She also had become more anemic, requiring oral iron supplementation. As of her follow-up visit on 06/10/2021 she remains significantly anemic despite the oral iron supplementation, hemoglobin 9.2 g. She was then given parenteral iron replacement with 2 infusions of Injectafer, which she tolerated well. She is seen for a follow-up visit. She has been feeling better generally. She has had some improvement in her energy and activity tolerance. ECOG score is 1. Her appetite has been good. She has no fever or night sweats. She has a little bit of cough. She does not complain of shortness of breath or chest pain. She currently has no GI complaints. Bowel function has been adequate with the ostomy. She has having difficulty with her bladder function, as she is not able to void normally, and she tends to just have intermittent leakage. She is having to wear a pad all the time. She does have some back pain and joint pain, but it is managed adequately with medication. She sometimes has headache and she still occasionally gets dizzy spells. The neuropathy in her feet has improved somewhat. Medications: Levothyroxine Sodium 1 Tablet (of 75 mcg) Oral daily, Metoprolol Tartrate 1 Tablet (of 25 mg) Oral daily Allergies: Viraj Vital Signs: Performed on Aug 05, 2021 16:17 Height - 67.00 in Weight - 143.2 lbs (HIGH) BSA - 1.75 sq.m BMI - 22.43 Temperature - 97.6 F (LOW) Pulse - 51 /min (LOW) Respiration - 18 /min BP - 155/75 mm(hg) (HIGH) O2 Sat - 99 % Pain - 0 Fatigue - 0 Physical Examination: Constitutional - She looks pretty good generally, Eyes - Sclerae nonicteric. Conjunctivae clear, ENMT - No lesions noted in the oral cavity, Hematologic/Lymphatic - No cervical, clavicular, or axillary adenopathy, Respiratory - Lungs sound clear, Cardiovascular - Heart rhythm is regular. There is no murmur, gallop, or rub noted, Abdomen - Soft. Liver and spleen are not enlarged. There is no abdominal mass or ascites noted and there is no inguinal adenopathy, Extremities - No edema, Neurologic - No focal neurologic deficits noted. Lab/Imaging: Test performed on Aug 05, 2021 13:31 Ferritin 383 ng/mL Iron 59 mcg/dL Sodium 140 mmol/L Iron Binding Capacity (TIBC) 238 mcg/dl Potassium 4.1 mmol/L % Iron Saturation 24.7 % Chloride 107 mmol/L CO2 23 mmol/L UIBC 179 mcg/dL Anion Gap 14.1 BUN 17 mg/dL Creatinine 0.7 mg/dL Cr Clearance (Est) 79.97 mL/min eGFR 83.5 mL/min Glucose 85 mg/dL Osmolality - Calculated 291 mOsm/kg Calcium 9.1 mg/dL Protein, Total 7.7 g/dL Albumin 4.1 g/dL Globulin 3.6 g/dL Bilirubin, Total 0.2 mg/dL ALT (SGPT) 18 U/L AST (SGOT) 19 U/L Alkaline Phosphatase 98 IU/L WBC 3.8 10 3/uL RBC 4.86 10 6/uL HGB 13.3 g/dL HCT 42.4 % MCV 87.2 fl MCH 27.4 pg MCHC 31.4 g/dL RDW 21.4 % Platelet Count 126 10 3/cmm MPV 9.5 fL Neutrophils 1.75 10 3/uL Lymphocytes 1.6 10 3/uL Monocytes 0.4 10 3/uL Eosinophils 0.1 10 3/uL Basophils 0.0 10 3/uL Neutrophil % 46.0 % Lymphocyte % 40.9 % Monocyte % 9.4 % Eosinophil % 2.9 % Basophils % 0.5 % NRBC % 0 % Problem List: 1. Invasive poorly differentiated squamous cell carcinoma of the cervix. By clinical evaluation her disease appeared to be at least stage IB2 (T1b2, N1, M0) at initial diagnosis in June 2019. 2. She also had evidence of iron deficiency anemia. 3. Hypertension. 4. Hypothyroidism. 5. COPD. 6. She has a history of treated hepatitis C. 7. Vitamin D deficiency. 8. She has a history of colonic polyps. Problems Addressed with this Encounter and Plan: 1. 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 By clinical evaluation her disease appeared to be at least stage IB2 (T1b2, N1, M0) at intial diagnosis in June 2019. She underwent primary chemoradiation utilizing weekly cisplatin chemotherapy. Her treatment began on 08/10/2019. She completed radiation on 09/22/2019 to a total dose of 6000 cGy. Her 6th weekly cisplatin infusion was held due to neutropenia and fatigue. She then underwent LDR brachytherapy with Ce-137 implants on 10/18/2019 and on 10/31/2019. Overall, she tolerated the treatment well. Restaging CT of the abdomen/pelvis on 12/08/2019 showed a low-attenuation 9 mm lesion in the fundal myometrium, felt to possibly represent a small fibroid. There was moderate diffuse uterine myometrium enhancement which was felt to be likely due to therapy related changes. There was no evidence of metastatic disease in the abdomen or pelvis. On 12/23/2019 she began cycle 1 of postoperative adjuvant chemotherapy with cisplatin/paclitaxel in combination with Avastin. She developed multiple toxicities following that treatment, the most significant being severe fatigue and neuropathy. She had gradual recovery which was complicated by rectal pain and by a decline in her renal function. A specific cause was not determined, but it subsequently resolved. On 04/26/2020 she began further adjuvant chemotherapy with carboplatin/gemcitabine in combination with Avastin. She had moderately severe neutropenia at day 8, but she recovered uneventfully with Neupogen. Cycles 2 and 3 were administered with a dose reduction and with Neulasta prophylactically. She was able to tolerate treatment with acceptable toxicity, though she had persistent, moderately severe anemia and fatigue. She was able to continue with cycle 4 on 07/03/2020 and with cycle 5 on 07/31/2020. At her follow-up visit on 08/21/2020 she was having significant bladder symptoms with persistent pyuria and she also had a decline in performance status. Her chemotherapy was put on hold. Repeat CT abdomen/pelvis showed new right hydronephrosis. She was seen by Dr. Ochoa, and she underwent placement of ureteral stent on 09/10/2020. Her repeat CT abdomen/pelvis on 10/09/2020 showed findings consistent with colo-colic fistula with extension of the fistula into the upper portion of the cervix on the right in the upper vaginal canal on the left. There was improvement in the hydronephrosis with ureteral stent placement. With that finding she was admitted to [facility]. On 10/15/2020 she underwent exam under anesthesia, cervical biopsy, diagnostic laparoscopy and exploratory laparotomy with placement of and sigmoid colostomy. As there was no evidence of malignancy, it was presumed to be secondary to radiation. She is being followed expectantly for the cervical cancer. As she has had no surveillance imaging since October, she will be scheduled now for CT scans of the chest, abdomen, and pelvis. In the absence of any evidence of recurrence, I will just plan to see her again in 3 months. 2. She underwent placement of ureteral stent for hydronephrosis. It is being managed by Dr. Ochoa. She has had ongoing problems with hematuria and she also has had bladder incontinence. She was recommended to proceed with a urinary diversion procedure, but she has been very reluctant to have any additional surgery. She has ongoing bladder symptoms which are somewhat suspicious for overflow incontinence. She continues regular follow-up with Dr. Ochoa. She may require further evaluation depending on the CT findings. 3. During follow-up she continued to have Iron deficiency anemia despite oral iron supplementation. In June she was given parenteral iron replacement with 2 infusions of Injectafer. She tolerated it well, and she has had a very good clinical response. Signed By: Homar Warner M.D. <<Signature on File>>
== END 2021-08-05 13:08 | disposition home or self-care (01) ==
PROVIDERS: PCP Family Medicine; Visit Provider Internal Medicine Medical Oncology
DX: Z08 Encounter for follow-up examination after completed treatment for malignant neoplasm (principal); Z85.41 Personal history of malignant neoplasm of cervix uteri; D50.9 Iron deficiency anemia, unspecified; I10 Essential (primary) hypertension; E03.9 Hypothyroidism, unspecified; J44.9 Chronic obstructive pulmonary disease, unspecified; E55.9 Vitamin D deficiency, unspecified; Z86.010 Personal history of colon polyps; Z86.19 Personal history of other infectious and parasitic diseases; Z79.899 Other long term (current) drug therapy; Z92.21 Personal history of antineoplastic chemotherapy; Z92.3 Personal history of irradiation
CPT/HCPCS: 36415; 80053; 82728; 83540; 83550; 85025; 99214

== ENCOUNTER 2021-08-14 13:21 | Outpatient (CLI) | payer MEDICARE, SELFPAY ==
--- NOTE | 2021-08-14 | CT_ITS ---
WS: [id number] CT CHEST, ABDOMEN, AND PELVIS TECHNIQUE: Contrast-enhanced CT of the chest, abdomen, and pelvis with coronal and sagittal reformatt ed images. CLINICAL INFORMATION: CERVICAL CANCER COMPARISON: CT abdomen pelvis 11/09/2020 and 10/09/2020. August 28, 2020. PET/CT February 25, [address] [facility] st 4 19,016 DLP: 1791.[address] scans at [facility] use at least one of these dose optimization techniques: automated e xposure control; mA and/or kV adjustment per patient size (includes targeted exams where dose is matc hed to clinical indication); or iterative reconstruction. CT CHEST: Normal caliber thoracic aorta. No axillary lymphadenopathy. Lungs are well aerated. No acute pulmonar y infiltrates. No focal pneumonia or pleural fluid. Stable noncalcified nodule left lower lobe along the diaphragm measuring 5 mm. This is stable since October 09, [address] Additional ti ny noncalcified nodule left lower lobe measuring 3 mm. Tiny nodule left upper lobe at the lung apex m easuring 3 mm. Noncalcified nodule right upper lobe measuring [address] ABDOMEN AND PELVIS Diffuse fatty infiltration of the liver. Normal portal vein and splenic vein. H epatomegaly. Splenomegaly. Normal pancreatic parenchymal enhancement. Adrenal glands are normal. Righ t double-J ureteral stent with mild right hydronephrosis. Striated right parenchymal enhancement susp icious for pyelonephritis.Correlation for infection. Mild right ureterectasis. Distal aspect of the d ouble-J ureteral stent is unchanged. No hydronephrosis in the left kidney. Normal caliber abdominal aorta. Aortic calcification. Tiny fat-containing umbilical hernia. Left lowe r quadrant colostomy. History of previously described fistula formation between the sigmoid colon and cervix/vagina. Mild i nduration about the rectum with improved appearance of the sigmoid colon. Inflammatory stranding abou t the sigmoid colon is nearly resolved. Bladder appears decompressed with a small amount of air withi n the nondependent bladder. Small bowel loops in the pelvis. Mild induration about the bladder and re ctum in the cul-de-sac. No evidence of drainable abscess or fluid collection today. . CT/CT chest abd pel w con* IMPRESSION: 1. Previously described induration and fluid in the pelvis from known sigmoid colon to cervix/vagina fistula has improved. Improved induration about the rect um and sigmoid colon. No evidence of drainable abscess today. 2. Bladder is decompressed with a small amount of nondependent air. 3. Mild hydronephrosis right kidney with double-J ureteral stent. Hydronephros is is new from previous with striated nephrograms suspicious for pyelonephritis . Correlation for urinary tract infection. 4. Stable left lower quadrant colostomy. 5. Splenomegaly and hepatomegaly are stable. 6. Prior cholecystectomy. 7. A few tiny subcentimeter noncalcified nodules described above. Recommend 6 month follow-up. 8. Chest otherwise unremarkable.
[2021-08-14] MEDS: iohexol 300 mg/mL 100 mL Btl IV (15:05)
[2021-08-14] MEDS: iohexol 300 mg/mL 50 mL Btl PO (15:05)
== END 2021-08-14 13:22 | disposition home or self-care (01) ==
PROVIDERS: PCP Family Medicine; Visit Provider Internal Medicine Medical Oncology
DX: C53.8 Malignant neoplasm of overlapping sites of cervix uteri (principal); R91.8 Other nonspecific abnormal finding of lung field; Z90.49 Acquired absence of other specified parts of digestive tract; R16.2 Hepatomegaly with splenomegaly, not elsewhere classified; Z93.3 Colostomy status; N13.30 Unspecified hydronephrosis; Z96.0 Presence of urogenital implants
CPT/HCPCS: 71260; 74177; Q9967

== ENCOUNTER → 2021-08-16 12:25 | Outpatient (BNVA) | payer MEDICARE, SELFPAY | PROVIDERS: PCP Family Medicine; Visit Provider Internal Medicine Medical Oncology | DX: N39.0 Urinary tract infection, site not specified (principal) | CPT/HCPCS: 81003; 87077; 87086; 87184 ==

== ENCOUNTER → 2021-09-05 11:25 | Outpatient (BNVA) | payer MEDICARE, SELFPAY | PROVIDERS: PCP Family Medicine; Visit Provider Internal Medicine Medical Oncology | DX: N39.0 Urinary tract infection, site not specified (principal) | CPT/HCPCS: 81003; 87086 ==

== ENCOUNTER → 2021-09-16 13:11 | Outpatient (BNVA) | payer MEDICARE, SELFPAY | PROVIDERS: PCP Family Medicine; Visit Provider Nurse Practitioner Family | DX: N39.0 Urinary tract infection, site not specified (principal) | CPT/HCPCS: 80053; 81003; 85025; 87077; 87086; 87184 ==

== ENCOUNTER 2021-09-20 08:31 | Outpatient (CLI) | payer MEDICARE, SELFPAY ==
--- NOTE | 2021-09-20 08:36 | XR_ITS ---
WS: [id number] KUB, AP view, 09/20/2021 Clinical Data: HYDRONEPHROSIS OF RIGHT KIDNEY Comparison: KUB, 04/30/2021. Findings: No abnormal intraabdominal masses or calcifications are seen. There is no dilatated small bowel or ev idence of obstruction. Right ureteral stent remains in good position. There are clips in the right upper quadrant from a cho lecystectomy. XR/XR KUB [id number] Impression: Right ureteral stent.
== END 2021-09-20 08:32 | disposition home or self-care (01) ==
LOC: RAD 08:34
PROVIDERS: PCP Family Medicine; Visit Provider Urology
DX: N13.30 Unspecified hydronephrosis (principal); Z96.0 Presence of urogenital implants; Z20.822 Contact with and (suspected) exposure to COVID-19
CPT/HCPCS: 74018; 87635

== ENCOUNTER 2021-09-23 11:35 | Day surgery (SDC) | payer MEDICARE, SELFPAY ==
--- NOTE | 2021-09-23 | SCC_ITS ---
Procedure Done: 1. Cystoscopy, RIGHT: Ureteral stent exchange (7 Malaysian by 24 cm double-pigtail without string) 16.5 seconds of fluoroscopic guidance, for a cumulative dose of 3.15 mGy, was provided to Dr. Ochoa by the radiology department. C-arm images of the abdomen were saved for the patient's permanent record. [facility]
--- NOTE | 2021-09-23 12:11 | SC_ITS ---
WS: [id number] Exam: C-arm FL for Urology Date/Time of Exam: 09/23/2021 12:11 PM Reason For Exam: Right ureteral stent exchange Limited anterior-posterior C-arm images of the right abdomen are submitted for evaluation. The first image depicts a metallic guidewire extending into the region of the right renal pelvis. A p igtail right ureteral catheter has been placed and probably ends in the region of the right renal pel vis. No other significant finding on this limited series.
[2021-09-23 12:40] VITALS: BMI 21.4
--- NOTE | 2021-09-23 13:31 | ANES.PREANE2 ---
Pre-Anesthetic Assessment Pre-Anesthetic Assessment: Height/Weight: Height 1.63 m Weight 56.699 kg Preop Diagnosis: Right ureteral obstruction/fistula Proposed Procedure: Operation Date: 09/23/21 12:50 Proposed Procedures p Cystoscopy 21861 N13.30 N13.5(Not Applicable) - Casper Ochoa MD s Ureteral Stent Exchange(Right) - Casper Ochoa MD Was Beta Manuel taken within 24 hours: Yes Last intake: Intake Last Liquid Date 09/23/21 Last Liquid Time 08:00 Last Solid Date 09/22/21 Last Solid Time 19:00 Exam: Pre-Anes Outpt Exam: alert, oriented x 3, clear to auscultation bilaterally and regular rate & rhythm Airway: Submandibular: WNL Cervical ROM: WNL MP: 2 History/ROS: No significant history except as noted and No significant complaints Pulmonary: Comments: Chronic bronchitis CV/HEM: CV/HEM: HTN : : Chronic renal Insufficiency Hepatic: Hepatic: Hepatitis GI: GI: None reported Metabolic: Metabolic: Thyroid Musc/skel: Musc/skel: None reported Neuropsych: Neuropsych: None reported Anesthetic Plan: ASA status: 3 Anesthesia: Anesthesia Evaluation and General Risk of > 500 ml blood loss (7ml/kg in children): No PFSH Anesthesia PFSH: Medical History Cervical cancer Chronic hepatitis C COPD (chronic obstructive pulmonary disease) Depression with anxiety Hypertension Hypothyroidism Port-A-Cath in place Rectal Pain Recurrent UTI Seasonal allergies Surgical History H/O dilation and curettage Done for one of the miscarriages. H/O laparoscopy with removal of scar tissue in the 1980s per patient. History of cholecystectomy (~08/2018) History of colonoscopy with polypectomy (~2017) Family History Mother Hypertension Breast cancer Cervical cancer Father Hypertension Diabetes Grandfather Chronic kidney disease (CKD) Maternal grandfather Heart disease Maternal grandfather Grandmother Chronic kidney disease (CKD) Maternal grandmother Heart disease Maternal grandmother Stroke Maternal grandmother Father No problems noted. Family/Other Breast cancer Maternal aunt Cervical cancer Maternal aunt x4 Other Thyroid disease Denies family history of Colon cancer Ovarian cancer Anesthesia complication Bleeding disorder Uterine cancer Social History Smoking and tobacco status: current some day smoker cigarettes Packs smoked per day: 0.25 Years cigarettes smoked: 40 [ Other cigarette details: quit 2018 x yr, restarted 2019 ] Second hand smoke exposure: Yes Alcohol intake: never Caregiver/support person: Yes Lives independently: Yes Household members: spouse Marital status: service: No Current occupational status: retired History of recent travel: No Current gender identity: Female Special tiffany needs: No Additional social history: - Tobacco use: Current smoker; Alcohol use: Denies Drug use: Denies Data Anesthesia Cardiac Studies: No Data to Display
--- NOTE | 2021-09-23 13:45 | P.HPUD_ITS ---
Surgery/Procedure H&P Update DATE OF PROCEDURE: September 23, 2021 DATE H&P PERFORMED: 09/20/21 H&P UPDATE INFORMATION: I have reviewed H&P completed within last 30 days, I have examined patient prior to procedure, No changes to prior documentation and H&P is in [facility] EMR on date indicated CHANGES TO PREVIOUS DOCUMENTATION: We again reviewed her alternatives to indwelling stent long-term. Discussed urinary diversion versus ureteroureterostomy in the kind of tertiary facility that would be required to consider that as well. PREOP DIAGNOSIS: Right ureteral obstruction/ureterovaginal-fistula PLANNED PROCEDURE: Operation Date: 09/23/21 12:50 Proposed Procedures p Cystoscopy 07575 N13.30 N13.5(Not Applicable) - Casper Ochoa MD s Ureteral Stent Exchange(Right) - Casper Ochoa MD
[2021-09-23] MEDS: levofloxacin-dextrose 5 % 500 MG/100 ML PREMIX 100 MG IV (13:49)
--- NOTE | 2021-09-23 14:15 | PM.OP ---
Operative Report Date of procedure: September 23, 2021 Pre-op Diagnosis: Right ureteral obstruction/ureterovaginal-fistula Post-op diagnosis: same Procedure Done: 1. Cystoscopy, RIGHT: Ureteral stent exchange (7 Malawian by 24 cm double-pigtail without string) Specimens removed/disposition: Right ureteral extent for exchange Pathology: none sent Surgeon: Don Anesthesia: General Complications: None Findings: Minimal encrustation on the stent. The very distal aspect of the stent was cut due to occlusion but that occlusion did not extend beyond about a centimeter. Wire was easily advanced up the stent after the distal aspect withdrawn through the urethral meatus and then divided. 7 [place]ian by 24 cm double-pigtail stent without string was replaced Condition: stable Disposition: PACU Brief History: Mrs. 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 Fistula eroded into the vagina. Has been managed with indwelling stent but still has a difficult time as expected from severe incontinence. The right kidney was recently visualized on CT scan to be doing well from the perspective of obstruction. I have recommended previously that she consider consultation with tertiary center for possible reconstructive options including urinary diversion or potentially right ureteroureterostomy. She has been reluctant to consider that mostly for logistics reasons. We had a long discussion today about other options that she had come up with including repair but given the findings of the large rent in the vagina and large amount of stent exposed through that vaginal fistula was felt that reparative reconstruction in an irradiated field would not be a likely viable option. Certainly though that could be discussed with tertiary facility. Procedure: After routine preoperative evaluation examination and obtaining of informed consent she was taken to the operating suite on 09/23/2021 where general anesthesia was administered without difficulty after appropriate timeout was performed, SCDs confirmed to be functioning, preoperative antibiotics administered, beta-zakia protocol confirmed. Prepped and draped in the usual sterile fashion in dorsolithotomy position paying careful attention to avoiding pressure points. 21 Malawian cystoscope with 30 degree lens was introduced into the urethral meatus and advanced into the bladder without difficulty. The bladder showed some chronic contraction from radiation treatment but no other gross pathology. The stent was easily visualized and had some but not much encrustation on it. The stent was grasped with grasping forceps and pulled through the urethral meatus. The very distal aspect was occluded with encrustation and it was divided with scissors and the lumen was easily identified at that point and not encrusted. A flexible tip guidewire was then passed up the stent easily with easy uncurling of the stent and the stent was removed over the guidewire after the wire was confirmed to be in the area of the renal pelvis. Cystoscope was then backloaded over the guidewire and a 24 cm x 7 Malawian stent was easily passed. No string Bladder was drained and the procedure was completed. She tolerated the procedure well without complications and was awakened in the operating room and returned to the recovery room in stable condition. PLANS: 1. Anticipate discharge from outpatient surgery 2. Encouraged her again to think about consultation for at least hearing her options for potential reconstructive surgery (ureteroureterostomy) or urinary diversion. She is to call if she wants to pursue that avenue. Reviewed that she is at risk for infectious complications with this exposed access to her right ureter from the vaginal fistula. She expressed good understanding regarding that. 3. Follow-up in about 4 months with [facility]
--- NOTE | 2021-09-23 14:32 | ANE.PACU2 ---
Inpatient post-anesthesia follow up: Airway intact: Yes Vital signs: Temperature Pulse Rate Respiratory Rate Blood Pressure Pulse Oximetry Oxygen Delivery Me thod Room Air Oxygen Flow Rate Fraction of Inspir ed Oxygen Hydration adequate: Yes Nausea and vomiting: No Pain level: 2 Mental status: Baseline
[2021-09-23 14:50] VITALS: BP 154/67; PULSE 56; RESP 18; TEMP 36.1; O2SAT 99
[2021-09-23 15:10] VITALS: BP 144/90; PULSE 55; RESP 18; O2SAT 98
== END 2021-09-23 15:20 | disposition home or self-care (01) ==
PROVIDERS: PCP Family Medicine; Visit Provider Urology
PROC: 0TJB8ZZ Inspection of Bladder, Via Natural or Artificial Opening Endoscopic (ICD-10-PCS; CPT 52000; principal; 2021-09-23 12:40)
PROC: (CPT 52332; 2021-09-23 12:40)
DX: N20.1 Calculus of ureter (principal); N13.30 Unspecified hydronephrosis; N13.5 Crossing vessel and stricture of ureter without hydronephrosis; N82.1 Other female urinary-genital tract fistulae; I10 Essential (primary) hypertension; Z85.41 Personal history of malignant neoplasm of cervix uteri; Z86.19 Personal history of other infectious and parasitic diseases; E03.9 Hypothyroidism, unspecified; Z82.49 Family history of ischemic heart disease and other diseases of the circulatory system; Z83.3 Family history of diabetes mellitus; Z80.8 Family history of malignant neoplasm of other organs or systems; F17.210 Nicotine dependence, cigarettes, uncomplicated
CPT/HCPCS: 52332; 76000; 96365; C2625; J1100; J1956; J2405; J2704; J3010

== ENCOUNTER 2021-09-30 11:05 | Outpatient (CLI) | payer MEDICARE, SELFPAY ==
[2021-09-30 12:07] LABS: Basophils % 0.9 %; Eosinophils # 0.1 10^3/uL (0.0-0.8); Eosinophils % 2.8 %; Hemoglobin 11.9 g/dL (11.5-15.3); Lymphocytes # 1.3 10^3/uL (0.8-4.8); Lymphocytes % 30.4 %; Mean Corpuscular HGB Conc 32.2 g/dL (30.0-36.0); Mean Corpuscular Hemoglobin 29.2 pg (28.0-34.0); Mean Corpuscular Volume 90.9 fl (81-99); Mean Platelet Volume 9.6 fL (7.4-10.4); Monocytes # 0.5 10^3/uL (0.2-0.9); Neutrophils # 2.34 10^3/uL (1.8-7.7); Neutrophils % 54.7 %; Nucleated Red Blood Cells % 0 %; Platelet Count 174 10^3/cmm (130-400); Red Blood Count 4.07 10^6/uL (4.1-5.3); Red Cell Distribution Width 17.5 % (12.1-15.1); White Blood Count 4.3 10^3/uL (4.0-10.0)
[2021-09-30 12:31] LABS: Alanine Aminotransferase 11 U/L (0-33); Albumin Level 3.6 g/dL (3.5-5.2); Alkaline Phosphatase 88 IU/L (35-105); Anion Gap 11.5 (5-19); Aspartate Amino Transferase 16 U/L (0-32); Blood Urea Nitrogen 13 mg/dL (8-23); Calcium 8.5 mg/dL (8.5-10.5); Carbon Dioxide 27 mmol/L (22-29); Chloride 106 mmol/L (98-107); Glomerular Filtration Rate 62.3 mL/min (90-130); Glucose 83 mg/dL (65-115); Iron 49 ug/dL (37-145); Osmolality Calculated 289 mOsm/kg (285-295); Percent Saturation 22.2 % (20-50); Potassium 4.5 mmol/L (3.5-5.1); Sodium 140 mmol/L (136-145); Thyroid Stimulating Hormone 1.35 uIU/mL (0.27-4.20); Total Bilirubin 0.2 mg/dL (0.15-1.2); Total Iron Binding Capacity 220 mcg/dl; Total Protein 7.6 g/dL (6.6-8.7); Unsaturated Iron Binding 171 ug/dL (112-347)
[2021-09-30 13:21] LABS: Urine Appearance Clear (CLEAR); Urine Color Straw (Yellow); pH Urine 7 (5-7)
[2021-09-30 13:22] LABS: Add Urine Microscopic? YES; Bacteria Urine TRACE /hpf; Bilirubin Urine Neg (Negative); Blood Urine Neg (Negative); Glucose Urine UA Norm (Normal); Ketones Urine Negative (Negative); Leukocyte Esterase Urine Trace (Negative); Nitrate Urine Negative (Negative); Protein Urine Neg (Negative); RBC Urine RARE /hpf (0-2); Squamous Epithelial Cell Urine 0-4 /hpf (0-5); Urobilinogen Urine Norm (Negative); WBC Urine 0-4 /hpf (0-5)
--- NOTE | 2021-09-30 20:10 | ONC FU_ITS ---
Dr. Warner Patient Follow-Up Note Patient: Dionne Fitzgerald Unit #: [id number]: [id number] Dicatated By: Homar Warner M.D.Date of Visit:Sep 30, 2021 Onc Med Follow-up/Prog Note Chief Complaint: Cervical cancer. 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 By clinical evaluation her stage was at least IB2 (T1b2, N0, M0) at initial diagnosis in July 2019. She had presented with a 3-month history of intermittent vaginal bleeding. Her transvaginal ultrasound on 07/05/2019 showed marked thickening and decreased echogenicity and hypervascularity throughout the cervix. It was noted to be lobulated and enlarged, consistent with cervical carcinoma. The cervix appeared grossly abnormal on exam. Pap smear was attempted at that time was problematic due to the increased bleeding. Biopsy, though, did show undifferentiated carcinoma. She was referred to Dr. Zamorano in [place]. Her staging MRI of the pelvis on 07/21/2019 showed cervical mass which was noted to be possibly going into the uterus in its inferior anterior aspect. There was local surrounding enhancement suggestive of local infiltration and there was an enlarged iliac chain lymph node on the right side. Staging PET/CT on 07/22/2019 showed primary tumor mass involving the cervix with evidence of local spread to a right common iliac lymph node. Subcentimeter pulmonary nodules were FDG negative and nonspecific, but metastatic disease was not excluded. There was no other evidence of metastatic involvement. On 07/25/2019 she underwent exam under anesthesia and placement of Port-A-Cath venous access device. A repeat cervical biopsy at that time showed invasive poorly differentiated squamous cell carcinoma. She was recommended to undergo primary chemoradiation utilizing weekly cisplatin for chemosensitization. She began her radiation concurrently with weekly cisplatin on 08/10/2019. She completed the radiation on 09/22/2019 to a total dose of 6000 cGy. She tolerated the treatment pretty well, though her 6th weekly cisplatin infusion was held due to neutropenia and fatigue. She then underwent LDR brachytherapy with Ce-137 implants on 10/18/2019 and again on 10/31/2019. She tolerated it well. Restaging CT of the abdomen/pelvis on 12/08/2019 showed a low-attenuation 9 mm lesion in the fundal myometrium, felt to possibly represent a small fibroid. There was moderate diffuse uterine myometrium enhancement which was felt to be likely due to therapy related changes. There was no evidence of metastatic disease in the abdomen or pelvis. On 12/23/2019 she began cycle 1 of postoperative adjuvant chemotherapy with cisplatin/paclitaxel in combination with Avastin. She unfortunately experienced neuropathy and other side effects it, severe enough that I did not think she would tolerate further treatment with that regimen. Following subsequent discussions with Dr. Zamorano, she was recommended to continue adjuvant chemotherapy with carboplatin and gemcitabine in combination with Avastin. However, at her follow-up visit on 03/14/2020 she was complaining of severe rectal pain. She also had a significant decline in her renal function. Her renal ultrasound was normal. A CT of the pelvis showed a small amount of air along the cervical and vaginal regions, felt to be possibly related to her recent radiation therapy. There was no evidence for recurrent adenopathy, abscess collection, or other pathology in the pelvis. She was referred to Dr. Ortega. She underwent attempted flexible sigmoidoscopy on 04/11/2020. The scope was not able to be transversed beyond the rectosigmoid region due to a narrowing lesion. Barium enema on 04/12/2020 showed mild narrowing of the sigmoid region due to overlapping loops of colon. There was no persistent high-grade stricture. It was a limited exam due to her inability to retain the barium mixture. She then began cycle 1 of carboplatin/gemcitabine in combination with Avastin on 04/26/2020. She tolerated the initial treatment without acute toxicity. At day 8 she had moderately severe neutropenia, ANC 600. She was not febrile. She recovered uneventfully with Neupogen. She continued with cycle 2 on 05/21/2020. She was given a dose reduction and she also was given Neulasta prophylactically. She tolerated it with acceptable toxicity, and she continue with cycle 3 on 06/11/2020. She tolerated with acceptable toxicity, though she still had moderately severe anemia. She was able to continue with cycle 4 on 07/03/2020 and with cycle 5 on 07/31/2020. During that time she did have to her Port-A-Cath replaced due to malfunction. At her follow-up visit on 08/21/2020 I opted to put her further chemotherapy on hold, as she was having persistent bladder symptoms with associated pyuria and she also was showing decline in performance status. Her CT abdomen/pelvis on 08/28/2020 showed moderate right hydronephrosis with ureterectasis, new compared to previous studies. There appeared to be tethering of the right ureter in the right adnexa, thought to be most likely obstructed at that level due to adhesions or fibrosis. She was then seen by Dr. Ochoa and she underwent cystoscopy with ureteral stent placement on 09/10/2020. 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 There was extension of the fistula into the upper portion of the cervix on the right and the upper vaginal canal on the left. Stool, air, and fluid were noted within the vaginal canal. There was interval placement of right double-J ureteral stent with significant improvement in the right hydronephrosis. There is diffuse, mild wall thickening of the bladder. A left lower lobe lung nodule appeared stable. With those findings, arrangements were made for admission to [facility] and on 10/15/2020 underwent exam under anesthesia, cervical biopsy, diagnostic laparoscopy and exploratory laparotomy with placement of and sigmoid colostomy. 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 It had somewhat of a nodular, suspicious appearance, but the biopsies were negative at laparoscopy the cul-de-sac was noted to be obliterated by adhesions to the rectosigmoid colon, and the procedure was converted to laparotomy. There was no gross evidence of metastatic disease. She had a follow-up CT abdomen/pelvis on 11/09/2020. There is persistent collection containing fluid and air in the cul-de-sac which appeared more organized compared to the September 2020 study. The overall inflammatory process was noted to have decreased. A small residual abscess in the cul-de-sac was not excluded. Air was noted in the urinary bladder. A right ureteral stent remained in place with no hydronephrosis. With those findings, she was then followed expectantly for the cervical cancer. She continued followup with Dr. Ochoa for management of the ureteral stent. Her other medical illnesses include hypertension, hypothyroidism, COPD, and vitamin D deficiency. She has a history of treated hepatitis C. She also has a history of colonic polyps. She has a history of smoking 1 pack of cigarettes daily for approximately 20 years. She has quit. INTERIM HISTORY: On 05/09/2021 she underwent cystoscopy and replacement of the ureteral stent. She apparently had been having significant hematuria. She also had become more anemic, requiring oral iron supplementation. As of her follow-up visit on 06/10/2021 she remains significantly anemic despite the oral iron supplementation, hemoglobin 9.2 g. She was then given parenteral iron replacement with 2 infusions of Injectafer, which she tolerated well. She had a good response with hemoglobin increased to 13.3 grams on repeat CBC in July 2021. Surveillance CT scans of the chest, abdomen, and pelvis on 08/14/2021 showed improvement in the induration and fluid associated with the vaginal fistula, there was also improved induration about the rectum and sigmoid colon. There was mild right hydronephrosis with ureteral stent in place. There was noted to be striated nephrograms, suspicious for urinary tract infection. Hepatomegaly and splenomegaly appeared stable. There were tiny pulmonary nodules noted in the upper lobes bilaterally and in the left lower lobe, for which 6-month follow-up was recommended. There was no other evidence of metastatic disease. She subsequently required treatment for E. coli urinary tract infection. A follow-up urine culture on 09/16/2021 grew multiple organisms including Enterococcus faecalis VRE, Streptococcus viridans, and a corynebacterium species. She is seen for a follow-up visit. She says her energy is just so-so. She complains that she is tired a lot, but she is able to do some light work. ECOG score is 1. She has gained weight, though she has not been eating a lot. She was having low-grade fever for several weeks, but she has had none for at least the past week. She does report having chills frequently. She has been having sinus congestion off and on. She has not had sore mouth or throat. She does complain of cough, but she has not been having shortness of breath or chest pain. She sometimes has nausea. Bowel function has been adequate with the ostomy, though inconsistent. She has bladder incontinence. She has no significant joint or bone pain. She does not complain of headache. She does have some dizziness. Her description is consistent with positional vertigo. She has numbness in both hands and feet, worse in her hands. Medications: Levothyroxine Sodium 1 Tablet (of 75 mcg) Oral daily, Metoprolol Tartrate 1 Tablet (of 25 mg) Oral daily Allergies: Gabapentin and Lyrica. Vital Signs: Performed on Sep 30, 2021 16:15 Height - 67.00 in Weight - 150.0 lbs (HIGH) BSA - 1.79 sq.m BMI - 23.49 Temperature - 98.6 F Pulse - 61 /min Respiration - 16 /min BP - 138/74 mm(hg) O2 Sat - 98 % Pain - 0 Fatigue - 2 Physical Examination: Constitutional - She looks pretty good generally, Eyes - Sclerae nonicteric. Conjunctivae clear, ENMT - No lesions noted in the oral cavity, Hematologic/Lymphatic - No cervical, clavicular, or axillary adenopathy, Respiratory - Lungs sound clear, Cardiovascular - Heart rhythm is regular. There is no murmur, gallop, or rub noted, Abdomen - Soft. Liver and spleen are not enlarged. There is no abdominal mass or ascites noted and there is no inguinal adenopathy, Extremities - No edema, Neurologic - No focal neurologic deficits noted. Lab/Imaging: Test performed on Sep 30, 2021 11:48 Iron 49 mcg/dL Sodium 140 mmol/L TSH 1.35 uIU/mL Iron Binding Capacity (TIBC) 220 mcg/dl Potassium 4.5 mmol/L % Iron Saturation 22.2 % Chloride 106 mmol/L CO2 27 mmol/L UIBC 171 mcg/dL Anion Gap 11.5 BUN 13 mg/dL Creatinine 0.9 mg/dL Cr Clearance (Est) 64.26 mL/min eGFR 62.3 mL/min Glucose 83 mg/dL Osmolality - Calculated 289 mOsm/kg Calcium 8.5 mg/dL Protein, Total 7.6 g/dL Albumin 3.6 g/dL Globulin 4.0 g/dL Bilirubin, Total 0.2 mg/dL ALT (SGPT) 11 U/L AST (SGOT) 16 U/L Alkaline Phosphatase 88 IU/L WBC 4.3 10 3/uL RBC 4.07 10 6/uL HGB 11.9 g/dL HCT 37.0 % MCV 90.9 fl MCH 29.2 pg MCHC 32.2 g/dL RDW 17.5 % Platelet Count 174 10 3/cmm MPV 9.6 fL Neutrophils 2.34 10 3/uL Lymphocytes 1.3 10 3/uL Monocytes 0.5 10 3/uL Eosinophils 0.1 10 3/uL Basophils 0.0 10 3/uL Neutrophil % 54.7 % Lymphocyte % 30.4 % Monocyte % 11.0 % Eosinophil % 2.8 % Basophils % 0.9 % NRBC % 0 % Problem List: 1. Invasive poorly differentiated squamous cell carcinoma of the cervix. By clinical evaluation her disease appeared to be at least stage IB2 (T1b2, N1, M0) at initial diagnosis in June 2019. 2. She also had evidence of iron deficiency anemia. 3. Hypertension. 4. Hypothyroidism. 5. COPD. 6. She has a history of treated hepatitis C. 7. Vitamin D deficiency. 8. She has a history of colonic polyps. Problems Addressed with this Encounter and Plan: 1. 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 By clinical evaluation her disease appeared to be at least stage IB2 (T1b2, N1, M0) at intial diagnosis in June 2019. She underwent primary chemoradiation utilizing weekly cisplatin chemotherapy. Her treatment began on 08/10/2019. She completed radiation on 09/22/2019 to a total dose of 6000 cGy. Her 6th weekly cisplatin infusion was held due to neutropenia and fatigue. She then underwent LDR brachytherapy with Ce-137 implants on 10/18/2019 and on 10/31/2019. Overall, she tolerated the treatment well. Restaging CT of the abdomen/pelvis on 12/08/2019 showed a low-attenuation 9 mm lesion in the fundal myometrium, felt to possibly represent a small fibroid. There was moderate diffuse uterine myometrium enhancement which was felt to be likely due to therapy related changes. There was no evidence of metastatic disease in the abdomen or pelvis. On 12/23/2019 she began cycle 1 of postoperative adjuvant chemotherapy with cisplatin/paclitaxel in combination with Avastin. She developed multiple toxicities following that treatment, the most significant being severe fatigue and neuropathy. She had gradual recovery which was complicated by rectal pain and by a decline in her renal function. A specific cause was not determined, but it subsequently resolved. On 04/26/2020 she began further adjuvant chemotherapy with carboplatin/gemcitabine in combination with Avastin. She had moderately severe neutropenia at day 8, but she recovered uneventfully with Neupogen. Cycles 2 and 3 were administered with a dose reduction and with Neulasta prophylactically. She was able to tolerate treatment with acceptable toxicity, though she had persistent, moderately severe anemia and fatigue. She was able to continue with cycle 4 on 07/03/2020 and with cycle 5 on 07/31/2020. At her follow-up visit on 08/21/2020 she was having significant bladder symptoms with persistent pyuria and she also had a decline in performance status. Her chemotherapy was put on hold. Repeat CT abdomen/pelvis showed new right hydronephrosis. She was seen by Dr. Ochoa, and she underwent placement of ureteral stent on 09/10/2020. Her repeat CT abdomen/pelvis on 10/09/2020 showed findings consistent with colo-colic fistula with extension of the fistula into the upper portion of the cervix on the right in the upper vaginal canal on the left. There was improvement in the hydronephrosis with ureteral stent placement. With that finding she was admitted to [facility]. On 10/15/2020 she underwent exam under anesthesia, cervical biopsy, diagnostic laparoscopy and exploratory laparotomy with placement of and sigmoid colostomy. As there was no evidence of malignancy, it was presumed to be secondary to radiation. She has continued expectant management for the cervical cancer following completion of the chemotherapy. Thus far during follow-up there has been no evidence of recurrence of the cervical cancer. I will see her again with restaging CT scans in 3 months. 2. She required placement of ureteral stent for hydronephrosis. It is being managed by Dr. Ochoa. She has had ongoing problems with hematuria and she also has had bladder incontinence. She was recommended to proceed with a urinary diversion procedure, but she has been very reluctant to have any additional surgery. She has been having recurrent urinary tract infections, and a current urine culture is pending. 3. During follow-up she continued to have iron deficiency anemia despite oral iron supplementation. In June she was given parenteral iron replacement with 2 infusions of Injectafer. She tolerated it well, and she had a very good clinical response. Signed By: Homar Warner M.D. <<Signature on File>>
== END 2021-09-30 11:06 | disposition home or self-care (01) ==
PROVIDERS: PCP Family Medicine; Visit Provider Internal Medicine Medical Oncology
DX: Z08 Encounter for follow-up examination after completed treatment for malignant neoplasm (principal); Z85.41 Personal history of malignant neoplasm of cervix uteri; D50.9 Iron deficiency anemia, unspecified; I10 Essential (primary) hypertension; E03.9 Hypothyroidism, unspecified; J44.9 Chronic obstructive pulmonary disease, unspecified; E55.9 Vitamin D deficiency, unspecified; Z86.19 Personal history of other infectious and parasitic diseases; Z86.010 Personal history of colon polyps; Z92.21 Personal history of antineoplastic chemotherapy; Z92.3 Personal history of irradiation; Z79.899 Other long term (current) drug therapy
CPT/HCPCS: 36415; 80053; 81001; 83540; 83550; 84443; 85025; 99214

== ENCOUNTER → 2021-10-16 09:55 | Outpatient (BNVA) | payer MEDICARE, SELFPAY | PROVIDERS: PCP Family Medicine; Visit Provider Family Medicine | DX: C53.9 Malignant neoplasm of cervix uteri, unspecified (principal); D70.1 Agranulocytosis secondary to cancer chemotherapy; T45.1X5A Adverse effect of antineoplastic and immunosuppressive drugs, initial encounter; C53.8 Malignant neoplasm of overlapping sites of cervix uteri; Z20.822 Contact with and (suspected) exposure to COVID-19 | CPT/HCPCS: 81003; 87077; 87086; 87184; 87635 ==

== ENCOUNTER → 2021-11-07 12:09 | Outpatient (BNVA) | payer MEDICARE, SELFPAY | PROVIDERS: PCP Family Medicine; Visit Provider Family Medicine | DX: R30.0 Dysuria (principal) | CPT/HCPCS: 81003; 87086 ==

== ENCOUNTER 2022-01-06 09:12 | Outpatient (CLI) | payer MEDICARE, SELFPAY ==
[2022-01-06 09:48] LABS: Basophils % 0.7 %; Eosinophils # 0.1 10^3/uL (0.0-0.8); Eosinophils % 3.4 %; Hematocrit 39.8 % (37.0-47.0); Hemoglobin 12.5 g/dL (11.5-15.3); Lymphocytes # 1.6 10^3/uL (0.8-4.8); Lymphocytes % 38.5 %; Mean Corpuscular HGB Conc 31.4 g/dL (30.0-36.0); Mean Corpuscular Volume 95.7 fl (81-99); Monocytes # 0.3 10^3/uL (0.2-0.9); Monocytes % 7.4 %; Neutrophils # 2.03 10^3/uL (1.8-7.7); Neutrophils % 49.8 %; Nucleated Red Blood Cells % 0 %; Platelet Count 144 10^3/cmm (130-400); Red Blood Count 4.16 10^6/uL (4.1-5.3); Red Cell Distribution Width 13.9 % (12.1-15.1); White Blood Count 4.1 10^3/uL (4.0-10.0)
[2022-01-06 10:06] LABS: Alanine Aminotransferase 7 U/L (0-33); Albumin Level 4.1 g/dL (3.5-5.2); Alkaline Phosphatase 107 IU/L (35-105); Anion Gap 13.4 (5-19); Aspartate Amino Transferase 15 U/L (0-32); Blood Urea Nitrogen 15 mg/dL (8-23); Calcium 9.5 mg/dL (8.5-10.5); Carbon Dioxide 22 mmol/L (22-29); Chloride 110 mmol/L (98-107); Globulin 4.3 g/dL (1.3-4.6); Glomerular Filtration Rate 62.3 mL/min (90-130); Glucose 86 mg/dL (65-115); Iron 79 ug/dL (37-145); Osmolality Calculated 292 mOsm/kg (285-295); Percent Saturation 32.7 % (20-50); Potassium 4.4 mmol/L (3.5-5.1); Sodium 141 mmol/L (136-145); Total Bilirubin 0.2 mg/dL (0.15-1.2); Total Iron Binding Capacity 241 mcg/dl; Total Protein 8.4 g/dL (6.6-8.7); Unsaturated Iron Binding 162 ug/dL (112-347)
== END 2022-01-06 09:13 | disposition home or self-care (01) ==
PROVIDERS: PCP Family Medicine; Visit Provider Internal Medicine Medical Oncology
DX: D50.9 Iron deficiency anemia, unspecified (principal); C53.8 Malignant neoplasm of overlapping sites of cervix uteri; Z90.49 Acquired absence of other specified parts of digestive tract
CPT/HCPCS: 36415; 71260; 74177; 80053; 83540; 83550; 85025

== ENCOUNTER 2022-01-06 09:45 | Outpatient (CLI) | payer MEDICARE, SELFPAY ==
--- NOTE | 2022-01-06 10:39 | CT_ITS ---
WS: [id number] CT CHEST, ABDOMEN AND PELVIS WITH CONTRAST. HISTORY: CERVICAL CANCER TECHNIQUE: Contiguous 5 mm axial imaging performed through the chest, abdomen and pelvis with IV cont rast, oral contrast has been provided. Coronal and sagittal reformats chest. Coronal and sagittal ref ormats through the abdomen and pelvis. All CT scans at [facility] use at least one of these d ose optimization techniques: automated exposure control; mA and/or kV adjustment per patient size (in cludes targeted exams where dose is matched to clinical indication); or iterative reconstruction. CONTRAST: Omnipaque 300; 95 mL IV. DLP: 1563.15 mGy.cm COMPARISON: 08/14/2021 and 11/09/[address]: No pulmonary mass or nodule. No pericardial or pleural effusions. Normal size aortic and pu lmonary artery. No mediastinal or hilar adenopathy. Small hiatal hernia. Abdomen CT: Normal size liver and spleen. Prior cholecystectomy. No hepatic mass. No bile duct dilata tion. Pancreatic duct and the common bile duct are normal sizes. No adrenal mass. Double pigtail RIGH T ureteral stent remains in position. There is continued mild fluid distention of the renal pelvis an d the calyces and mild enhancement of the central pelvis. There is mild diffuse thickening of the RIG HT ureter but no obstruction is evident. Very similar to the prior study. Very mild RIGHT perinephric stranding. LEFT kidney is negative. LEFT lower quadrant ostomy site. No GI tract obstruction. Pelvic CT: In the pelvis there is air adjacent to the distal RIGHT ureter and ureteral stent. This ai r collection tracks toward the vagina. This collection of air is new since the prior study. The urina ry bladder is collapsed. There is a small amount of soft tissue stranding in the pelvis, slightly gre ater on the RIGHT. Mild presacral soft tissue thickening. No destructive osseous abnormality is identified. Mild increase in the thoracic kyphosis. CT/CT chest abd pel w con* IMPRESSION: 1. New air tracking, inseparable from the distal RIGHT ureter extending into t he vagina. Suspicious for communication consistent with a fistula between the v agina and distal RIGHT ureter should be considered. There is still a RIGHT uret eral stent in position and this air tracks across the stent. This was not ident ified on the prior study. 2. Continued mild presacral soft tissue thickening and distal RIGHT periureter al thickening since the prior study. 3. Continued mild soft tissue thickening and hydronephrosis of the RIGHT renal pelvis similar to prior studies. 4. No adenopathy. 5. LEFT lower quadrant ostomy. 6. Prior cholecystectomy.
[2022-01-06] MEDS: iohexol 300 mg/mL 100 mL Btl IV (11:53)
[2022-01-06] MEDS: iohexol 300 mg/mL 50 mL Btl PO (11:54)
== END 2022-01-06 09:46 | disposition home or self-care (01) ==
LOC: RAD 09:46
PROVIDERS: PCP Family Medicine; Visit Provider Internal Medicine Medical Oncology
DX: C53.8 Malignant neoplasm of overlapping sites of cervix uteri (principal); Z90.49 Acquired absence of other specified parts of digestive tract
CPT/HCPCS: 71260; 74177

== ENCOUNTER 2022-01-07 07:29 | Outpatient (CLI) | payer MEDICARE, SELFPAY ==
--- NOTE | 2022-01-07 19:33 | ONC FU_ITS ---
Dr. Warner Patient Follow-Up Note Patient: Dionne Fitzgerald Unit #: [id number]: [id number] Dicatated By: Homar Warner M.D.Date of Visit:Jan 07, 2022 Onc Med Follow-up/Prog Note Chief Complaint: Cervical cancer. 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 By clinical evaluation her stage was at least IB2 (T1b2, N0, M0) at initial diagnosis in July 2019. She had presented with a 3-month history of intermittent vaginal bleeding. Her transvaginal ultrasound on 07/05/2019 showed marked thickening and decreased echogenicity and hypervascularity throughout the cervix. It was noted to be lobulated and enlarged, consistent with cervical carcinoma. The cervix appeared grossly abnormal on exam. Pap smear was attempted at that time was problematic due to the increased bleeding. Biopsy, though, did show undifferentiated carcinoma. She was referred to Dr. Zamorano in [place]. Her staging MRI of the pelvis on 07/21/2019 showed cervical mass which was noted to be possibly going into the uterus in its inferior anterior aspect. There was local surrounding enhancement suggestive of local infiltration and there was an enlarged iliac chain lymph node on the right side. Staging PET/CT on 07/22/2019 showed primary tumor mass involving the cervix with evidence of local spread to a right common iliac lymph node. Subcentimeter pulmonary nodules were FDG negative and nonspecific, but metastatic disease was not excluded. There was no other evidence of metastatic involvement. On 07/25/2019 she underwent exam under anesthesia and placement of Port-A-Cath venous access device. A repeat cervical biopsy at that time showed invasive poorly differentiated squamous cell carcinoma. She was recommended to undergo primary chemoradiation utilizing weekly cisplatin for chemosensitization. She began her radiation concurrently with weekly cisplatin on 08/10/2019. She completed the radiation on 09/22/2019 to a total dose of 6000 cGy. She tolerated the treatment pretty well, though her 6th weekly cisplatin infusion was held due to neutropenia and fatigue. She then underwent LDR brachytherapy with Ce-137 implants on 10/18/2019 and again on 10/31/2019. She tolerated it well. Restaging CT of the abdomen/pelvis on 12/08/2019 showed a low-attenuation 9 mm lesion in the fundal myometrium, felt to possibly represent a small fibroid. There was moderate diffuse uterine myometrium enhancement which was felt to be likely due to therapy related changes. There was no evidence of metastatic disease in the abdomen or pelvis. On 12/23/2019 she began cycle 1 of postoperative adjuvant chemotherapy with cisplatin/paclitaxel in combination with Avastin. She unfortunately experienced neuropathy and other side effects it, severe enough that I did not think she would tolerate further treatment with that regimen. Following subsequent discussions with Dr. Zamorano, she was recommended to continue adjuvant chemotherapy with carboplatin and gemcitabine in combination with Avastin. However, at her follow-up visit on 03/14/2020 she was complaining of severe rectal pain. She also had a significant decline in her renal function. Her renal ultrasound was normal. A CT of the pelvis showed a small amount of air along the cervical and vaginal regions, felt to be possibly related to her recent radiation therapy. There was no evidence for recurrent adenopathy, abscess collection, or other pathology in the pelvis. She was referred to Dr. Ortega. She underwent attempted flexible sigmoidoscopy on 04/11/2020. The scope was not able to be transversed beyond the rectosigmoid region due to a narrowing lesion. Barium enema on 04/12/2020 showed mild narrowing of the sigmoid region due to overlapping loops of colon. There was no persistent high-grade stricture. It was a limited exam due to her inability to retain the barium mixture. She then began cycle 1 of carboplatin/gemcitabine in combination with Avastin on 04/26/2020. She tolerated the initial treatment without acute toxicity. At day 8 she had moderately severe neutropenia, ANC 600. She was not febrile. She recovered uneventfully with Neupogen. She continued with cycle 2 on 05/21/2020. She was given a dose reduction and she also was given Neulasta prophylactically. She tolerated it with acceptable toxicity, and she continue with cycle 3 on 06/11/2020. She tolerated with acceptable toxicity, though she still had moderately severe anemia. She was able to continue with cycle 4 on 07/03/2020 and with cycle 5 on 07/31/2020. During that time she did have to her Port-A-Cath replaced due to malfunction. At her follow-up visit on 08/21/2020 I opted to put her further chemotherapy on hold, as she was having persistent bladder symptoms with associated pyuria and she also was showing decline in performance status. Her CT abdomen/pelvis on 08/28/2020 showed moderate right hydronephrosis with ureterectasis, new compared to previous studies. There appeared to be tethering of the right ureter in the right adnexa, thought to be most likely obstructed at that level due to adhesions or fibrosis. She was then seen by Dr. Ochoa and she underwent cystoscopy with ureteral stent placement on 09/10/2020. 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 There was extension of the fistula into the upper portion of the cervix on the right and the upper vaginal canal on the left. Stool, air, and fluid were noted within the vaginal canal. There was interval placement of right double-J ureteral stent with significant improvement in the right hydronephrosis. There was diffuse, mild wall thickening of the bladder. A left lower lobe lung nodule appeared stable. With those findings, arrangements were made for admission to [facility] and on 10/15/2020 underwent exam under anesthesia, cervical biopsy, and diagnostic laparoscopy converted to exploratory laparotomy with placement of end sigmoid colostomy. 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 It had somewhat of a nodular, suspicious appearance, but the biopsies were negative. There was no gross evidence of metastatic disease. She had a follow-up CT abdomen/pelvis on 11/09/2020. There was persistent collection containing fluid and air in the cul-de-sac which appeared more organized compared to the September 2020 study. The overall inflammatory process was noted to have decreased. A small residual abscess in the cul-de-sac was not excluded. Air was noted in the urinary bladder. A right ureteral stent remained in place with no hydronephrosis. With those findings, she was then followed expectantly for the cervical cancer. She continued followup with Dr. Ochoa for management of the ureteral stent. On 05/09/2021 she underwent cystoscopy and replacement of the ureteral stent. She apparently had been having significant hematuria. She also had become more anemic, requiring oral iron supplementation. As of her follow-up visit on 06/10/2021 she remains significantly anemic despite the oral iron supplementation, hemoglobin 9.2 g. She was then given parenteral iron replacement with 2 infusions of Injectafer, which she tolerated well. She had a good response with hemoglobin increased to 13.3 grams on repeat CBC in July 2021. Surveillance CT scans of the chest, abdomen, and pelvis on 08/14/2021 showed improvement in the induration and fluid associated with the vaginal fistula, there was also improved induration about the rectum and sigmoid colon. There was mild right hydronephrosis with ureteral stent in place. There was noted to be striated nephrograms, suspicious for urinary tract infection. Hepatomegaly and splenomegaly appeared stable. There were tiny pulmonary nodules noted in the upper lobes bilaterally and in the left lower lobe, for which 6-month follow-up was recommended. There was no other evidence of metastatic disease. During subsequent follow-up she required treatment for E. coli urinary tract infection. A follow-up urine culture on 09/16/2021 grew multiple organisms including Enterococcus faecalis VRE, Streptococcus viridans, and a corynebacterium species. Her repeat urine culture on 10/16/2021 again grew Enterococcus faecalis VRE. It was, however, sensitive to ampicillin and it was treated with Augmentin. Her other medical illnesses include hypertension, hypothyroidism, COPD, and vitamin D deficiency. She has a history of treated hepatitis C. She also has a history of colonic polyps. She has a history of smoking 1 pack of cigarettes daily for approximately 20 years. She has quit. INTERIM HISTORY: Her surveillance CT scans of the chest, abdomen, and pelvis on 01/06/2022 showed no pulmonary mass or nodules and no mediastinal or hilar adenopathy. There was continued mild presacral soft tissue thickening and distal right periureteral thickening and there was continued mild soft tissue thickening of the right renal pelvis with Dr. cruz. There was new air tracking inseparable from the distal right ureter extending into the vagina, consistent with ureterovaginal fistula. A right ureteral stent was noted to be in position but with air tracking across the stent. There was no adenopathy or other evidence of metastatic disease noted in the abdomen/pelvis. She is seen for a follow-up visit. She says she has been feeling good generally other than she feels stressed. Her energy has been okay. She is doing light work. ECOG score is 1. Her appetite is good. She has continued to gain weight. She does not have fever or night sweats. She has not had sore mouth or throat. She does have cough, but her breathing has been okay. She is smoking just occasionally. She sometimes has chest pain, but that she attributes to acid reflux. She has no other GI complaints. Bowel function has been okay with the ostomy, though she does have bleeding occasionally around the edge of the ostomy. She continues to have pressure in her bladder area, and she continues to have bladder leakage a little at a time. She is not having any significant joint or bone pain, but she does report having muscle cramps in her legs. She does not complain of headache. She sometimes has dizziness and she sometimes has numbness/tingling. Medications: Levothyroxine Sodium 1 Tablet (of 75 mcg) Oral daily, Metoprolol Tartrate 1 Tablet (of 25 mg) Oral daily Allergies: Gabapentin and Lyrica. Vital Signs: Performed on Jan 07, 2022 08:25 Height - 67.00 in Weight - 159.8 lbs (HIGH) BSA - 1.84 sq.m BMI - 25.03 Temperature - 97.8 F (LOW) Pulse - 67 /min Respiration - 18 /min BP - 152/70 mm(hg) (HIGH) O2 Sat - 98 % Pain - 0 Fatigue - 1 Physical Examination: Constitutional - She looks pretty good generally, Eyes - Sclerae nonicteric. Conjunctivae clear, ENMT - No lesions noted in the oral cavity, Hematologic/Lymphatic - No cervical, clavicular, or axillary adenopathy, Respiratory - Lungs sound clear, Cardiovascular - Heart rhythm is regular. There is no murmur, gallop, or rub noted, Abdomen - Soft. Liver and spleen are not enlarged. There is no abdominal mass or ascites noted and there is no inguinal adenopathy, Extremities - No edema, Neurologic - No focal neurologic deficits noted. Lab/Imaging: CBC shows hemoglobin 12.5 g, white blood cell count 4100, and platelet count 144,000. Comprehensive metabolic profile shows normal renal function with BUN 15 and creatinine 0.9 mg/dL. Alkaline phosphatase is minimally elevated at 107/105 IU/L. The bilirubin and the other liver enzymes are normal. Problem List: 1. Invasive poorly differentiated squamous cell carcinoma of the cervix. By clinical evaluation her disease appeared to be at least stage IB2 (T1b2, N1, M0) at initial diagnosis in June 2019. 2. She also had evidence of iron deficiency anemia. 3. Hypertension. 4. Hypothyroidism. 5. COPD. 6. She has a history of treated hepatitis C. 7. Vitamin D deficiency. 8. She has a history of colonic polyps. Problems Addressed with this Encounter and Plan: 1. 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 By clinical evaluation her disease appeared to be at least stage IB2 (T1b2, N1, M0) at intial diagnosis in June 2019. She underwent primary chemoradiation utilizing weekly cisplatin chemotherapy. Her treatment began on 08/10/2019. She completed radiation on 09/22/2019 to a total dose of 6000 cGy. Her 6th weekly cisplatin infusion was held due to neutropenia and fatigue. She then underwent LDR brachytherapy with Ce-137 implants on 10/18/2019 and on 10/31/2019. Overall, she tolerated the treatment well. Restaging CT of the abdomen/pelvis on 12/08/2019 showed a low-attenuation 9 mm lesion in the fundal myometrium, felt to possibly represent a small fibroid. There was moderate diffuse uterine myometrium enhancement which was felt to be likely due to therapy related changes. There was no evidence of metastatic disease in the abdomen or pelvis. On 12/23/2019 she began cycle 1 of postoperative adjuvant chemotherapy with cisplatin/paclitaxel in combination with Avastin. She developed multiple toxicities following that treatment, the most significant being severe fatigue and neuropathy. She had gradual recovery which was complicated by rectal pain and by a decline in her renal function. A specific cause was not determined, but it subsequently resolved. On 04/26/2020 she began further adjuvant chemotherapy with carboplatin/gemcitabine in combination with Avastin. She had moderately severe neutropenia at day 8, but she recovered uneventfully with Neupogen. Cycles 2 and 3 were administered with a dose reduction and with Neulasta prophylactically. She was able to tolerate treatment with acceptable toxicity, though she had persistent, moderately severe anemia and fatigue. She was able to continue with cycle 4 on 07/03/2020 and with cycle 5 on 07/31/2020. At her follow-up visit on 08/21/2020 she was having significant bladder symptoms with persistent pyuria and she also had a decline in performance status. Her chemotherapy was put on hold. Repeat CT abdomen/pelvis showed new right hydronephrosis. She was seen by Dr. Ochoa, and she underwent placement of ureteral stent on 09/10/2020. Her repeat CT abdomen/pelvis on 10/09/2020 showed findings consistent with colo-colic fistula with extension of the fistula into the upper portion of the cervix on the right in the upper vaginal canal on the left. There was improvement in the hydronephrosis with ureteral stent placement. With that finding she was admitted to [facility]. On 10/15/2020 she underwent exam under anesthesia, cervical biopsy, diagnostic laparoscopy and exploratory laparotomy with placement of and sigmoid colostomy. As there was no evidence of malignancy, it was presumed to be secondary to radiation. She has continued expectant management for the cervical cancer following completion of the chemotherapy. Thus far during follow-up there has been no evidence of recurrence of the cervical cancer. I will tentatively plan a follow-up visit in 3 months. 2. She required placement of ureteral stent for hydronephrosis. It has been managed by Dr. Ochoa. She has had ongoing problems with bladder incontinence. and she has CT evidence of ureterovaginal fistula. She has been recommended to have surgery, but thus far she has put it off, in part due to transportation issues. However, she has had associated urinary tract infection, I will look into the possibility of arranging for transportation to [place] for further urologic evaluation. Signed By: Homar Warner M.D. <<Signature on File>>
== END 2022-01-07 07:30 | disposition home or self-care (01) ==
LOC: ONCMED 01-08 07:30
PROVIDERS: PCP Family Medicine; Visit Provider Internal Medicine Medical Oncology
DX: Z85.41 Personal history of malignant neoplasm of cervix uteri (principal); I10 Essential (primary) hypertension; E03.9 Hypothyroidism, unspecified; J44.9 Chronic obstructive pulmonary disease, unspecified; E55.9 Vitamin D deficiency, unspecified; N13.30 Unspecified hydronephrosis; R32 Unspecified urinary incontinence; N39.0 Urinary tract infection, site not specified; Z79.899 Other long term (current) drug therapy; Z92.21 Personal history of antineoplastic chemotherapy
CPT/HCPCS: 81001; 87086; 99214

== ENCOUNTER 2022-01-07 08:17 | Outpatient (CLI) | payer MEDICARE, SELFPAY ==
[2022-01-08 09:22] LABS: Protein Urine Neg (Negative); Specific Gravity, Urine 1.005 (1.005-1.030); Urine Appearance SL Hazy (CLEAR); Urine Color Straw (Yellow); pH Urine 6 (5-7)
[2022-01-08 09:23] LABS: Bilirubin Urine Neg (Negative); Blood Urine 2+ (Negative); Glucose Urine UA Norm (Normal); Ketones Urine Negative (Negative); Leukocyte Esterase Urine 2+ (Negative); Nitrate Urine Positive (Negative); Urobilinogen Urine Norm (Negative)
[2022-01-08 09:31] LABS: Add Urine Culture? No; Bacteria Urine 1+ /hpf; Mucus Urine TRACE /hpf; RBC Urine 0-4 /hpf (0-2); Squamous Epithelial Cell Urine 25-40 /hpf (0-5)
== END 2022-01-07 08:18 | disposition home or self-care (01) ==
PROVIDERS: PCP Family Medicine; Visit Provider Internal Medicine Medical Oncology
DX: N13.30 Unspecified hydronephrosis (principal); R32 Unspecified urinary incontinence; Z85.41 Personal history of malignant neoplasm of cervix uteri
CPT/HCPCS: 81001; 87086

== ENCOUNTER 2022-01-23 10:02 | Outpatient (CLI) | payer MEDICARE, SELFPAY ==
--- NOTE | 2022-01-23 10:00 | XR_ITS ---
WS: [id number] XR KUB [id number] REASON FOR EXAM: Hydronephrosis of Right Kidney FINDINGS: Right ureteral stent in essentially the same position as on the previous examination of 09/20/2021. No renal, ureteral, or bladder calculi are identified. No free air or retroperitoneal air. Ostomy site in the left lower quadrant. XR/XR KUB [id number] IMPRESSION: Unchanged right ureteral stent.
== END 2022-01-23 10:03 | disposition home or self-care (01) ==
LOC: RAD 10:03
PROVIDERS: PCP Family Medicine; Visit Provider Urology
DX: N13.30 Unspecified hydronephrosis (principal); Z96.0 Presence of urogenital implants
CPT/HCPCS: 74018

== ENCOUNTER 2022-01-27 06:35 | Day surgery (SDC) | payer MEDICARE, SELFPAY ==
[2022-01-24 15:06] VITALS: BMI 25.7
--- NOTE | 2022-01-27 | SCC_ITS ---
Procedure done: Cystoscopy, right ureteral stent exchange 12.2 seconds of fluoroscopic guidance, for a cumulative dose of 2.36 mGy, was provided to Dr. Ochoa by the radiology department. C-arm images of the abdomen were saved for the patient's permanent record. [facility]
--- NOTE | 2022-01-27 06:44 | SC_ITS ---
WS: [id number] C-ARM RADIOGRAPHS ABDOMEN; 2 IMAGES HISTORY: Right ureteral stent exchange COMPARISON: None available. Intraoperative imaging during RIGHT ureteral stent exchange. There is a single image that demonstrate s a pigtail overlying the RIGHT upper abdomen. SC/C-arm FL for Urology IMPRESSION: Intraoperative imaging during RIGHT ureteral stent exchange.
--- NOTE | 2022-01-27 07:14 | W.PM.OPSUD ---
Surgery/Procedure H&P Update DATE OF PROCEDURE: January 27, 2022 DATE H&P PERFORMED: 01/23/22 H&P UPDATE INFORMATION: I have reviewed H&P completed within last 30 days, I have examined patient prior to procedure, No changes to prior documentation and H&P is in [facility] EMR on date indicated PREOP DIAGNOSIS: Chronic right ureteral stent, ureteral vaginal fistula PLANNED PROCEDURE: Operation Date: 01/27/22 08:00 Proposed Procedures p Cystoscopy 99534/n13.5(Not Applicable) - Casper Ochoa MD s Ureteral Stent Exchange(Right) - Casper Ochoa MD
[2022-01-27] MEDS: sodium chloride 0.9% 1,000 ML 30 ML (07:18)
--- NOTE | 2022-01-27 08:03 | PM.OP ---
Operative Report Date of procedure: January 27, 2022 Pre-op diagnosis: Chronic right ureteral stent, ureterovaginal fistula Post-op diagnosis: Chronic right ureteral stent, ureterovaginal fistula Procedure done: Cystoscopy, right ureteral stent exchange Implants: 7 Bahraini by 24 cm double-pigtail stent without string Pathology: None Surgeon: Don Urine output: Not measured Complications: None Findings: Stent in the expected position. Removed without difficulty. Replaced without difficulty. See body of dictation Minimal encrustation on the stent. Brief History: Ms. 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 She is already had a colostomy due to a colo-colofistula. She has been reluctant to consider anything beyond stent management for the ureterovaginal fistula and stricture but recently has conceded to at least get a consult one of the tertiary centers for consideration of TUU or other options of management of the ureterovaginal fistula. Procedure: After routine preoperative evaluation examination and obtaining of informed consent she was taken to the operating suite on 01/27/2022 where general anesthesia was administered without difficulty after appropriate timeout was performed, SCDs confirmed to be functioning, preoperative antibiotics administered, beta-zakia protocol confirmed. Prepped and draped in usual sterile fashion in dorsolithotomy position paying careful attention to avoiding pressure points. 21 Bahraini cystoscope with 30 degree lens was introduced into urethra meatus and advanced into the bladder. The bladder systematically examined. The stent was in appropriate position. There were no other significant pathology findings. The stent had minimal encrustation. The distal tip was secured with grasping forceps and gently withdrawn through the urethral meatus and a flexible tip guidewire was easily advanced up the stent into appropriate position and the stent was withdrawn over the guidewire. Cystoscope was then backloaded over the guidewire and a 7 Bahraini by 24 cm double-pigtail stent was advanced over the guidewire through the cystoscope into appropriate position as confirmed via fluoroscopy cystoscopy. The stent was confirmed to be draining and the procedure was completed. She tolerated procedure well without complications and was awakened in the operating room and returned to the recovery room in stable condition. Plans: 1. Consultation for [facility] Has been sent. 2. Follow-up to be arranged. If nothing has happened from a reconstructive surgical perspective she will need follow-up in about 4 months for stent change
--- NOTE | 2022-01-27 08:20 | P.ANESASSM_ITS ---
Pre-Anesthetic Assessment Height/Weight: Height 1.63 m Weight 68.039 kg Preop Diagnosis: Chronic right ureteral stent, ureteral vaginal fistula Operation Date: 01/27/22 08:00 Proposed Procedures p Cystoscopy 14151/n13.5(Not Applicable) - Casper Ochoa MD s Ureteral Stent Exchange(Right) - Casper Ochoa MD Familial anesthetic complications: NOne Was Beta Manuel taken within 24 hours: Yes Was Clonidine taken within 24 hours: N/A Last intake: Intake Last Liquid Date 01/27/22 Last Liquid Time 00:00 Last Solid Date 01/26/22 Last Solid Time 17:00 Social No alcohol and No tobacco Exam alert, oriented x 3, clear to auscultation bilaterally and regular rate & rhythm Airway Mallampati: Class II Dentition: false Pulmonary None reported CV/HEM Hypertension None reported Hepatic None reported Metabolic Thyroid Disease [facility]/skel None reported Neuropsych None reported Anesthetic Plan ASA status: 3 Anesthesia: General Risk of > 500 ml blood loss (7ml/kg in children): No Medications/Allergies Home Medications Medication Instructions Recorded Confirmed Last Taken Type levothyroxine 75 mcg tablet See Rx Instructions .ROUTE 12/05/21 01/27/22 01/26/22 Rx (Euthyrox) .COMPLEX #90 tablet metoprolol succinate 25 mg See Rx Instructions .ROUTE 12/05/21 01/27/22 01/26/22 Rx tablet,extended release 24 hr .COMPLEX #30 tab Allergies Allergy/AdvReac Type Severity Reaction Status Date / Time gabapentin [From Neurontin] Allergy ADR/ALGY-Pa Verified 01/23/22 10:59 lpitations pregabalin [From Lyrica] AdvReac rapid Verified 01/23/22 10:59 heart rate sertraline AdvReac dizziness Verified 01/23/22 10:59 PFSH Anesthesia Medical History Cervical cancer Chronic hepatitis C COPD (chronic obstructive pulmonary disease) Depression with anxiety Hypertension Hypothyroidism Port-A-Cath in place Rectal Pain Recurrent UTI Seasonal allergies Surgical History H/O dilation and curettage Done for one of the miscarriages. H/O laparoscopy with removal of scar tissue in the per patient. History of cholecystectomy (~08/2018) History of colonoscopy with polypectomy (~2018) Family History Mother Hypertension Breast cancer Cervical cancer Father Hypertension Diabetes Grandfather Chronic kidney disease (CKD) Maternal grandfather Heart disease Maternal grandfather Grandmother Chronic kidney disease (CKD) Maternal grandmother Heart disease Maternal grandmother Stroke Maternal grandmother Father No problems noted. Family/Other Breast cancer Maternal aunt Cervical cancer Maternal aunt x4 Other Thyroid disease Denies family history of Colon cancer Ovarian cancer Anesthesia complication Bleeding disorder Uterine cancer Social History Smoking and tobacco status: former smoker Second hand smoke exposure: Yes Alcohol intake: never Caregiver/support person: Yes Lives independently: Yes Household members: spouse Marital status: service: No Current occupational status: retired History of recent travel: No Current gender identity: Female Special tiffany needs: No Additional social history: - Tobacco use: Current smoker; Alcohol use: Denies Drug use: Denies Data Anesthesia Cardiac Studies: No Data to Display
[2022-01-27] MEDS: levofloxacin-dextrose 5 % 500 MG/100 ML PREMIX 100 MG IV (08:23)
[2022-01-27 08:55] VITALS: BP 127/63; PULSE 58; RESP 20; TEMP 36.3; O2SAT 98
[2022-01-27 09:01] VITALS: BP 132/72; PULSE 18; RESP 18; TEMP 36.3; O2SAT 98
[2022-01-27 09:05] VITALS: BP 131/68; PULSE 59; RESP 18; TEMP 36.3; O2SAT 99
[2022-01-27 09:17] VITALS: BP 125/71; PULSE 58; RESP 14; TEMP 36.6; O2SAT 99
[2022-01-27 09:30] VITALS: BP 132/77; PULSE 68; RESP 16; TEMP 36.7; O2SAT 98
--- NOTE | 2022-01-27 14:11 | ANE.PACU2 ---
Inpatient post-anesthesia follow up: Airway intact: Yes Vital signs: Temperature 98.1 F Pulse Rate 68 Respiratory Rate 16 Blood Pressure 132/77 Pulse Oximetry 98 Oxygen Delivery Me thod Room Air Oxygen Flow Rate Fraction of Inspir ed Oxygen Hydration adequate: Yes Nausea and vomiting: No Pain level: 2 Mental status: Baseline
== END 2022-01-27 09:35 | disposition home or self-care (01) ==
PROVIDERS: PCP Family Medicine; Visit Provider Urology
PROC: 0TJB8ZZ Inspection of Bladder, Via Natural or Artificial Opening Endoscopic (ICD-10-PCS; CPT 52000; principal; 2022-01-27 07:50)
PROC: (CPT 52332; 2022-01-27 07:50)
DX: N13.5 Crossing vessel and stricture of ureter without hydronephrosis (principal); Z96.0 Presence of urogenital implants; Z85.41 Personal history of malignant neoplasm of cervix uteri; Z86.19 Personal history of other infectious and parasitic diseases; I10 Essential (primary) hypertension; E03.9 Hypothyroidism, unspecified; Z87.891 Personal history of nicotine dependence
CPT/HCPCS: 52332; 76000; C2625; J1100; J1956; J2405; J3010; J7030

== ENCOUNTER 2022-05-22 14:10 | Oncology outpatient (recurring) (ONCR) | payer MEDICARE, SELFPAY ==
[2022-05-22 14:50] LABS: Basophils % 0.4 %; Eosinophils # 0.1 10^3/uL (0.0-0.8); Eosinophils % 2.1 %; Hematocrit 37.6 % (37.0-47.0); Lymphocytes # 1.4 10^3/uL (0.8-4.8); Lymphocytes % 26.6 %; Mean Corpuscular HGB Conc 31.9 g/dL (30.0-36.0); Mean Corpuscular Hemoglobin 30.1 pg (28.0-34.0); Mean Corpuscular Volume 94.2 fl (81-99); Mean Platelet Volume 10.2 fL (7.4-10.4); Monocytes # 0.5 10^3/uL (0.2-0.9); Monocytes % 8.9 %; Neutrophils # 3.21 10^3/uL (1.8-7.7); Neutrophils % 61.8 %; Nucleated Red Blood Cells % 0 %; Platelet Count 142 10^3/cmm (130-400); Red Blood Count 3.99 10^6/uL (4.1-5.3); Red Cell Distribution Width 14.1 % (12.1-15.1); White Blood Count 5.2 10^3/uL (4.0-10.0)
[2022-05-22 15:15] LABS: Alanine Aminotransferase 8 U/L (0-33); Albumin Level 3.9 g/dL (3.5-5.2); Alkaline Phosphatase 96 IU/L (35-105); Anion Gap 16.1 (5-19); Aspartate Amino Transferase 16 U/L (0-32); Blood Urea Nitrogen 19 mg/dL (8-23); Calcium 9.3 mg/dL (8.5-10.5); Carbon Dioxide 21 mmol/L (22-29); Chloride 104 mmol/L (98-107); Globulin 4.2 g/dL (1.3-4.6); Glomerular Filtration Rate 62.3 mL/min (90-130); Glucose 87 mg/dL (65-115); Iron 39 ug/dL (37-145); Osmolality Calculated 286 mOsm/kg (285-295); Percent Saturation 16.9 % (20-50); Potassium 4.1 mmol/L (3.5-5.1); Sodium 137 mmol/L (136-145); Total Bilirubin 0.3 mg/dL (0.15-1.2); Total Iron Binding Capacity 230 mcg/dl; Total Protein 8.1 g/dL (6.6-8.7); Unsaturated Iron Binding 191 ug/dL (112-347)
== END 2022-06-18 23:59 | disposition home or self-care (01) ==
PROVIDERS: Internal Medicine Medical Oncology; PCP Family Medicine; Visit Provider Nurse Practitioner Family
DX: Z08 Encounter for follow-up examination after completed treatment for malignant neoplasm (principal); Z85.41 Personal history of malignant neoplasm of cervix uteri; N13.30 Unspecified hydronephrosis; N39.498 Other specified urinary incontinence; F17.210 Nicotine dependence, cigarettes, uncomplicated; Z92.21 Personal history of antineoplastic chemotherapy; D64.9 Anemia, unspecified
CPT/HCPCS: 36415; 80053; 83540; 83550; 85025; 87077; 87086; 87186; 99214

== ENCOUNTER 2022-07-24 11:45 | Outpatient (CLI) | payer MEDICARE, SELFPAY ==
--- NOTE | 2022-07-24 13:30 | CT_ITS ---
WS: [id number] CT CHEST, ABDOMEN AND PELVIS WITH CONTRAST HISTORY: Cervical cancer. Prior colostomy, cholecystectomy and renal stents. TECHNIQUE: Contiguous 5 mm axial imaging performed through the chest, abdomen and pelvis with IV cont rast, oral contrast has been provided. Coronal and sagittal reformats chest. Coronal and sagittal ref ormats through the abdomen and pelvis. All CT scans at [facility] use at least one of these d ose optimization techniques: automated exposure control; mA and/or kV adjustment per patient size (in cludes targeted exams where dose is matched to clinical indication); or iterative reconstruction. CONTRAST: Omnipaque 350; 100 mL IV. DLP: 1002.16 mGy.cm COMPARISON: 01/06/[address]: 3 mm nodule in the lingula present since 08/14/2021. No new pulmonary mass or nodule or pne umonia. Mild hyperinflation. Mild atherosclerosis aorta. Pulmonary artery is normal. Mild enlargement of the heart. No pericardial or pleural effusions. No adenopathy. LEFT hilar lymph nodes measure up to 5 mm. Small hiatal hernia. Abdomen CT: Normal size liver. No hepatic masses. Normal size spleen. Normal pancreas. Prior cholecys tectomy. No adrenal mass. Moderate atherosclerosis aorta. Continued RIGHT hydronephrosis. RIGHT urete ral stent remains in good position. Negative LEFT kidney. Stomach is not distended with contrast. No oral contrast was provided. No small bowel obstruction. No colonic obstruction. RIGHT lower quadrant colostomy. Pelvic CT: Urinary bladder is not distended. Pigtail of the RIGHT ureteral stent is noted in the katia on of the urinary bladder. The collection of air previously described adjacent to the distal ureteral stent is no longer present. No obvious fistula is evident. There is no air within the cervix. Soft t issue stranding in the pelvis and thickening of the presacral soft tissue is stable without progressi on. No lymph nodes are identified. CT/CT chest abd pel w con* IMPRESSION: 1. No new pulmonary nodules or masses or adenopathy within the thorax. 2. Air along the fistula between the ureter and the vagina or cervix is no mervat chaz identified. Suspect interval healing of the fistula. 3. Persistent RIGHT hydronephrosis despite the double-J RIGHT ureteral stent b eing in good position. 4. LEFT lower quadrant colostomy. 5. No abdominal or pelvic adenopathy. 6. No ascites. 7. Presacral soft tissue thickening in the pelvis appears stable. 8. Prior cholecystectomy.
[2022-07-24] MEDS: iohexol 350 mg/mL 100 mL Btl IV (13:45)
== END 2022-07-24 11:46 | disposition home or self-care (01) ==
LOC: RAD 11:47
PROVIDERS: PCP Family Medicine; Visit Provider Nurse Practitioner Family
DX: C53.9 Malignant neoplasm of cervix uteri, unspecified (principal); N13.30 Unspecified hydronephrosis; Z93.3 Colostomy status
CPT/HCPCS: 71260; 74177

== ENCOUNTER 2022-08-14 14:51 | Outpatient (CLI) | payer MEDICARE, SELFPAY ==
--- NOTE | 2022-08-14 15:13 | XR_ITS ---
WS: [id number] Exam: XR KUB [id number] Date/Time of Exam: 08/14/2022 3:14 PM Reason For Exam: STONES A right ureteral catheter is in place appearing to be in satisfactory location. 6 millimeter calcific ation seen along the inferior aspect of the right renal silhouette may represent a stone. No bowel ob struction or free air. Signs of prior cholecystectomy. Nonspecific pelvic calcifications noted. Ostom y stoma superimposes the left pelvis. No sign of organ enlargement. Moderate amount stool in the righ t colon. Degenerative changes of the lumbar spine. XR/XR KUB [id number] IMPRESSION: 1. No acute abdominal process. 2. Right-sided ureteral catheter appearing to be in appropriate location. 3. 6 mm nonspecific calcification superimposing the lower medial right renal si lhouette that may represent a urinary tract stone. 4. Additional minor nonacute findings as detailed above.
== END 2022-08-14 14:52 | disposition home or self-care (01) ==
LOC: RAD 15:03
PROVIDERS: PCP Family Medicine; Visit Provider Urology
DX: N13.5 Crossing vessel and stricture of ureter without hydronephrosis (principal); N82.1 Other female urinary-genital tract fistulae; N82.0 Vesicovaginal fistula; N82.4 Other female intestinal-genital tract fistulae
CPT/HCPCS: 74018; 81003; 99213

== ENCOUNTER 2022-08-19 10:42 | Oncology outpatient (recurring) (ONCR) | payer MEDICARE, SELFPAY ==
[2022-08-19 11:18] LABS: Basophils % 0.5 %; Eosinophils # 0.2 10^3/uL (0.0-0.8); Eosinophils % 2.8 %; Hematocrit 39.8 % (37.0-47.0); Hemoglobin 12.8 g/dL (11.5-15.3); Lymphocytes # 1.3 10^3/uL (0.8-4.8); Lymphocytes % 21.3 %; Mean Corpuscular HGB Conc 32.2 g/dL (30.0-36.0); Mean Corpuscular Hemoglobin 29.8 pg (28.0-34.0); Mean Corpuscular Volume 92.8 fl (81-99); Mean Platelet Volume 9.7 fL (7.4-10.4); Monocytes # 0.6 10^3/uL (0.2-0.9); Monocytes % 10.2 %; Nucleated Red Blood Cells % 0 %; Platelet Count 158 10^3/cmm (130-400); Red Blood Count 4.29 10^6/uL (4.1-5.3); Red Cell Distribution Width 14.3 % (12.1-15.1)
[2022-08-19 11:33] LABS: Alanine Aminotransferase 6 U/L (0-33); Alkaline Phosphatase 94 U/L (35-105); Aspartate Amino Transferase 15 U/L (0-32); Blood Urea Nitrogen 17 mg/dL (8-23); Calcium 9.4 mg/dL (8.5-10.5); Carbon Dioxide 25 mmol/L (22-29); Chloride 105 mmol/L (98-107); Globulin 3.7 g/dL (1.3-4.6); Glomerular Filtration Rate 44.7 mL/min (90-130); Glucose 86 mg/dL (65-115); Osmolality Calculated 291 mOsm/kg (285-295); Sodium 140 mmol/L (136-145); Total Bilirubin 0.3 mg/dL (0.15-1.2); Total Protein 7.7 g/dL (6.6-8.7)
[2022-08-19 11:34] LABS: Anion Gap 15.4 (5-19); Potassium 5.4 mmol/L (3.5-5.1)
== END 2022-09-17 23:59 | disposition home or self-care (01) ==
PROVIDERS: PCP Family Medicine; Visit Provider Nurse Practitioner Family
DX: Z08 Encounter for follow-up examination after completed treatment for malignant neoplasm (principal); Z85.41 Personal history of malignant neoplasm of cervix uteri; N13.30 Unspecified hydronephrosis; N39.498 Other specified urinary incontinence; F17.210 Nicotine dependence, cigarettes, uncomplicated; Z92.21 Personal history of antineoplastic chemotherapy; Z92.3 Personal history of irradiation; D50.9 Iron deficiency anemia, unspecified; N39.0 Urinary tract infection, site not specified
CPT/HCPCS: 36415; 80053; 85025; 99214

== ENCOUNTER 2022-08-25 06:51 | Day surgery (SDC) | payer MEDICARE, SELFPAY ==
[2022-08-22 11:11] VITALS: BMI 30.7
[2022-08-25] VITALS (8 sets, daily range): BP systolic 130–200; BP diastolic 72–101; PULSE 50–87; RESP 12–18; TEMP 36.2–36.5; O2SAT 96–100
--- NOTE | 2022-08-25 | SCC_ITS ---
Procedure done: 1. Cystoscopy, RIGHT Ureteral stent exchange 20 seconds of fluoroscopic guidance, for a cumulative dose of 6.5 mGy, was provided to Dr. Ochoa by the radiology department. C-arm images of the abdomen were saved for the patient's permanent record. [id number]
--- NOTE | 2022-08-25 06:24 | W.PM.OPSUD ---
Surgery/Procedure H&P Update DATE OF PROCEDURE: August 25, 2022 DATE H&P PERFORMED: 08/14/22 H&P UPDATE INFORMATION: I have reviewed H&P completed within last 30 days, I have examined patient prior to procedure, No changes to prior documentation and H&P is in [facility]MR on date indicated PREOP DIAGNOSIS: Chronic right ureteral stent, ureteral vaginal fistula PLANNED PROCEDURE: Operation Date: 08/25/22 08:25 Proposed Procedures p CYSTOSCOPY EXCHANGE RIGHT URETERAL STENT 33326,N13.5(Not Applicable) - Casper Ochoa MD s Ureteral Stent Exchange(Not Applicable) - Casper Ochoa MD
--- NOTE | 2022-08-25 06:56 | SC_ITS ---
WS: [id number] INTRAOPERATIVE TECHNIQUE: 2 Spot fluoroscopic images for intraoperative purposes. FLUOROSCOPY TIME: 19.9 seconds CLINICAL INFORMATION: Right ureteral stent exchange COMPARISON: None. FINDINGS: RIGHT double-J ureteral stent exchange. SC/C-arm FL for Urology IMPRESSION: Images obtained for intraoperative purposes.
[2022-08-25] MEDS: sodium chloride 0.9% 1,000 ML 30 ML IV (08:01)
--- NOTE | 2022-08-25 08:46 | P.OP_ITS ---
Operative Report Date of procedure: August 25, 2022 Pre-op diagnosis: Chronic right ureteral obstruction/ureterovaginal fistula Post-op diagnosis: Chronic right ureteral obstruction/ureterovaginal fistula Procedure done: 1. Cystoscopy, RIGHT Ureteral stent exchange Implants: 7 Tunisian by 24 cm double-pigtail stent without string Specimens removed/disposition: None Pathology: None Surgeon: Don Estimated blood loss: None Urine output: Not measured Complications: None Findings: Anesthesia: General Condition: Stable Disposition: PACU Intraoperative findings: * Stent removed without difficulty. * Confirmation of ureteral vaginal fistula. * No significant encrustation on the stent. 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 Her last stent change was in January. At her recent visit we had a long discussion about other management options including diversion, taking the stent out and see how she does without any indwelling foreign bodies etc. She wanted to continue the stent for now Procedure: After routine preoperative evaluation examination and obtaining of informed consent she was taken to the operating suite on 08/25/2022 where general anesthesia was administered without after appropriate timeout was performed, SCDs confirmed to be functioning, preoperative antibiotics administered, beta- zakia protocol confirmed. Prepped and draped in the usual sterile fashion in dorsolithotomy position paying careful attention to avoiding pressure points. 21 Tunisian cystoscope with 30 degree lens was introduced into the urethra meatus and advanced into the bladder under videoscopy. Bladder was systematically examined. Stent was in expected position. Minimal encrustation. The distal aspect of the stent was grasped with grasping forceps and withdrawn through the urethral meatus and a flexible tip guidewire was easily advanced up the stent into the kidney with uncurling of the proximal aspect of the stent. Stent was removed over the guidewire. Cystoscope was then backloaded over the guidewire and a 7 Tun[place]ian by 24 cm double-pigtail stent was advanced over the guidewire through the cystoscope into appropriate position as confirmed via fluoroscopy and cystoscopy. Vaginal exam revealed persistence of palpable stent in the right sulcus anteriorly. She tolerated procedure well without complications and was awakened in the operating room and returned recovery room in stable condition. PLANS: 1. Anticipate discharge from outpatient surgery 2. Follow-up in about 5 months for KUB and scheduling of next stent change
[2022-08-25] MEDS: levofloxacin-dextrose 5 % 500 MG/100 ML PREMIX 100 MG IV (08:47)
--- NOTE | 2022-08-25 08:48 | ANES.PREANE2 ---
Pre-Anesthetic Assessment Height/Weight: Height 1.63 m Weight 81.193 kg Temp Pulse Resp BP Pulse Ox O2 Del Method 97.7 F 50 L 18 140/80 97 08/25/22 07:22 08/25/22 07:22 08/25/22 07:22 08/25/22 07:28 08/25/22 07:22 08/25/22 07:22 Preop Diagnosis: Chronic right ureteral obstruction/ureterovaginal fistula Operation Date: 08/25/22 08:25 Proposed Procedures p CYSTOSCOPY EXCHANGE RIGHT URETERAL STENT 51056,N13.5(Not Applicable) - Casper Ochoa MD s Ureteral Stent Exchange(Not Applicable) - Casper Ochoa MD Familial anesthetic complications: none Was Beta Manuel taken within 24 hours: Yes Was Clonidine taken within 24 hours: N/A Last intake: Intake Last Liquid Date 08/24/22 Last Liquid Time 20:30 Last Solid Date 08/24/22 Last Solid Time 12:00 Social No alcohol and No tobacco Exam alert, oriented x 3, clear to auscultation bilaterally and regular rate & rhythm Airway Submandibular: within normal limits Cervical ROM: within normal limits Mallampati: Class II Dentition: false (upper) Pulmonary Chronic Obstructive Pulmonary Disease CV/HEM Anemia and Hypertension Hepatic Hepatitis (C) Metabolic Thyroid Disease Neuropsych Anxiety and Depression Anesthetic Plan ASA status: 3 Anesthesia: General Medications/Allergies Home Medications Medication Instructions Recorded Confirmed Last Taken Type Adult incontinence supplies #1 ea 08/19/22 08/19/22 Unknown Rx ostomy supplies #1 ea 08/19/22 08/19/22 Unknown Rx levothyroxine 75 mcg tablet 75 mcg PO DAILY 08/22/22 08/25/22 08/24/22 History metoprolol succinate 25 mg 25 mg PO DAILY 08/22/22 08/25/22 08/24/22 History tablet,extended release 24 hr Allergies Allergy/AdvReac Type Severity Reaction Status Date / Time gabapentin [From Neurontin] Allergy ADR/ALGY-Pa Verified 08/25/22 07:15 lpitations pregabalin [From Lyrica] AdvReac rapid Verified 08/25/22 07:15 heart rate sertraline AdvReac dizziness Verified 08/25/22 07:15 Current Medications Generic Name Dose Route Start Last Admin Trade Name Freq PRN Reason Stop Dose Admin Sodium Chloride 1,000 mls @ 30 mls/hr 08/25/22 07:00 08/25/22 08:01 Sodium Chloride 0.9% IV 08/26/22 06:59 30 mls/hr .Q24H XIMENA Administration PFSH Anesthesia Medical History Cervical cancer Chronic hepatitis C Colovaginal fistula COPD (chronic obstructive pulmonary disease) Depression with anxiety Hypertension Hypothyroidism Port-A-Cath in place Rectal Pain Recurrent UTI Seasonal allergies Vesicovaginal fistula Surgical History H/O dilation and curettage Done for one of the miscarriages. H/O laparoscopy with removal of scar tissue in the per patient. History of cholecystectomy (~08/2018) History of colonoscopy with polypectomy (~2017) Family History Mother Hypertension Breast cancer Cervical cancer Cancer breast Father Hypertension Diabetes Cancer Grandfather Chronic kidney disease (CKD) Maternal grandfather Heart disease Maternal grandfather Grandmother Chronic kidney disease (CKD) Maternal grandmother Heart disease Maternal grandmother Stroke Maternal grandmother Father No problems noted. Family/Other Breast cancer Maternal aunt Cervical cancer Maternal aunt x4 Other Thyroid disease Denies family history of Colon cancer Ovarian cancer Anesthesia complication Bleeding disorder Uterine cancer Social History Smoking and tobacco status: current some day smoker (doesn't smoke on a daiyly basis, less than 1 pack/month) cigarettes Packs smoked per day: 0.25 Years cigarettes smoked: 40 [ Other cigarette details: quit 2018 x yr, restarted 2019] Second hand smoke exposure: Yes Alcohol intake: never Caregiver/support person: Yes Lives independently: Yes Household members: spouse Marital status: service: No Current occupational status: retired History of recent travel: No Current gender identity: Female Special tiffany needs: No Additional social history: - Tobacco use: Current smoker; Alcohol use: Denies Drug use: Denies Data Anesthesia Cardiac Studies: No Data to Display
--- NOTE | 2022-08-25 16:45 | ANE.PACU2 ---
Inpatient post-anesthesia follow up: Airway intact: Yes Vital signs: Temperature 97.5 F Pulse Rate 65 Respiratory Rate 18 Blood Pressure 176/86 Pulse Oximetry 98 Oxygen Delivery Me thod Room Air Oxygen Flow Rate 6 Fraction of Inspir ed Oxygen Hydration adequate: Yes Nausea and vomiting: No Pain level: 2 Mental status: Baseline
== END 2022-08-25 10:17 | disposition home or self-care (01) ==
PROVIDERS: PCP Family Medicine; Visit Provider Urology
PROC: 0TJB8ZZ Inspection of Bladder, Via Natural or Artificial Opening Endoscopic (ICD-10-PCS; CPT 52000; principal; 2022-08-25 08:15)
PROC: (CPT 52332; 2022-08-25 08:15)
DX: N20.1 Calculus of ureter (principal); N82.1 Other female urinary-genital tract fistulae; J44.9 Chronic obstructive pulmonary disease, unspecified; I10 Essential (primary) hypertension; Z86.19 Personal history of other infectious and parasitic diseases; F41.9 Anxiety disorder, unspecified; F32.A Depression, unspecified; Z85.41 Personal history of malignant neoplasm of cervix uteri; E03.9 Hypothyroidism, unspecified; F17.210 Nicotine dependence, cigarettes, uncomplicated
CPT/HCPCS: 52332; 76000; C2625; J1100; J1956; J2250; J2405; J2704; J3010; J7030

== ENCOUNTER → 2022-11-24 13:13 | Outpatient (BNVA) | payer MEDICARE, SELFPAY | PROVIDERS: PCP Family Medicine; Visit Provider Thoracic Surgery (Cardiothoracic Vascular Surgery) | DX: L98.9 Disorder of the skin and subcutaneous tissue, unspecified (principal) | CPT/HCPCS: 99213 ==

== ENCOUNTER 2023-03-02 11:14 | Oncology outpatient (recurring) (ONCR) | payer MEDICARE, SELFPAY | END 2023-03-18 23:59 | disposition home or self-care (01) | PROVIDERS: PCP Family Medicine; Visit Provider Nurse Practitioner Family | DX: C53.8 Malignant neoplasm of overlapping sites of cervix uteri; Z93.6 Other artificial openings of urinary tract status; R32 Unspecified urinary incontinence; Z79.899 Other long term (current) drug therapy; Z92.21 Personal history of antineoplastic chemotherapy; Z92.3 Personal history of irradiation | CPT/HCPCS: 74018; 99214 ==

== ENCOUNTER 2023-03-18 05:52 | Day surgery (SDC) | payer MEDICARE, SELFPAY ==
--- NOTE | 2023-03-13 11:41 | ECG_ITS ---
[facility] Test Date: 2023-03-13 Pat Name: Dionne Fitzgerald Department: Room: Gender: Female [employer]iter: : 1955 Requested By: Casper Ochoa Order Number: [id number] Manuel Moya MD: Chanda Leung M.D. Measurements Intervals [place] Rate: 53 P: 66 TX: 160 QRS: 72 QRSD: 90 T: 56 QT: 420 QTc: 395 Interpretive Statements SINUS BRADYCARDIA Compared to ECG 11/09/2020 14:17:44 Sinus rhythm no longer present Sinus arrhythmia no longer present T-wave abnormality no longer present Possible ischemia no longer present Electronically Signed On 03-13-2023 12:30:29 CDT by Chanda Leung M.D. [email or web address]
[2023-03-13 12:15] LABS: Basophils % 0.5 %; Eosinophils # 0.2 10^3/uL (0.0-0.8); Hematocrit 42.7 % (37.0-47.0); Hemoglobin 13.2 g/dL (11.5-15.3); Lymphocytes # 1.3 10^3/uL (0.8-4.8); Lymphocytes % 21.9 %; Mean Corpuscular HGB Conc 30.9 g/dL (30.0-36.0); Mean Corpuscular Hemoglobin 28.9 pg (28.0-34.0); Mean Corpuscular Volume 93.4 fl (81-99); Mean Platelet Volume 9.9 fL (7.4-10.4); Monocytes # 0.5 10^3/uL (0.2-0.9); Monocytes % 8.8 %; Neutrophils # 3.92 10^3/uL (1.8-7.7); Neutrophils % 65.5 %; Nucleated Red Blood Cells % 0 %; Platelet Count 179 10^3/cmm (130-400); Red Blood Count 4.57 10^6/uL (4.1-5.3); Red Cell Distribution Width 14.4 % (12.1-15.1)
[2023-03-13 12:39] LABS: Alanine Aminotransferase 9 U/L (0-33); Albumin Level 4.2 g/dL (3.5-5.2); Alkaline Phosphatase 102 U/L (35-105); Anion Gap 14.8 (5-19); Aspartate Amino Transferase 15 U/L (0-32); Blood Urea Nitrogen 27 mg/dL (8-23); Carbon Dioxide 24 mmol/L (22-29); Chloride 107 mmol/L (98-107); Globulin 3.5 g/dL (1.3-4.6); Glucose 81 mg/dL (65-115); Osmolality Calculated 296 mOsm/kg (285-295); Potassium 4.8 mmol/L (3.5-5.1); Sodium 141 mmol/L (136-145); Total Bilirubin 0.2 mg/dL (0.15-1.2); Total Protein 7.7 g/dL (6.6-8.7)
--- NOTE | 2023-03-13 14:31 | ANES.PREANE2 ---
Pre-Anesthetic Assessment Height/Weight: Height 1.63 m Weight 84.368 kg Operation Date: 03/18/23 07:00 Proposed Procedures p CYSTOSCOPY, CHANGE RIGHT URETERAL STENT 71713,Z96.0(Not Applicable) - Casper Ochoa MD s Ureteral Stent Exchange(Right) - Casper Ochoa MD Familial anesthetic complications: none Was Beta Manuel taken within 24 hours: Yes Was Clonidine taken within 24 hours: N/A Social Tobacco and No alcohol Exam alert, oriented x 3 and regular rate & rhythm Airway Submandibular: within normal limits Cervical ROM: within normal limits Mallampati: Class II Dentition: chipped and false (upper) Pulmonary Chronic Obstructive Pulmonary Disease CV/HEM Anemia and Hypertension Hepatic Hepatitis (C) Metabolic Thyroid Disease Anesthetic Plan ASA status: 3 Anesthesia: General Medications/Allergies Home Medications Medication Instructions Recorded Confirmed Last Taken Type Adult incontinence supplies #1 ea 08/19/22 03/02/23 Unknown Rx ostomy supplies #1 ea 08/19/22 03/02/23 Unknown Rx levothyroxine 75 mcg tablet 75 mcg PO DAILY #90 tabs 11/06/22 03/13/23 03/13/23 Rx metoprolol succinate 25 mg See Rx Instructions .Route 11/06/22 03/13/23 03/13/23 Rx tablet,extended release 24 hr .COMPLEX #90 tabs acetaminophen 325 mg tablet 325 mg PO QID PRN Pain 03/02/23 03/13/23 03/13/23 History (Tylenol) oxybutynin chloride 10 mg 10 mg PO DAILY #30 tabs 03/02/23 03/13/23 03/13/23 Rx tablet,extended release 24 hr Allergies Allergy/AdvReac Type Severity Reaction Status Date / Time gabapentin [From Neurontin] Allergy ADR/ALGY-Pa Verified 03/13/23 11:11 lpitations pregabalin [From Lyrica] AdvReac rapid Verified 03/13/23 11:11 heart rate sertraline AdvReac dizziness Verified 03/13/23 11:11 [facility] Anesthesia Medical History Cervical cancer Chronic hepatitis C Colovaginal fistula COPD (chronic obstructive pulmonary disease) Depression with anxiety Hypertension Hypothyroidism Port-A-Cath in place Rectal Pain Recurrent UTI Seasonal allergies Vesicovaginal fistula Surgical History H/O dilation and curettage Done for one of the miscarriages. H/O laparoscopy with removal of scar tissue in the 1980s per patient. History of cholecystectomy (~08/2018) History of colonoscopy with polypectomy (~2017) Family History Mother Hypertension Breast cancer Cervical cancer Cancer breast Father Hypertension Diabetes Cancer Grandfather Chronic kidney disease (CKD) Maternal grandfather Heart disease Maternal grandfather Grandmother Chronic kidney disease (CKD) Maternal grandmother Heart disease Maternal grandmother Stroke Maternal grandmother Father No problems noted. Family/Other Breast cancer Maternal aunt Cervical cancer Maternal aunt x4 Other Thyroid disease Denies family history of Colon cancer Ovarian cancer Anesthesia complication Bleeding disorder Uterine cancer Social History (Updated 03/02/23 @ 13:28 by Yoselin Perez LPN) Smoking and tobacco status: current some day smoker (doesn't smoke on a daiyly basis, less than 1 pack/month) cigarettes Packs smoked per day: 0.25 Years cigarettes smoked: 40 [ Other cigarette details: quit 2018 x yr, restarted 2019] Second hand smoke exposure: Yes Alcohol intake: never Substance/Drug Use: never Caregiver/support person: Yes Lives independently: Yes Household members: spouse Marital status: service: No Current occupational status: retired Current gender identity: Female Special tiffany needs: No Additional social history: - Tobacco use: Current smoker; Alcohol use: Denies Drug use: Denies Data Anesthesia 03/13/23 11:37 03/13/23 11:37 Short CBC 03/13/23 Range/Units 11:37 WBC 6.0 (4.0-10.0) 10^3/uL Hgb 13.2 (11.5-15.3) g/dL Hct 42.7 (37.0-47.0) % MCV 93.4 (81-99) fl Plt Count 179 (130-400) 10^3/cmm Neut % (Auto) 65.5 % Neut # (Auto) 3.92 (1.8-7.7) 10^3/uL BMP 03/13/23 11:37 Sodium 141 Potassium 4.8 Chloride 107 Carbon Dioxide 24 BUN 27 H Creatinine 1.0 H Glucose 81 Calcium 9.0 Liver Function 03/13/23 Range/Units 11:37 Total Bilirubin 0.2 (0.15-1.2) mg/dL AST 15 (0-32) U/L ALT 9 (0-33) U/L Alkaline Phosphatase 102 (35-105) U/L Albumin 4.2 (3.5-5.2) g/dL Cardiac Studies: No Data to Display
[2023-03-18] VITALS (10 sets, daily range): BP systolic 145–175; BP diastolic 69–90; PULSE 60–83; RESP 16–18; TEMP 36.3–36.4; O2SAT 95–98
--- NOTE | 2023-03-18 05:54 | SC_ITS ---
WS: [id number] Exam: C-arm FL for Urology Date/Time of Exam: 03/18/2023 5:54 AM Reason For Exam: Right ureteral stent exchange A single anterior posterior C-arm image of the lower right abdomen is submitted. The image depicts a pigtail ureteral catheter positioned in the right abdomen. Image obtained for intraoperative purpose s.
--- NOTE | 2023-03-18 06:21 | P.HPUD_ITS ---
Surgery/Procedure H&P Update DATE OF PROCEDURE: March 18, 2023 DATE H&P PERFORMED: 03/02/23 H&P UPDATE INFORMATION: I have reviewed H&P completed within last 30 days, I have examined patient prior to procedure, No changes to prior documentation and H&P is in [facility] [place] EMR on date indicated PREOP DIAGNOSIS: Ureterovaginal fistula chronic indwelling stent PLANNED PROCEDURE: Operation Date: 03/18/23 07:00 Proposed Procedures p CYSTOSCOPY, CHANGE RIGHT URETERAL STENT 48894,Z96.0(Not Applicable) - Casper Ochoa MD s Ureteral Stent Exchange(Right) - Casper Ochoa MD
--- NOTE | 2023-03-18 06:32 | P.ANESUD_ITS ---
Pre-Anesthetic Update Pre-Anesthetic Assessment: Date of Surgery/Procedure: 03/18/23 Preop Kristan gnosis: Ureterovaginal fistula chronic indwelling stent Proposed Procedure: Operation Date: 03/18/23 07:00 Proposed Procedures p CYSTOSCOPY, CHANGE RIGHT URETERAL STENT 70323,Z96.0(Not Applicable) - Casper Ochoa MD s Ureteral Stent Exchange(Right) - Casper Ochoa MD Any changes to Pre-Anesthetic Assessment?: No Last Intake: Intake Last Liquid Date 03/17/23 Last Liquid Time 21:00 Last Solid Date 03/17/23 Last Solid Time 17:00 Vitals: Temperature 97.4 F L 03/18/23 06:03 Temperature Source Temporal Artery S can 03/18/23 06:03 Pulse Rate 63 03/18/23 06:03 Respiratory Rate 16 03/18/23 06:03 Blood Pressure 169/84 03/18/23 06:03 Blood Pressure Joaquina n 112 03/18/23 06:03 Pulse Oximetry 97 03/18/23 06:03 Oxygen Delivery Me thod Room Air 03/18/23 06:04 Exam: Pre-Anes Outpt Exam: alert, oriented x 3, clear to auscultation bilaterally and regular rate & rhythm Cardiac Studies: No Data to Display
[2023-03-18] MEDS: sodium chloride 0.9% 1,000 ML 30 ML IV (06:33)
--- NOTE | 2023-03-18 07:09 | P.OP_ITS ---
Operative Report Date of procedure: March 18, 2023 Pre-op diagnosis: Ureterovaginal fistula chronic indwelling stent Post-op diagnosis: Ureterovaginal fistula chronic indwelling stent Procedure done: 1. 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 She has already undergone a colostomy for stool diversion and is considering urinary diversion by ileal loop or other bowel segment after evaluation at [facility]. I recommend that she consider this strongly due to the severe interference with her quality of life, frequent stent changes related to her anatomy. She is back now for routine stent change. Last stent change was on 08/25/2022 Procedure: After routine preoperative evaluation examination and obtaining of informed consent she was taken to the operating suite on 03/18/2023 where general anesthesia was administered without difficulty after appropriate timeout was performed, SCDs confirmed to be functioning, preoperative antibiotics administered, beta-zakia protocol confirmed. Prepped and draped in usual sterile fashion in dorsolithotomy position pain careful attention to avoiding pressure points. 21 [place] cystoscope with 30 degree lens was introduced into the urethral meatus and advanced into the bladder under videoscopy. Bladder was systematically examined. Stent was in expected position with no significant encrustation. The distal aspect of the stent was grasped with grasping forceps and withdrawn through the meatus. A flexible tip guidewire was then advanced through and up the stent without difficulty with uncurling of the proximal end. The stent was removed without difficulty over the guidewire. Scope was then backloaded over the guidewire and a 7 [place] by 24 cm double- pigtail stent without string was advanced over the wire through the cystoscope into appropriate position as confirmed via fluoroscopy and cystoscopy. Was drained and the procedure was completed. She tolerated the procedure well without complications and was awakened in the operating room and returned to the PACU in stable condition. PLANS: 1. Recommend following through with consultation at [facility] for consideration of urinary diversion 2. If she decides not to she will be due for another stent change in about 6 months and we will make arrangements for follow-up with urology [facility] locally or regionally after my detention
[2023-03-18] MEDS: levofloxacin-dextrose 5 % 500 MG/100 ML PREMIX 100 MG IV (07:10)
--- NOTE | 2023-03-18 12:48 | ANE.PACU2 ---
Inpatient post-anesthesia follow up: Airway intact: Yes Vital signs: Temperature 97.5 F Pulse Rate 60 Respiratory Rate 16 Blood Pressure 145/77 Pulse Oximetry 98 Oxygen Delivery Me thod Room Air Oxygen Flow Rate Fraction of Inspir ed Oxygen Hydration adequate: Yes Nausea and vomiting: No Pain level: 1 Mental status: Baseline
== END 2023-03-18 08:38 | disposition home or self-care (01) ==
PROVIDERS: PCP Family Medicine; Visit Provider Urology
PROC: 0TJB8ZZ Inspection of Bladder, Via Natural or Artificial Opening Endoscopic (ICD-10-PCS; CPT 52000; principal; 2023-03-18 07:00)
PROC: (CPT 52332; 2023-03-18 07:00)
DX: N82.1 Other female urinary-genital tract fistulae (principal); Z96.0 Presence of urogenital implants; J44.9 Chronic obstructive pulmonary disease, unspecified; D64.9 Anemia, unspecified; I10 Essential (primary) hypertension; E03.9 Hypothyroidism, unspecified; F17.210 Nicotine dependence, cigarettes, uncomplicated; B18.2 Chronic viral hepatitis C; R00.1 Bradycardia, unspecified
CPT/HCPCS: 52332; 36415; 76000; 80053; 85025; 93005; C1874; J1100; J1956; J2405; J2704; J3010; J7030

== ENCOUNTER 2023-05-28 13:52 | Oncology outpatient (recurring) (ONCR) | payer MEDICARE, SELFPAY ==
[2023-05-28 14:03] VITALS: BP 183/77; PULSE 68; RESP 18; TEMP 36.3; O2SAT 95
[2023-05-28 14:21] LABS: Basophils % 0.3 %; Eosinophils # 0.2 10^3/uL (0.0-0.8); Hemoglobin 13.1 g/dL (11.5-15.3); Lymphocytes # 1.4 10^3/uL (0.8-4.8); Lymphocytes % 22.9 %; Mean Corpuscular Hemoglobin 28.6 pg (28.0-34.0); Mean Corpuscular Volume 89.5 fl (81-99); Mean Platelet Volume 10.1 fL (7.4-10.4); Monocytes # 0.6 10^3/uL (0.2-0.9); Neutrophils # 3.82 10^3/uL (1.8-7.7); Neutrophils % 63.5 %; Nucleated Red Blood Cells % 0 %; Platelet Count 165 10^3/cmm (130-400); Red Blood Count 4.58 10^6/uL (4.1-5.3)
[2023-05-28 14:41] LABS: Alanine Aminotransferase 21 U/L (0-33); Albumin Level 4.1 g/dL (3.5-5.2); Alkaline Phosphatase 95 U/L (35-105); Aspartate Amino Transferase 27 U/L (0-32); Blood Urea Nitrogen 19 mg/dL (8-23); Calcium 9.3 mg/dL (8.5-10.5); Carbon Dioxide 23 mmol/L (22-29); Chloride 109 mmol/L (98-107); Globulin 3.6 g/dL (1.3-4.6); Glucose 76 mg/dL (65-115); Osmolality Calculated 295 mOsm/kg (285-295); Sodium 142 mmol/L (136-145); Total Bilirubin 0.3 mg/dL (0.15-1.2); Total Protein 7.7 g/dL (6.6-8.7)
[2023-05-28 14:50] LABS: Anion Gap 14.2 (5-19); Potassium 4.2 mmol/L (3.5-5.1)
== END 2023-06-18 23:59 | disposition home or self-care (01) ==
PROVIDERS: PCP Family Medicine; Visit Provider Internal Medicine Medical Oncology
DX: Z08 Encounter for follow-up examination after completed treatment for malignant neoplasm (principal); Z85.41 Personal history of malignant neoplasm of cervix uteri; F17.210 Nicotine dependence, cigarettes, uncomplicated; Z92.21 Personal history of antineoplastic chemotherapy; Z92.3 Personal history of irradiation
CPT/HCPCS: 36415; 80053; 85025; 99214

== ENCOUNTER 2023-06-16 11:18 | Outpatient (CLI) | payer MEDICARE, SELFPAY ==
--- NOTE | 2023-06-16 12:30 | CT_ITS ---
WS: [id number] CT CHEST, ABDOMEN AND PELVIS WITH CONTRAST HISTORY: Cervical cancer. Prior colostomy;cholecystectomy;renal stent TECHNIQUE: Contiguous 5 mm axial imaging performed through the chest, abdomen and pelvis with IV cont rast, oral contrast has been provided. Coronal and sagittal reformats chest. Coronal and sagittal ref ormats through the abdomen and pelvis. All CT scans at [facility] use at least one of these d ose optimization techniques: automated exposure control; mA and/or kV adjustment per patient size (in cludes targeted exams where dose is matched to clinical indication); or iterative reconstruction. CONTRAST: Omnipaque 350; 100 mL IV. DLP: 1960.39 mGy.cm COMPARISON: 07/24/[address]: No new pulmonary mass or nodule. No pneumonia. Reidentified is a 3 mm nodule in the lingula . No adenopathy within the chest. Normal size aorta and pulmonary artery. Normal size heart. No peric ardial or pleural effusions. There is a very small hiatal hernia. Abdomen CT: Normal size liver and spleen. Prior cholecystectomy. Normal size common bile duct. Normal pancreas. No adrenal mass. Double-pigtail RIGHT ureteral stent is reidentified. The proximal stent i s coiled in the extrarenal pelvis. Diffuse thinning of the renal parenchyma and delayed excretion. Co ntinued mild hydronephrosis RIGHT renal pelvis and ureter despite the stent. Very similar appearance as compared to the prior study. Normal LEFT kidney. Moderate atherosclerotic plaque throughout the ao rta. Good contrast distention of the stomach. Prominent food products within the stomach. This may be undi gested food versus developing bezoar. No small bowel obstruction. Partial colectomy. LEFT lower quadr ant ostomy site. Increased fecal material within the visualized colon. No obstructive pattern. Pelvic CT: Nondistended urinary bladder. No adenopathy or free fluid in the pelvis. No osteoblastic or osteolytic bone disease. IMPRESSION: 1. Distal colectomy with LEFT lower quadrant colostomy site. Very similar to the prior study. No obst ruction. 2. Double pigtail RIGHT ureteral stent unchanged in position. There is delayed excretion from the RIG HT kidney with persistent mild hydronephrosis despite the stent. 3. No free air, ascites or adenopathy. 4. No new or increasing pulmonary nodule or mass. 5. Prior cholecystectomy. 6. No adenopathy in the chest, abdomen or pelvis.
[2023-06-16] MEDS: iohexol 350 mg/mL 500 mL Btl (per mL) PO (13:04)
[2023-06-16] MEDS: iohexol 350 mg/mL 500 mL Btl (per mL) IV (13:04)
== END 2023-06-16 11:19 | disposition home or self-care (01) ==
LOC: RAD 11:27
PROVIDERS: PCP Family Medicine; Visit Provider Internal Medicine Medical Oncology
DX: C53.8 Malignant neoplasm of overlapping sites of cervix uteri (principal); N13.30 Unspecified hydronephrosis; Z90.49 Acquired absence of other specified parts of digestive tract; Z96.0 Presence of urogenital implants
CPT/HCPCS: 71260; 74177; Q9967

== ENCOUNTER → 2023-08-05 11:26 | Outpatient (BNVA) | payer MEDICARE, SELFPAY | PROVIDERS: PCP Family Medicine; Visit Provider Family Medicine | DX: R35.0 Frequency of micturition (principal); N30.01 Acute cystitis with hematuria | CPT/HCPCS: 81003; 87077; 87086; 87184 ==

== ENCOUNTER → 2023-09-02 11:29 | Outpatient (BNVA) | payer MEDICARE, SELFPAY | PROVIDERS: PCP Family Medicine; Visit Provider Family Medicine | DX: D64.9 Anemia, unspecified (principal); E03.9 Hypothyroidism, unspecified; N30.01 Acute cystitis with hematuria; N39.0 Urinary tract infection, site not specified | CPT/HCPCS: 81003; 84443; 87077; 87086; 87184 ==

== ENCOUNTER → 2023-09-23 10:53 | Outpatient (BNVA) | payer MEDICARE, SELFPAY | PROVIDERS: PCP Family Medicine; Visit Provider Nurse Practitioner Family | DX: N39.0 Urinary tract infection, site not specified (principal); C53.9 Malignant neoplasm of cervix uteri, unspecified | CPT/HCPCS: 80053; 81003; 85025; 87086 ==

== ENCOUNTER 2023-09-29 10:11 | Oncology outpatient (recurring) (ONCR) | payer MEDICARE, SELFPAY | END 2023-10-18 23:59 | disposition home or self-care (01) | PROVIDERS: PCP Family Medicine; Visit Provider Internal Medicine Medical Oncology | DX: Z08 Encounter for follow-up examination after completed treatment for malignant neoplasm (principal); Z85.41 Personal history of malignant neoplasm of cervix uteri; N13.30 Unspecified hydronephrosis; N39.498 Other specified urinary incontinence; F17.210 Nicotine dependence, cigarettes, uncomplicated; D50.9 Iron deficiency anemia, unspecified; N39.0 Urinary tract infection, site not specified; Z92.21 Personal history of antineoplastic chemotherapy; Z92.3 Personal history of irradiation | CPT/HCPCS: 99214 ==

== ENCOUNTER 2023-10-16 09:56 | Outpatient (CLI) | payer MEDICARE, SELFPAY ==
--- NOTE | 2023-10-16 11:00 | CTR_ITS ---
PROCEDURE INFORMATION: Exam: CT Chest With Contrast; Diagnostic Exam date and time: 10/16/2023 11:50 AM Age: 68 years old Clinical indication: Pain; Other: Pelvic; Prior surgery; Surgery date: 6+ months; Surgery type: Colostomy, gb, RT renal stent; Patient HX: HX of cervical cancer; Additional info: Pelvic pain TECHNIQUE: Imaging protocol: Diagnostic computed tomography of the chest with contrast. Radiation optimization: All CT scans at this facility use at least one of these dose optimization techniques: automated exposure control; mA and/or kV adjustment per patient size (includes targeted exams where dose is matched to clinical indication); or iterative reconstruction. Contrast material: OMNI 350; Contrast volume: 95 ml; Contrast route: INTRAVENOUS (IV); REPORTING DATA: Count of CT and Cardiac NM exams in prior 12 months: This patient has received [address] and 0 known cardiac nuclear medicine studies in the 12 months prior to the current study. COMPARISON: CT chest abdpel w/*[id number] 06/16/2023 12:49 PM RADIATION DOSE METRICS: Total DLP (mGy-cm): 961.37 FINDINGS: Lungs: Unremarkable. No consolidation. No masses. Pleural spaces: Unremarkable. No pneumothorax. No pleural effusion. Heart: Unremarkable. No cardiomegaly. No pericardial effusion. Lymph nodes: Visible central lymph nodes are not pathologically enlarged. Vasculature: Unremarkable. No aortic aneurysm. Bones/joints: Unremarkable. No acute fracture. Soft tissues: Unremarkable. PROCEDURE INFORMATION: Exam: CT Abdomen And Pelvis With Contrast Exam date and time: 10/16/2023 11:50 AM Age: 68 years old Clinical indication: Pain; Other: Pelvic; Prior surgery; Surgery date: 6+ months; Surgery type: Colostomy, gb, RT renal stent; Patient HX: HX of cervical cancer; Additional info: Pelvic pain TECHNIQUE: Imaging protocol: Computed tomography of the abdomen and pelvis with contrast. Radiation optimization: All CT scans at this facility use at least one of these dose optimization techniques: automated exposure control; mA and/or kV adjustment per patient size (includes targeted exams where dose is matched to clinical indication); or iterative reconstruction. Contrast material: OMNI 350; Contrast volume: 95 ml; Contrast route: INTRAVENOUS (IV); REPORTING DATA: Count of CT and Cardiac NM exams in prior 12 months: This patient has received [address] and 0 known cardiac nuclear medicine studies in the 12 months prior to the current study. COMPARISON: CT chest abdpe w/*[id number] 06/16/2023 12:49 PM RADIATION DOSE METRICS: Total DLP (mGy-cm): 961.37 FINDINGS: Tubes, catheters and devices: A ureteral stent extends from the renal pelvis to the urinary bladder. There are no encrustations on the stent but I assume it is occluded to account for the increasing dilatation. Liver: Normal. No mass. Gallbladder and bile ducts: Cholecystectomy. Pancreas: Normal. No ductal dilation. Spleen: Normal. No splenomegaly. Adrenal glands: Normal. No mass. Kidneys and ureters: Marked right urinary obstructive changes are present, there is dilatation of the ureter, renal pelvis, and calices and this has increased since the prior study, maximum AP diameter of the right renal pelvis is currently 3.4 cm versus 2.7 cm previously. Stomach and bowel: Unremarkable. No obstruction. No mucosal thickening. Appendix: No evidence of appendicitis. Intraperitoneal space: See Soft tissues finding. Vasculature: Unremarkable. No abdominal aortic aneurysm. Lymph nodes: Unremarkable. No enlarged lymph nodes. Urinary bladder: There is a small amount of gas within the urinary bladder, presumably related to recent instrumentation. Reproductive: Unremarkable as visualized. Bones/joints: Unremarkable. No acute fracture. Soft tissues: Distal colectomy with left lower quadrant colostomy containing a peristomal hernia containing only fat. The appearance of that is unchanged. The distal right ureter it shows increased soft tissue density and is not dilated, either fibrosis or a neoplastic process is presumably present there. The appearance is unchanged. CT/CT chest formerly [facility] w/*[id number] IMPRESSION: No acute findings. IMPRESSION: Increasing right-sided hydronephrosis and hydroureter. Right ureteral stent.
[2023-10-16] MEDS: iohexol 350 mg/mL 500 mL Btl (per mL) IV (12:01)
[2023-10-16] MEDS: iohexol 350 mg/mL 500 mL Btl (per mL) PO (12:01)
== END 2023-10-16 09:57 | disposition home or self-care (01) ==
LOC: RAD 09:56
PROVIDERS: PCP Family Medicine; Visit Provider Nurse Practitioner Family
DX: C53.9 Malignant neoplasm of cervix uteri, unspecified (principal); R10.2 Pelvic and perineal pain; N13.30 Unspecified hydronephrosis; Z93.3 Colostomy status; Z90.49 Acquired absence of other specified parts of digestive tract
CPT/HCPCS: 71260; 74177; Q9967

== ENCOUNTER → 2023-12-16 11:57 | Outpatient (BNVA) | payer MEDICARE, SELFPAY | PROVIDERS: PCP Family Medicine; Visit Provider Family Medicine | DX: R39.11 Hesitancy of micturition (principal); N39.0 Urinary tract infection, site not specified | CPT/HCPCS: 81003; 87077; 87086; 87184 ==

== ENCOUNTER → 2024-01-06 11:00 | Outpatient (BNVA) | payer MEDICARE, SELFPAY | PROVIDERS: PCP Family Medicine; Visit Provider Family Medicine | DX: N39.0 Urinary tract infection, site not specified (principal) | CPT/HCPCS: 81000; 87077; 87086; 87184 ==

== ENCOUNTER → 2024-02-10 09:43 | Outpatient (BNVA) | payer MEDICARE, SELFPAY | PROVIDERS: PCP Family Medicine; Visit Provider Family Medicine | DX: N39.0 Urinary tract infection, site not specified (principal) | CPT/HCPCS: 81003; 87077; 87086; 87184 ==

== ENCOUNTER → 2024-04-06 11:13 | Outpatient (BNVA) | payer MEDICARE, SELFPAY | PROVIDERS: PCP Family Medicine; Visit Provider Family Medicine | DX: Z00.00 Encounter for general adult medical examination without abnormal findings (principal); R35.0 Frequency of micturition; I10 Essential (primary) hypertension; E03.9 Hypothyroidism, unspecified; D64.9 Anemia, unspecified; Z71.6 Tobacco abuse counseling; R39.11 Hesitancy of micturition | CPT/HCPCS: 80053; 80061; 81003; 84443; 85025; 87086 ==

== ENCOUNTER → 2024-06-01 12:01 | Outpatient (BNVA) | payer MEDICARE, SELFPAY | PROVIDERS: PCP Family Medicine; Visit Provider Family Medicine | DX: N39.0 Urinary tract infection, site not specified (principal); R39.11 Hesitancy of micturition | CPT/HCPCS: 81000; 81015; 87086 ==

== ENCOUNTER → 2024-07-06 11:37 | Outpatient (BNVA) | payer MEDICARE, SELFPAY | PROVIDERS: PCP Family Medicine; Visit Provider Family Medicine | DX: R31.9 Hematuria, unspecified (principal) | CPT/HCPCS: 81003; 87086 ==

== ENCOUNTER → 2024-08-03 10:19 | Outpatient (BNVA) | payer MEDICARE, SELFPAY | PROVIDERS: PCP Family Medicine; Visit Provider Nurse Practitioner Family | DX: R31.9 Hematuria, unspecified (principal); N39.0 Urinary tract infection, site not specified | CPT/HCPCS: 81000; 87086 ==

== ENCOUNTER 2024-08-05 08:20 | Oncology outpatient (recurring) (ONCR) | payer MEDICARE, SELFPAY ==
[2024-08-05 09:10] LABS: Basophils % 0.4 %; Eosinophils # 0.1 10^3/uL (0.0-0.8); Eosinophils % 2.3 %; Lymphocytes # 1.4 10^3/uL (0.8-4.8); Lymphocytes % 28.9 %; Mean Corpuscular HGB Conc 29.6 g/dL (30-55); Mean Corpuscular Hemoglobin 28.5 pg (27-33); Mean Corpuscular Volume 96.5 fl (85-98); Mean Platelet Volume 10.1 fL (7.4-10.4); Monocytes # 0.4 10^3/uL (0.2-0.9); Monocytes % 8.3 %; Neutrophils % 59.9 %; Nucleated Red Blood Cells % 0 %; Platelet Count 181 10^3/cmm (157-399); Red Blood Count 4.87 10^6/uL (3.85-5.65); Red Cell Distribution Width 15.1 % (12.1-15.1); White Blood Count 4.84 10^3/uL (3.29-11.43)
[2024-08-05 09:26] LABS: Alanine Aminotransferase 10 U/L (0-33); Albumin Level 4.2 g/dL (3.5-5.2); Alkaline Phosphatase 93 U/L (35-105); Anion Gap 14.3 (5-19); Aspartate Amino Transferase 17 U/L (0-32); Blood Urea Nitrogen 22 mg/dL (8-23); Calcium 9.1 mg/dL (8.5-10.5); Carbon Dioxide 21 mmol/L (22-29); Chloride 109 mmol/L (98-107); Creatinine Clr Calc Pharmacy 40.6311; Glomerular Filtration Rate 40.5 mL/min (90-130); Glucose 67 mg/dL (65-115); Osmolality Calculated 292 mOsm/kg (285-295); Potassium 4.3 mmol/L (3.5-5.1); Sodium 140 mmol/L (136-145); Total Bilirubin 0.3 mg/dL (0.15-1.2); Total Protein 8.2 g/dL (6.6-8.7)
== END 2024-08-18 23:59 | disposition home or self-care (01) ==
PROVIDERS: PCP Family Medicine; Visit Provider Internal Medicine Hematology & Oncology
DX: Z53.9 Procedure and treatment not carried out, unspecified reason (principal); C53.8 Malignant neoplasm of overlapping sites of cervix uteri; R31.9 Hematuria, unspecified; R32 Unspecified urinary incontinence; R30.0 Dysuria; Z92.21 Personal history of antineoplastic chemotherapy; Z92.3 Personal history of irradiation; F17.210 Nicotine dependence, cigarettes, uncomplicated
CPT/HCPCS: 36415; 80053; 85025; 99214

== ENCOUNTER → 2024-09-14 10:45 | Outpatient (BNVA) | payer MEDICARE, SELFPAY | PROVIDERS: PCP Nurse Practitioner Family; Visit Provider Nurse Practitioner Family | DX: M25.512 Pain in left shoulder (principal) | CPT/HCPCS: 73030 ==

== ENCOUNTER 2024-09-21 06:00 | Outpatient (RCR) | payer MEDICARE, SELFPAY | END 2024-10-18 23:59 | disposition home or self-care (01) | LOC: TPT 06:00 | PROVIDERS: PCP Nurse Practitioner Family; Visit Provider Nurse Practitioner Family | DX: M25.519 Pain in unspecified shoulder (principal) | CPT/HCPCS: 97162 ==

== ENCOUNTER → 2024-10-21 14:11 | Outpatient (BNVA) | payer MEDICARE, SELFPAY | PROVIDERS: PCP Nurse Practitioner Family; Visit Provider Nurse Practitioner Family | DX: R05.9 Cough, unspecified (principal) | CPT/HCPCS: 87400; 87426 ==

== ENCOUNTER → 2025-02-01 12:16 | Outpatient (BNVA) | payer MEDICARE, SELFPAY | PROVIDERS: PCP Nurse Practitioner Family; Visit Provider Nurse Practitioner Family | DX: E03.9 Hypothyroidism, unspecified (principal) | CPT/HCPCS: 80061; 84443 ==

== ENCOUNTER 2025-02-03 08:05 | Oncology outpatient (recurring) (ONCR) | payer MEDICARE, SELFPAY ==
[2025-02-03 08:29] LABS: Basophils % 0.6 %; Eosinophils # 0.1 10^3/uL (0.0-0.8); Eosinophils % 1.9 %; Lymphocytes # 1.4 10^3/uL (0.8-4.8); Lymphocytes % 20.6 %; Mean Corpuscular HGB Conc 31.4 g/dL (30-55); Mean Corpuscular Hemoglobin 28.4 pg (27-33); Mean Corpuscular Volume 90.3 fl (85-98); Mean Platelet Volume 9.6 fL (7.4-10.4); Monocytes # 0.6 10^3/uL (0.2-0.9); Monocytes % 9.2 %; Neutrophils # 4.52 10^3/uL (1.8-7.7); Neutrophils % 67.4 %; Nucleated Red Blood Cells % 0 %; Platelet Count 183 10^3/cmm (157-399); Red Blood Count 4.65 10^6/uL (3.85-5.65); Red Cell Distribution Width 16.2 % (12.1-15.1); White Blood Count 6.71 10^3/uL (3.29-11.43)
[2025-02-03 08:46] LABS: Alanine Aminotransferase 11 U/L (0-33); Albumin Level 4.3 g/dL (3.5-5.2); Alkaline Phosphatase 92 U/L (35-105); Anion Gap 14.2 (5-19); Aspartate Amino Transferase 18 U/L (0-32); Blood Urea Nitrogen 20 mg/dL (8-23); Calcium 9.2 mg/dL (8.5-10.5); Carbon Dioxide 25 mmol/L (22-29); Chloride 108 mmol/L (98-107); Globulin 3.6 g/dL (1.3-4.6); Glucose 88 mg/dL (65-115); Lactate Dehydrogenase 134 U/L (135-214); Osmolality Calculated 298 mOsm/kg (285-295); Potassium 4.2 mmol/L (3.5-5.1); Sodium 143 mmol/L (136-145); Total Bilirubin 0.3 mg/dL (0.15-1.2); Total Protein 7.9 g/dL (6.6-8.7)
== END 2025-02-15 23:59 | disposition home or self-care (01) ==
PROVIDERS: Internal Medicine Hematology & Oncology; PCP Nurse Practitioner Family; Visit Provider Internal Medicine Medical Oncology
DX: Z08 Encounter for follow-up examination after completed treatment for malignant neoplasm (principal); Z85.41 Personal history of malignant neoplasm of cervix uteri; Z92.3 Personal history of irradiation; N32.9 Bladder disorder, unspecified; Z72.0 Tobacco use; Z71.6 Tobacco abuse counseling; Z92.21 Personal history of antineoplastic chemotherapy
CPT/HCPCS: 36415; 80053; 83615; 85025; 99214

== ENCOUNTER → 2025-04-06 11:43 | Outpatient (BNVA) | payer MEDICARE, SELFPAY | PROVIDERS: PCP Nurse Practitioner Family; Visit Provider Nurse Practitioner Family | DX: Z91.89 Other specified personal risk factors, not elsewhere classified (principal) | CPT/HCPCS: 86003; 86008; 86618; 86666; 86757 ==

== ENCOUNTER 2025-05-04 09:27 | Outpatient (CLI) | payer MEDICARE, SELFPAY ==
--- NOTE | 2025-05-04 09:36 | MM_ITS ---
WS: [id number] BILATERAL SCREENING DIGITAL TOMOSYNTHESIS MAMMOGRAM WITH CAD HISTORY: SCREENING COMPARISON: None available. Bilateral CC and MLO views with tomosynthesis and synthetic mammography submitted. Computer aided detection analyzed. Breast composition: The breasts are heterogeneously dense, which may obscure small masses. No suspicious masses, microcalcifications or architectural distortion. Numerous scattered round calcifications and arterial calcifications. Asymmetries within each breast. No suspicious mass or grouping of calcification. MM/MM [facility] tomosynthesis [id number] IMPRESSION: BI-RADS: 2 - Benign FOLLOW UP: 1 Year Follow-up
== END 2025-05-04 09:28 | disposition home or self-care (01) ==
LOC: RAD 09:29
PROVIDERS: PCP Nurse Practitioner Family; Visit Provider Family Medicine
DX: Z12.31 Encounter for screening mammogram for malignant neoplasm of breast (principal); R92.333 Mammographic heterogeneous density, bilateral breasts; R92.1 Mammographic calcification found on diagnostic imaging of breast; N64.89 Other specified disorders of breast
CPT/HCPCS: 77063; 77067

== ENCOUNTER → 2025-05-25 11:30 | Outpatient (BNVA) | payer MEDICARE, SELFPAY | PROVIDERS: PCP Nurse Practitioner Family; Visit Provider Nurse Practitioner Family | DX: N39.0 Urinary tract infection, site not specified (principal) | CPT/HCPCS: 85007; 85027 ==

== ENCOUNTER → 2025-05-26 10:54 | Outpatient (BNVA) | payer MEDICARE, SELFPAY | PROVIDERS: PCP Nurse Practitioner Family; Visit Provider Nurse Practitioner Family | DX: R39.11 Hesitancy of micturition (principal) | CPT/HCPCS: 87086 ==

== ENCOUNTER 2025-06-12 14:51 | Oncology outpatient (recurring) (ONCR) | payer MEDICARE, SELFPAY ==
--- NOTE | 2025-06-12 14:45 | US_ITS ---
WS: [id number] Limited abdomen ultrasound. HISTORY: Patient with colostomy in the LEFT lower quadrant. Evaluate for possible LEFT abdominal wall hernia. Ultrasound is directed to the LEFT abdominal wall, above the colostomy site. There is no soft tissue mass identified. No herniation of bowel loop. There is a large parastomal fat-containing hernia noted on a prior CT from 10/16/2023. US/US abdomen limited [id number] IMPRESSION: 1. No parastomal hernia identified by ultrasound. 2. There was a large fat-containing parastomal hernia described on 10/16/2023 C T. For further evaluation consider follow-up CT abdomen and pelvis if further e valuation for fat-containing parastomal hernia is necessary.
== END 2025-06-18 23:59 | disposition home or self-care (01) ==
PROVIDERS: PCP Nurse Practitioner Family; Visit Provider Internal Medicine Medical Oncology
DX: Z08 Encounter for follow-up examination after completed treatment for malignant neoplasm (principal); Z85.41 Personal history of malignant neoplasm of cervix uteri; Z92.3 Personal history of irradiation; N32.9 Bladder disorder, unspecified; Z72.0 Tobacco use; Z71.6 Tobacco abuse counseling; Z92.21 Personal history of antineoplastic chemotherapy; Z93.3 Colostomy status
CPT/HCPCS: 76705

== ENCOUNTER 2025-07-10 13:17 | Outpatient (CLI) | payer MEDICARE, SELFPAY ==
--- NOTE | 2025-07-10 14:00 | CT_ITS ---
WS: [id number] CT ABDOMEN AND PELVIS WITH CONTRAST HISTORY: K43.5 - Parastomal hernia without obstruction or gangrene TECHNIQUE: Imaging performed of the abdomen and pelvis with IV contrast. Single phase imaging of the abdomen. Coronal and sagittal reformats are submitted. All CT scans at [facility] use at least one of these dose optimization techniques: automated exposure control; mA and/or kV adjustment per patient size (includes targeted exams where dose is matched to clinical indication); or iterative reconstruction. IV CONTRAST: Omnipaque 350; 100 mL IV. Oral contrast: Yes. DLP: 499.75 mGy.cm COMPARISON: 10/16/2023 Lower thorax: Mild dependent changes at the lung bases. Heart is normal size. Small hiatal hernia. Liver/biliary system: Normal size with no intrahepatic dilatation. Gallbladder: Status post cholecystectomy. Pancreas: Normal size pancreas and pancreatic duct. No adjacent inflammation. Spleen: Normal size spleen. No mass or infarct. Adrenal glands: Normal. Right kidney: Diffuse atrophy. Kidney measures 7.6 cm in length with diffuse cortical thinning. There is a small amount of air in the RIGHT renal pelvis which is probably related to the double pigtail ureteral stent. Cortical cyst lower pole. Left kidney: Normal. Aorta: Moderate atherosclerosis with no aneurysm. Lymphadenopathy: None. Free fluid: None. GI tract: Normal stomach. No small bowel obstruction. Partial colectomy. LEFT lower quadrant ostomy site. There is a large parastomal hernia containing a loop of nondilated small bowel and omental fat. No GI tract obstruction. Abdominal wall: See GI tract. Pelvis: No free fluid or adenopathy within the pelvis. Nondistended urinary bladder. RIGHT ureteral stent with distal pigtail coiled in the urinary bladder. Bones: Mild increase in the lumbar lordosis. CT/CT abdomen pelvis w con* [id number] IMPRESSION: 1. Status post distal colectomy with LEFT lower quadrant colostomy. No colosto my obstruction. 2. Large parastomal hernia containing fat and a loop of nondilated small bowel . 3. Double-pigtail RIGHT ureteral stent remains in good position. The proximal pigtail is coiled just external to the central renal pelvis. 4. Severe atrophy RIGHT kidney with diffuse cortical thinning is new since . Resolved hydronephrosis. 5. Prior cholecystectomy.
[2025-07-10 15:03] LABS: Blood Urea Nitrogen 17 mg/dL (8-23)
== END 2025-07-10 13:18 | disposition home or self-care (01) ==
LOC: RAD 13:17
PROVIDERS: PCP Nurse Practitioner Family; Visit Provider Nurse Practitioner Family
DX: K43.5 Parastomal hernia without obstruction or gangrene (principal); Z93.3 Colostomy status; K44.9 Diaphragmatic hernia without obstruction or gangrene; R91.8 Other nonspecific abnormal finding of lung field; N28.1 Cyst of kidney, acquired; Z90.49 Acquired absence of other specified parts of digestive tract; N26.1 Atrophy of kidney (terminal)
CPT/HCPCS: 74177; 82565; 84520

== ENCOUNTER → 2025-08-02 11:54 | Outpatient (BNVA) | payer MEDICARE, SELFPAY | PROVIDERS: PCP Nurse Practitioner Family; Visit Provider Nurse Practitioner Family | DX: I10 Essential (primary) hypertension (principal); E03.9 Hypothyroidism, unspecified; N13.30 Unspecified hydronephrosis | CPT/HCPCS: 80053; 80061; 80069; 84443; 85025 ==

== ENCOUNTER 2025-08-07 12:52 | Oncology outpatient (recurring) (ONCR) | payer MEDICARE, SELFPAY | END 2025-08-18 23:59 | disposition home or self-care (01) | PROVIDERS: PCP Nurse Practitioner Family; Visit Provider Internal Medicine Medical Oncology | DX: Z08 Encounter for follow-up examination after completed treatment for malignant neoplasm (principal); Z85.41 Personal history of malignant neoplasm of cervix uteri; F17.210 Nicotine dependence, cigarettes, uncomplicated; K43.5 Parastomal hernia without obstruction or gangrene; Z92.3 Personal history of irradiation; Z92.21 Personal history of antineoplastic chemotherapy; Z95.828 Presence of other vascular implants and grafts; Z93.3 Colostomy status | CPT/HCPCS: 99214 ==

== ENCOUNTER → 2025-08-14 11:00 | Outpatient (BNVA) | payer MEDICARE, SELFPAY | PROVIDERS: PCP Nurse Practitioner Family; Visit Provider Nurse Practitioner Family | DX: C53.8 Malignant neoplasm of overlapping sites of cervix uteri (principal) | CPT/HCPCS: 80053; 85025 ==

== ENCOUNTER → 2025-09-06 10:52 | Outpatient (BNVA) | payer MEDICARE, SELFPAY | PROVIDERS: PCP Nurse Practitioner Family; Visit Provider Nurse Practitioner Family | DX: C53.8 Malignant neoplasm of overlapping sites of cervix uteri (principal) | CPT/HCPCS: 80053; 85025 ==